=== PATIENT | female | born 1950 | race Caucasian/White ===

== ENCOUNTER → 2017-09-22 08:27 | Outpatient (CLI) | payer MEDICARE, SELFPAY ==
[2017-09-22 10:51] LABS: AST(SGOT) 17 U/L (15-37); Alanine Aminotransfer ALT/SGPT 16 U/L (13-56); Albumin, Serum 3.6 g/dL (3.2-5.0); Alkaline Phosphatase 77 U/L (45-117); Anion Gap 9 (5-15); BUN 11 mg/dL (7-18); BUN/Creat Ratio 17.7 RATIO (10-20); Bilirubin, Direct 0.07 mg/dL (0.00-0.30); Calcium,Total 8.8 mg/dL (8.5-10.1); Chloride 103 mmol/L (98-107); Cholesterol 150 mg/dL (200); Creatinine, Serum 0.62 mg/dL (0.55-1.02); EST Glomerular Filtration Rate 102 mL/min (>60); Est Glom Filt Rate - Afr Amer 123 mL/min (>60); Globulin 3.7 g/dL (2.2-4.2); Glucose 91 mg/dL (74-106); High Density Lipoprotein 53 mg/dL; Potassium 3.8 mmol/L (3.5-5.1); Protein, Total 7.3 g/dL (6.4-8.2); Sodium Level 141 mmol/L (136-145); Thyroid Stim Hormone (TSH) 7.82 uIU/mL (0.358-3.74); Triglycerides 97 mg/dL; Very Low Density Lipoprotein 19 mg/dL (5-40)
== END ==
PROVIDERS: Family Provider Family Medicine; PCP Family Medicine; Visit Provider Family Medicine
DX: E11.9 Type 2 diabetes mellitus without complications (principal); E03.9 Hypothyroidism, unspecified
CPT/HCPCS: 36415; 80048; 80061; 80076; 84443

== ENCOUNTER → 2018-01-13 09:28 | Outpatient (CLI) | payer MEDICARE, SELFPAY ==
[2018-01-13 12:32] LABS: Hemoglobin A1c 7.4 % (4.2-6.3)
[2018-01-13 12:37] LABS: Anion Gap 7 (5-15); BUN 15 mg/dL (7-18); BUN/Creat Ratio 20.2 RATIO (10-20); Calcium,Total 9.4 mg/dL (8.5-10.1); Chloride 103 mmol/L (98-107); Creatinine, Serum 0.74 mg/dL (0.55-1.02); EST Glomerular Filtration Rate 83 mL/min (>60); Est Glom Filt Rate - Afr Amer 100 mL/min (>60); Glucose 93 mg/dL (74-106); Potassium 4.3 mmol/L (3.5-5.1); Sodium Level 141 mmol/L (136-145); Thyroid Stim Hormone (TSH) 0.14 uIU/mL (0.358-3.74)
== END ==
PROVIDERS: Family Provider Family Medicine; PCP Family Medicine; Visit Provider Family Medicine
DX: E11.9 Type 2 diabetes mellitus without complications (principal); E03.9 Hypothyroidism, unspecified
CPT/HCPCS: 36415; 80048; 83036; 84443

== ENCOUNTER 2018-05-30 08:57 | Inpatient (IN) | payer MEDICARE, SELFPAY ==
[2018-05-30] VITALS (12 sets, daily range): BP systolic 104–129; BP diastolic 51–76; PULSE 78–112; RESP 16–20; TEMP 36.7–37.1; O2SAT 94–97; BMI 27.3; BMI 26.4
--- NOTE | 2018-05-30 09:08 | EKG12_ITS ---
Test Reason : Blood Pressure : / mmHG Vent. Rate : 104 BPM Atrial Rate : 104 BPM P-R Int : 120 ms QRS Dur : 076 ms QT Int : 498 ms P-R-T Axes : 050 069 079 degrees QTc Int : 654 ms Sinus tachycardia Nonspecific T wave abnormality Prolonged QT Abnormal ECG Confirmed by FILI EASLEY, BRAYAN ([id number]), features editor THOMAS MCFARLANE ([id number]) on 06/02/2018 2:41:01 PM Referred By: Sanya Justin Confirmed By:BRAYAN PENN MD
--- NOTE | 2018-05-30 09:08 | RAD_ITS ---
STUDY: X-RAY CHEST REASON FOR EXAM: Female, 67 years old. Shortness of breath. Left-sided chest pain. COPD. TECHNIQUE: Single AP portable view of the chest. COMPARISON: Comparison is made with prior study dated February 23, 2016. FINDINGS: Hyperinflation. Once again, there is evidence of increased interstitial markings in both lungs worse in the lower lobes with areas of confluence. This is suggestive of chronic interstitial scarring. Since prior study, there has been a progression of increased markings with areas of confluence in the left midlung. Superimposed infiltration cannot be ruled out. Follow-up is recommended. There is no demonstrated pleural abnormality. Normal size heart. Normal mediastinum and mathew. Normal visualized pulmonary arteries. There is atherosclerotic calcification of the aortic arch with tortuosity. Normal visualized thoracic spine. Normal visualized ribs, clavicles, and shoulders. There is no demonstrated abnormality of the visualized soft tissue structures of the upper abdomen. RAD/Chest 1 View (Portable) IMPRESSION: Hyperinflation. Findings suggestive of a chronic pulmonary scarring with increased markings in the left mid lung suggestive of possible superimposed infiltrate. Follow-up is recommended. Electronically Signed: Ashvin Rodriguez MD at 9:32 EST Tel [phone], Service support ,
[2018-05-30] MEDS: Albuterol 2.5 MG/3 ML VIAL.NEB. INHALATION ×3 (09:37)
[2018-05-30] MEDS: Ipratropium/Albuterol Sulfate 3 ML AMPUL.NEB INHALATION ×2 (09:37→15:01)
[2018-05-30 09:43] LABS: Basophil# 0.03 X10^3/uL; Eosinophil# 0.07 X10^3/uL; Hematocrit 36.5 % (37-47); Hemoglobin 11.9 g/dl (12.0-15.0); Lymphocyte # 0.66 X10^3/ul (4.0); Mean Corp Hgb Conc 32.6 g/gl (32-36); Mean Corpuscular Hgb 30.4 pg (27.0-32.0); Mean Corpuscular Volume 93.1 fL (81-99); Mean Platelet Vol. 9.3 fl (6.2-12.0); Monocyte# 0.82 X10^3/uL; Neutrophil # 12.58 X10^3/uL (2.7-7.7); Platelet Count 251 K/mm3 (150-450); RBC Distribution Width CV 12.8 % (11.6-14.6); RBC Distribution Width SD 42.7 fl (35.1-43.9); Red Blood Count 3.92 M/mm3 (4.2-5.4); White Blood Count 14.2 K/mm3 (4.4-11.0)
[2018-05-30] MEDS: MethylPREDNISolone 125 MG/2 ML Vial IV (09:45)
[2018-05-30] MEDS: 0.9% Normal Saline 1,000 ML 150 ML IV (09:45)
[2018-05-30 09:47] LABS: Differential Indicated SCAN CRITERIA MET; POSITIVE COUNT NO; POSITIVE DIFFERENTIAL NO; POSITIVE MORPHOLOGY YES
[2018-05-30 09:52] LABS: BUN 13 mg/dL (7-18); Creatinine, Serum 0.71 mg/dL (0.55-1.02); Glucose 150 mg/dL (74-106)
[2018-05-30 09:53] LABS: Anion Gap 10 (5-15); BUN/Creat Ratio 18.3 RATIO (10-20); Calcium,Total 8.9 mg/dL (8.5-10.1); Chloride 99 mmol/L (98-107); EST Glomerular Filtration Rate 87 mL/min (>60); Est Glom Filt Rate - Afr Amer 105 mL/min (>60); Estimated Creatinine Clearance 49.12 ml/min; Potassium 3.6 mmol/L (3.5-5.1); Sodium Level 137 mmol/L (136-145)
[2018-05-30 09:56] LABS: Lymphocyte 5 % (19-41); Monocyte 2 % (0-10); Neutrophil-Band 2 % (0-5); Neutrophil-Segmented 89 % (47-70); Plasma Cell 2 %; Platelet Estimate ADEQUATE (ADEQ); Red Cell Morphology NORM C+C NORMAL (NORM C&C); Total Cells Counted 100 (MANUAL DIFF)
[2018-05-30 09:58] LABS: Absolute Neutrophil Count 12.9 X10^3/uL (2.0-7.7); Scan Smear per Review Criteria MANUAL DIFF
[2018-05-30 09:59] LABS: Absolute Lymphocyte Count 0.71 X10^3/ul (0.83-4.51)
[2018-05-30 10:03] LABS: Lactic Acid 1.1 mmol/L (0.4-2.0)
[2018-05-30] MEDS: Ceftriaxone 1 GM/50 ML BAG IV (10:13)
[2018-05-30] MEDS: fentaNYL 100 MCG/2 ML Ampul 50 MCG IV (10:24)
[2018-05-30 10:34] LABS: D-Dimer Quantitative (DVT/PE) 1.35 FEU/ug/m (0.27-0.49)
--- NOTE | 2018-05-30 10:34 | CT_ITS ---
STUDY: CTA CHEST REASON FOR EXAM: Female, 67 years old. Chest pain. COPD. Elevated d-dimer. RADIATION DOSAGE (If Supplied By Facility): CTDIvol = ( 6.91 ) mGy, DLP = ( 273.38 ) mGycm TECHNIQUE: The examination was performed with the intravenous administration of 100ml ml of Isovue 370 contrast material. Post-processing of the angiographic images was performed, with multiplanar reformation and 3D reconstruction. Individualized dose optimization techniques were used for this CT. COMPARISON: Comparison is made with prior chest radiograph done earlier in the day. FINDINGS: Normal enhancement of the main pulmonary artery and right and left pulmonary arteries. Normal enhancement of the bilateral peripheral pulmonary arteries. There is no demonstrated pulmonary embolism. There is atherosclerotic calcification of the aortic arch with tortuosity. There is no demonstrated aortic dissection. Normal heart and pericardium. There are visualized mediastinal lymph nodes, which are within normal size limits, and with normal morphology. Small bilateral hilar lymph nodes. Normal visualized trachea and bronchi. Hyperinflation. Diffuse emphysematous changes with cystic formation worse in the upper lobes. Irregular infiltrate in the anterior aspect of the left upper lobe with areas of bronchiectasis suggestive of a chronic scarring. Mild increased markings along the posterior aspect of the left upper lobe abutting the left major fissure suggesting scarring. This also evidence of a bronchiectasis at that site. Increased interstitial markings in the lower lobes worse in the posterior medial segment of the left lower lobe with bronchiectasis. Normal pleura. Normal chest wall structures. There are degenerative changes of thoracic spine. Normal visualized upper abdomen. CT/CTA Chest W/WO Contrast IMPRESSION: Diffuse emphysematous changes with areas of focal scarring and bronchiectasis in the anterior left upper lobe and posterior segment of the left lower lobe. Electronically Signed: Ashvin Rodriguez MD at 11:38 EST Tel [phone], Service support ,
--- NOTE | 2018-05-30 10:37 | ED.RN ---
ddimer 1.[address] lab. dr butt aware
--- NOTE | 2018-05-30 12:13 | NURSING ---
DR MAT BOWER
--- NOTE | 2018-05-30 12:22 | ED.VISSUMM ---
- ER Visit Summary Date of Service: 05/30/18 Chief Complaint: ['s of breath] History of Present Illness: The patient is a 67 F [presents to the emergency department complaint of shortness of breath that started 2 weeks ago. Patient's had a productive cough that is green yellow and brown at times. Patient complained of exertional dyspnea. She has not had any fever. Patient complains of a lot of discomfort in her left chest with breathing and cough. Patient denies recent travel or surgery. Patient does have a history of COPD and normally wears 2 L nasal cannula O2. Patient denies any sick contacts.] Physical Examination: [HEENT-PERRLA, EOMI. Cranial nerves II through XII grossly intact. TMs clear. Mucous membranes moist. No adenopathy. Cardiovascular-regular rate and rhythm without murmur or ectopy Lungs-diminished breath sounds bilaterally with expiratory wheezes throughout. Mild tachypnea. No accessory muscle use or retractions. No significant conversational dyspnea. Abdomen-normoactive bowel sounds, soft, nontender, no rebound or rigidity, no peritoneal signs. Extremities-intact ?4, normal range of motion, normal pulses, atraumatic] Test Results: [EKG obtained arrival shows sinus tachycardia with a ventricular rate of 104 bpm with some nonspecific ST changes. CBC with differential showed a white count of 14.2, hemoglobin 11.9, hematocrit 36, platelets 251. Chemistries unremarkable. D-dimer was elevated at over 1.5 therefore a CTA of the chest was obtained which showed no evidence for PE or dissection. She had COPD-like changes and bronchiectasis.] Emergency Department Course and Treatment: [Patient was started on DuoNeb aerosol and Solu-Medrol. Patient was started on Rocephin and Zithromax. Blood cultures were ordered.] Treatment Plan: [Patient will be admitted] Disposition: [Admit] Impression: [Community acquired pneumonia COPD exacerbation] This note was generated with Chinese Online dictation software. It may contain incorrect words, spelling, and punctuation that were not noted in review of the chart prior to signing ED Disposition - Plan for ED Patient: Chief Complaint: Shortness of Breath Referrals: Parish Christianson MD [Primary Care Provider] -
[2018-05-30 13:50] LABS: Bedside Glucose 244 mg/dL (70-110)
[2018-05-30] MEDS: Insulin Lispro 100 UNIT/ML INSULN.PEN SQ ×2 (15:27→22:17)
[2018-05-30 15:36] LABS: Bedside Glucose 328 mg/dL (70-110)
--- NOTE | 2018-05-30 16:01 | PCM.HP.STD ---
Problem List (1) COPD with acute exacerbation Status: Chronic (2) SIRS (systemic inflammatory response syndrome) Status: Acute History of Present Illness Date of Admission: 05/30/18 Chief Complaint: shortness of breath. The patient is a 67 year old F resents with progressive increasing shortness of breath. Patient has short of breath and coughing. Patient has been coughing up some phlegm. Patient does have similar symptoms similar to prior episodes of exacerbation of her COPD. So patient decided come to the emergency room and had a CAT scan of her chest that showed some cortical bronchiectasis. In the emergency room, patient received aerosols, Solu-Medrol and antibiotics. No segment change in her status at this point in time. [] Past Medical History Past Medical History (Chronic Problems): Chronic Problems COPD with acute exacerbation (Chronic) Chronic obstructive lung disease (Chronic) DM type 2 (diabetes mellitus, type 2) (Chronic) Tobacco user (Chronic) Trigeminal nerve disorder (Chronic) Rheumatoid arthritis (Chronic) diagnosed by Dr. Jennings Chronic respiratory failure with hypoxia (Chronic) Allergies morphine Allergy (Verified 05/30/18 08:58) Anaphylaxis Penicillins Allergy (Verified 05/30/18 08:58) Rash codeine Adverse Reaction (Severe, Verified 05/30/18 08:58) Other TACHYCARDIA bupropion [From Wellbutrin] Adverse Reaction (Verified 05/30/18 08:58) Other TREMOR erythromycin base [Erythromycin Base] Adverse Reaction (Verified 05/30/18 08:58) Upset Stomach Home Medications: Ambulatory Orders Medication Instructions Recorded Cholecalciferol (Vitamin D3) 1,000 unit PO DAILY 01/15/14 [Vitamin D3] Fluticasone 0.05% [Flonase Nasal 2 spray NASAL DAILY 01/15/14 [place]] Levothyroxine [Synthroid] 125 mcg PO DAILY 01/15/14 Metformin HCl [Glucophage] 1,000 mg PO BIDCM 01/15/14 Montelukast [Singulair] 10 mg PO DAILY 01/15/14 Multivitamins,Therapeutic 1 tablet PO DAILY 01/15/14 [Multivitamin] Potassium Chloride [K-Tab ER] 10 meq PO DAILY 01/15/14 Albuterol Inhaler [Ventolin Hfa] 2 puff INHALATION Q4H PRN PRN #1 02/14/15 inhaler Fluticasone/Salmeterol [Advair Hfa 2 puff INHALATION BID #1 inhaler 02/14/15 230-21 Mcg Inhaler] Tiotropium [place] [Spiriva 18 MCG] 1 puff INHALATION DAILY #1 inhaler 02/14/15 Insulin Aspart [Novolog Flexpen] 0 units SC TIDCM 02/23/16 Clonazepam [Klonopin] 0.5 mg PO Q12H #60 tablet 02/26/16 Ipratropium/Albuterol Sulfate 3 ml INHALATION 4X/DAY #120 02/26/16 [Duoneb] ampul.neb Celecoxib [Celebrex] 200 mg PO DAILY 05/30/18 Insulin Glargine [Lantus (BKC)] 20 units SC DAILY 05/30/18 Surgical History: cholecystectomy, hysterectomy, - - biopsy of a mass between her lungs that was negative, Carpal tunnel release on the left, Leep procedure for an abnormal pap Psychiatric History: No pertinent psych hx DIETARY SERVICES DIRECTOR History: No pertinent DIETARY SERVICES DIRECTOR history Smoking Status: Current every day smoker Tobacco Use: Cigarettes - *Family History Sibling History Items: Heart Disease Maternal History Items: Cancer - mother had breast cancer, Diabetes - in [place] and aunts on the maternal side Paternal History Items: Heart Disease Review of Systems Constitutional: Reports: Chills. Denies: Anorexia, Fever Eyes: Denies: Blurred vision, Double vision HEENT: Denies: Head Aches, Sinus Congestion, Sinus Drainage Cardiovascular: Denies: Chest Pain, Palpitations Respiratory: Reports: Cough, Shortness of Breath, Wheezing Gastrointestinal: Denies: Abdominal Pain, Nausea, Vomiting Genitourinary: Denies: Dysuria Musculoskeletal: Denies: Joint Pain, Joint Tenderness Skin: Reports: Wounds - Does have a burn on her left lateral hand from making a pie, -. Denies: Rash Neurological: Denies: Numbness, Tingling, Focal weakness Psychiatric: Denies: Anxiety, Depression Endocrine: Reports: Change in Body Habitus - Has lost around 15 pounds recently, Heat/ Cold Intolerance Hematologic/ Lymphatic: Denies: Easy Bruising, Easy Bleeding, Hx of blood clot Comment: A 10 point review of systems were negative except as mentioned in the history of present illness and the other review of systems. VTE Information - Inpt Only VTE Present on Admission: No VTE Pharm Prophylaxis ordered?: Yes Patient Problems: Active and Suspected Problems SIRS (systemic inflammatory response syndrome) (Acute) - Physical Exam General: Alert, Cooperative, No apparent distress HEENT: Atraumatic, Normocephalic Oral: Moist Mucosa, - - Whitish exudates on the soft palate and tonsillar recesses. Neck: No Nodes, Thyroid Normal Size and Texture Lungs: Diminished, Wheezes Cardiovascular: Regular rate, Regular Rhythm, Normal S1, Normal S2, No murmurs Abdomen: Bowel Sounds Present, Soft, Non Tender, Non-Distended Extremities: No edema, No Calf Tenderness Skin: No rashes, - - Superficial burn over her dorsal left MTP no surrounding erythema nor discharge Musculoskeletal: No Tenderness to Palpation of Joints or Extremities, No Muscle Wasting Neurological: Muscle tone normal, Sensory exam intact to light touch and pain Psych/Mental Status: Normal Affect, Appropriate Vital Signs Temp Pulse Resp BP Pulse Ox 37.1 C 88 20 H 108/55 L 95 05/30/18 15:29 05/30/18 15:29 05/30/18 15:29 05/30/18 15:29 05/30/18 15:29 Oxygen Flow Rate (L/min) 3 Oxygen Delivery Method Nasal Cannula Weight: 72.12 kg Body Mass Index (BMI) 26.4 Laboratory Tests Past 24 Hrs 05/30/18 05/30/18 05/30/18 09:23 09:23 09:23 WBC 14.2 H RBC 3.92 L Hgb 11.9 L Hct 36.5 L MCV 93.1 MCH 30.4 MCHC 32.6 RDW 12.8 RDW Differential 42.7 Plt Count 251 MPV 9.3 Immature Gran % (Auto) SPECTROGRAPHER Neut % (Auto) SPECTROGRAPHER Lymph % (Auto) SPECTROGRAPHER [place] % (Auto) SPECTROGRAPHER Eos % (Auto) SPECTROGRAPHER Baso % (Auto) SPECTROGRAPHER Absolute Neuts (auto) 12.9 H Absolute Lymphs (auto) 0.71 L Total Counted 100 Neutrophils % (Manual) 89 H Band Neutrophils % 2 Lymphocytes % (Manual) 5 L Monocytes % (Manual) 2 Plasma Cell % (Manual) 2 Platelet Estimate ADEQUATE RBC Morphology NORM C+C D-Dimer Quant (PE/DVT) Sodium 137 Potassium 3.6 Chloride 99 Carbon Dioxide 28.0 Anion Gap 10 BUN 13 Creatinine 0.71 Estim Creat Clear Calc 49.12 Est GFR (MDRD) Af Amer 105 Est GFR (MDRD) Non-Af 87 BUN/Creatinine Ratio 18.3 Glucose 150 H Lactic Acid 1.1 Calcium 8.9 Troponin I < 0.015 05/30/18 09:23 WBC RBC Hgb Hct MCV MCH MCHC RDW RDW Differential Plt Count MPV Immature Gran % (Auto) Neut % (Auto) Lymph % (Auto) [place] % (Auto) Eos % (Auto) Baso % (Auto) Absolute Neuts (auto) Absolute Lymphs (auto) Total Counted Neutrophils % (Manual) Band Neutrophils % Lymphocytes % (Manual) Monocytes % (Manual) Plasma Cell % (Manual) Platelet Estimate RBC Morphology D-Dimer Quant (PE/DVT) 1.35 H* Sodium Potassium Chloride Carbon Dioxide Anion Gap BUN Creatinine Estim Creat Clear Calc Est GFR (MDRD) Af Amer Est GFR (MDRD) Non-Af BUN/Creatinine Ratio Glucose Lactic Acid Calcium Troponin I POC Glucose 05/30/18 05/30/18 15:25 13:40 POC Glucose 328 H 244 H Clinical Impression(s) from Imaging Studies Chest X-Ray 05/30/18 09:08 IMPRESSION: Hyperinflation. Findings suggestive of a chronic pulmonary scarring with increased markings in the left mid lung suggestive of possible superimposed infiltrate. Follow-up is recommended. Electronically Signed: Ashvin Rodriguez MD at 9:32 EST Tel [phone], Service support , Chest CTA 05/30/18 10:34 IMPRESSION: Diffuse emphysematous changes with areas of focal scarring and bronchiectasis in the anterior left upper lobe and posterior segment of the left lower lobe. Electronically Signed: Ashvin Rodriguez MD at 11:38 EST Tel [phone], Service support , Assessment/Plan All Active Problems SIRS (systemic inflammatory response syndrome) (Acute) Acute exacerbation of chronic obstructive pulmonary disease (Acute) 1. Acute exacerbation of COPD Steroids, bronchodilators If no improvement, consult pulmonology. Patient's home grounding engineer is Dr. Salcedo 2. Systemic inflammatory response syndrome No definitive infection at this time Follow-up cultures as well as antigens for Streptococcus and Legionella Continue with coverage for pneumococcal pneumonia with azithromycin and Rocephin at this time. Respiratory viral panel also ordered 3. DVT prophylaxis with Lovenox Tobacco cessation. Spent 50 minutes discussing tobacco cessation with the patient and her . This is outside of the physical. Discussed the risk of further worsening of her COPD but if she were to stop, that she would hopefully prevent progression of her COPD. Did advise for her to quit smoking that her should quit as well. She stated that he has no interest in quitting since he has been smoking since he was 12 years old. Code Visit Inpatient E&M: 73070 Init Hosp L3 Procedures: Other Procedure - See Report - 75529
--- NOTE | 2018-05-30 16:05 | HP.PCM_ITS ---
Problem List (1) COPD with acute exacerbation Status: Chronic (2) SIRS (systemic inflammatory response syndrome) Status: Acute History of Present Illness Date of Admission: 05/30/18 Chief Complaint: shortness of breath. The patient is a 67 year old F resents with progressive increasing shortness of breath. Patient has short of breath and coughing. Patient has been coughing up some phlegm. Patient does have similar symptoms similar to prior episodes of exacerbation of her COPD. So patient decided come to the emergency room and had a CAT scan of her chest that showed some cortical bronchiectasis. In the emergency room, patient received aerosols, Solu-Medrol and antibiotics. No segment change in her status at this point in time. [] Past Medical History Past Medical History (Chronic Problems): Chronic Problems COPD with acute exacerbation (Chronic) Chronic obstructive lung disease (Chronic) DM type 2 (diabetes mellitus, type 2) (Chronic) Tobacco user (Chronic) Trigeminal nerve disorder (Chronic) Rheumatoid arthritis (Chronic) diagnosed by Dr. Jennings Chronic respiratory failure with hypoxia (Chronic) Allergies morphine Allergy (Verified 05/30/18 08:58) Anaphylaxis Penicillins Allergy (Verified 05/30/18 08:58) Rash codeine Adverse Reaction (Severe, Verified 05/30/18 08:58) Other TACHYCARDIA bupropion [From Wellbutrin] Adverse Reaction (Verified 05/30/18 08:58) Other TREMOR erythromycin base [Erythromycin Base] Adverse Reaction (Verified 05/30/18 08:58) Upset Stomach Home Medications: Ambulatory Orders Medication Instructions Recorded Cholecalciferol (Vitamin D3) 1,000 unit PO DAILY 01/15/14 [Vitamin D3] Fluticasone 0.05% [Flonase Nasal 2 spray NASAL DAILY 01/15/14 [place]] Levothyroxine [Synthroid] 125 mcg PO DAILY 01/15/14 Metformin HCl [Glucophage] 1,000 mg PO BIDCM 01/15/14 Montelukast [Singulair] 10 mg PO DAILY 01/15/14 Multivitamins,Therapeutic 1 tablet PO DAILY 01/15/14 [Multivitamin] Potassium Chloride [K-Tab ER] 10 meq PO DAILY 01/15/14 Albuterol Inhaler [Ventolin Hfa] 2 puff INHALATION Q4H PRN PRN #1 02/14/15 inhaler Fluticasone/Salmeterol [Advair Hfa 2 puff INHALATION BID #1 inhaler 02/14/15 230-21 Mcg Inhaler] Tiotropium [place] [Spiriva 18 MCG] 1 puff INHALATION DAILY #1 inhaler 02/14/15 Insulin Aspart [Novolog Flexpen] 0 units SC TIDCM 02/23/16 Clonazepam [Klonopin] 0.5 mg PO Q12H #60 tablet 02/26/16 Ipratropium/Albuterol Sulfate 3 ml INHALATION 4X/DAY #120 02/26/16 [Duoneb] ampul.neb Celecoxib [Celebrex] 200 mg PO DAILY 05/30/18 Insulin Glargine [Lantus (BKC)] 20 units SC DAILY 05/30/18 Surgical History: cholecystectomy, hysterectomy, - - biopsy of a mass between her lungs that was negative, Carpal tunnel release on the left, Leep procedure for an abnormal pap Psychiatric History: No pertinent psych hx 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 Denies: Anorexia, Fever Eyes: Denies: Blurred vision, Double vision HEENT: Denies: Head Aches, Sinus Congestion, Sinus Drainage Cardiovascular: Denies: Chest Pain, Palpitations Respiratory: Reports: Cough, Shortness of Breath, Wheezing Gastrointestinal: Denies: Abdominal Pain, Nausea, Vomiting Genitourinary: Denies: Dysuria Musculoskeletal: Denies: Joint Pain, Joint Tenderness Skin: Reports: Wounds - Does have a burn on her left lateral hand from making a pie, -. Denies: Rash Neurological: Denies: Numbness, Tingling, Focal weakness Psychiatric: Denies: Anxiety, Depression Endocrine: Reports: Change in Body Habitus - Has lost around 15 pounds recently, Heat/ Cold Intolerance Hematologic/ Lymphatic: Denies: Easy Bruising, Easy Bleeding, Hx of blood clot Comment: A 10 point review of systems were negative except as mentioned in the history of present illness and the other review of systems. VTE Information - Inpt Only VTE Present on Admission: No VTE Pharm Prophylaxis ordered?: Yes Patient Problems: Active and Suspected Problems SIRS (systemic inflammatory response syndrome) (Acute) - Physical Exam General: Alert, Cooperative, No apparent distress HEENT: Atraumatic, Normocephalic Oral: Moist Mucosa, - - Whitish exudates on the soft palate and tonsillar recesses. Neck: No Nodes, Thyroid Normal Size and Texture Lungs: Diminished, Wheezes Cardiovascular: Regular rate, Regular Rhythm, Normal S1, Normal S2, No murmurs Abdomen: Bowel Sounds Present, Soft, Non Tender, Non-Distended Extremities: No edema, No Calf Tenderness Skin: No rashes, - - Superficial burn over her dorsal left MTP no surrounding erythema nor discharge Musculoskeletal: No Tenderness to Palpation of Joints or Extremities, No Muscle Wasting Neurological: Muscle tone normal, Sensory exam intact to light touch and pain Psych/Mental Status: Normal Affect, Appropriate Vital Signs Temp Pulse Resp BP Pulse Ox 37.1 C 88 20 H 108/55 L 95 05/30/18 15:29 05/30/18 15:29 05/30/18 15:29 05/30/18 15:29 05/30/18 15:29 Oxygen Flow Rate (L/min) 3 Oxygen Delivery Method Nasal Cannula Weight: 72.12 kg Body Mass Index (BMI) 26.4 Laboratory Tests Past 24 Hrs 05/30/18 05/30/18 05/30/18 09:23 09:23 09:23 WBC 14.2 H RBC 3.92 L Hgb 11.9 L Hct 36.5 L MCV 93.1 MCH 30.4 MCHC 32.6 RDW 12.8 RDW Differential 42.7 Plt Count 251 MPV 9.3 Immature Gran % (Auto) SURGICAL DRESSING MAKER Neut % (Auto) SURGICAL DRESSING MAKER Lymph % (Auto) SURGICAL DRESSING MAKER [place] % (Auto) SURGICAL DRESSING MAKER Eos % (Auto) SURGICAL DRESSING MAKER Baso % (Auto) SURGICAL DRESSING MAKER Absolute Neuts (auto) 12.9 H Absolute Lymphs (auto) 0.71 L Total Counted 100 Neutrophils % (Manual) 89 H Band Neutrophils % 2 Lymphocytes % (Manual) 5 L Monocytes % (Manual) 2 Plasma Cell % (Manual) 2 Platelet Estimate ADEQUATE RBC Morphology NORM C+C D-Dimer Quant (PE/DVT) Sodium 137 Potassium 3.6 Chloride 99 Carbon Dioxide 28.0 Anion Gap 10 BUN 13 Creatinine 0.71 Estim Creat Clear Calc 49.12 Est GFR (MDRD) Af Amer 105 Est GFR (MDRD) Non-Af 87 BUN/Creatinine Ratio 18.3 Glucose 150 H Lactic Acid 1.1 Calcium 8.9 Troponin I < 0.015 05/30/18 09:23 WBC RBC Hgb Hct MCV MCH MCHC RDW RDW Differential Plt Count MPV Immature Gran % (Auto) Neut % (Auto) Lymph % (Auto) [place] % (Auto) Eos % (Auto) Baso % (Auto) Absolute Neuts (auto) Absolute Lymphs (auto) Total Counted Neutrophils % (Manual) Band Neutrophils % Lymphocytes % (Manual) Monocytes % (Manual) Plasma Cell % (Manual) Platelet Estimate RBC Morphology D-Dimer Quant (PE/DVT) 1.35 H* Sodium Potassium Chloride Carbon Dioxide Anion Gap BUN Creatinine Estim Creat Clear Calc Est GFR (MDRD) Af Amer Est GFR (MDRD) Non-Af BUN/Creatinine Ratio Glucose Lactic Acid Calcium Troponin I POC Glucose 05/30/18 05/30/18 15:25 13:40 POC Glucose 328 H 244 H Clinical Impression(s) from Imaging Studies Chest X-Ray 05/30/18 09:08 IMPRESSION: Hyperinflation. Findings suggestive of a chronic pulmonary scarring with increased markings in the left mid lung suggestive of possible superimposed infiltrate. Follow-up is recommended. Electronically Signed: Ashvin Rodriguez MD at 9:32 EST Tel [phone], Service support , Chest CTA 05/30/18 10:34 IMPRESSION: Diffuse emphysematous changes with areas of focal scarring and bronchiectasis in the anterior left upper lobe and posterior segment of the left lower lobe. Electronically Signed: Ashvin Rodriguez MD at 11:38 EST Tel [phone], Service support , Assessment/Plan All Active Problems SIRS (systemic inflammatory response syndrome) (Acute) Acute exacerbation of chronic obstructive pulmonary disease (Acute) 1. Acute exacerbation of COPD * Steroids, bronchodilators * If no improvement, consult pulmonology. Patient's home airport shuttle driver is Dr. Salcedo 2. Systemic inflammatory response syndrome * No definitive infection at this time * Follow-up cultures as well as antigens for Streptococcus and Legionella * Continue with coverage for pneumococcal pneumonia with azithromycin and Rocephin at this time. * Respiratory viral panel also ordered 3. DVT prophylaxis with Lovenox Tobacco cessation. Spent 50 minutes discussing tobacco cessation with the patient and her . This is outside of the physical. Discussed the risk of further worsening of her COPD but if she were to stop, that she would hopefully prevent progression of her COPD. Did advise for her to quit smoking that her should quit as well. She stated that he has no interest in quitting since he has been smoking since he was 12 years old. Code Visit Inpatient E&M: 84851 Init Hosp L3 Procedures: Other Procedure - See Report - [id number]
[2018-05-30] MEDS: Glucerna Shake 120 ML LIQUID PO (17:06)
[2018-05-30] MEDS: Acetaminophen 325 MG Tablet 650 MG PO (18:22)
[2018-05-30] MEDS: Pantoprazole Sodium 40 MG Tablet PO (21:42)
[2018-05-30] MEDS: guaiFENesin 1,200 MG Tablet 1200 MG PO (21:42)
[2018-05-30 21:55] LABS: Bedside Glucose 393 mg/dL (70-110)
[2018-05-31] VITALS (11 sets, daily range): BP systolic 99–118; BP diastolic 53–58; PULSE 51–94; RESP 16–20; TEMP 36.4–36.7; O2SAT 94–98
[2018-05-31] MEDS: clonazePAM 0.5 MG Tablet PO ×2 (01:42→22:06)
[2018-05-31] MEDS: Acetaminophen 325 MG Tablet 650 MG PO ×3 (01:42→22:06)
[2018-05-31] MEDS: Ipratropium/Albuterol Sulfate 3 ML AMPUL.NEB INHALATION ×6 (02:00→22:38)
[2018-05-31 06:00] LABS: Absolute Lymphocyte Count 0.74 X10^3/ul (0.83-4.51); Absolute Neutrophil Count 8.7 X10^3/uL (2.0-7.7); Basophil# 0.01 X10^3/uL; Basophil% 0.1 % (0-1); Hematocrit 33.1 % (37-47); Hemoglobin 10.6 g/dl (12.0-15.0); Lymphocyte # 0.74 X10^3/ul (4.0); Lymphocyte % 7.6 % (19-41); Mean Corpuscular Hgb 29.7 pg (27.0-32.0); Mean Corpuscular Volume 92.7 fL (81-99); Mean Platelet Vol. 9.8 fl (6.2-12.0); Monocyte# 0.32 X10^3/uL; Monocyte% 3.3 % (0-10); Neutrophil # 8.67 X10^3/uL (2.7-7.7); Neutrophil % 88.5 % (47-70); Platelet Count 230 K/mm3 (150-450); RBC Distribution Width CV 12.9 % (11.6-14.6); Red Blood Count 3.57 M/mm3 (4.2-5.4); White Blood Count 9.8 K/mm3 (4.4-11.0)
[2018-05-31 06:07] LABS: POSITIVE COUNT NO; POSITIVE DIFFERENTIAL NO; POSITIVE MORPHOLOGY NO
[2018-05-31] MEDS: Levothyroxine 125 MCG Tablet PO (06:12)
[2018-05-31] MEDS: 0.9% NaCl Peripheral Flush Adult/Peds IV ×4 (06:13→22:14)
[2018-05-31 06:18] LABS: Anion Gap 9 (5-15); BUN 19 mg/dL (7-18); BUN/Creat Ratio 29.2 RATIO (10-20); Calcium,Total 8.4 mg/dL (8.5-10.1); Chloride 101 mmol/L (98-107); Creatinine, Serum 0.65 mg/dL (0.55-1.02); EST Glomerular Filtration Rate 97 mL/min (>60); Est Glom Filt Rate - Afr Amer 117 mL/min (>60); Estimated Creatinine Clearance 49.12 ml/min; Glucose 248 mg/dL (74-106); Potassium 4.2 mmol/L (3.5-5.1); Sodium Level 138 mmol/L (136-145)
[2018-05-31] MEDS: Pantoprazole Sodium 40 MG Tablet PO ×2 (07:46→22:06)
[2018-05-31] MEDS: Montelukast 10 MG Tablet PO (07:46)
[2018-05-31] MEDS: guaiFENesin 1,200 MG Tablet 1200 MG PO ×2 (07:47→22:06)
[2018-05-31] MEDS: Multivitamins,Therapeutic Tablet 1 TABLET PO (07:47)
[2018-05-31] MEDS: Fluticasone 0.05% 1 SPRAY NASAL.SRY 2 SPRAY NASAL (07:49)
[2018-05-31] MEDS: Glucerna Shake 120 ML LIQUID PO ×3 (07:52→16:20)
[2018-05-31] MEDS: Insulin Lispro 100 UNIT/ML INSULN.PEN SQ ×4 (07:53→22:08)
[2018-05-31 08:01] LABS: Bedside Glucose 289 mg/dL (70-110)
--- NOTE | 2018-05-31 09:14 | PCM.PN.HOSP ---
Patient Problems: Active and Suspected Problems COPD with acute exacerbation (Acute) SIRS (systemic inflammatory response syndrome) (Acute) Subjective: Feeling better. Still coughing coughing up yellow phlegm. Vitals/I&O's: Vital Signs Temp Pulse Resp BP Pulse Ox 36.4 C L 77 18 105/57 L 98 05/31/18 07:41 05/31/18 07:41 05/31/18 07:41 05/31/18 07:41 05/31/18 07:41 Oxygen Flow Rate (L/min) 3 Oxygen Delivery Method Nasal Cannula Weight: 72.12 kg Body Mass Index (BMI) 26.4 Intake and Output for Last 24 Hours 05/29/18 05/30/18 05/31/18 23:59 23:59 23:59 Intake Total 550 / 550 240 / 240 Output Total 400 / 400 Balance 150 / 150 240 / 240 General: Alert, No apparent distress HEENT: Atraumatic, Normocephalic Oral: Moist Mucosa, No Gingival or Mucosal Lesions/ Ulcerations Neck: No Nodes, Thyroid Normal Size and Texture Lungs: Diminished, Wheezes Cardiovascular: Regular rate, Regular Rhythm, Normal S1, Normal S2, No murmurs Abdomen: Bowel Sounds Present, Soft, Non Tender, Non-Distended, No Hepato-splenomegaly Extremities: No edema, No Calf Tenderness Skin: No rashes, No breakdown Psych/Mental Status: Normal Affect, Appropriate Microbiology Past 72 Hours 05/30/18 15:15 Sputum, Expectorated/Coughed Gram Stain - Final 05/30/18 15:00 Mucosa - Nose Respiratory Panel (PCR) - Final 05/30/18 17:45 Urine, Clean Catch Legionella Antigen - Final 05/30/18 17:45 Urine, Clean Catch Streptococcus pneumoniae Antigen (M - Final Laboratory Results 05/30/18 09:23: WBC 14.2 H, RBC 3.92 L, Hgb 11.9 L, Hct 36.5 L, MCV 93.1, MCH 30.4, MCHC 32.6, RDW 12.8, RDW Differential 42.7, Plt Count 251, MPV 9.3, Immature Gran % (Auto) PROMOTIONS MANAGER, Neut % (Auto) PROMOTIONS MANAGER, Lymph % (Auto) PROMOTIONS MANAGER, [place] % (Auto) PROMOTIONS MANAGER, Eos % (Auto) PROMOTIONS MANAGER, Baso % (Auto) PROMOTIONS MANAGER, Absolute Neuts (auto) 12.9 H, Absolute Lymphs (auto) 0.71 L, Total Counted 100, Neutrophils % (Manual) 89 H, Band Neutrophils % 2, Lymphocytes % (Manual) 5 L, Monocytes % (Manual) 2, Plasma Cell % (Manual) 2, Platelet Estimate ADEQUATE, RBC Morphology NORM C+C 05/30/18 09:23: Sodium 137, Potassium 3.6, Chloride 99, Carbon Dioxide 28.0, Anion Gap 10, BUN 13, Creatinine 0.71, Estim Creat Clear Calc 49.12, Est GFR (MDRD) Af Amer 105, Est GFR (MDRD) Non-Af 87, BUN/Creatinine Ratio 18.3, Glucose 150 H, Calcium 8.9, Troponin I < 0.015 05/30/18 09:23: Lactic Acid 1.1 05/30/18 09:23: D-Dimer Quant (PE/DVT) 1.35 H* 05/30/18 13:40: POC Glucose 244 H 05/30/18 15:25: POC Glucose 328 H 05/30/18 21:40: POC Glucose 393 H 05/31/18 05:16: WBC 9.8, RBC 3.57 L, Hgb 10.6 L, Hct 33.1 L, MCV 92.7, MCH 29.7, MCHC 32.0, RDW 12.9, RDW Differential 44.0 H, Plt Count 230, MPV 9.8, Immature Gran % (Auto) 0.500, Neut % (Auto) 88.5 H, Lymph % (Auto) 7.6 L, [place] % (Auto) 3.3, Eos % (Auto) 0.0, Baso % (Auto) 0.1, Absolute Neuts (auto) 8.7 H, Absolute Lymphs (auto) 0.74 L, Total Counted Not Reportable 05/31/18 05:16: Sodium 138, Potassium 4.2, Chloride 101, Carbon Dioxide 28.0, Anion Gap 9, BUN 19 H, Creatinine 0.65, Estim Creat Clear Calc 49.12, Est GFR (MDRD) Af Amer 117, Est GFR (MDRD) Non-Af 97, BUN/Creatinine Ratio 29.2 H, Glucose 248 H, Calcium 8.4 L 05/31/18 07:37: POC Glucose 289 H Current Medications Acetaminophen (Tylenol) 650 mg PO Q6H PRN PRN PRN Reason: Mild Pain (1-3)/Temp > 100.7 F Last Admin: 05/31/18 01:42 Dose: 650 mg Albuterol Sulfate (Ventolin Aerosols) 2.5 mg INHALATION Q2H PRN PRN PRN Reason: SHORTNESS OF BREATH Albuterol/Ipratropium (Duoneb) 3 ml INHALATION Q4H.RT [facility] Last Admin: 05/31/18 07:00 Dose: 3 ml Cholecalciferol (Vitamin D) 1,000 unit PO DAILYCM [facility] Last Admin: 05/31/18 07:46 Dose: 1,000 unit Clonazepam (Klonopin) 0.5 mg PO Q12H PRN PRN Reason: ANXIETY Last Admin: 05/31/18 01:42 Dose: 0.5 mg Dextrose (D50w Syringe) 0 gm IV X1 PRN; Protocol PRN Reason: Hypoglycemia Enoxaparin Sodium (Lovenox) 40 mg SC DAILY@1000 RAMÓN Fluticasone Propionate (Flonase Nasal [place]) 2 spray NASAL DAILY [facility] Last Admin: 05/31/18 07:49 Dose: 2 spray Glucagon () 1 mg IM .X1 PRN PRN Reason: Hypoglycemia Guaifenesin (Mucinex) 1,200 mg PO BID [facility] Last Admin: 05/31/18 07:47 Dose: 1,200 mg Azithromycin 500 mg/ Dextrose 255 mls @ 250 mls/hr IV Q24 [facility] Stop: 06/02/18 11:02 Ceftriaxone Sodium (Rocephin) 1 gm in 50 mls @ 100 mls/hr IV Q24 [facility] Insulin Glargine (Lantus (Bkc)) 20 units SC DAILY [facility] Last Admin: 05/31/18 07:54 Dose: 20 u Insulin Human Lispro (Humalog Kwikpen (Bkc)) 0 unit SQ ACHS [facility]; Protocol Last Admin: 05/31/18 07:53 Dose: 4 units Levothyroxine Sodium (Synthroid) 125 mcg PO DAILY@0600 [facility] Last Admin: 05/31/18 06:12 Dose: 125 mcg Magnesium Hydroxide (Milk Of Magnesia) 30 ml PO DAILY PRN PRN PRN Reason: Constipation Methylprednisolone (Solu-Medrol) 40 mg IV Q8 [facility] Last Admin: 11/14/18 06:12 Dose: 40 mg Montelukast Sodium (Singulair) 10 mg PO DAILY [facility] Last Admin: 05/31/18 07:46 Dose: 10 mg [facility]it[facility] ([facility]) [facility] Last Admin: 05/31/18 07:47 Dose: 1 tablet Nutritional Formula (Lactose Free) (Glucerna Shake) 120 ml PO TIDCM [facility] Last Admin: 05/31/18 07:52 Dose: 120 ml Ondansetron HCl (Zofran) 4 mg IV Q8H PRN PRN PRN Reason: NAUSEA Pantoprazole Sodium (Protonix) 40 mg PO BID [facility] Last Admin: 05/31/18 07:46 Dose: 40 mg Potassium Chloride (K-Dur) 10 meq PO DAILYCM [facility] Last Admin: 05/31/18 07:47 Dose: 10 meq Sodium Chloride () 5 - 30 ml IV UD PRN PRN Reason: SALINE FLUSH Last Admin: 05/31/18 06:13 Dose: 10 ml Medical Necessity - Tobacco Use Smoking Status: Current every day smoker Tobacco Use: Cigarettes Assessment/Plan All Active Problems COPD with acute exacerbation (Acute) SIRS (systemic inflammatory response syndrome) (Acute) Acute exacerbation of chronic obstructive pulmonary disease (Acute) 1. Acute exacerbation of COPD improving Steroids, bronchodilators 2. Systemic inflammatory response syndrome No definitive infection at this time Follow-up cultures as well as antigens for Streptococcus and Legionella Continue with coverage for pneumococcal pneumonia with azithromycin and Rocephin at this time. Respiratory viral panel, Strep and legionella antigens negative 3. DVT prophylaxis with Lovenox 4. Disposition: anticipate another 24-48 hours here in the hospital. Code Visit Inpatient E&M: 10444 Subs Hosp L2
--- NOTE | 2018-05-31 09:17 | PN_ITS ---
Patient Problems: Active and Suspected Problems COPD with acute exacerbation (Acute) SIRS (systemic inflammatory response syndrome) (Acute) Subjective: Feeling better. Still coughing coughing up yellow phlegm. Vitals/I&O's: Vital Signs Temp Pulse Resp BP Pulse Ox 36.4 C L 77 18 105/57 L 98 05/31/18 07:41 05/31/18 07:41 05/31/18 07:41 05/31/18 07:41 05/31/18 07:41 Oxygen Flow Rate (L/min) 3 Oxygen Delivery Method Nasal Cannula Weight: 72.12 kg Body Mass Index (BMI) 26.4 Intake and Output for Last 24 Hours 05/29/18 05/30/18 05/31/18 23:59 23:59 23:59 Intake Total 550 / 550 240 / 240 Output Total 400 / 400 Balance 150 / 150 240 / 240 General: Alert, No apparent distress HEENT: Atraumatic, Normocephalic Oral: Moist Mucosa, No Gingival or Mucosal Lesions/ Ulcerations Neck: No Nodes, Thyroid Normal Size and Texture Lungs: Diminished, Wheezes Cardiovascular: Regular rate, Regular Rhythm, Normal S1, Normal S2, No murmurs Abdomen: Bowel Sounds Present, Soft, Non Tender, Non-Distended, No Hepato- splenomegaly Extremities: No edema, No Calf Tenderness Skin: No rashes, No breakdown Psych/Mental Status: Normal Affect, Appropriate Microbiology Past 72 Hours 05/30/18 15:15 Sputum, Expectorated/Coughed Gram Stain - Final 05/30/18 15:00 Mucosa - Nose Respiratory Panel (PCR) - Final 05/30/18 17:45 Urine, Clean Catch Legionella Antigen - Final 05/30/18 17:45 Urine, Clean Catch Streptococcus pneumoniae Antigen (M - Final Laboratory Results 05/30/18 09:23: WBC 14.2 H, RBC 3.92 L, Hgb 11.9 L, Hct 36.5 L, MCV 93.1, MCH 30.4, MCHC 32.6, RDW 12.8, RDW Differential 42.7, Plt Count 251, MPV 9.3, Immature Gran % (Auto) TRAIN STATION SERVER, Neut % (Auto) TRAIN STATION SERVER, Lymph % (Auto) TRAIN STATION SERVER, [place] % (Auto) TRAIN STATION SERVER, Eos % (Auto) TRAIN STATION SERVER, Baso % (Auto) TRAIN STATION SERVER, Absolute Neuts (auto) 12.9 H, Absolute Lymphs (auto) 0.71 L, Total Counted 100, Neutrophils % (Manual) 89 H, Band Neutrophils % 2, Lymphocytes % (Manual) 5 L, Monocytes % (Manual) 2, Plasma Cell % (Manual) 2, Platelet Estimate ADEQUATE, RBC Morphology NORM C+C 05/30/18 09:23: Sodium 137, Potassium 3.6, Chloride 99, Carbon Dioxide 28.0, Anion Gap 10, BUN 13, Creatinine 0.71, Estim Creat Clear Calc 49.12, Est GFR (MDRD) Af Amer 105, Est GFR (MDRD) Non-Af 87, BUN/Creatinine Ratio 18.3, Glucose 150 H, Calcium 8.9, Troponin I < 0.015 05/30/18 09:23: Lactic Acid 1.1 05/30/18 09:23: D-Dimer Quant (PE/DVT) 1.35 H* 05/30/18 13:40: POC Glucose 244 H 05/30/18 15:25: POC Glucose 328 H 05/30/18 21:40: POC Glucose 393 H 05/31/18 05:16: WBC 9.8, RBC 3.57 L, Hgb 10.6 L, Hct 33.1 L, MCV 92.7, MCH 29.7, MCHC 32.0, RDW 12.9, RDW Differential 44.0 H, Plt Count 230, MPV 9.8, Immature Gran % (Auto) 0.500, Neut % (Auto) 88.5 H, Lymph % (Auto) 7.6 L, [place] % (Auto) 3.3, Eos % (Auto) 0.0, Baso % (Auto) 0.1, Absolute Neuts (auto) 8.7 H, Absolute Lymphs (auto) 0.74 L, Total Counted Not Reportable 05/31/18 05:16: Sodium 138, Potassium 4.2, Chloride 101, Carbon Dioxide 28.0, Anion Gap 9, BUN 19 H, Creatinine 0.65, Estim Creat Clear Calc 49.12, Est GFR (MDRD) Af Amer 117, Est GFR (MDRD) Non-Af 97, BUN/Creatinine Ratio 29.2 H, Glucose 248 H, Calcium 8.4 L 05/31/18 07:37: POC Glucose 289 H Current Medications Acetaminophen (Tylenol) 650 mg PO Q6H PRN PRN PRN Reason: Mild Pain (1-3)/Temp > 100.7 F Last Admin: 05/31/18 01:42 Dose: 650 mg Albuterol Sulfate (Ventolin Aerosols) 2.5 mg INHALATION Q2H PRN PRN PRN Reason: SHORTNESS OF BREATH Albuterol/Ipratropium (Duoneb) 3 ml INHALATION Q4H.RT [facility] Last Admin: 05/31/18 07:00 Dose: 3 ml Cholecalciferol (Vitamin D) 1,000 unit PO DAILYCM [facility] Last Admin: 05/31/18 07:46 Dose: 1,000 unit Clonazepam (Klonopin) 0.5 mg PO Q12H PRN PRN Reason: ANXIETY Last Admin: 05/31/18 01:42 Dose: 0.5 mg Dextrose (D50w Syringe) 0 gm IV X1 PRN; Protocol PRN Reason: Hypoglycemia Enoxaparin Sodium (Lovenox) 40 mg SC DAILY@1000 RAMÓN Fluticasone Propionate (Flonase Nasal [place]) 2 spray NASAL DAILY [facility] Last Admin: 05/31/18 07:49 Dose: 2 spray Glucagon () 1 mg IM .X1 PRN PRN Reason: Hypoglycemia Guaifenesin (Mucinex) 1,200 mg PO BID [facility] Last Admin: 05/31/18 07:47 Dose: 1,200 mg Azithromycin 500 mg/ Dextrose 255 mls @ 250 mls/hr IV Q24 [facility] Stop: 06/02/18 11:02 Ceftriaxone Sodium (Rocephin) 1 gm in 50 mls @ 100 mls/hr IV Q24 [facility] Insulin Glargine (Lantus (Bkc)) 20 units SC DAILY [facility] Last Admin: 05/31/18 07:54 Dose: 20 u Insulin Human Lispro (Humalog Kwikpen (Bkc)) 0 unit SQ ACHS [facility]; Protocol Last Admin: 05/31/18 07:53 Dose: 4 units Levothyroxine Sodium (Synthroid) 125 mcg PO DAILY@0600 [facility] Last Admin: 05/31/18 06:12 Dose: 125 mcg Magnesium Hydroxide (Milk Of Magnesia) 30 ml PO DAILY PRN PRN PRN Reason: Constipation Methylprednisolone (Solu-Medrol) 40 mg IV Q8 [facility] Last Admin: 11/14/18 06:12 Dose: 40 mg Montelukast Sodium (Singulair) 10 mg PO DAILY [facility] Last Admin: 05/31/18 07:46 Dose: 10 mg [facility]ivit[facility] ([facility]amin) [facility] Last Admin: 05/31/18 07:47 Dose: 1 tablet Nutritional Formula (Lactose Free) (Glucerna Shake) 120 ml PO TIDCM [facility] Last Admin: 05/31/18 07:52 Dose: 120 ml Ondansetron HCl (Zofran) 4 mg IV Q8H PRN PRN PRN Reason: NAUSEA Pantoprazole Sodium (Protonix) 40 mg PO BID [facility] Last Admin: 05/31/18 07:46 Dose: 40 mg Potassium Chloride (K-Dur) 10 meq PO DAILYCM [facility] Last Admin: 05/31/18 07:47 Dose: 10 meq Sodium Chloride () 5 - 30 ml IV UD PRN PRN Reason: SALINE FLUSH Last Admin: 05/31/18 06:13 Dose: 10 ml Medical Necessity - Tobacco Use Smoking Status: Current every day smoker Tobacco Use: Cigarettes Assessment/Plan All Active Problems COPD with acute exacerbation (Acute) SIRS (systemic inflammatory response syndrome) (Acute) Acute exacerbation of chronic obstructive pulmonary disease (Acute) 1. Acute exacerbation of COPD * improving * Steroids, bronchodilators 2. Systemic inflammatory response syndrome * No definitive infection at this time * Follow-up cultures as well as antigens for Streptococcus and Legionella * Continue with coverage for pneumococcal pneumonia with azithromycin and Rocephin at this time. * Respiratory viral panel, Strep and legionella antigens negative 3. DVT prophylaxis with Lovenox 4. Disposition: anticipate another 24-48 hours here in the hospital. Code Visit Inpatient E&M: 65469 Subs Hosp L2
[2018-05-31] MEDS: Enoxaparin 40 MG/0.4 ML Syringe SC (09:22)
[2018-05-31] MEDS: Ceftriaxone 1 GM/50 ML BAG IV (09:22)
--- NOTE | 2018-05-31 11:12 | CPS ---
Using PEP on own
[2018-05-31 12:10] LABS: Bedside Glucose 367 mg/dL (70-110)
--- NOTE | 2018-05-31 12:30 | CASEMGMT ---
Addendum entered by Angelic Alcala 05/31/18 14:16: Pt is independent @ home. Original Note: DINA FLORES INITIAL ASSESSMENT D/C PLAN: Home w/family support and discharge plans in place. Face to Face with patient for initial transition planning/care coordination assessment. DINA FLORES introduced self and role at [facility]. Pt sitting up in bed. Awake/alert/oriented. Willing to participate in assessment and all questions answered appropriately. Care providers, pharmacy, and demographics verified. PCP: Dr Christianson Preferred Pharmacy: [facility] Insurance: [employer] Prescription Benefit: Yes Living Will/HPOA: had HCPOA paperwork done in the past and had listed her youngest daughter at that time. [facility] she has done new HCPOA paperwork where she has her oldest daughter, Carly Bernstein, listed as her HCPOA now, but it is not notarized, and she would like to get it finalized. States she would like to talk to ARIE for assistance with this and for additional paperwork. Referral made to [facility]: Living Arrangements: Lives with her , Mitchell. They live in a one-story home w/8 steps to enter and 11 steps to the basement where she does her laundry. Pt states she is able to navigate the stairs and just takes her time d/t her breathing. Transportation: has her line driver's license but has not driven in a long time. States her usually does all the driving. DME: Has a shower chair, walker, and W/C which she does not use but has available if she would need them. Has grab bars, hand held shower, and nebulizer which she does use. Has oxygen @ 2 L/M N/C that she gets through [employer]. May need walking O2 test completed prior to discharge. HHC/SNF: States has never used HHC or been to a SNF. Denies needs on discharge. Pt wishes to return home. States she does not drink alcohol but that she does still smoke. States is not interested in smoking cessation information. States she does remove/turn off her oxygen when she smokes. Currently is established with [facility]. CM to follow for any further discharge planning needs that may arise. Jarvis OSBORNE RN, CM
--- NOTE | 2018-05-31 13:59 | CASEMGMT ---
SW assisted pt with completing Living Will and POA forms. Copies placed on chart and pt given originals and copies. ROGELIO Conway, ROTARY DRILLER
[2018-05-31 19:06] LABS: Bedside Glucose 361 mg/dL (70-110)
[2018-05-31 22:21] LABS: Bedside Glucose 420 mg/dL (70-110)
[2018-06-01 02:50] VITALS: BP 96/55; PULSE 81; RESP 18; TEMP 36.6; O2SAT 97
[2018-06-01] MEDS: Ipratropium/Albuterol Sulfate 3 ML AMPUL.NEB INHALATION ×3 (02:57→11:34)
[2018-06-01 02:58] VITALS: PULSE 79; RESP 18
[2018-06-01] MEDS: 0.9% NaCl Peripheral Flush Adult/Peds IV ×2 (05:59→09:10)
[2018-06-01] MEDS: Levothyroxine 125 MCG Tablet PO (05:59)
[2018-06-01 07:20] VITALS: PULSE 78; RESP 20; O2SAT 94
[2018-06-01 07:35] LABS: Bedside Glucose 332 mg/dL (70-110)
[2018-06-01] MEDS: Glucerna Shake 120 ML LIQUID PO (08:21)
[2018-06-01] MEDS: Insulin Lispro 100 UNIT/ML INSULN.PEN SQ ×2 (08:23→11:30)
[2018-06-01] MEDS: Enoxaparin 40 MG/0.4 ML Syringe SC (08:27)
[2018-06-01] MEDS: Montelukast 10 MG Tablet PO (08:28)
[2018-06-01] MEDS: guaiFENesin 1,200 MG Tablet 1200 MG PO (08:28)
[2018-06-01] MEDS: Multivitamins,Therapeutic Tablet 1 TABLET PO (08:28)
[2018-06-01] MEDS: Pantoprazole Sodium 40 MG Tablet PO (08:28)
[2018-06-01] MEDS: Fluticasone 0.05% 1 SPRAY NASAL.SRY 2 SPRAY NASAL (08:29)
[2018-06-01 08:40] VITALS: BP 110/51; PULSE 77; RESP 18; TEMP 36.7; O2SAT 93
--- NOTE | 2018-06-01 08:43 | PCM.DC ---
- Discharge Diagnoses Current Active Problems: Current Active and Chronic Problems COPD with acute exacerbation (Acute) SIRS (systemic inflammatory response syndrome) (Acute) You will use the following diet at home:: Calorie/Carbohydrate Controlled (specify 1200, 1400, etc) - 1800 calories/day Your food should be the consistency of: Regular Your liquids should be the consistency of: Regular/Thin Discharge Activity: Return to Normal Activity Call your doctor if you observe: Fever of 101 or Higher, Shortness of breath Instructions: What is COPD?, Discharge Instructions: COPD Additional Instructions: Oxygen at 2liters/minute Allergies/Adverse Reactions: Allergies morphine Allergy (Verified 05/30/18 08:58) Anaphylaxis Penicillins Allergy (Verified 05/30/18 08:58) Rash codeine Adverse Reaction (Severe, Verified 05/30/18 08:58) Other TACHYCARDIA bupropion [From Wellbutrin] Adverse Reaction (Verified 05/30/18 08:58) Other TREMOR erythromycin base [Erythromycin Base] Adverse Reaction (Verified 05/30/18 08:58) Upset Stomach Medications to take at Discharge Cholecalciferol (Vitamin D3) [Vitamin D3] 1,000 unit PO DAILY 01/15/14 Fluticasone 0.05% [Flonase Nasal [place]] 2 spray NASAL DAILY 01/15/14 Levothyroxine [Synthroid] 125 mcg PO DAILY 01/15/14 Montelukast [Singulair] 10 mg PO DAILY 01/15/14 Multivitamins,Therapeutic [Multivitamin] 1 tablet PO DAILY 01/15/14 Potassium Chloride [K-Tab ER] 10 meq PO DAILY 01/15/14 Albuterol Inhaler [Ventolin Hfa] 2 puff INHALATION Q4H PRN PRN #1 inhaler 02/14/15 Fluticasone/Salmeterol [Advair Hfa 230-21 Mcg Inhaler] 2 puff INHALATION BID #1 inhaler 02/14/15 Tiotropium [place] [Spiriva 18 MCG] 1 puff INHALATION DAILY #1 inhaler 02/14/15 Insulin Aspart [Novolog Flexpen] 0 units SC TIDCM 02/23/16 Clonazepam [Klonopin] 0.5 mg PO Q12H #60 tablet 02/26/16 Ipratropium/Albuterol Sulfate [Duoneb] 3 ml INHALATION 4X/DAY #120 ampul.neb 02/26/16 Celecoxib [Celebrex] 200 mg PO DAILY 05/30/18 Azithromycin 500 mg PO DAILY #4 tablet 06/01/18 Guaifenesin [Mucinex] 1,200 mg PO BID #20 tablet 06/01/18 Insulin Aspart [Novolog Flexpen (BKC)] 4 units SC TIDCM #1 flexpen 06/01/18 Insulin Glargine [Lantus SoloStar Pen] 24 units SC DAILY #0 06/01/18 Metformin HCl [Glucophage] 1,000 mg PO BIDCM #0 06/01/18 Prednisone 4 tab PO DAILY #20 tablet 06/01/18 The following prescriptions were given: Azithromycin 500 mg PO DAILY #4 tablet Prednisone 4 tab PO DAILY #20 tablet Guaifenesin [Mucinex] 1,200 mg PO BID #20 tablet Insulin Aspart [Novolog Flexpen (BKC)] 4 units SC TIDCM #1 flexpen Primary Care Physician: Parish Christianson MD [Primary Care Provider] - Within 2 Weeks Test Results: Test results from this visit will be discussed in further detail at your follow-up appointment, if applicable. Proposed Discharge Date: 06/01/18
--- NOTE | 2018-06-01 08:46 | PCM.DC.SUM ---
Discharge Date and Diagnosis - Problem List Patient Problems: Active and Suspected Problems COPD with acute exacerbation (Acute) SIRS (systemic inflammatory response syndrome) (Acute) Date of Admission: 05/30/18 Date of Discharge: 06/01/18 - Primary Discharge Diagnosis Active and Suspected Problems COPD with acute exacerbation (Acute) SIRS (systemic inflammatory response syndrome) (Acute) - Secondary Discharge Diagnosis Chronic Problems Chronic obstructive lung disease (Chronic) DM type 2 (diabetes mellitus, type 2) (Chronic) Tobacco user (Chronic) Trigeminal nerve disorder (Chronic) Rheumatoid arthritis (Chronic) diagnosed by Dr. Jennings Chronic respiratory failure with hypoxia (Chronic) Hospital Course and Treatment Imaging Results: Clinical Impression(s) from Imaging Studies Chest X-Ray 05/30/18 09:08 IMPRESSION: Hyperinflation. Findings suggestive of a chronic pulmonary scarring with increased markings in the left mid lung suggestive of possible superimposed infiltrate. Follow-up is recommended. Electronically Signed: Ashvin Rodriguez MD at 9:32 EST Tel [phone], Service support , Chest CTA 05/30/18 10:34 IMPRESSION: Diffuse emphysematous changes with areas of focal scarring and bronchiectasis in the anterior left upper lobe and posterior segment of the left lower lobe. Electronically Signed: Ashvin Rodriguez MD at 11:38 EST Tel [phone], Service support , Operations: None Procedures: None Summary of Care Provided: The patient is a 67 year old F presents with shortness of breath. Patient diagnosed with acute exacerbation of COPD. Patient also had systemic inflammatory response syndrome and was started on empiric antibiotics with azithromycin and Rocephin. Legionella and streptococcal antigens were negative and respiratory viral workup was negative as well. Given patient's shortness of breath. Patient did have a d-dimer that was elevated. CT angiogram of the chest showed no pulmonary embolism. This patient today is been doing better and so the plan is for the patient to be discharged with 40 mg of prednisone for 5 days, continue with her bronchodilators and patient will receive 4 more doses of azithromycin 500 mg. Patient is type II diabetic and at home her blood sugars range from 170s-250. Here, her blood sugar has been in the 3 and 400s. Spoke with the patient and advised increasing her basal insulin from 20-24 units daily and also to add scheduled NovoLog, 4units plus her sliding scale with meals. I told her this likely will not be sufficient for optimal blood sugar control but least to start to help optimize her blood sugar control. She is advised to follow-up with her primary care doctor in regards to further changes, if necessary to her insulin regimen. It should be noted, patient's metformin was held because she did receive IV contrast of the CT angiogram. The metformin will be able to be resumed on the . [] Patient Problems: Active and Suspected Problems COPD with acute exacerbation (Acute) SIRS (systemic inflammatory response syndrome) (Acute) - Physical Exam General: Alert, Cooperative, No apparent distress HEENT: Atraumatic, Normocephalic Oral: Moist Mucosa, No Gingival or Mucosal Lesions/ Ulcerations Neck: No Nodes, Thyroid Normal Size and Texture Lungs: Clear to auscultation, Diminished, Wheezes - upper respiratory wheezes Cardiovascular: Regular rate, Regular Rhythm, Normal S1, Normal S2, No murmurs Abdomen: Bowel Sounds Present, Soft, Non Tender, Non-Distended, No Hepato-splenomegaly Extremities: No edema, No Calf Tenderness Skin: No rashes, No breakdown Psych/Mental Status: Normal Affect, Appropriate Vital Signs Temp Pulse Resp BP Pulse Ox 36.7 C 77 18 110/51 L 93 06/01/18 08:40 06/01/18 08:40 06/01/18 08:40 06/01/18 08:40 06/01/18 08:40 Oxygen Flow Rate (L/min) 2 Oxygen Delivery Method Nasal Cannula Weight: 72.12 kg Body Mass Index (BMI) 26.4 Intake and Output for Last 24 Hours 05/30/18 05/31/18 06/01/18 23:59 23:59 23:59 Intake Total 550 / 550 1540 / 1540 500 / 500 Output Total 400 / 400 1850 / 1850 600 / 600 Balance 150 / 150 -310 / -310 -100 / -100 Microbiology Past 72 Hours 05/30/18 15:15 Gram Stain - Final Sputum, Expectorated/Coughed Respiratory Culture - Preliminary Appears to be normal respiratory vivian. Further studies to follow. 05/30/18 15:00 Respiratory Panel (PCR) - Final Mucosa - Nose 05/30/18 17:45 Legionella Antigen - Final Urine, Clean Catch 05/30/18 17:45 Streptococcus pneumoniae Antigen (M - Final Urine, Clean Catch POC Glucose 06/01/18 05/31/18 05/31/18 07:30 22:03 16:15 POC Glucose 332 H 420 H 361 H 05/31/18 12:05 POC Glucose 367 H Discharge Diet: 1800 Calorie Control Diet Discharge Activity: Return to Normal Activity Call your doctor if you observe: Fever of 101 or Higher, Shortness of breath Home Medications: Medications to take at Discharge Cholecalciferol (Vitamin D3) [Vitamin D3] 1,000 unit PO DAILY 01/15/14 Fluticasone 0.05% [Flonase Nasal [place]] 2 spray NASAL DAILY 01/15/14 Levothyroxine [Synthroid] 125 mcg PO DAILY 01/15/14 Montelukast [Singulair] 10 mg PO DAILY 01/15/14 Multivitamins,Therapeutic [Multivitamin] 1 tablet PO DAILY 01/15/14 Potassium Chloride [K-Tab ER] 10 meq PO DAILY 01/15/14 Albuterol Inhaler [Ventolin Hfa] 2 puff INHALATION Q4H PRN PRN #1 inhaler 02/14/15 Fluticasone/Salmeterol [Advair Hfa 230-21 Mcg Inhaler] 2 puff INHALATION BID #1 inhaler 02/14/15 Tiotropium [place] [Spiriva 18 MCG] 1 puff INHALATION DAILY #1 inhaler 02/14/15 Insulin Aspart [Novolog Flexpen] 0 units SC TIDCM 02/23/16 Clonazepam [Klonopin] 0.5 mg PO Q12H #60 tablet 02/26/16 Ipratropium/Albuterol Sulfate [Duoneb] 3 ml INHALATION 4X/DAY #120 ampul.neb 02/26/16 Celecoxib [Celebrex] 200 mg PO DAILY 05/30/18 Azithromycin 500 mg PO DAILY #4 tablet 06/01/18 Guaifenesin [Mucinex] 1,200 mg PO BID #20 tablet 06/01/18 Insulin Aspart [Novolog Flexpen (BKC)] 4 units SC TIDCM #1 flexpen 06/01/18 Insulin Glargine [Lantus SoloStar Pen] 24 units SC DAILY #0 06/01/18 Metformin HCl [Glucophage] 1,000 mg PO BIDCM #0 06/01/18 Prednisone 4 tab PO DAILY #20 tablet 06/01/18 Following Prescrptions Were Given to Patient: Azithromycin 500 mg PO DAILY #4 tablet Prednisone 4 tab PO DAILY #20 tablet Guaifenesin [Mucinex] 1,200 mg PO BID #20 tablet Insulin Aspart [Novolog Flexpen (BKC)] 4 units SC TIDCM #1 flexpen Primary Care Physician: Parish Christianson MD [Primary Care Provider] - Within 2 Weeks Patient Instructions: What is COPD?, Discharge Instructions: COPD Disposition: Home Minutes spent on discharge:: 32 Patient Condition:: Good Medical Necessity - Tobacco Use Smoking Status: Current every day smoker Tobacco Use: Cigarettes Meaningful Use Info Meaningful Use Diagnoses (Choose all that apply): None applicable Code Visit Inpatient E&M: 82881 Disch Hosp
--- NOTE | 2018-06-01 08:49 | DS.PCM_ITS ---
Discharge Date and Diagnosis - Problem List Patient Problems: Active and Suspected Problems COPD with acute exacerbation (Acute) SIRS (systemic inflammatory response syndrome) (Acute) Date of Admission: 05/30/18 Date of Discharge: 06/01/18 - Primary Discharge Diagnosis Active and Suspected Problems COPD with acute exacerbation (Acute) SIRS (systemic inflammatory response syndrome) (Acute) - Secondary Discharge Diagnosis Chronic Problems Chronic obstructive lung disease (Chronic) DM type 2 (diabetes mellitus, type 2) (Chronic) Tobacco user (Chronic) Trigeminal nerve disorder (Chronic) Rheumatoid arthritis (Chronic) diagnosed by Dr. Jennings Chronic respiratory failure with hypoxia (Chronic) Hospital Course and Treatment Imaging Results: Clinical Impression(s) from Imaging Studies Chest X-Ray 05/30/18 09:08 IMPRESSION: Hyperinflation. Findings suggestive of a chronic pulmonary scarring with increased markings in the left mid lung suggestive of possible superimposed infiltrate. Follow-up is recommended. Electronically Signed: Ashvin Rodriguez MD at 9:32 EST Tel [phone], Service support , Chest CTA 05/30/18 10:34 IMPRESSION: Diffuse emphysematous changes with areas of focal scarring and bronchiectasis in the anterior left upper lobe and posterior segment of the left lower lobe. Electronically Signed: Ashvin Rodriguez MD at 11:38 EST Tel [phone], Service support , Operations: None Procedures: None Summary of Care Provided: The patient is a 67 year old F presents with shortness of breath. Patient diagnosed with acute exacerbation of COPD. Patient also had systemic inflammatory response syndrome and was started on empiric antibiotics with azithromycin and Rocephin. Legionella and streptococcal antigens were negative and respiratory viral workup was negative as well. Given patient's shortness of breath. Patient did have a d-dimer that was elevated. CT angiogram of the [address] showed no pulmonary embolism. This patient today is been doing better and so the plan is for the patient to be discharged with 40 mg of prednisone for 5 days, continue with her bronchodilators and patient will receive 4 more doses of azithromycin 500 mg. Patient is type II diabetic and at home her blood sugars range from 170s-250. Here, her blood sugar has been in the 3 and 400s. Spoke with the patient and advised increasing her basal insulin from 20-24 units daily and also to add scheduled NovoLog, 4units plus her sliding scale with meals. I told her this likely will not be sufficient for optimal blood sugar control but least to start to help optimize her blood sugar control. She is advised to follow-up with her primary care doctor in regards to further changes, if necessary to her insulin regimen. It should be noted, patient's metformin was held because she did receive IV contrast of the CT angiogram. The metformin will be able to be resumed on the . [] Patient Problems: Active and Suspected Problems COPD with acute exacerbation (Acute) SIRS (systemic inflammatory response syndrome) (Acute) - Physical Exam General: Alert, Cooperative, No apparent distress HEENT: Atraumatic, Normocephalic Oral: Moist Mucosa, No Gingival or Mucosal Lesions/ Ulcerations Neck: No Nodes, Thyroid Normal Size and Texture Lungs: Clear to auscultation, Diminished, Wheezes - upper respiratory wheezes Cardiovascular: Regular rate, Regular Rhythm, Normal S1, Normal S2, No murmurs Abdomen: Bowel Sounds Present, Soft, Non Tender, Non-Distended, No Hepato- splenomegaly Extremities: No edema, No Calf Tenderness Skin: No rashes, No breakdown Psych/Mental Status: Normal Affect, Appropriate Vital Signs Temp Pulse Resp BP Pulse Ox 36.7 C 77 18 110/51 L 93 06/01/18 08:40 06/01/18 08:40 06/01/18 08:40 06/01/18 08:40 06/01/18 08:40 Oxygen Flow Rate (L/min) 2 Oxygen Delivery Method Nasal Cannula Weight: 72.12 kg Body Mass Index (BMI) 26.4 Intake and Output for Last 24 Hours 05/30/18 05/31/18 06/01/18 23:59 23:59 23:59 Intake Total 550 / 550 1540 / 1540 500 / 500 Output Total 400 / 400 1850 / 1850 600 / 600 Balance 150 / 150 -310 / -310 -100 / -100 Microbiology Past 72 Hours 05/30/18 15:15 Gram Stain - Final Sputum, Expectorated/Coughed Respiratory Culture - Preliminary Appears to be normal respiratory vivian. Further studies to follow. 05/30/18 15:00 Respiratory Panel (PCR) - Final Mucosa - Nose 05/30/18 17:45 Legionella Antigen - Final Urine, Clean Catch 05/30/18 17:45 Streptococcus pneumoniae Antigen (M - Final Urine, Clean Catch POC Glucose 06/01/18 05/31/18 05/31/18 07:30 22:03 16:15 POC Glucose 332 H 420 H 361 H 05/31/18 12:05 POC Glucose 367 H Discharge Diet: 1800 Calorie Control Diet Discharge Activity: Return to Normal Activity Call your doctor if you observe: Fever of 101 or Higher, Shortness of breath Home Medications: Medications to take at Discharge Cholecalciferol (Vitamin D3) [Vitamin D3] 1,000 unit PO DAILY 01/15/14 Fluticasone 0.05% [Flonase Nasal [place]] 2 spray NASAL DAILY 01/15/14 Levothyroxine [Synthroid] 125 mcg PO DAILY 01/15/14 Montelukast [Singulair] 10 mg PO DAILY 01/15/14 Multivitamins,Therapeutic [Multivitamin] 1 tablet PO DAILY 01/15/14 Potassium Chloride [K-Tab ER] 10 meq PO DAILY 01/15/14 Albuterol Inhaler [Ventolin Hfa] 2 puff INHALATION Q4H PRN PRN #1 inhaler 02/14/15 Fluticasone/Salmeterol [Advair Hfa 230-21 Mcg Inhaler] 2 puff INHALATION BID #1 inhaler 02/14/15 Tiotropium [place] [Spiriva 18 MCG] 1 puff INHALATION DAILY #1 inhaler 02/14/15 Insulin Aspart [Novolog Flexpen] 0 units SC TIDCM 02/23/16 Clonazepam [Klonopin] 0.5 mg PO Q12H #60 tablet 02/26/16 Ipratropium/Albuterol Sulfate [Duoneb] 3 ml INHALATION 4X/DAY #120 ampul.neb 02/26/16 Celecoxib [Celebrex] 200 mg PO DAILY 05/30/18 Azithromycin 500 mg PO DAILY #4 tablet 06/01/18 Guaifenesin [Mucinex] 1,200 mg PO BID #20 tablet 06/01/18 Insulin Aspart [Novolog Flexpen (BKC)] 4 units SC TIDCM #1 flexpen 06/01/18 Insulin Glargine [Lantus SoloStar Pen] 24 units SC DAILY #0 06/01/18 Metformin HCl [Glucophage] 1,000 mg PO BIDCM #0 06/01/18 Prednisone 4 tab PO DAILY #20 tablet 06/01/18 Following Prescrptions Were Given to Patient: Azithromycin 500 mg PO DAILY #4 tablet Prednisone 4 tab PO DAILY #20 tablet Guaifenesin [Mucinex] 1,200 mg PO BID #20 tablet Insulin Aspart [Novolog Flexpen (BKC)] 4 units SC TIDCM #1 flexpen Primary Care Physician: Parish Christianson MD [Primary Care Provider] - Within 2 Weeks Patient Instructions: What is COPD?, Discharge Instructions: COPD Disposition: Home Minutes spent on discharge:: 32 Patient Condition:: Good Medical Necessity - Tobacco Use Smoking Status: Current every day smoker Tobacco Use: Cigarettes Meaningful Use Info Meaningful Use Diagnoses (Choose all that apply): None applicable Code Visit Inpatient E&M: 11714 Disch Hosp
[2018-06-01] MEDS: Ceftriaxone 1 GM/50 ML BAG IV (10:34)
[2018-06-01 10:40] VITALS: BP 106/55; PULSE 76; RESP 18; TEMP 36.7; O2SAT 96
[2018-06-01 11:34] VITALS: PULSE 76; RESP 20
[2018-06-01 11:35] LABS: Bedside Glucose 356 mg/dL (70-110)
--- NOTE | 2018-06-02 17:11 | CASEMGMT ---
DINA FLORES Discharge Follow-up Phone Call: ENDEREarnest: [place] [employer]: 3 Call Date: 06/02/18 Discharge Date: 06/01/18 Time of Call: 0950 Duration: 3 minutes ? Admitting Diagnosis: COPD exac This DINA FLORES contacted pt via telephone in follow-up post discharge. Pt states she is feeling much better than she was on Tuesday. Denies any difficulty breathing. Pt states she is familiar with zone management and states she attempted to contact her DR instead of coming to the ED that day but he was out of the office and she was having additional symptoms including pain. Pt states she was able to fill her prescriptions and denied any questions regarding her discharge instructions.
== END 2018-06-01 13:30 | disposition home or self-care (01) | DRG 191 ==
LOC: ED 10:20 → MS2 12:40
PROVIDERS: Emergency Provider Emergency Medicine; Family Provider Family Medicine; PCP Family Medicine
DX: J44.1 Chronic obstructive pulmonary disease with (acute) exacerbation (principal); R65.10 Systemic inflammatory response syndrome (SIRS) of non-infectious origin without acute organ dysfunction; J96.11 Chronic respiratory failure with hypoxia; F17.210 Nicotine dependence, cigarettes, uncomplicated; E11.9 Type 2 diabetes mellitus without complications; M06.9 Rheumatoid arthritis, unspecified; G50.9 Disorder of trigeminal nerve, unspecified; Z79.4 Long term (current) use of insulin; Z99.81 Dependence on supplemental oxygen
CPT/HCPCS: 36415; 71045; 71275; 80048; 82962; 83605; 84484; 85025; 85379; 87040; 87070; 87077; 87186; 87205; 87449; 87633; 93005; 94640; 94667; 94668; 97802; 99285; 99406; J7030; Q9967; A4216

== ENCOUNTER → 2018-06-30 09:10 | Outpatient (CLI) | payer MEDICARE, SELFPAY ==
[2018-05-30 13:04] VITALS: BMI 26.4
[2018-06-30 10:38] LABS: Hemoglobin A1c 8.4 % (4.2-6.3)
[2018-06-30 10:40] LABS: AST(SGOT) 9 U/L (15-37); Alanine Aminotransfer ALT/SGPT 9 U/L (13-56); Albumin, Serum 3.5 g/dL (3.2-5.0); Alkaline Phosphatase 83 U/L (45-117); Anion Gap 6 (5-15); BUN 19 mg/dL (7-18); BUN/Creat Ratio 27.4 RATIO (10-20); Bilirubin, Direct 0.12 mg/dL (0.00-0.30); Calcium,Total 8.5 mg/dL (8.5-10.1); Chloride 105 mmol/L (98-107); Cholesterol 181 mg/dL (200); Creatinine, Serum 0.69 mg/dL (0.55-1.02); EST Glomerular Filtration Rate 89 mL/min (>60); Est Glom Filt Rate - Afr Amer 108 mL/min (>60); Free T3 1.4 pg/mL (2.18-3.98); Glucose 84 mg/dL (74-106); High Density Lipoprotein 67 mg/dL; Potassium 4.2 mmol/L (3.5-5.1); Protein, Total 6.5 g/dL (6.4-8.2); Sodium Level 142 mmol/L (136-145); T4 Total, Thyroxin 9.9 ug/dL (4.8-13.9); Triglycerides 47 mg/dL; Very Low Density Lipoprotein 9 mg/dL (5-40)
[2018-06-30 10:45] LABS: Microalbumin,Random Urine 12.6 mg/L (NO RANGE EST.); Microalbumin:Creatinine Ratio 11.9 mg/g CRE (<30 mg/g CRE)
--- OUTSIDE RECORDS SUMMARY | 2018-08-15 22:26 | XMS RPT_ITS ---
:1950 Author Organization OHIP Care Team Providers Name Role Phone Parish Christianson Attending Unavailable Parish Christianson Primary Care Unavailable Parish Christianson Attending Unavailable Parish Christianson Primary Care Unavailable Parish Christianson Attending Unavailable Parish Christianson Primary Care Unavailable Parish Christianson Attending Unavailable Parish Christianson Primary Care Unavailable Parish Christianson Primary Care Unavailable Margoth, Sanya Admitting Unavailable Sanya Justin Attending Unavailable Jopperi, Sanya Referring Unavailable Jopperi, Sanya Admitting Unavailable Margoth, Sanya Attending Unavailable Margoth, Sanya Referring Unavailable Parish Christianson Primary Care Unavailable Jopperi, Sanya Consulting Unavailable Jopperi, Sanya Admitting Unavailable Jopperi, Sanya Attending Unavailable Jopperi, Sanya Referring Unavailable ChristiansonParish hickey Primary Care Unavailable Jopperi, Sanya Consulting Unavailable Jopperi, Sanya Admitting Unavailable Jopperi, Sanya Attending Unavailable Jopperi, Sanya Referring Unavailable Parish Christianson Primary Care Unavailable Jopperi, Sanya Consulting Unavailable PROBLEMS PROBLEMS DATE TYPE CONDITION / CODE ATTENDING STATUS SOURCE 06/28/2018 Unknown J44.1 - Chronic Sanya Justin Active [place] obstructive Community pulmonary disease Hospital with (acute) Repository exacerbation / J44.1(ICD-10) 01/13/2018 Unknown E11.9 - Type 2 Parish Christianson [place] diabetes mellitus Community without Hospital complications / Repository E11.9(ICD-10) 01/13/2018 Unknown E03.9 - ChristiansonParish hickey [facility] [place] Hypothyroidism, Community unspecified / Hospital E03.9(ICD-10) Repository PROCEDURES PROCEDURES No Procedure Records FoundRESULTS RESULTS HEMOGLOBIN A1C Collected: 06/30/2018 Status: F Source: [place] 9:11 AM [facility] REPOSITORY TYPE CODE TESTS RESULT OUT OF RANGE REFERENCE UNITS LAB L501.9985 4.2-6.3 % High HGB A1C 8.4 Performed By: #### L501.9985 #### [facility] [place], [address] BASIC METABOLIC Collected: 06/30/2018 Status: F Source: [place] PROFILE (BMP) 9:11 AM [facility] REPOSITORY TYPE CODE TESTS RESULT OUT OF RANGE REFERENCE UNITS LAB L501.0100 74-106 mg/dL Normal GLU 84 Result Comment: Please note revised GLUCOSE reference range effective 2017. LAB L501.1000 7-18 mg/dL High BUN 19 LAB L501.1100 0.55-1.02 mg/dL Normal CREAT,SERUM 0.69 Result Comment: The validity of the calculated GFR AND GFRAA in patients over 70 years has not been determined. Clinical correlation is essential. LAB L501.1110 >60 mL/min Normal EST GFR 89 Result Comment: Non- GFR Calc LAB L501.1115 >60 mL/min Normal EST GFR - AA 108 Result Comment: GFR Calc LAB L501.1300 10-20 RATIO High BUN/CRE 27.4 LAB L501.2200 8.5-10.1 mg/dL CA Normal 8.5 LAB L501.5300 136-145 mmol/L NA Normal 142 LAB L501.5600 3.5-5.1 mmol/L K Normal 4.2 LAB L501.5900 98-107 mmol/L CL Normal 105 LAB L501.6100 21.0-32.0 mmol/L Normal CO2 31.0 LAB L501.6200 5-15 Normal GAP 6 Performed By: #### L500.2500, L500.3400, L500.4100, L501.94955, L501.9310, L501.9520 #### [facility] [address] [place], [place], [id number] LIVER PROFILE Collected: 06/30/2018 Status: F Source: [place] 9:11 AM [facility] REPOSITORY TYPE CODE TESTS RESULT OUT OF RANGE REFERENCE UNITS LAB L501.1500 6.4-8.2 g/dL Normal T PROT 6.5 LAB L501.1800 3.2-5.0 g/dL Normal ALB 3.5 LAB L501.1950 2.2-4.2 g/dL Normal GLOB 3.0 LAB L501.4100 15-37 U/L Low AST 9 LAB L501.4305 45-117 U/L Normal ALK P 83 LAB L501.4405 13-56 U/L Low ALT 9 LAB L501.4600 0.20-1.00 mg/dL Normal T BILI 0.30 LAB L501.4700 0.00-0.30 mg/dL Normal D BILI 0.12 Performed By: #### L500.2500, L500.3400, L500.4100, L501.48889, L501.9310, L501.9520 #### [facility] [address] [place], [place], [id number] LIPID PROFILE Collected: 06/30/2018 Status: F Source: [place] 9:11 AM [facility] REPOSITORY TYPE CODE TESTS RESULT OUT OF RANGE REFERENCE UNITS LAB L501.4900 200 mg/dL Normal CHOL 181 Result Comment: <200 mg/dL Desirable 200-240 mg/dL Borderline >240 mg/dL High Risk LAB L501.5000 mg/dL Normal TRIG 47 Result Comment: The drugs N-Acetylcysteine and Metamizole may falsely depress this assay. Serum Triglycerides Reference Interval Normal <150 mg/dL Borderline high 150 - 199 mg/dL High 200 - 499 mg/dL Very High > or = 500 mg/dL LAB L501.6400 mg/dL Normal HDL 67 Result Comment: The drugs N-Acetylcysteine and Metamizole may falsely depress this assay. Reference Range HDL <40 mg/dL Low HDL Cholesterol HDL >or= 60 mg/dL High HDL Cholesterol LAB L501.6500 0-130 mg/dL Normal LDL 105 LAB L501.6600 5-40 mg/dL Normal VLDL 9 Performed By: #### L500.2500, L500.3400, L500.4100, L501.24342, L501.9310, L501.9520 #### [facility] [address] [place], [place], [address] FREE T3 Collected: 06/30/2018 Status: F Source: [place] 9:11 AM [facility] REPOSITORY TYPE CODE TESTS RESULT OUT OF RANGE REFERENCE UNITS LAB L501.94093 2.18-3.98 pg/mL Low FREE T3 1.4 Performed By: #### L500.2500, L500.3400, L500.4100, L501.90826, L501.9310, L501.9520 #### [facility] [address] [facility] [facility] [place], [place], [address] T4 TOTAL, THYROXIN Collected: 06/30/2018 Status: F Source: [place] 9:11 AM [facility] REPOSITORY TYPE CODE TESTS RESULT OUT OF RANGE REFERENCE UNITS LAB L501.9310 4.8-13.9 ug/dL T4 Normal THYROXIN 9.9 Performed By: #### L500.2500, L500.3400, L500.4100, L501.49818, L501.9310, L501.9520 #### [facility] [address] [place], [address] THYROID STIM HORMONE Collected: 06/30/2018 Status: F Source: [place] (TSH) 9:11 AM [facility] REPOSITORY TYPE CODE TESTS RESULT OUT OF RANGE REFERENCE UNITS LAB L501.9520 0.358-3.74 uIU/mL High TSH 11.60 Performed By: #### L500.2500, L500.3400, L500.4100, L501.70412, L501.9310, L501.9520 #### [facility] [address] [place], [address] MICROALB:CREAT Collected: 06/30/2018 Status: F Source: [place] RATIO,RANDOM UR 9:11 AM [facility] REPOSITORY TYPE CODE TESTS RESULT OUT OF RANGE REFERENCE UNITS LAB L501.1200 NO RANGE EST. mg/dL Normal UR CREAT 106.00 LAB L502.0500 NO RANGE EST. mg/L Normal 12.6 MICROALBUMIN ,UR LAB L502.0600 <30 mg/g CRE mg/g CRE Normal 11.9 MALB:CREAT Performed By: #### L502.0250 #### [facility] [address] [place], [address] 12 LEAD ELECTROCARDIOGRAM Observed: 06/02/2018 Status: F Source: [place] 2:41 PM [facility] REPOSITORY [facility] [address] [place] [id number] 12 Lead EKG 05/30/18 0912 MR#: [id number] Acct: [id number] Name: TRISTAN STEPHENSON Rep #: [id number] : 1950 67 From: David Nunez MD Attending Dr: Sanya Justin DO Status: DIS IN Ordering Dr: Tania Lee DO Date: 05/30/18 [place] [facility] [place] Sex: F C Admitted: 05/30/18 Test Reason : Blood Pressure : / mmHG Vent. Rate : 104 BPM Atrial Rate : 104 BPM P-R Int : 120 ms QRS Dur : 076 ms QT Int : 498 ms P-R-T Axes : 050 069 079 degrees QTc Int : 654 ms Sinus tachycardia Nonspecific T wave abnormality Prolonged QT Abnormal ECG Confirmed by DAVID NUNEZ MD ([id number]), publishing editor THOMAS MCFARLANE ([id number]) on 06/02/2018 2:41:01 PM Referred By: Sanya Justin Confirmed By:DAVID NUNEZ MD 06/02/18 1441 Date David Nunez MD CC: Sanya Justin DO; Parish Christianson MD; Tania Lee DO Signed BEDSIDE GLUCOSE Collected: 06/01/2018 Status: F Source: [place] 11:27 AM [facility] REPOSITORY TYPE CODE TESTS RESULT OUT OF REFERENCE UNITS RANGE LAB L501.080 70-110 mg/dL High BEDSIDE GLU 356 Result Comment: MANAGEMENT OF PATIENT CARE PER NURSING PROTOCOL Performed By: #### L501.080 #### [facility] Point of Care [address] [place] [address] DISCHARGE SUMMARY Observed: 06/01/2018 Status: F Source: [place] 8:49 AM [facility] REPOSITORY [facility] Medical Records Department [address] [place] [address] Discharge Summary 06/01/18 0846 MR#: [id number] Acct: [id number] Name: TRISTAN STEPHENSON Rep #: [id number] : 1950 67 From: Sanya Justin DO PCP: Parish Christianson MD Status: ADM IN Location: [place] [address] Discharge Date and Diagnosis - Problem List Patient Problems: Active and Suspected Problems COPD with acute exacerbation (Acute) SIRS (systemic inflammatory response syndrome) (Acute) Date of Admission: 05/30/18 Date of Discharge: 06/01/18 - Primary Discharge Diagnosis Active and Suspected Problems COPD with acute exacerbation (Acute) SIRS (systemic inflammatory response syndrome) (Acute) - Secondary Discharge Diagnosis Chronic Problems Chronic obstructive lung disease (Chronic) DM type 2 (diabetes mellitus, type 2) (Chronic) Tobacco user (Chronic) Trigeminal nerve disorder (Chronic) Rheumatoid arthritis (Chronic) diagnosed by Dr. Jennings Chronic respiratory failure with hypoxia (Chronic) Hospital Course and Treatment Imaging Results: Clinical Impression(s) from Imaging Studies Chest X-Ray 05/30/18 09:08 IMPRESSION: Hyperinflation. Findings suggestive of a chronic pulmonary scarring with increased markings in the left mid lung suggestive of possible superimposed infiltrate. Follow-up is recommended. Electronically Signed: Ashvin Rodriguez MD at 9:32 EST Tel [phone], Service support , Chest CTA 05/30/18 10:34 IMPRESSION: Diffuse emphysematous changes with areas of focal scarring and bronchiectasis in the anterior left upper lobe and posterior segment of the left lower lobe. Electronically Signed: Ashvin Rodriguez MD at 11:38 EST Tel [phone], Service support , Operations: None Procedures: None Summary of Care Provided: The patient is a 67 year old F presents with shortness of breath. Patient diagnosed with acute exacerbation of COPD. Patient also had systemic inflammatory response syndrome and was started on empiric antibiotics with azithromycin and Rocephin. Legionella and streptococcal antigens were negative and respiratory viral workup was negative as well. Given patient's shortness of breath. Patient did have a d-dimer that was elevated. CT angiogram of the chest showed no pulmonary embolism. This patient today is been doing better and so the plan is for the patient to be discharged with 40 mg of prednisone for 5 days, continue with her bronchodilators and patient will receive 4 more doses of azithromycin 500 mg. Patient is type II diabetic and at home her blood sugars range from 170s-250. Here, her blood sugar has been in the 3 and 400s. Spoke with the patient and advised increasing her basal insulin from 20-24 units daily and also to add scheduled NovoLog, 4units plus her sliding scale with meals. I told her this likely will not be sufficient for optimal blood sugar control but least to start to help optimize her blood sugar control. She is advised to follow-up with her primary care doctor in regards to further changes, if necessary to her insulin regimen. It should be noted, patient's metformin was held because she did receive IV contrast of the CT angiogram. The metformin will be able to be resumed on the . [] Patient Problems: Active and Suspected Problems COPD with acute exacerbation (Acute) SIRS (systemic inflammatory response syndrome) (Acute) - Physical Exam General: Alert, Cooperative, No apparent distress HEENT: Atraumatic, Normocephalic Oral: Moist Mucosa, No Gingival or Mucosal Lesions/ Ulcerations Neck: No Nodes, Thyroid Normal Size and Texture Lungs: Clear to auscultation, Diminished, Wheezes - upper respiratory wheezes Cardiovascular: Regular rate, Regular Rhythm, Normal S1, Normal S2, No murmurs Abdomen: Bowel Sounds Present, Soft, Non Tender, Non-Distended, No Hepato-splenomegaly Extremities: No edema, No Calf Tenderness Skin: No rashes, No breakdown Psych/Mental Status: Normal Affect, Appropriate Vital Signs Temp Pulse Resp BP Pulse Ox 36.7 C 77 18 110/51 L 93 06/01/18 08:40 06/01/18 08:40 06/01/18 08:40 06/01/18 08:40 06/01/18 08:40 Oxygen Flow Rate (L/min) 2 Oxygen Delivery Method Nasal Cannula Weight: 72.12 kg Body Mass Index (BMI) 26.4 Intake and Output for Last 24 Hours Intake Total 550 / 550 1540 / 1540 500 / 500 Output Total 400 / 400 1850 / 1850 600 / 600 Balance 150 / 150 -310 / -310 -100 / -100 Microbiology Past 72 Hours 05/30/18 15:15 Gram Stain - Final Sputum, Expectorated/Coughed Respiratory Culture - Preliminary 05/30/18 15:00 Respiratory Panel (PCR) - Final POC Glucose POC Glucose 332 H 420 H 361 H POC Glucose 367 H Discharge Diet: 1800 Calorie Control Diet Discharge Activity: Return to Normal Activity Call your doctor if you observe: Fever of 101 or Higher, Shortness of breath Home Medications: Medications to take at Discharge Cholecalciferol (Vitamin D3) [Vitamin D3] 1,000 unit PO DAILY 01/15/14 Fluticasone 0.05% [Flonase Nasal [place]] 2 spray NASAL DAILY 01/15/14 Levothyroxine [Synthroid] 125 mcg PO DAILY 01/15/14 Montelukast [Singulair] 10 mg PO DAILY 01/15/14 Multivitamins,Therapeutic [Multivitamin] 1 tablet PO DAILY 01/15/14 Potassium Chloride [K-Tab ER] 10 meq PO DAILY 01/15/14 Albuterol Inhaler [Ventolin Hfa] 2 puff INHALATION Q4H PRN PRN #1 inhaler 02/14/15 Fluticasone/Salmeterol [Advair Hfa 230-21 Mcg Inhaler] 2 puff INHALATION BID #1 inhaler 02/14/15 Tiotropium [place] [Spiriva 18 MCG] 1 puff INHALATION DAILY #1 inhaler 02/14/15 Insulin Aspart [Novolog Flexpen] 0 units SC TIDCM 02/23/16 Clonazepam [Klonopin] 0.5 mg PO Q12H #60 tablet 02/26/16 Ipratropium/Albuterol Sulfate [Duoneb] 3 ml INHALATION 4X/DAY #120 ampul.neb 02/26/16 Celecoxib [Celebrex] 200 mg PO DAILY 05/30/18 Azithromycin 500 mg PO DAILY #4 tablet 06/01/18 Guaifenesin [Mucinex] 1,200 mg PO BID #20 tablet 06/01/18 Insulin Aspart [Novolog Flexpen (BKC)] 4 units SC TIDCM #1 flexpen 06/01/18 Insulin Glargine [Lantus SoloStar Pen] 24 units SC DAILY #0 06/01/18 Metformin HCl [Glucophage] 1,000 mg PO BIDCM #0 06/01/18 Prednisone 4 tab PO DAILY #20 tablet 06/01/18 Following Prescrptions Were Given to Patient: Azithromycin 500 mg PO DAILY #4 tablet Prednisone 4 tab PO DAILY #20 tablet Guaifenesin [Mucinex] 1,200 mg PO BID #20 tablet Insulin Aspart [Novolog Flexpen (BKC)] 4 units SC TIDCM #1 flexpen Primary Care Physician: Parish Christianson MD [Primary Care Provider] - Within 2 Weeks Patient Instructions: What is COPD?, Discharge Instructions: COPD Disposition: Home Minutes spent on discharge:: 32 Patient Condition:: Good Medical Necessity - Tobacco Use Smoking Status: Current every day smoker Tobacco Use: Cigarettes Meaningful Use Info Meaningful Use Diagnoses (Choose all that apply): None applicable Code Visit Inpatient E AND M: 16463 Disch Hosp 06/01/18 0849 <Electronically signed by Sanya Justin DO> Date [facility]if applicable): Date CC: Sanya Justin DO; Parish Christianson MD Signed DISCHARGE INSTRUCTION Observed: 06/01/2018 Status: F Source: [place] 8:45 AM [facility] REPOSITORY [facility] Medical Records Department [address] [place] [address] Instructions for Home/Discharge Instructions 06/01/18 0843 MR#: [id number] Acct: [id number] Name: TRISTAN STEPHENSON Rep #: [id number] : 1950 67 From: Sanya Justin DO PCP: Parish Christianson MD Status: ADM IN - Discharge Diagnoses Current Active Problems: Current Active and Chronic Problems COPD with acute exacerbation (Acute) SIRS (systemic inflammatory response syndrome) (Acute) You will use the following diet at home:: Calorie/Carbohydrate Controlled (specify 1200, 1400, etc) - 1800 calories/day Your food should be the consistency of: Regular Your liquids should be the consistency of: Regular/Thin Discharge Activity: Return to Normal Activity Call your doctor if you observe: Fever of 101 or Higher, Shortness of breath Instructions: What is COPD?, Discharge Instructions: COPD Additional Instructions: Oxygen at 2liters/minute Allergies/Adverse Reactions: Allergies morphine Allergy (Verified 05/30/18 08:58) Anaphylaxis Penicillins Allergy (Verified 05/30/18 08:58) Rash codeine Adverse Reaction (Severe, Verified 05/30/18 08:58) Other TACHYCARDIA bupropion [From Wellbutrin] Adverse Reaction (Verified 05/30/18 08:58) Other TREMOR erythromycin base [Erythromycin Base] Adverse Reaction (Verified 05/30/18 08:58) Upset Stomach Medications to take at Discharge Cholecalciferol (Vitamin D3) [Vitamin D3] 1,000 unit PO DAILY 01/15/14 Fluticasone 0.05% [Flonase Nasal [place]] 2 spray NASAL DAILY 01/15/14 Levothyroxine [Synthroid] 125 mcg PO DAILY 01/15/14 Montelukast [Singulair] 10 mg PO DAILY 01/15/14 Multivitamins,Therapeutic [Multivitamin] 1 tablet PO DAILY 01/15/14 Potassium Chloride [K-Tab ER] 10 meq PO DAILY 01/15/14 Albuterol Inhaler [Ventolin Hfa] 2 puff INHALATION Q4H PRN PRN #1 inhaler 02/14/15 Fluticasone/Salmeterol [Advair Hfa 230-21 Mcg Inhaler] 2 puff INHALATION BID #1 inhaler 02/14/15 Tiotropium [place] [Spiriva 18 MCG] 1 puff INHALATION DAILY #1 inhaler 02/14/15 Insulin Aspart [Novolog Flexpen] 0 units SC TIDCM 02/23/16 Clonazepam [Klonopin] 0.5 mg PO Q12H #60 tablet 02/26/16 Ipratropium/Albuterol Sulfate [Duoneb] 3 ml INHALATION 4X/DAY #120 ampul.neb 02/26/16 Celecoxib [Celebrex] 200 mg PO DAILY 05/30/18 Azithromycin 500 mg PO DAILY #4 tablet 06/01/18 Guaifenesin [Mucinex] 1,200 mg PO BID #20 tablet 06/01/18 Insulin Aspart [Novolog Flexpen (BKC)] 4 units SC TIDCM #1 flexpen 06/01/18 Insulin Glargine [Lantus SoloStar Pen] 24 units SC DAILY #0 06/01/18 Metformin HCl [Glucophage] 1,000 mg PO BIDCM #0 06/01/18 Prednisone 4 tab PO DAILY #20 tablet 06/01/18 The following prescriptions were given: Azithromycin 500 mg PO DAILY #4 tablet Prednisone 4 tab PO DAILY #20 tablet Guaifenesin [Mucinex] 1,200 mg PO BID #20 tablet Insulin Aspart [Novolog Flexpen (BKC)] 4 units SC TIDCM #1 flexpen Primary Care Physician: Parish Christianson MD [Primary Care Provider] - Within 2 Weeks Test Results: Test results from this visit will be discussed in further detail at your follow-up appointment, if applicable. Proposed Discharge Date: 06/01/18 06/01/18 0845 <Electronically signed by Sanya Justin DO> Date Sanya Justin DO CC: Parish Christianson MD BEDSIDE GLUCOSE Collected: 06/01/2018 Status: F Source: [place] 7:30 AM [facility] REPOSITORY TYPE CODE TESTS RESULT OUT OF REFERENCE UNITS RANGE LAB L501.080 70-110 mg/dL High BEDSIDE GLU 332 Result Comment: MANAGEMENT OF PATIENT CARE PER NURSING PROTOCOL Performed By: #### L501.080 #### [facility] Point of Care [address] [place] [address] BEDSIDE GLUCOSE Collected: 05/31/2018 Status: F Source: [place] 10:03 PM [facility] REPOSITORY TYPE CODE TESTS RESULT OUT OF REFERENCE UNITS RANGE LAB L501.080 70-110 mg/dL High BEDSIDE GLU 420 Result Comment: MANAGEMENT OF PATIENT CARE PER NURSING PROTOCOL Performed By: #### L501.080 #### [facility] Point of Care [address] [place] [address] BEDSIDE GLUCOSE Collected: 05/31/2018 Status: F Source: [place] 4:15 PM [facility] REPOSITORY TYPE CODE TESTS RESULT OUT OF REFERENCE UNITS RANGE LAB L501.080 70-110 mg/dL High BEDSIDE GLU 361 Result Comment: MANAGEMENT OF PATIENT CARE PER NURSING PROTOCOL Performed By: #### L501.080 #### [facility] Point of Care [address] [place] [address] BEDSIDE GLUCOSE Collected: 05/31/2018 Status: F Source: [place] 12:05 PM [facility] REPOSITORY TYPE CODE TESTS RESULT OUT OF REFERENCE UNITS RANGE LAB L501.080 70-110 mg/dL High BEDSIDE GLU 367 Result Comment: MANAGEMENT OF PATIENT CARE PER NURSING PROTOCOL Performed By: #### L501.080 #### [facility] Point of Care [address] [place] [address] BEDSIDE GLUCOSE Collected: 05/31/2018 Status: F Source: [place] 7:37 AM [facility] REPOSITORY TYPE CODE TESTS RESULT OUT OF REFERENCE UNITS RANGE LAB L501.080 70-110 mg/dL High BEDSIDE GLU 289 Result Comment: MANAGEMENT OF PATIENT CARE PER NURSING PROTOCOL Performed By: #### L501.080 #### [facility] Point of Care [address] [place] [address] CBC W/DIFF, AUTOMATED Collected: 05/31/2018 Status: F Source: [place] 5:16 AM [facility] REPOSITORY TYPE CODE TESTS RESULT OUT OF RANGE REFERENCE UNITS LAB L100.1000 4.4-11.0 K/mm3 Normal WBC 9.8 LAB L100.1200 4.2-5.4 M/mm3 Low RBC 3.57 LAB L100.1300 12.0-15.0 g/dl Low HGB 10.6 LAB L100.1400 37-47 % Low HCT 33.1 LAB L100.1500 81-99 fL Normal MCV 92.7 LAB L100.1600 27.0-32.0 pg Normal MCH 29.7 LAB L100.1700 32-36 g/gl Normal MCHC 32.0 LAB L100.1810 11.6-14.6 % Normal RDW CV 12.9 LAB L100.1820 35.1-43.9 fl High RDW SD 44.0 LAB L100.1900 150-450 K/mm3 Normal PLT 230 LAB L100.2000 6.2-12.0 fl Normal MPV 9.8 LAB L100.2100 47-70 % High NEUT% 88.5 LAB L100.2200 19-41 % Low LY% 7.6 LAB L100.2300 0-10 % Normal MONO% 3.3 LAB L100.2400 0-5 % Normal EO% 0.0 LAB L100.2500 0-1 % Normal BASO% 0.1 LAB L100.2550 0.0-0.9 % Normal IM GRAN % 0.500 Result Comment: IG% - Immature Granulocytes (promyelocytes, myelocytes and metamyelocytes) > 1% indicates that a LEFT SHIFT is Present. LAB L100.2620 2.0-7.7 X10 3/uL High Absolute Neut 8.7 LAB L100.2720 0.83-4.51 X10 3/ul Low Absolute Lymph 0.74 Performed By: #### L100.0100 #### [facility] [address] [place], [address] BASIC METABOLIC Collected: 05/31/2018 Status: F Source: [place] PROFILE (BMP) 5:16 AM [facility] REPOSITORY TYPE CODE TESTS RESULT OUT OF RANGE REFERENCE UNITS LAB L501.0100 74-106 mg/dL High GLU 248 Result Comment: Glucose result greater than or equal to 200 mg/dL suggests DIABETES MELLITUS per A.D.A. criteria. Please note revised GLUCOSE reference range effective 2017. LAB L501.1000 7-18 mg/dL High BUN 19 LAB L501.1100 0.55-1.02 mg/dL Normal CREAT,SERUM 0.65 Result Comment: The validity of the calculated GFR AND GFRAA in patients over 70 years has not been determined. Clinical correlation is essential. LAB L501.1110 >60 mL/min Normal EST GFR 97 Result Comment: Non- GFR Calc LAB L501.1115 >60 mL/min Normal EST GFR - AA 117 Result Comment: GFR Calc LAB L501.1255 ml/min Normal Estimated CRCL 49.12 LAB L501.1300 10-20 RATIO High BUN/CRE 29.2 LAB L501.2200 8.5-10 mg/dL Low .1 CA 8.4 LAB L501.5300 136-14 mmol/L Normal 5 NA 138 LAB L501.5600 3.5-5. mmol/L Normal 1 K 4.2 LAB L501.5900 98-107 mmol/L Normal CL 101 LAB L501.6100 21.0-3 mmol/L Normal 2.0 CO2 28.0 LAB L501.6200 5-15 Normal GAP 9 Performed By: #### L500.2500 #### [facility] [address] [place], [address] BEDSIDE GLUCOSE Collected: 05/30/2018 Status: F Source: [place] 9:40 PM [facility] REPOSITORY TYPE CODE TESTS RESULT OUT OF REFERENCE UNITS RANGE LAB L501.080 70-110 mg/dL High BEDSIDE GLU 393 Result Comment: MANAGEMENT OF PATIENT CARE PER NURSING PROTOCOL Performed By: #### L501.080 #### [facility] Point of Care [address] [place] [address] Observed: 05/30/2018 Status: F Source: [place] LEGIONELLA ANTIGEN 5:45 PM [facility] URINE REPOSITORY Legionella, UR Legionella Antigen result interpretation: Negative Presumptive negative for Legionella pneumophila serogroup 1 antigen in urine, suggesting no recent or current infection. Legionella Ag, Urine Negative (See interpretation below) Performed By: #### M300.4500 #### [facility] [address] [place], [address] STREP Observed: 05/30/2018 Status: F Source: [place] PNEUMONIAE ANTIG(UR,CSF) 5:45 PM [facility] REPOSITORY S pneumo Ag URINE INTERPRETATION Negative Urine Presumptive negative for pneumococcal pneumonia, suggesting no current or recent pneumococcal infection. Infection due to S pneumoniae cannot be ruled out since the antigen present in the sample may be below the detection limit of the test. Strep pneumo Test Negative URINE (See interpretation below) Performed By: #### M300.4600 #### [facility] [address] [place], [address] HISTORY AND PHYSICAL Observed: 05/30/2018 Status: F Source: [place] EXAM 4:09 PM [facility] REPOSITORY [facility] Medical Records Department [address] [place] [id number] History and Physical 05/30/18 1601 MR#: [id number] Acct: [id number] Name: TRISTAN STEPHENSON Rep #: [id number] : 1950 67 From: Sanya Justin DO PCP: Parish Christianson MD Status: ADM IN Location: [place] [id number] Problem List (1) COPD with acute exacerbation Status: Chronic (2) SIRS (systemic inflammatory response syndrome) Status: Acute History of Present Illness Date of Admission: 05/30/18 Chief Complaint: shortness of breath. The patient is a 67 year old F resents with progressive increasing shortness of breath. Patient has short of breath and coughing. Patient has been coughing up some phlegm. Patient does have similar symptoms similar to prior episodes of exacerbation of her COPD. So patient decided come to the emergency room and had a CAT scan of her chest that showed some cortical bronchiectasis. In the emergency room, patient received aerosols, Solu-Medrol and antibiotics. No segment change in her status at this point in time. [] Past Medical History Past Medical History (Chronic Problems): Chronic Problems COPD with acute exacerbation (Chronic) Chronic obstructive lung disease (Chronic) DM type 2 (diabetes mellitus, type 2) (Chronic) Tobacco user (Chronic) Trigeminal nerve disorder (Chronic) Rheumatoid arthritis (Chronic) diagnosed by Dr. Jennings Chronic respiratory failure with hypoxia (Chronic) Allergies morphine Allergy (Verified 05/30/18 08:58) Anaphylaxis Penicillins Allergy (Verified 05/30/18 08:58) Rash codeine Adverse Reaction (Severe, Verified 05/30/18 08:58) Other TACHYCARDIA bupropion [From Wellbutrin] Adverse Reaction (Verified 05/30/18 08:58) Other TREMOR erythromycin base [Erythromycin Base] Adverse Reaction (Verified 05/30/18 08:58) Upset Stomach Home Medications: Ambulatory Orders Medication Instructions Recorded Cholecalciferol (Vitamin D3) 1,000 unit PO DAILY 01/15/14 Surgical History: cholecystectomy, hysterectomy, - - biopsy of a mass between her lungs that was negative, Carpal tunnel release on the left, Leep procedure for an abnormal pap Psychiatric History: No pertinent psych hx TAKE AWAY ATTENDANT History: No pertinent TAKE AWAY ATTENDANT history Smoking Status: Current every day smoker Tobacco Use: Cigarettes - *Family History Sibling History Items: Heart Disease Maternal History Items: Cancer - mother had breast cancer, Diabetes - in [place] and aunts on the maternal side Paternal History Items: Heart Disease Review of Systems Constitutional: Reports: Chills. Denies: Anorexia, Fever Eyes: Denies: Blurred vision, Double vision HEENT: Denies: Head Aches, Sinus Congestion, Sinus Drainage Cardiovascular: Denies: Chest Pain, Palpitations Respiratory: Reports: Cough, Shortness of Breath, Wheezing Gastrointestinal: Denies: Abdominal Pain, Nausea, Vomiting Genitourinary: Denies: Dysuria Musculoskeletal: Denies: Joint Pain, Joint Tenderness Skin: Reports: Wounds - Does have a burn on her left lateral hand from making a pie, -. Denies: Rash Neurological: Denies: Numbness, Tingling, Focal weakness Psychiatric: Denies: Anxiety, Depression Endocrine: Reports: Change in Body Habitus - Has lost around 15 pounds recently, Heat/ Cold Intolerance Hematologic/ Lymphatic: Denies: Easy Bruising, Easy Bleeding, Hx of blood clot Comment: A 10 point review of systems were negative except as mentioned in the history of present illness and the other review of systems. VTE Information - Inpt Only VTE Present on Admission: No VTE Pharm Prophylaxis ordered?: Yes Patient Problems: Active and Suspected Problems SIRS (systemic inflammatory response syndrome) (Acute) - Physical Exam General: Alert, Cooperative, No apparent distress HEENT: Atraumatic, Normocephalic Oral: Moist Mucosa, - - Whitish exudates on the soft palate and tonsillar recesses. Neck: No Nodes, Thyroid Normal Size and Texture Lungs: Diminished, Wheezes Cardiovascular: Regular rate, Regular Rhythm, Normal S1, Normal S2, No murmurs Abdomen: Bowel Sounds Present, Soft, Non Tender, Non-Distended Extremities: No edema, No Calf Tenderness Skin: No rashes, - - Superficial burn over her dorsal left MTP no surrounding erythema nor discharge Musculoskeletal: No Tenderness to Palpation of Joints or Extremities, No Muscle Wasting Neurological: Muscle tone normal, Sensory exam intact to light touch and pain Psych/Mental Status: Normal Affect, Appropriate Vital Signs Temp Pulse Resp BP Pulse Ox 37.1 C 88 20 H 108/55 L 95 05/30/18 15:29 05/30/18 15:29 05/30/18 15:29 05/30/18 15:29 05/30/18 15:29 Oxygen Flow Rate (L/min) 3 Oxygen Delivery Method Nasal Cannula Weight: 72.12 kg Body Mass Index (BMI) 26.4 Laboratory Tests Past 24 Hrs WBC RBC Hgb Hct MCV MCH MCHC RDW RDW Differential Plt Count MPV Immature Gran % (Auto) POC Glucose POC Glucose 328 H 244 H Clinical Impression(s) from Imaging Studies Chest X-Ray 05/30/18 09:08 IMPRESSION: Hyperinflation. Findings suggestive of a chronic pulmonary scarring with increased markings in the left mid lung suggestive of possible superimposed infiltrate. Follow-up is recommended. Electronically Signed: Ashvin Rodriguez MD at 9:32 EST Tel [phone], Service support , Chest CTA 05/30/18 10:34 IMPRESSION: Diffuse emphysematous changes with areas of focal scarring and bronchiectasis in the anterior left upper lobe and posterior segment of the left lower lobe. Electronically Signed: Ashvin Rodriguez MD at 11:38 EST Tel [phone], Service support , Assessment/Plan All Active Problems SIRS (systemic inflammatory response syndrome) (Acute) Acute exacerbation of chronic obstructive pulmonary disease (Acute) 1. Acute exacerbation of COPD * Steroids, bronchodilators * If no improvement, consult pulmonology. 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 Salcedo 2. Systemic inflammatory response syndrome * No definitive infection at this time * Follow-up cultures as well as antigens for Streptococcus and Legionella * Continue with coverage for pneumococcal pneumonia with azithromycin and Rocephin at this time. * Respiratory viral panel also ordered 3. DVT prophylaxis with Lovenox Tobacco cessation. Spent 50 minutes discussing tobacco cessation with the patient and her . This is outside of the physical. Discussed the risk of further worsening of her COPD but if she were to stop, that she would hopefully prevent progression of her COPD. Did advise for her to quit smoking that her should quit as well. She stated that he has no interest in quitting since he has been smoking since he was 12 years old. Code Visit Inpatient E AND M: 73169 Init Hosp L3 Procedures: Other Procedure - See Report - [id number] 05/30/18 1607 <Electronically signed by Sanya Justin DO> Date Sanya Justin DO Cosigner Signature: Date (if applicable) CC: Sanya Justin DO; Parish Christianson MD Signed BEDSIDE GLUCOSE Collected: 05/30/2018 Status: F Source: [place] 3:25 PM [facility] REPOSITORY TYPE CODE TESTS RESULT OUT OF REFERENCE UNITS RANGE LAB L501.080 70-110 mg/dL High BEDSIDE GLU 328 Result Comment: MANAGEMENT OF PATIENT CARE PER NURSING PROTOCOL Performed By: #### L501.080 #### [facility] Point of Care [address] [place], [place] [address] Observed: 05/30/2018 Status: F Source: [place] CULTURE, SPUTUM 3:15 PM [facility] REPOSITORY Gram Stain Acceptable Specimen? Yes (<25 Epithelial cells per/lpf) Gram Stain 1+ White Blood Cells 1+ Epithelial cells 4+ Gram positive diplococci 1+ Gram negative diplococci Resp. Culture #2 Amoxicillin/Clavulanic Acid and Oral Cephlosporins are the drugs of choice, as most isolates are penicillin resistant. Trimeth/Sulfa (Otitis), Ciprofloxacin, Ofloxacin and Erythromycin are alternate choices. ORGANISM 1: Streptococcus pneumoniae Amount Growth 2+ ORGANISM 2: Moraxella(Terence.)Catarrhalis Amount Growth 2+ Beta Lactamase Negative Streptococcus pneumoniae: REACTION Cefotaxime (meningitis) $ <=0.12 S Cefotaxime (Other dx) $ <=0.12 S (meningitis)Ceftriaxone $ <=0.12 S Ceftriaxone (other dx) $ <=0.12 S Clindamycin $$ <=0.25 S Erythromycin $ <=0.12 S Levofloxacin $ 0.5 S Moxifloxicin *NF 0.12 S Tetracycline NF <=0.25 S Trimethoprim/Sulfametho $ <=10 S Vancomycin $ 0.5 S (NF) indicates non-formulary drug at [facility]. Approval by Infectious Disease Specialist required before non-formulary drugs may be ordered and/or dispensed. * CLSI guidelines does not recommend testing of cephalosporins. This interpretation is deduced from Beta-lactam/penicillin results. Performed By: #### M100.0800 #### [facility] [address] [place], [place], [address] Observed: 05/30/2018 Status: F Source: [place] RESPIRATORY PANEL 3:00 PM [facility]LECULAR REPOSITORY RP PANEL ADENOVIRUS Not Detected HUMAN METAPHNEUMO Not Detected INFLUENZA A Not Detected INFLUENZA A (SUBTYPE H1) Not Detected INFLUENZA A (SUBTYPE H3) Not Detected INFLUENZA B Not Detected PARAINFLUENZA 1 Not Detected PARAINFLUENZA 2 Not Detected PARAINFLUENZA 3 Not Detected PARAINFLUENZA 4 Not Detected RHINOVIRUS Not Detected RSV A Not Detected RSV B Not Detected NAAT METHOD Testing was performed using nucleic acid amplification Performed By: #### M100.638 #### [facility] [address] [place], [address] BEDSIDE GLUCOSE Collected: 05/30/2018 Status: F Source: [place] 1:40 PM [facility] REPOSITORY TYPE CODE TESTS RESULT OUT OF REFERENCE UNITS RANGE LAB L501.080 70-110 mg/dL High BEDSIDE GLU 244 Result Comment: MANAGEMENT OF PATIENT CARE PER NURSING PROTOCOL Performed By: #### L501.080 #### [facility] Point of Care [address] [place] [address] EMERGENCY DEPARTMENT Observed: 05/30/2018 Status: F Source: [place] SUMMARY 12:25 PM [facility] REPOSITORY [facility] Medical Records Department [address] [place] [address] Emergency Department Summary 05/30/18 1222 MR#: [id number] Acct: [id number] Name: TRISTAN STEPHENSON Rep #: [id number] : 1950 67 From: Tania Lee DO PCP: Parish Christianson MD Status: REG ER - ER Visit Summary Date of Service: 05/30/18 Chief Complaint: ['s of breath] History of Present Illness: The patient is a 67 F [presents to the emergency department complaint of shortness of breath that started 2 weeks ago. Patient's had a productive cough that is green yellow and brown at times. Patient complained of exertional dyspnea. She has not had any fever. Patient complains of a lot of discomfort in her left chest with breathing and cough. Patient denies recent travel or surgery. Patient does have a history of COPD and normally wears 2 L nasal cannula O2. Patient denies any sick contacts.] Physical Examination: [HEENT-PERRLA, EOMI. Cranial nerves II through XII grossly intact. TMs clear. Mucous membranes moist. No adenopathy. Cardiovascular-regular rate and rhythm without murmur or ectopy Lungs-diminished breath sounds bilaterally with expiratory wheezes throughout. Mild tachypnea. No accessory muscle use or retractions. No significant conversational dyspnea. Abdomen-normoactive bowel sounds, soft, nontender, no rebound or rigidity, no peritoneal signs. Extremities-intact 4, normal range of motion, normal pulses, atraumatic] Test Results: [EKG obtained arrival shows sinus tachycardia with a ventricular rate of 104 bpm with some nonspecific ST changes. CBC with differential showed a white count of 14.2, hemoglobin 11.9, hematocrit 36, platelets 251. Chemistries unremarkable. D-dimer was elevated at over 1.5 therefore a CTA of the chest was obtained which showed no evidence for PE or dissection. She had COPD-like changes and bronchiectasis.] Emergency Department Course and Treatment: [Patient was started on DuoNeb aerosol and Solu-Medrol. Patient was started on Rocephin and Zithromax. Blood cultures were ordered.] Treatment Plan: [Patient will be admitted] Disposition: [Admit] Impression: [Community acquired pneumonia COPD exacerbation] This note was generated with [employer] software. It may contain incorrect words, spelling, and punctuation that were not noted in review of the chart prior to signing ED Disposition - Plan for ED Patient: Chief Complaint: Shortness of Breath Referrals: Parish Christianson MD [Primary Care Provider] - What to do if you have Problems For any increased pain, shortness of breath, bleeding, nausea or vomiting, chest pain, or any unexpected problems, contact your Primary Care Provider. Call [facility] ([phone]) or report to the closest Emergency Room. Call 911 if necessary. 05/30/18 1225 <Electronically signed by Tania Lee DO> Date Tania Lee DO Cosigner Signature (If Indicated): Date CC: Parish Christianson MD CTA CHEST W/WO Observed: 05/30/2018 Status: F Source: [place] CONTRAST 10:35 AM [facility] REPOSITORY [facility] Imaging Services [address] [place] [address] CTA Chest W/WO Contrast MR#: [id number] Acct: [id number] Name: ZOYALAURYNTRISTAN L Rep #: [id number] : 1950 F 67 From: Ashvin Rodriguez MD PCP: Parish Christianson MD Status: REG ER Study: CTA Chest W/WO Contrast Date of Exam: 05/30/18 Exam# [id number] Ordering Dr: Tania Lee DO STUDY: CTA CHEST REASON FOR EXAM: Female, 67 years old. Chest pain. COPD. Elevated d-dimer. RADIATION DOSAGE (If Supplied By Facility): CTDIvol = ( 6.91 ) mGy, DLP = ( 273.38 ) mGycm TECHNIQUE: The examination was performed with the intravenous administration of 100ml ml of Isovue 370 contrast material. Post-processing of the angiographic images was performed, with multiplanar reformation and 3D reconstruction. Individualized dose optimization techniques were used for this CT. COMPARISON: Comparison is made with prior chest radiograph done earlier in the day. FINDINGS: Normal enhancement of the main pulmonary artery and right and left pulmonary arteries. Normal enhancement of the bilateral peripheral pulmonary arteries. There is no demonstrated pulmonary embolism. There is atherosclerotic calcification of the aortic arch with tortuosity. There is no demonstrated aortic dissection. Normal heart and pericardium. There are visualized mediastinal lymph nodes, which are within normal size limits, and with normal morphology. Small bilateral hilar lymph nodes. Normal visualized trachea and bronchi. Hyperinflation. Diffuse emphysematous changes with cystic formation worse in the upper lobes. Irregular infiltrate in the anterior aspect of the left upper lobe with areas of bronchiectasis suggestive of a chronic scarring. Mild increased markings along the posterior aspect of the left upper lobe abutting the left major fissure suggesting scarring. This also evidence of a bronchiectasis at that site. Increased interstitial markings in the lower lobes worse in the posterior medial segment of the left lower lobe with bronchiectasis. Normal pleura. Normal chest wall structures. There are degenerative changes of thoracic spine. Normal visualized upper abdomen. CT/CTA Chest W/WO Contrast IMPRESSION: Diffuse emphysematous changes with areas of focal scarring and bronchiectasis in the anterior left upper lobe and posterior segment of the left lower lobe. Electronically Signed: Ashvin Rodriguez MD at 11:38 EST Tel [phone], Service support , CC: Parish Christianson MD; Tania Lee DO Agriculture Consultant: Signed Observed: 05/30/2018 Status: F Source: [place] CULTURE, BLOOD (WB) 9:40 AM [facility] REPOSITORY BC No growth in 5 days. Performed By: #### M200.1000 #### [facility] [address] [place], [address] CBC W/DIFF, AUTOMATED Collected: 05/30/2018 Status: C Source: [place] 9:23 AM [facility] REPOSITORY TYPE CODE TESTS RESULT OUT OF RANGE REFERENCE UNITS LAB L100.1000 4.4-11.0 K/mm3 High WBC 14.2 LAB L100.1200 4.2-5.4 M/mm3 Low RBC 3.92 LAB L100.1300 12.0-15.0 g/dl Low HGB 11.9 LAB L100.1400 37-47 % Low HCT 36.5 LAB L100.1500 81-99 fL Normal MCV 93.1 LAB L100.1600 27.0-32.0 pg Normal MCH 30.4 LAB L100.1700 32-36 g/gl Normal MCHC 32.6 LAB L100.1810 11.6-14.6 % Normal RDW CV 12.8 LAB L100.1820 35.1-43.9 fl Normal RDW SD 42.7 LAB L100.1900 150-450 K/mm3 Normal PLT 251 LAB L100.2000 6.2-12.0 fl Normal MPV 9.3 LAB L100.2620 2.0-7.7 X10 3/uL High Absolute Neut 12.9 Result Comment: AMENDED REPORT 05/30/18957 Absolute Neut previously reported as: 12.6 H X10^3/uL LAB L100.2720 0.83-4.51 X10 3/ul Low Absolute Lymph 0.71 Result Comment: AMENDED REPORT 05/30/18957 Absolute Lymph previously reported as: 0.66 L X10^3/ul LAB L100.3100 MANUAL DIFF Normal CELLS COUNTED 100 LAB L100.3200 47-70 % 89 High SEGS LAB L100.3300 0-5 % 2 Normal BAND LAB L100.3800 19-41 % Low 5 LYMPH LAB L100.3900 0-10 % 2 Normal MONOCYTE LAB L100.4200 % 2 Normal PLASMA CELL LAB L100.5500 ADEQ Normal PLT EST ADEQUATE LAB L100.7000 NORM C AND NORMAL C Normal RED CELL MORPH NORM C+C Performed By: #### L100.0100 #### [facility] [address] [place], [address] BASIC METABOLIC Collected: 05/30/2018 Status: F Source: [place] PROFILE (BMP) 9:23 AM [facility] REPOSITORY TYPE CODE TESTS RESULT OUT OF RANGE REFERENCE UNITS LAB L501.0100 74-106 mg/dL High GLU 150 Result Comment: Fasting Glucose result greater than or equal to 126 mg/dL suggests DIABETES MELLITUS per A.D.A. criteria. Please note revised GLUCOSE reference range effective 2017. LAB L501.1000 7-18 mg/dL Normal BUN 13 LAB L501.1100 0.55-1.02 mg/dL Normal CREAT,SERUM 0.71 Result Comment: The validity of the calculated GFR AND GFRAA in patients over 70 years has not been determined. Clinical correlation is essential. LAB L501.1110 >60 mL/min Normal EST GFR 87 Result Comment: Non- GFR Calc LAB L501.1115 >60 mL/min Normal EST GFR - AA 105 Result Comment: GFR Calc LAB L501.1255 ml/min Normal Estimated CRCL 49.12 LAB L501.1300 10-20 RATIO Normal BUN/CRE 18.3 LAB L501.2200 8.5-10 mg/dL Normal .1 CA 8.9 LAB L501.5300 136-14 mmol/L Normal 5 NA 137 LAB L501.5600 3.5-5. mmol/L Normal 1 K 3.6 LAB L501.5900 98-107 mmol/L Normal CL 99 LAB L501.6100 21.0-3 mmol/L Normal 2.0 CO2 28.0 LAB L501.6200 5-15 Normal GAP 10 Performed By: #### L500.2500, L501.4010 #### [facility] [address] [place], [address] TROPONIN-I Collected: 05/30/2018 Status: F Source: [place] 9:23 AM [facility] REPOSITORY TYPE CODE TESTS RESULT OUT OF RANGE REFERENCE UNITS LAB L501.4010 <0.045 ng/mL Normal < 0.015 TROPONIN-I Result Comment: TROPONIN-I EXPECTED VALUES <0.045 Negative 0.045 - 0.590 Consistent with Cardiac Damage > OR = 0.600 Critical Value Not every elevated troponin is indicative of CA. These values should be used with clinical judgement in examining the patient's clinical picture for diagnosis. To establish a diagnosis of CA versus myocardial injury, there must be a demonstrated rise and/or fall in the troponin values, in addition to ischemic symptoms, EKG changes, new regional wall motion abnormality, and/or angiographical evidence. PLEASE NOTE: REFERENCE RANGES EDITED 17 Performed By: #### L500.2500, L501.4010 #### [facility] [address] [place], [address] LACTIC ACID Collected: 05/30/2018 Status: F Source: [place] 9:23 AM [facility] REPOSITORY Order Comment: Yes/No query for Sepsis Lactate Rule Y TYPE CODE TESTS RESULT OUT OF RANGE REFERENCE UNITS LAB L503.6005 0.4-2.0 mmol/L Normal LACTIC ACID 1.1 Performed By: #### L503.6005 #### [facility] [address] [place], [address] D-DIMER QUANTITATIVE Collected: 05/30/2018 Status: F Source: [place] (DVT/PE) 9:23 AM [facility] REPOSIT[facility] TYPE CODE TESTS RESULT OUT OF RANGE REFERENCE UNITS LAB L300.8000 0.27-0.49 FEU/ug/m High alert D-DIMER 1.35 QUANT Result Comment: D-Dimer ELEVATED (>0.49): Additional studies and clinical assessments are indicated to conclude diagnosis of: Deep Vein Thrombosis (DVT) or Pulmonary Embolism (PE) RESULTS CALLED TO DAMASO NG 05/30/18 1034 Sheri Naik. REPORT READ BACK BY SAME. Performed By: #### L300.8000 #### [facility] [address] [place], [address] Observed: 05/30/2018 Status: F Source: [place] CULTURE, BLOOD (WB) 9:23 AM [facility] RE[facility] BC No growth in 5 days. Performed By: #### M200.1000 #### [facility] [address] [place], [address] CHEST 1 VIEW Observed: 05/30/2018 Status: F Source: [place] (PORTABLE) 9:11 AM [facility] REPOSITORY [facility] Imaging Services [address] [place] [address] Chest 1 View (Portable) MR#: [id number] Acct: [id number] Name: TRISTAN STEPHENSON Rep #: [id number] : 1950 F 67 From: Ashvin Rodriguez MD PCP: Parish Christianson MD Status: PRE ER Study: Chest 1 View (Portable) Date of Exam: 05/30/18 Exam# [id number] Ordering Dr: Tania Lee DO STUDY: X-RAY CHEST REASON FOR EXAM: Female, 67 years old. Shortness of breath. Left-sided chest pain. COPD. TECHNIQUE: Single AP portable view of the chest. COMPARISON: Comparison is made with prior study dated February 23, 2016. FINDINGS: Hyperinflation. Once again, there is evidence of increased interstitial markings in both lungs worse in the lower lobes with areas of confluence. This is suggestive of chronic interstitial scarring. Since prior study, there has been a progression of increased markings with areas of confluence in the left midlung. Superimposed infiltration cannot be ruled out. Follow-up is recommended. There is no demonstrated pleural abnormality. Normal size heart. Normal mediastinum and mathew. Normal visualized pulmonary arteries. There is atherosclerotic calcification of the aortic arch with tortuosity. Normal visualized thoracic spine. Normal visualized ribs, clavicles, and shoulders. There is no demonstrated abnormality of the visualized soft tissue structures of the upper abdomen. RAD/Chest 1 View (Portable) IMPRESSION: Hyperinflation. Findings suggestive of a chronic pulmonary scarring with increased markings in the left mid lung suggestive of possible superimposed infiltrate. Follow-up is recommended. Electronically Signed: Ashvin Rodriguez MD at 9:32 EST Tel [phone], Service support , CC: Parish Christianson MD; Tania Lee DO Agriculture Consultant: Signed HEMOGLOBIN A1C Collected: 01/13/2018 Status: F Source: [place] 9:29 AM [facility] REPOS[facility] TYPE CODE TESTS RESULT OUT OF RANGE REFERENCE UNITS LAB L501.9985 4.2-6.3 % High HGB A1C 7.4 Performed By: #### L501.9985 #### [facility] [address] [place], [address] BASIC METABOLIC Collected: 01/13/2018 Status: F Source: [place] PROFILE (BMP) 9:29 AM [facility] REPOSITORY TYPE CODE TESTS RESULT OUT OF RANGE REFERENCE UNITS LAB L501.0100 74-106 mg/dL Normal GLU 93 Result Comment: Please note revised GLUCOSE reference range effective 2017. LAB L501.1000 7-18 mg/dL Normal BUN 15 LAB L501.1100 0.55-1.02 mg/dL Normal CREAT,SERUM 0.74 Result Comment: The validity of the calculated GFR AND GFRAA in patients over 70 years has not been determined. Clinical correlation is essential. LAB L501.1110 >60 mL/min Normal EST GFR 83 Result Comment: Non- GFR Calc LAB L501.1115 >60 mL/min Normal EST GFR - AA 100 Result Comment: GFR Calc LAB L501.1300 10-20 RATIO High BUN/CRE 20.2 LAB L501.2200 8.5-10.1 mg/dL CA Normal 9.4 LAB L501.5300 136-145 mmol/L NA Normal 141 LAB L501.5600 3.5-5.1 mmol/L K Normal 4.3 LAB L501.5900 98-107 mmol/L CL Normal 103 LAB L501.6100 21.0-32.0 mmol/L Normal CO2 31.0 LAB L501.6200 5-15 Normal GAP 7 Performed By: #### L500.2500, L501.9520 #### [facility] [address] [place], [place], [address] THYROID STIM HORMONE Collected: 01/13/2018 Status: F Source: [place] (TSH) 9:29 AM [facility] REPOSITORY TYPE CODE TESTS RESULT OUT OF RANGE REFERENCE UNITS LAB L501.9520 0.358-3.74 uIU/mL Low TSH 0.14 Performed By: #### L500.2500, L501.9520 #### [facility] [address] [place], [address] BASIC METABOLIC Collected: 09/22/2017 Status: F Source: [place] PROFILE (BMP) 8:30 AM [facility] REPOSITORY TYPE CODE TESTS RESULT OUT OF RANGE REFERENCE UNITS LAB L501.0100 74-106 mg/dL Normal GLU 91 Result Comment: Please note revised GLUCOSE reference range effective 2017. LAB L501.1000 7-18 mg/dL Normal BUN 11 LAB L501.1100 0.55-1.02 mg/dL Normal CREAT,SERUM 0.62 Result Comment: The validity of the calculated GFR AND GFRAA in patients over 70 years has not been determined. Clinical correlation is essential. LAB L501.1110 >60 mL/min Normal EST GFR 102 Result Comment: Non- GFR Calc LAB L501.1115 >60 mL/min Normal EST GFR - AA 123 Result Comment: GFR Calc LAB L501.1300 10-20 RATIO Normal BUN/CRE 17.7 LAB L501.2200 8.5-10.1 mg/dL CA Normal 8.8 LAB L501.5300 136-145 mmol/L NA Normal 141 LAB L501.5600 3.5-5.1 mmol/L K Normal 3.8 LAB L501.5900 98-107 mmol/L CL Normal 103 LAB L501.6100 21.0-32.0 mmol/L Normal CO2 29.0 LAB L501.6200 5-15 Normal GAP 9 Performed By: #### L500.2500, L500.3400, L500.4100, L501.9520 #### [facility] [address] [place], [place], [id number] LIVER PROFILE Collected: 09/22/2017 Status: F Source: [place] 8:30 AM [facility] REPOSITORY TYPE CODE TESTS RESULT OUT OF RANGE REFERENCE UNITS LAB L501.1500 6.4-8.2 g/dL Normal T PROT 7.3 LAB L501.1800 3.2-5.0 g/dL Normal ALB 3.6 LAB L501.1950 2.2-4.2 g/dL Normal GLOB 3.7 LAB L501.4100 15-37 U/L Normal AST 17 LAB L501.4305 45-117 U/L Normal ALK P 77 LAB L501.4405 13-56 U/L Normal ALT 16 Result Comment: Please note revised ALT reference range effective 2017. LAB L501.4600 0.20-1.00 mg/dL Normal T BILI 0.40 LAB L501.4700 0.00-0.30 mg/dL Normal D BILI 0.07 Performed By: #### L500.2500, L500.3400, L500.4100, L501.9520 #### [facility] [address] [place], [place], [id number] LIPID PROFILE Collected: 09/22/2017 Status: F Source: [place] 8:30 AM [facility] REPOSITORY TYPE CODE TESTS RESULT OUT OF RANGE REFERENCE UNITS LAB L501.4900 200 mg/dL Normal CHOL 150 Result Comment: <200 mg/dL Desirable 200-240 mg/dL Borderline >240 mg/dL High Risk LAB L501.5000 mg/dL Normal TRIG 97 Result Comment: The drugs N-Acetylcysteine and Metamizole may falsely depress this assay. Serum Triglycerides Reference Interval Normal <150 mg/dL Borderline high 150 - 199 mg/dL High 200 - 499 mg/dL Very High > or = 500 mg/dL LAB L501.6400 mg/dL Normal HDL 53 Result Comment: The drugs N-Acetylcysteine and Metamizole may falsely depress this assay. Reference Range HDL <40 mg/dL Low HDL Cholesterol HDL >or= 60 mg/dL High HDL Cholesterol LAB L501.6500 0-130 mg/dL Normal LDL 78 LAB L501.6600 5-40 mg/dL Normal VLDL 19 Performed By: #### L500.2500, L500.3400, L500.4100, L501.9520 #### [facility] [address] [place], [address] THYROID STIM HORMONE Collected: 09/22/2017 Status: F Source: [place] (TSH) 8:30 AM [facility] REPOSITORY TYPE CODE TESTS RESULT OUT OF RANGE REFERENCE UNITS LAB L501.9520 0.358-3.74 uIU/mL High TSH 7.82 Performed By: #### L500.2500, L500.3400, L500.4100, L501.9520 #### [facility] [address] [place], [address] ALLERGIES ALLERGIES DATE TYPE / NAME / CODE REACTION SEVERITY SOURCE CODE 05/30/2018 Drug Penicillins/[id number] Rash Unknown [place] Allergy/41 0476(RXNORM) [facility]ly [facility] [id number]([facility]) Repository 05/30/2018 Drug morphine/[id number] Anaphylaxis Unknown [place] Allergy/41 5(RXNORM) Formerly [facility] [id number]([facility]) Repository 05/30/2018 Drug codeine/[id number] Other [place] Allergy/41 (RXNORM) Formerly [facility] [id number]([facility]) Repository 05/30/2018 Drug erythromycin Upset Stomach Unknown [place] Allergy/41 base/[id number](RX Community [id number]) Repository 05/30/2018 Drug bupropion/[id number] Other Unknown [place] Allergy/41 11(RXNORM) Formerly [facility] [id number]([facility]) Repository ENCOUNTERS ENCOUNTERS ADMIT/DISCHARGE ACCOUNT ADMITTING ENCOUNTER LOCATION SOURCE NUMBER CLASS 06/30/2018 [id number] [place] [address] [facility] ing:MFPLAB Repository 05/30/2018/ [id number] Jopperi, Sanya Inpatient [place] [address] [facility] ing:YV6Dkga: Repository UM398Aak: 1 05/30/2018 [id number] Sanya Justin Ambulatory BMSBuilding:B [place] 4 [facility] Repository 05/30/2018 [id number] Margoth Sanya Ambulatory BMSBuilding:B [place] 1 [facility] Repository 05/30/2018 [id number] Sanya Justin Ambulatory BMSBuilding:B [place] 0 [facility] Repository 01/16/2018 [id number] Ambulatory [place] [address] [facility] ing:CCN Repository 01/13/2018 [id number] Ambulatory [place] [address] [facility] ing:MFPLAB Repository 09/22/2017 [id number] Ambulatory [place] [facility] ing:MFPLAB Repository PAYERS PAYERS ENCOUNTER GUARANTOR PAYER SUBSCRIBER SOURCE 06/30/2018 TRISTAN L Primary TRISTAN L [place] [id number] Insurance:HUMANA MOLLARDDOB: Community [employer]REVE MEDICARE PPOPolicy [id number] Number: Repository [address]Xrx: 330 [id number] [phone] () Date:2513-87-47DK [place] [id number]: 06/30/2018 Secondary NOT GIVENUNK [place] Insurance:SELF PAY [facility] Number: Effective Repository Date:2018-06-30 05/30/2018 TRISTAN L Primary TRISTAN L [place] [id number] Insurance:HUMANA MOLLARDDOB: Community [employer]RE[place] MEDICARE PPOPolicy [id number] [place] [address] Number: Repository [phone]: 330 [id number] [phone] () Date:5575-48-05UA [address] [id number]: 05/30/2018 Secondary NOT GIVENUNK [place] Insurance:SELF PAY [facility] Number: Effective Repository Date:2018-05-30 05/30/2018 TRISTAN L Primary TRISTAN L [place] [id number] Insurance:HUMANA MOLLARDDOB[facility] PP[facility] [id number] [place] Number: Repository [address]Tmd: (330 [id number] [phone] (HP) Date:0511-03-97JU [address] [id number]: 05/30/2018 Secondary NOT GIVENUNK [place] Insurance:SELF PAY [facility] Number: Effective Repository Date:2018-05-30 05/30/2018 TRISTAN L Primary TRISTAN L [place] [id number] Insurance:HUMANA MOLLARDDOB: Community [employer]RE[place] MEDICARE PPOPolicy [id number] [place] Number: Repository [phone]: 330 [id number] [phone] (HP) Date:7325-43-30CQ [place] [address]WP: 05/30/2018 Secondary NOT GIVENUNK [place] Insurance:SELF PAY [facility] Number: Effective Repository Date:2018-05-30 05/30/2018 TRISTAN L Primary TRISTAN L [place] [id number] Insurance:HUMANA MOLLARDDOB: Community [employer]RE[place] MEDICARE PPOPolicy [id number] [place] Number: Repository [address]Zty: 330 [id number] [phone] (HP) Date:5468-74-73BN [place] [address]WP: 05/30/2018 Secondary NOT GIVENUNK [place] Insurance:SELF PAY [facility] Number: Effective Repository Date:2018-05-30 01/16/2018 Tristan L Primary Tristan L [place] [id number] Insurance:HUMANA MollardDOB: Community [place] MED[place]ARE PPOPolicy [id number] [place] Number: Repository [address]Hnj: 330 [id number] [phone] (HP) Date:0513-36-71DZ [place] [id number]: 01/16/2018 Secondary NOT GIVENUNK [place] Insurance:SELF PAY [facility] Number: Effective Repository Date:2018-01-16 01/13/2018 Tristan L Primary Tristan L [place] [id number] Insurance:HUMANA MollardDOB: Community [place] MED[place]ARE PPOPolicy [id number] Number: Repository [phone]: 330 [id number] [phone] () Date:8623-85-09ZU [address] [id number]: 01/13/2018 Secondary NOT GIVENUNK [place] Insurance:SELF PAY [facility] Number: Effective Repository Date:2018-01-13 09/22/2017 Tristan L Primary Tristan L [place] [id number] Insurance:HUMANA MollardDOB: Community [place] MED[place]ARE PPOPolicy [id number] Number: Repository [address]Tet: 330 [id number] [phone] () Date:3706-68-62LX [address] [phone]: 09/22/2017 Secondary NOT GIVENUNK [place] Insurance:SELF PAY [facility] Number: Effective Repository Date:2017-09-22
== END ==
LOC: MFPLAB 09:10
PROVIDERS: Family Provider Family Medicine; PCP Family Medicine; Visit Provider Family Medicine
DX: E11.9 Type 2 diabetes mellitus without complications (principal); E03.9 Hypothyroidism, unspecified
CPT/HCPCS: 36415; 80048; 80061; 80076; 82043; 82570; 83036; 84436; 84443; 84481

== ENCOUNTER → 2018-10-04 09:17 | Outpatient (CLI) | payer MEDICARE, SELFPAY ==
[2018-05-30 13:04] VITALS: BMI 26.4
--- NOTE | 2018-10-04 09:22 | RAD_ITS ---
STUDY: X-RAY CHEST REASON FOR EXAM: Female, 67 years old. COPD TECHNIQUE: Frontal and lateral views of the chest. COMPARISON: Chest x-ray 05/30/2018, CT scan 05/30/2018. FINDINGS: The lungs are hyperexpanded. There are coarsened interstitial markings suggestive of moderate chronic fibrosis. Scattered focal areas of scarring such as the left upper lobe are stable. No gross focal infiltrates. No gross effusions. Normal size heart. Normal mediastinum and mathew. Normal visualized pulmonary arteries. Normal visualized aortic arch and descending thoracic aorta. Normal visualized thoracic spine. Normal visualized ribs, clavicles, and shoulders. There is no demonstrated abnormality of the visualized soft tissue structures of the upper abdomen. 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 There is no evidence of acute chest disease. Electronically Signed: Perez Corado MD at 13:41 EDT , Service support ,
== END ==
LOC: MTRAD 09:21
PROVIDERS: Family Provider Family Medicine; PCP Family Medicine; Referring Provider Family Medicine; Visit Provider Family Medicine
DX: J44.9 Chronic obstructive pulmonary disease, unspecified (principal)
CPT/HCPCS: 71046

== ENCOUNTER → 2018-11-24 09:28 | Outpatient (CLI) | payer MEDICARE, SELFPAY ==
[2018-05-30 13:04] VITALS: BMI 26.4
[2018-11-24 11:05] LABS: AST(SGOT) 6 U/L (15-37); Alanine Aminotransfer ALT/SGPT 10 U/L (13-56); Albumin, Serum 3.4 g/dL (3.2-5.0); Alkaline Phosphatase 92 U/L (45-117); Anion Gap 5 (5-15); BUN 12 mg/dL (7-18); BUN/Creat Ratio 17.6 RATIO (10-20); Bilirubin, Direct 0.15 mg/dL (0.00-0.30); Calcium,Total 8.9 mg/dL (8.5-10.1); Chloride 103 mmol/L (98-107); Cholesterol 138 mg/dL (200); Creatinine, Serum 0.68 mg/dL (0.55-1.02); EST Glomerular Filtration Rate 91 mL/min (>60); Est Glom Filt Rate - Afr Amer 111 mL/min (>60); Globulin 3.5 g/dL (2.2-4.2); Glucose 169 mg/dL (74-106); High Density Lipoprotein 54 mg/dL; Potassium 4.4 mmol/L (3.5-5.1); Protein, Total 6.9 g/dL (6.4-8.2); Sodium Level 140 mmol/L (136-145); T4 Total, Thyroxin 12.1 ug/dL (4.8-13.9); Triglycerides 80 mg/dL; Very Low Density Lipoprotein 16 mg/dL (5-40)
[2018-11-24 11:14] LABS: Microalbumin,Random Urine 19.5 mg/L (NO RANGE EST.)
[2018-11-24 12:24] LABS: Hemoglobin A1c 7.7 % (4.2-6.3)
== END ==
LOC: MFPLAB 09:28
PROVIDERS: Family Provider Family Medicine; PCP Family Medicine; Referring Provider Family Medicine; Visit Provider Family Medicine
DX: E03.9 Hypothyroidism, unspecified (principal); E11.9 Type 2 diabetes mellitus without complications
CPT/HCPCS: 36415; 80048; 80061; 80076; 82043; 82570; 83036; 84436; 84443; 84481

== ENCOUNTER → 2019-12-03 08:31 | Outpatient (CLI) | payer MEDICARE, SELFPAY ==
[2019-12-03 10:22] LABS: Anion Gap 6 (5-15); BUN 18 mg/dL (7-18); BUN/Creat Ratio 19.9 RATIO (10-20); Calcium,Total 9.4 mg/dL (8.5-10.1); Chloride 101 mmol/L (98-107); Cholesterol 199 mg/dL (200); Creatinine, Serum 0.91 mg/dL (0.55-1.02); EST Glomerular Filtration Rate 66 mL/min (>60); Est Glom Filt Rate - Afr Amer 79 mL/min (>60); Glucose 126 mg/dL (74-106); High Density Lipoprotein 67 mg/dL; Potassium 4.1 mmol/L (3.5-5.1); Sodium Level 140 mmol/L (136-145); Triglycerides 100 mg/dL; Very Low Density Lipoprotein 20 mg/dL (5-40)
== END ==
LOC: MFPLAB 08:33
PROVIDERS: PCP Family Medicine; Visit Provider Family Medicine
DX: E03.9 Hypothyroidism, unspecified (principal); E11.9 Type 2 diabetes mellitus without complications
CPT/HCPCS: 36415; 80048; 80061; 84443

== ENCOUNTER → 2020-02-27 08:57 | Outpatient (CLI) | payer MEDICARE, SELFPAY ==
[2018-05-30 13:04] VITALS: BMI 26.4
[2020-02-27 11:02] LABS: Free T3 2.3 pg/mL (2.18-3.98); T4 Total, Thyroxin 13.1 ug/dL (4.8-13.9); Thyroid Stim Hormone (TSH) 0.17 uIU/mL (0.358-3.74)
== END ==
LOC: MFPLAB 09:02
PROVIDERS: PCP Family Medicine; Referring Provider Family Medicine; Visit Provider Family Medicine
DX: E03.9 Hypothyroidism, unspecified (principal)
CPT/HCPCS: 36415; 84436; 84443; 84481

== ENCOUNTER → 2020-05-27 08:45 | Outpatient (CLI) | payer MEDICARE, SELFPAY ==
[2018-05-30 13:04] VITALS: BMI 26.4
[2020-05-27 10:21] LABS: Free T3 1.6 pg/mL (2.18-3.98); Thyroid Stim Hormone (TSH) 4.36 uIU/mL (0.358-3.74)
== END ==
LOC: MFPLAB 08:46
PROVIDERS: PCP Family Medicine; Referring Provider Family Medicine; Visit Provider Family Medicine
DX: E03.9 Hypothyroidism, unspecified (principal)
CPT/HCPCS: 36415; 84436; 84443; 84481

== ENCOUNTER → 2020-08-29 | Outpatient (CLI) | payer MEDICARE, SELFPAY ==
[2018-05-30 13:04] VITALS: BMI 26.4
[2020-08-29 10:42] LABS: Anion Gap -1 (5-15); BUN 14 mg/dL (7-18); BUN/Creat Ratio 17.4 RATIO (10-20); Calcium,Total 9.1 mg/dL (8.5-10.1); Chloride 103 mmol/L (98-107); Cholesterol 171 mg/dL (200); EST Glomerular Filtration Rate 75 mL/min (>60); Est Glom Filt Rate - Afr Amer 91 mL/min (>60); Free T3 1.6 pg/mL (2.18-3.98); Glucose 110 mg/dL (74-106); High Density Lipoprotein 61 mg/dL; Potassium 4.8 mmol/L (3.5-5.1); Sodium Level 137 mmol/L (136-145); T4 Total, Thyroxin 10.3 ug/dL (4.8-13.9); Thyroid Stim Hormone (TSH) 4.07 uIU/mL (0.358-3.74); Triglycerides 74 mg/dL; Very Low Density Lipoprotein 15 mg/dL (5-40)
== END | disposition home or self-care (01) ==
LOC: MFPLAB 09:13
PROVIDERS: PCP Family Medicine; Referring Provider Family Medicine; Visit Provider Family Medicine
DX: E11.9 Type 2 diabetes mellitus without complications (principal); E03.9 Hypothyroidism, unspecified
CPT/HCPCS: 36415; 80048; 80061; 84436; 84443; 84481

== ENCOUNTER → 2020-09-11 10:15 | Outpatient (CLI) | payer MEDICARE, SELFPAY ==
--- NOTE | 2020-09-11 10:19 | RAD_ITS ---
STUDY: X-RAY - LEFT SHOULDER REASON FOR EXAM: Left shoulder pain for about 3 months, no specific injury. TECHNIQUE: 4 view(s) of the shoulder. COMPARISON: None. FINDINGS: Normal glenohumeral articulation. There is mild acromioclavicular arthrosis. Normal acromion. Normal humeral head and visualized proximal humerus. The soft tissue structures are unremarkable. Normal visualized pulmonary apex. RAD/Shoulder min 2 Views IMPRESSION: Mild acromioclavicular arthrosis. Electronically Signed: Jeffrey Escalante MD at 8:15 EST Tel , Service support ,
== END ==
LOC: MTRAD 10:18
PROVIDERS: PCP Family Medicine; Referring Provider Family Medicine; Visit Provider Family Medicine
DX: M19.012 Primary osteoarthritis, left shoulder (principal)
CPT/HCPCS: 73030

== ENCOUNTER → 2020-10-16 10:29 | Outpatient (CLI) | payer MEDICARE, SELFPAY ==
--- NOTE | 2020-10-16 10:31 | MRI_ITS ---
STUDY: MRI LEFT SHOULDER REASON FOR EXAM: Left shoulder pain and limited range of motion for 3-4 months. TECHNIQUE: Standardized fat and water weighted pulse sequences were obtained in all 3 orthogonal planes. COMPARISON: Radiographs 09/11/2020. FINDINGS: There is mild supraspinatus and infraspinatus tendinosis and a small linear low-grade partial-thickness tear of the articular surface of the distal supraspinatus/infraspinatus tendon junction at the greater tuberosity insertion (T2 coronal image 7). There is mild subscapularis tendinosis (T2 axial images 13, 14) without discrete tendon tear. Normal teres minor tendon. Normal supraspinatus muscle. Normal infraspinatus muscle. Normal subscapularis muscle. Normal teres minor muscle. Normal glenohumeral articulation. There is a very small cyst of the posterior aspect of the greater tuberosity. Normal biceps labral complex. Normal intracapsular long biceps tendon. Normal labrum. Normal capsulo- ligamentous complex. There is mild acromioclavicular arthrosis (proton-density coronal image 12) without undersurface osteophytes. There is a Type II morphology (curved), with a neutral orientation. There is a trace of subacromial-subdeltoid bursal fluid. Normal visualized coracohumeral and coracoacromial ligaments. Normal deltoid muscle. Normal trapezius muscle. MRI/Upper Ext Joint Only(Routine) IMPRESSION: Small low-grade partial-thickness tear of the supraspinatus/infraspinatus tendon junction and mild tendinosis of the supraspinatus and infraspinatus tendons. Mild subscapularis tendinosis. Mild acromioclavicular arthrosis. Electronically Signed: Jeffrey Escalante MD at 12:55 EDT Tel , Service support ,
== END ==
LOC: MRI 10:31
PROVIDERS: PCP Family Medicine; Referring Provider Family Medicine; Visit Provider Family Medicine
DX: S46.812A Strain of other muscles, fascia and tendons at shoulder and upper arm level, left arm, initial encounter (principal); X58.XXXA Exposure to other specified factors, initial encounter; M19.012 Primary osteoarthritis, left shoulder
CPT/HCPCS: 73221

== ENCOUNTER → 2020-10-28 09:07 | Outpatient (CLI) | payer MEDICARE, SELFPAY ==
[2018-05-30 13:04] VITALS: BMI 26.4
[2020-10-28 10:08] LABS: Absolute Lymphocyte Count 1.48 X10^3/uL (0.83-4.51); Basophil# 0.03 X10^3/uL; Basophil% 0.5 % (0-1); Eosinophil# 0.18 X10^3/uL; Eosinophils% 2.9 % (0-5); Hematocrit 39.9 % (37-47); Hemoglobin 12.5 g/dL (12.0-15.0); Lymphocyte # 1.48 X10^3/ul (4.0); Lymphocyte % 23.9 % (19-41); Mean Corp Hgb Conc 31.3 g/dL (32-36); Mean Corpuscular Volume 95.7 fL (81-99); Monocyte# 0.47 X10^3/uL; Monocyte% 7.6 % (0-10); NRBC Flagged by Analyzer 0 % (0-5); Neutrophil # 4.01 X10^3/uL (2.7-7.7); Neutrophil % 64.8 % (47-70); Platelet Count 254 K/mm3 (150-450); RBC Distribution Width CV 12.7 % (11.6-14.6); RBC Distribution Width SD 44.6 fl (35.1-43.9); Red Blood Count 4.17 M/mm3 (4.2-5.4); White Blood Count 6.2 K/mm3 (4.4-11.0)
[2020-10-28 10:35] LABS: Anion Gap 4 (5-15); BUN 14 mg/dL (7-18); BUN/Creat Ratio 20.8 RATIO (10-20); Calcium,Total 9.4 mg/dL (8.5-10.1); Chloride 102 mmol/L (98-107); Cholesterol 147 mg/dL (200); Creatinine, Serum 0.67 mg/dL (0.55-1.02); EST Glomerular Filtration Rate 92 mL/min (>60); Est Glom Filt Rate - Afr Amer 111 mL/min (>60); Glucose 101 mg/dL (74-106); High Density Lipoprotein 70 mg/dL; Potassium 3.9 mmol/L (3.5-5.1); Sodium Level 138 mmol/L (136-145); Triglycerides 65 mg/dL; Very Low Density Lipoprotein 13 mg/dL (5-40)
== END ==
LOC: MFPLAB 09:10
PROVIDERS: PCP Family Medicine; Referring Provider Family Medicine; Visit Provider Family Medicine
DX: Z01.818 Encounter for other preprocedural examination (principal); E11.9 Type 2 diabetes mellitus without complications
CPT/HCPCS: 36415; 80048; 80061; 83036; 85025

== ENCOUNTER → 2020-11-07 15:35 | Outpatient (CLI) | payer MEDICARE, SELFPAY | PROVIDERS: PCP Family Medicine; Referring Provider Physician Assistant; Visit Provider Physician Assistant | DX: Z20.822 Contact with and (suspected) exposure to COVID-19 (principal) | CPT/HCPCS: 87635; C9803; U0002 ==

== ENCOUNTER 2020-11-14 13:49 | Inpatient (IN) | payer MEDICARE, SELFPAY ==
[2020-11-14] VITALS (18 sets, daily range): BP systolic 106–134; BP diastolic 49–61; PULSE 93–130; RESP 18–28; TEMP 36.1–37.6; O2SAT 86–98; BMI 25.0; BMI 25.4
--- NOTE | 2020-11-14 14:50 | ED.VIS.DYS ---
HPI History of Present Illness Chief Complaint: Shortness of Breath Informant: patient Onset/Context/Timing Onset: Yesterday Context: gradual Timing: Intermittent Quality: Positive for Dyspnea on exertion and Wheezing Current Severity: Mild Maximum Severity: Mild Worsened by: Exertion and Coughing Associated Symptoms cough; Negative for fever or sore throat Chest Pain: Positive for None Narrative Narrative: 69-year-old female history of COPD on home O2. She had laparoscopic left shoulder surgery done as an outpatient 2 days ago. Said last night she had gradual onset of shortness of breath. She denies any chest pain. No hemoptysis. No history of DVT or PE. No calf pain. States that she has had a cough. And short of breath. She denies any fever or chills. PE Risk Factors: Positive for Recent surgery; Negative for Cancer, OCP + Smoking + > 35, Prior DVT or PE, Recent immobilization and Recent travel Prior similar symptoms: Yes Recent Illness/Hospitalization: No PFSH PFSH Medical History Anxiety COPD (chronic obstructive pulmonary disease) Diabetes Hypothyroidism On home oxygen therapy Smoker Home Medications cholecalciferol (vitamin D3) [Vitamin D3] 1,000 unit PO DAILY 01/15/14 [History Last Taken 02/22/16 10:00] fluticasone propionate 2 spray NASAL DAILY 01/15/14 [History Last Taken 05/29/18] montelukast 10 mg PO DAILY 01/15/14 [History Last Taken 05/29/18 10 MG] multivitamin with folic acid [Thera] 1 tab PO DAILY 01/15/14 [History Last Taken 05/28/18] potassium chloride [K-Tab] 10 meq PO DAILY 01/15/14 [History Last Taken 05/29/18] Advair HFA 2 puff INHALATION BID #1 inhaler 02/14/15 [Rx Last Taken 05/29/18] albuterol sulfate [Ventolin HFA] 2 puff INHALATION Q4H PRN PRN #1 inhaler 02/14/15 [Rx Last Taken 05/30/18] insulin aspart U-100 [Novolog Flexpen U-100 Insulin] 0 units SUBCUT TIDCM 02/23/16 [History Last Taken Unknown] ipratropium-albuterol 3 ml INHALATION 4X/DAY #120 ampul.neb 02/26/16 [Rx Last Taken 11/13/18] celecoxib [Celebrex] 100 mg PO DAILY 05/30/18 [History Last Taken 05/29/18] metformin 1,000 mg PO BIDCM #0 06/01/18 [Rx Last Taken 05/29/18 1000 MG] Advair Hfa 230-21 Mcg Inhaler 2 puff INHALATION BID 09/18/20 [History Last Taken Unknown] Fluoxetine 10 mg PO DAILY 09/18/20 [History Last Taken Unknown] Glimepiride 4 mg PO DAILY 09/18/20 [History Last Taken Unknown] Spiriva 18 mcg INHALATION DAILY 09/18/20 [History Last Taken Unknown] Synthroid 200 mcg PO DAILY 09/18/20 [History Last Taken Unknown] insulin glargine 30 units SC DAILY 09/18/20 [History Last Taken Unknown] clonazepam 0.5 mg PO DAILY 11/14/20 [History Last Taken Unknown] Allergy/AdvReac Type Severity Reaction Status Date / Time morphine Allergy Anaphylaxis Verified 11/14/20 13:49 Penicillins Allergy Rash Verified 11/14/20 13:49 codeine AdvReac Severe Other Verified 11/14/20 13:49 bupropion [From Wellbutrin] AdvReac Other Verified 11/14/20 13:49 erythromycin base AdvReac Upset Verified 11/14/20 13:49 [Erythromycin Base] Stomach no significant family history Surgical History History of appendectomy Social History Smoking Status: Current every day smoker ROS ROS ED Review of Systems ROS Unobtainable: Denies due to encephalopathy Constitutional Constitutional ED: Denies chills, fever(s) or sweats Eyes Eyes: Denies change in vision ENT ENT ED: Denies ear pain or sore throat Cardiovascular Cardiovascular: Denies chest pain or palpitations Respiratory/Chest Respiratory/Chest: Reports cough and dyspnea Gastrointestinal Gastrointestinal: Denies abdominal pain, diarrhea, nausea or vomiting Genitourinary Genitourinary ED: Denies dysuria Musculoskeletal Musculoskeletal: Denies myalgias Integumentary Denies rash Neurologic Neurologic: Denies headache(s) Psychiatric Psychiatric: Denies depression Endocrine Endocrinology: Denies polyuria Hematologic/Lymphatic Hematologic/Lymphatic: Denies easy bruising Allergic/Immunologic Allergic/Immunologic ED: Denies urticaria EXAM Physical Exam Const Vital Signs: 11/14/20 13:50 11/14/20 13:55 11/14/20 14:07 Temperature 98 F 98 F Temperature Source Temporal Temporal Pulse Rate 130 H 116 H Respiratory Rate 28 H 19 H Respiratory Effort Short of Breath Respiratory Depth Deep Respiratory Pattern Tachypnea Blood Pressure 110/61 110/61 Blood Pressure Mean 77 77 Pulse Ox 86 98 Oxygen Delivery Method Nasal Cannula Nasal Cannula Room Air Oxygen Flow Rate (L/min) 2 2 2 11/14/20 14:49 11/14/20 14:55 11/14/20 15:00 Temperature 97 F L 97 F L Temperature Source Temporal Temporal Pulse Rate 111 H 111 H 116 H Respiratory Rate 21 H 21 H 18 Respiratory Effort Respiratory Depth Respiratory Pattern Blood Pressure 123/49 H 123/49 H 119/52 L Blood Pressure Mean 73 73 74 Pulse Ox 95 95 98 Oxygen Delivery Method Nasal Cannula Nasal Cannula Nasal Cannula Oxygen Flow Rate (L/min) 4 4 4 11/14/20 15:23 11/14/20 16:00 Temperature 97 F L Temperature Source Temporal Pulse Rate 117 H 115 H Respiratory Rate 24 H 19 H Respiratory Effort Short of Breath Respiratory Depth Respiratory Pattern Blood Pressure 119/52 L Blood Pressure Mean 74 Pulse Ox 95 95 Oxygen Delivery Method Nasal Cannula Nasal Cannula Oxygen Flow Rate (L/min) 2 4 Positive well nourished and well developed Constitutional Narrative: Older female presents with shortness of breath. She is in no acute distress. Vital signs are stable afebrile. On oxygen her pulse ox is 98%. She does not look septic or toxic. General Appearance ED: well developed HEENT Reports moist mucous membranes Negative for atraumatic Eyes PERRL and EOMs intact bilaterally Neck no lymphadenopathy, supple, no meningeal signs and no JVD Resp normal respiratory effort Auscultation: rhonchi and wheezes Cardio regular rhythm and no murmurs Rate: tachycardic GI non-tender, non-distended and no masses Auscultation: normoactive bowel sounds Palpation: soft Back/Spine no CVA tenderness and normal to inspection Extremity normal to inspection Extremity Narrative: No calf tenderness. Trace edema bilaterally. Neuro oriented x3 Sensorium / Orientation: alert, oriented to person and oriented to place Psych mental status grossly normal Skin no wounds Rashes: no rashes MDM MDM MDM Narrative Medical decision making narrative: 69-year-old female with COPD on home O2 presents with shortness of breath that began last night. Differential diagnosis is a COPD flare, respiratory infection, CHF. Clinically this does not appear to be a PE. She has had recent outpatient surgery. She denies any calf pain. She is never had a DVT or PE. No hemoptysis. Patient will be treated with DuoNeb and Atrovent aerosols. IV Solu-Medrol. Repeat exam patient is doing well at 4:45 PM. She does not feel well enough to be discharged home. I spoke to the hospitalist Dr. Jung patient will be admitted to [facility] For exacerbation of COPD Lab Data Attestation: I reviewed the patient's lab results. Labs: Laboratory Results - last 24 hr 11/14/20 11/14/20 14:50 14:50 WBC 14.3 H RBC 4.42 Hgb 12.9 Hct 42.2 MCV 95.5 MCH 29.2 MCHC 30.6 L RDW Std Deviation 44.7 H RDW Coeff of Hudson 12.7 Plt Count 287 MPV 9.5 Immature Gran % (Auto) 0.300 Neut % (Auto) 85.8 H Lymph % (Auto) 9.1 L Meigs % (Auto) 3.6 Eos % (Auto) 1.0 Baso % (Auto) 0.2 Absolute Neuts (auto) 12.3 H Absolute Lymphs (auto) 1.31 Nucleated RBC % 0 Sodium 140 Potassium 3.8 Chloride 103 Carbon Dioxide 34.0 H Anion Gap 3 L BUN 16 Creatinine 0.83 Estim Creat Clear Calc 59.89 Est GFR (MDRD) Af Amer 88 Est GFR (MDRD) Non-Af 72 BUN/Creatinine Ratio 19.3 Glucose 154 H Calcium 9.2 Troponin I < 0.015 Radiography Chest X-Ray - ED: 1 View, Read by ED Physician, Read by Radiologist, Heart, Mediastinum, Bony Structures and No Acute Disease Diagnostic Testing: Radiology Impression Chest X-Ray 11/14/20 15:35 IMPRESSION: Emphysema without pneumonia or atelectasis. Electronically Signed: Adilson Braun MD at 15:47 EDT Tel , Service support , Portable chest x-ray 1 view shows chronic changes of COPD but no acute process. This is interpreted by myself and radiologist. EKG 1st: Attestation: I personally reviewed and interpreted this EKG as follows: Interpretation: Sinus Rhythm, No Acute Injury Pattern and Sinus Tachycardia Comments: Sinus tachycardia rate of 112 with no acute signs of NE or change from prior EKG from 2018. Prior EKG tracings: available for review Prior: Unchanged Discharge Plan Triage Chief Complaint: Shortness of Breath ED Provider: Ortiz Martinez Dx/Rx/DC Orders Clinical Impression: Chronic obstructive lung disease, DM type 2 (diabetes mellitus, type 2), Tobacco user Prescriptions: No Action potassium chloride [K-Tab] 10 MEQ tablet extended release 10 meq PO DAILY RF: 0 montelukast 10 MG tablet 10 mg PO DAILY RF: 0 fluticasone propionate 1 SPRAY spray,suspension 2 spray NASAL DAILY RF: 0 cholecalciferol (vitamin D3) [Vitamin D3] 1,000 UNIT capsule 1,000 unit PO DAILY RF: 0 multivitamin with folic acid [Thera] 1 TABLET tablet 1 tab PO DAILY RF: 0 albuterol sulfate [Ventolin HFA] 1 INHALER inhaler 2 puff inhalation Q4H PRN PRN (Reason: Asthma) Qty: 1 RF: 0 Advair HFA 1 PUFF inhaler 2 puff inhalation BID Qty: 1 RF: 0 insulin aspart U-100 [Novolog Flexpen U-100 Insulin] 100 UNITS/ML insulin pen 0 units subcut TIDCM RF: 0 ipratropium-albuterol 3 ML Ampul.Neb 3 ml inhalation 4X/DAY Qty: 120 RF: 0 Synthroid 200 mcg PO DAILY RF: 0 insulin glargine 100 UNITS/ML insulin pen 30 units SC DAILY RF: 0 Fluoxetine 10 mg PO DAILY RF: 0 Glimepiride 4 mg PO DAILY RF: 0 Advair Hfa 230-21 Mcg Inhaler 2 puff INHALATION BID RF: 0 Spiriva 18 mcg inhalation DAILY RF: 0 celecoxib [Celebrex] 200 MG capsule 100 mg PO DAILY RF: 0 metformin 500 MG tablet 1,000 mg PO BIDCM Qty: 0 RF: 0 clonazepam 0.5 MG tablet 0.5 mg PO DAILY RF: 0 Primary Care Provider: Parish Christianson Referrals: Parish Christianson MD [Primary Care Provider] - Disposition Disposition: Acute Care Hospital [facility]
--- NOTE | 2020-11-14 15:03 | EKG12_ITS ---
Test Reason : SOB Blood Pressure : / mmHG Vent. Rate : 112 BPM Atrial Rate : 112 BPM P-R Int : 126 ms QRS Dur : 070 ms QT Int : 320 ms P-R-T Axes : 078 077 070 degrees QTc Int : 436 ms Sinus tachycardia Abnormal ECG Confirmed by CHARANJIT EASLEY, SANTI ([id number]), editor trade journal RILEY RODAS ([id number]) on 11/18/2020 10:57:50 AM Referred By: JESSE/IDA Confirmed By:SANTI DONOHUE MD
[2020-11-14 15:16] LABS: Absolute Lymphocyte Count 1.31 X10^3/uL (0.83-4.51); Absolute Neutrophil Count 12.3 X10^3/uL (2.0-7.7); Basophil# 0.03 X10^3/uL; Basophil% 0.2 % (0-1); Eosinophil# 0.14 X10^3/uL; Hematocrit 42.2 % (37-47); Hemoglobin 12.9 g/dL (12.0-15.0); Lymphocyte # 1.31 X10^3/ul (0.83-4.51); Lymphocyte % 9.1 % (19-41); Mean Corp Hgb Conc 30.6 g/dL (32-36); Mean Corpuscular Hgb 29.2 pg (27.0-32.0); Mean Corpuscular Volume 95.5 fL (81-99); Mean Platelet Vol. 9.5 fl (6.2-12.0); Monocyte# 0.51 X10^3/uL; Monocyte% 3.6 % (0-10); NRBC Flagged by Analyzer 0 % (0-5); Neutrophil # 12.29 X10^3/uL (2.7-7.7); Neutrophil % 85.8 % (47-70); Platelet Count 287 K/mm3 (150-450); RBC Distribution Width CV 12.7 % (11.6-14.6); RBC Distribution Width SD 44.7 fl (35.1-43.9); Red Blood Count 4.42 M/mm3 (4.2-5.4); White Blood Count 14.3 K/mm3 (4.4-11.0)
[2020-11-14] MEDS: Ipratropium/Albuterol Sulfate 3 ML AMPUL.NEB INHALATION ×3 (15:23→22:22)
[2020-11-14] MEDS: Albuterol 2.5 MG/3 ML VIAL.NEB. INHALATION ×3 (15:30)
[2020-11-14 15:33] LABS: Anion Gap 3 (5-15); BUN 16 mg/dL (7-18); BUN/Creat Ratio 19.3 RATIO (10-20); Calcium,Total 9.2 mg/dL (8.5-10.1); Chloride 103 mmol/L (98-107); Creatinine, Serum 0.83 mg/dL (0.55-1.02); EST Glomerular Filtration Rate 72 mL/min (>60); Est Glom Filt Rate - Afr Amer 88 mL/min (>60); Estimated Creatinine Clearance 59.89 ml/min; Glucose 154 mg/dL (74-106); Potassium 3.8 mmol/L (3.5-5.1); Sodium Level 140 mmol/L (136-145)
[2020-11-14] MEDS: MethylPREDNISolone 125 MG/2 ML Vial IV (15:35)
--- NOTE | 2020-11-14 15:35 | RAD_ITS ---
STUDY: X-RAY CHEST REASON FOR EXAM: Female, 69 years old. dyspnea TECHNIQUE: Single AP portable view of the chest. COMPARISON: 10/04/2018 FINDINGS: There is hyperinflation of the lungs consistent with chronic obstructive lung disease (COPD). There is no demonstrated pleural abnormality. Normal size heart. Normal mediastinum and mathew. Normal visualized pulmonary arteries. Normal visualized aortic arch and descending thoracic aorta. Normal visualized thoracic spine. Normal visualized ribs, clavicles, and shoulders. There is no demonstrated abnormality of the visualized soft tissue structures of the upper abdomen. RAD/Chest 1 View (Portable) IMPRESSION: Emphysema without pneumonia or atelectasis. Electronically Signed: Adilson Braun MD at 15:47 EDT Tel , Service support ,
--- NOTE | 2020-11-14 16:57 | PCM.HP.STD ---
HPI - General General Chief Complaint: Worsening shortness of breath. HPI Narrative TRISTAN STEPHENSON, is a 69 F with past medical history as mentioned above presented to the emergency room because of shortness of breath. Her symptoms started last night with sudden increasing shortness of breath, it is at rest, aggravated by activity, not relieved with rest, associated with dry cough and wheezing. She denies fever or chills. She denied chest pain, palpitation, dizziness or lightheadedness. She does have a history of COPD and she is on home oxygen at 2 L. 2 days ago, she had an outpatient laparoscopic left shoulder surgery and she denied significant left shoulder pain. In the emergency department, patient was dyspneic and tachypneic, she was tachycardic, afebrile and she required up to 4 L of oxygen. Chest x-ray showed no acute infiltrate or consolidation. Routine blood work was remarkable for leukocytosis, otherwise normal. EKG revealed sinus tachycardia, prominent T waves in leads V5 and V6, no acute ischemic changes. Troponin was negative. Patient received IV Solu-Medrol, DuoNeb nebulizer as well as albuterol and she remained short of breath, dyspneic, tachycardic although her oxygen requirement is down to 2 L. She is being admitted for acute COPD exacerbation. [facility] Medical History Anxiety COPD (chronic obstructive pulmonary disease) Diabetes Hypothyroidism On home oxygen therapy Smoker Home Medications cholecalciferol (vitamin D3) [Vitamin D3] 1,000 unit PO DAILY 01/15/14 [History Last Taken 02/22/16 10:00] fluticasone propionate 2 spray NASAL DAILY 01/15/14 [History Last Taken 05/29/18] montelukast 10 mg PO DAILY 01/15/14 [History Last Taken 05/29/18 10 MG] multivitamin with folic acid [Thera] 1 tab PO DAILY 01/15/14 [History Last Taken 05/28/18] potassium chloride [K-Tab] 10 meq PO DAILY 01/15/14 [History Last Taken 05/29/18] Advair HFA 2 puff INHALATION BID #1 inhaler 02/14/15 [Rx Last Taken 05/29/18] albuterol sulfate [Ventolin HFA] 2 puff INHALATION Q4H PRN PRN #1 inhaler 02/14/15 [Rx Last Taken 05/30/18] insulin aspart U-100 [Novolog Flexpen U-100 Insulin] 0 units SUBCUT TIDCM 02/23/16 [History Last Taken Unknown] ipratropium-albuterol 3 ml INHALATION 4X/DAY #120 ampul.neb 02/26/16 [Rx Last Taken 05/30/18] celecoxib [Celebrex] 100 mg PO DAILY 05/30/18 [History Last Taken 05/29/18] metformin 1,000 mg PO BIDCM #0 06/01/18 [Rx Last Taken 05/29/18 1000 MG] Advair Hfa 230-21 Mcg Inhaler 2 puff INHALATION BID 09/18/20 [History Last Taken Unknown] Fluoxetine 10 mg PO DAILY 09/18/20 [History Last Taken Unknown] Glimepiride 4 mg PO DAILY 09/18/20 [History Last Taken Unknown] Spiriva 18 mcg INHALATION DAILY 09/18/20 [History Last Taken Unknown] Synthroid 200 mcg PO DAILY 09/18/20 [History Last Taken Unknown] insulin glargine 30 units SC DAILY 09/18/20 [History Last Taken Unknown] clonazepam 0.5 mg PO DAILY 11/14/20 [History Last Taken Unknown] Allergy/AdvReac Type Severity Reaction Status Date / Time morphine Allergy Anaphylaxis Verified 11/14/20 13:49 Penicillins Allergy Rash Verified 11/14/20 13:49 codeine AdvReac Severe Other Verified 11/14/20 13:49 bupropion [From Wellbutrin] AdvReac Other Verified 11/14/20 13:49 erythromycin base AdvReac Upset Verified 11/14/20 13:49 [Erythromycin Base] Stomach no significant family history Surgical History History of appendectomy Social History Smoking Status: Current every day smoker ROS Constitutional Constitutional: Denies anorexia, chills, fatigue, fever(s) or malaise Eyes Eyes: Denies blurry vision, change in eye color, change in vision, double vision or eye pain ENT HEENT: Denies ear pain, epistaxis, headache(s), nasal congestion, post nasal drip or sore throat Cardiovascular Cardiovascular: Denies chest pain, dyspnea on exertion, edema, lightheadedness, orthopnea, palpitations, paroxysmal nocturnal dyspnea or syncope Respiratory/Chest Respiratory/Chest: Reports cough, dyspnea, shortness of breath at rest, shortness of breath with exertion and wheezing; Denies hemoptysis or productive cough Gastrointestinal Gastrointestinal: Denies abdominal pain, constipation, diarrhea, hematemesis, hematochezia, melena, nausea or vomiting Genitourinary Genitourinary: Denies burning urination, dysuria, hematuria, urinary hesitancy or urinary urgency Musculoskeletal Musculoskeletal: Denies arthralgias, back pain, joint pain, joint swelling, myalgias or neck pain Neurologic Neurologic: Denies confusion, dizziness, focal weakness, headache(s), numbness, paresthesias, seizures, tingling or tremor(s) Psychiatric Psychiatric: Denies anxiety, depression, homicidal ideation or suicidal ideation Endocrine Endocrinology: Denies change in body appearance, cold intolerance, heat intolerance, polydipsia or polyuria Hematologic/Lymphatic Hematologic/Lymphatic: Reports other; Denies easy bleeding, easy bruising or lymphadenopathy Allergic/Immunologic Allergic/Immunologic: Denies itchy eyes, rhinitis, throat swelling, tongue swelling, hives, urticaria or wheezing Vital Signs Vital Signs Vital Signs: 11/14/20 13:50 11/14/20 13:55 11/14/20 14:07 Temperature 98 F 98 F Temperature Source Temporal Temporal Pulse Rate 130 H 116 H Respiratory Rate 28 H 19 H Respiratory Effort Short of Breath Respiratory Depth Deep Respiratory Pattern Tachypnea Blood Pressure 110/61 110/61 Blood Pressure Mean 77 77 Pulse Ox 86 98 Oxygen Delivery Method Nasal Cannula Nasal Cannula Room Air Oxygen Flow Rate (L/min) 2 2 2 11/14/20 14:49 11/14/20 14:55 11/14/20 15:00 Temperature 97 F L 97 F L Temperature Source Temporal Temporal Pulse Rate 111 H 111 H 116 H Respiratory Rate 21 H 21 H 18 Respiratory Effort Respiratory Depth Respiratory Pattern Blood Pressure 123/49 H 123/49 H 119/52 L Blood Pressure Mean 73 73 74 Pulse Ox 95 95 98 Oxygen Delivery Method Nasal Cannula Nasal Cannula Nasal Cannula Oxygen Flow Rate (L/min) 4 4 4 11/14/20 15:23 11/14/20 16:00 11/14/20 16:46 Temperature 97 F L Temperature Source Temporal Pulse Rate 117 H 115 H Respiratory Rate 24 H 19 H Respiratory Effort Short of Breath Respiratory Depth Respiratory Pattern Blood Pressure 119/52 L Blood Pressure Mean 74 Pulse Ox 95 95 95 Oxygen Delivery Method Nasal Cannula Nasal Cannula Nasal Cannula Oxygen Flow Rate (L/min) 2 4 4 11/14/20 16:56 Temperature 97.3 F L Temperature Source Temporal Pulse Rate 120 H Respiratory Rate 18 Respiratory Effort Respiratory Depth Respiratory Pattern Blood Pressure 128/53 H Blood Pressure Mean 78 Pulse Ox 95 Oxygen Delivery Method Nasal Cannula Oxygen Flow Rate (L/min) 4 Physical Exam Const alert and oriented x3 Constitutional Narrative: She is in moderate respiratory distress. General Appearance: cooperative HEENT normocephalic, head/scalp atraumatic and moist oral mucous membranes Eyes PERRL, EOMs intact bilaterally and conjunctivae normal Neck no lymphadenopathy, supple, no JVD and no carotid bruits Resp normal respiratory effort Resp Narrative: Decreased breath sounds bilateral, bilateral rhonchi, occasional wheezes. Dyspneic and tachypneic. Auscultation: crackles and wheezes; Negative for rales or rhonchi Cardio regular rate, regular rhythm, S1 normal heart sound, S2 normal heart sound, no murmurs and no JVD Cardio Narrative: Tachycardia. Peripheral Pulses: pulses 2+ throughout GI normal to inspection, nondistended, normoactive bowel sounds, soft to palpation, non-tender and non-distended; Negative for hepatosplenomegaly Extremity normal to inspection, full ROM and no clubbing, cyanosis or edema Skin no rashes or lesions noted, no wounds and no petechiae Neuro oriented x3 and CN's II-XII intact bilaterally Sensorium / Orientation: alert Speech: speech normal Motor Exam: strength 5/5 throughout Psych mental status grossly normal and affect normal Lab / Micro Data Result Diagrams: 11/14/20 14:50 11/14/20 14:50 Labs: Laboratory Results - last 24 hr 11/14/20 11/14/20 14:50 14:50 WBC 14.3 H RBC 4.42 Hgb 12.9 Hct 42.2 MCV 95.5 MCH 29.2 MCHC 30.6 L RDW Std Deviation 44.7 H RDW Coeff of [place] 12.7 Plt Count 287 MPV 9.5 Immature Gran % (Auto) 0.300 Neut % (Auto) 85.8 H Lymph % (Auto) 9.1 L Mccormick % (Auto) 3.6 Eos % (Auto) 1.0 Baso % (Auto) 0.2 Absolute Neuts (auto) 12.3 H Absolute Lymphs (auto) 1.31 Nucleated RBC % 0 Sodium 140 Potassium 3.8 Chloride 103 Carbon Dioxide 34.0 H Anion Gap 3 L BUN 16 Creatinine 0.83 Estim Creat Clear Calc 59.89 Est GFR (MDRD) Af Amer 88 Est GFR (MDRD) Non-Af 72 BUN/Creatinine Ratio 19.3 Glucose 154 H Calcium 9.2 Troponin I < 0.015 Micro: Microbiology 11/14/20 15:08 SARS-CoV-2 Antigen (Rapid) - Final Interface Orders Radiology Impression Chest X-Ray 11/14/20 15:35 IMPRESSION: Emphysema without pneumonia or atelectasis. Electronically Signed: Adilson Braun MD at 15:47 EDT Tel , Service support , Assessment & Plan Assessment/Plan (1) COPD with acute exacerbation: Status: Chronic Code(s): J44.1 - Chronic obstructive pulmonary disease with (acute) exacerbation (2) Hypothyroidism: Status: Acute Code(s): E03.9 - Hypothyroidism, unspecified (3) Chronic obstructive lung disease: Status: Chronic Code(s): J44.9 - Chronic obstructive pulmonary disease, unspecified (4) DM type 2 (diabetes mellitus, type 2): Status: Chronic Code(s): E11.9 - Type 2 diabetes mellitus without complications (5) Chronic respiratory failure with hypoxia: Status: Chronic Code(s): J96.11 - Chronic respiratory failure with hypoxia Plan: This is a 69 years old female patient presented to the emergency room because of worsening shortness of breath, wheezing and cough, found to have acute COPD exacerbation she is being admitted for treatment. #1 acute COPD exacerbation: Chest x-ray reviewed, unremarkable. Patient received DuoNeb, albuterol and Solu-Medrol and she remains dyspneic and tachypneic, tachycardic. Her oxygen, and is down to 2 L which is her baseline at home, she was on 4 L initially in the ED. COVID-19 was negative. Plan: Admit to [facility] floor, telemetry, DuoNeb every 6 hours, albuterol as needed, start IV Solu-Medrol, p.o. Levaquin, incentive spirometer, chest physiotherapy, Tylenol as needed, Zofran as needed, will check D-dimer, repeat CBC and BMP tomorrow morning, PT OT evaluation and treatment. #2 chronic respiratory failure: She is on 2 L at home, required up to 4 L in the ED and now she is down to 2 L again. Plan as above, bronchodilators, IV steroids, antibiotics, incentive spirometer. #3 type 2 diabetes mellitus: ADA diet, Accu-Cheks, sliding scale, continue glargine and NovoLog insulin, continue glimepiride. #4 hypothyroidism: Stable, continue levothyroxine. #5 DVT prophylaxis: Subcu Lovenox. This note was generated with [employer] dictation software. It may contain incorrect words, spelling, and punctuation that were not noted in checking the note before signing. Visit Charges Inpatient E&M: 63626 Init Hosp L2
[2020-11-14 18:27] LABS: D-Dimer Quantitative (DVT/PE) 0.68 FEU/ug/m (0.27-0.49)
[2020-11-14] MEDS: levoFLOXacin 500 MG Tablet PO (18:41)
[2020-11-14] MEDS: Acetaminophen 325 MG Tablet 650 MG PO (19:42)
[2020-11-14 22:11] LABS: Bedside Glucose 249 mg/dL (70-110)
[2020-11-14] MEDS: Insulin Lispro 100 UNIT/ML INSULN.PEN SC (22:11)
[2020-11-15] VITALS (10 sets, daily range): BP systolic 92–123; BP diastolic 39–51; PULSE 72–99; RESP 16–20; TEMP 36.1–36.9; O2SAT 95–99
[2020-11-15] MEDS: Ipratropium/Albuterol Sulfate 3 ML AMPUL.NEB INHALATION ×3 (02:22→11:24)
[2020-11-15] MEDS: Acetaminophen 325 MG Tablet 650 MG PO (05:36)
[2020-11-15] MEDS: Levothyroxine 125 MCG Tablet 250 MCG PO (05:36)
[2020-11-15] MEDS: levoFLOXacin 500 MG Tablet PO (05:38)
[2020-11-15] MEDS: 0.9% Saline Lock 10 ML Syringe IV (05:40)
[2020-11-15] MEDS: Albuterol 2.5 MG/3 ML VIAL.NEB. INHALATION (05:43)
[2020-11-15] MEDS: Insulin Lispro 100 UNIT/ML INSULN.PEN SC (06:32)
[2020-11-15 06:40] LABS: Bedside Glucose 262 mg/dL (70-110)
[2020-11-15 07:03] LABS: Absolute Lymphocyte Count 0.63 X10^3/uL (0.83-4.51); Absolute Neutrophil Count 14.5 X10^3/uL (2.0-7.7); Basophil# 0.02 X10^3/uL; Basophil% 0.1 % (0-1); Hematocrit 39.5 % (37-47); Lymphocyte # 0.63 X10^3/ul (0.83-4.51); Mean Corp Hgb Conc 30.4 g/dL (32-36); Mean Corpuscular Volume 98.8 fL (81-99); Mean Platelet Vol. 9.8 fl (6.2-12.0); Monocyte# 0.46 X10^3/uL; Monocyte% 2.9 % (0-10); NRBC Flagged by Analyzer 0 % (0-5); Neutrophil # 14.45 X10^3/uL (2.7-7.7); Neutrophil % 92.2 % (47-70); Platelet Count 233 K/mm3 (150-450); RBC Distribution Width CV 12.4 % (11.6-14.6); White Blood Count 15.7 K/mm3 (4.4-11.0)
[2020-11-15 07:28] LABS: Anion Gap 7 (5-15); BUN 17 mg/dL (7-18); BUN/Creat Ratio 20.8 RATIO (10-20); Calcium,Total 9.1 mg/dL (8.5-10.1); Chloride 102 mmol/L (98-107); Creatinine, Serum 0.82 mg/dL (0.55-1.02); EST Glomerular Filtration Rate 74 mL/min (>60); Est Glom Filt Rate - Afr Amer 89 mL/min (>60); Estimated Creatinine Clearance 60.62 ml/min; Glucose 264 mg/dL (74-106); Sodium Level 135 mmol/L (136-145)
[2020-11-15] MEDS: metFORMIN HCl 1,000 MG Tablet 1000 MG PO (07:42)
[2020-11-15] MEDS: Potassium Chloride Oral Tablet 10 MEQ PO (07:42)
[2020-11-15] MEDS: Glimepiride 4 MG Tablet PO (07:42)
[2020-11-15] MEDS: clonazePAM 0.5 MG Tablet PO (09:39)
[2020-11-15] MEDS: Enoxaparin 40 MG/0.4 ML Syringe SC (09:39)
--- NOTE | 2020-11-15 10:27 | PCM.DC ---
Discharge Instructions Outpatient Procedure Reason For Visit: ACUTE COPD EXACERBATION Diet Discharge Diet: No restrictions Activity Discharge Activity: Return to Normal Activity Follow Up Care Please Follow Up With: Primary care provider When: Within the next two weeks. Test Results: Test results from this visit will be discussed in further detail at your follow-up appointment, if applicable. Discharge Plan Admission Admit Date/Time: 11/14/20 16:55 Primary Reason for Your Visit: Shortness of breath secondary to COPD exacerbation. Attending Provider: Sanya Justin Primary Care Provider: Parish Christianson Discharge Orders/Prescriptions Prescriptions: New prednisone 20 mg tablet 40 mg PO DAILY Qty: 10 RF: 0 Continued potassium chloride [K-Tab] 10 MEQ tablet extended release 10 meq PO DAILY RF: 0 montelukast 10 MG tablet 10 mg PO DINNER RF: 0 fluticasone propionate 1 SPRAY spray,suspension 2 spray NASAL DAILY RF: 0 cholecalciferol (vitamin D3) [Vitamin D3] 1,000 UNIT capsule 1,000 unit PO DAILY RF: 0 multivitamin with folic acid [Thera] 1 TABLET tablet 1 tab PO DAILY RF: 0 albuterol sulfate [Ventolin HFA] 1 INHALER inhaler 2 puff inhalation Q4H PRN PRN (Reason: Asthma) Qty: 1 RF: 0 insulin aspart U-100 [Novolog Flexpen U-100 Insulin] 100 UNITS/ML insulin pen 0 units subcut TIDCM RF: 0 insulin glargine 100 UNITS/ML insulin pen 30 units SC DAILY RF: 0 clonazepam 0.5 MG tablet 0.5 mg PO DAILY RF: 0 levothyroxine 50 mcg tablet 50 mcg PO DAILY RF: 0 metformin 1,000 mg tablet 1,000 mg PO BID RF: 0 glimepiride 4 mg tablet 4 mg PO DAILY RF: 0 fluoxetine 10 mg capsule 10 mg PO DAILY RF: 0 levothyroxine 200 mcg tablet 200 mcg PO DAILY RF: 0 celecoxib [Celebrex] 100 mg capsule 100 mg PO DAILY RF: 0 acetaminophen 500 mg Capsule 500 mg PO Q8H RF: 0 Spiriva with HandiHaler 18 mcg capsule, w/inhalation device 1 cap INHALATION DAILY RF: 0 Advair HFA 230-21 mcg/actuation HFA aerosol inhaler 1 puff INHALATION BID RF: 0 ipratropium-albuterol 3 ML solution for nebulization 3 ml inhalation 4X/DAY RF: 0 Referrals: Christianson,Parish, MD [Primary Care Provider] - Disposition Patient Disposition: Home, self care
--- NOTE | 2020-11-15 12:38 | DS.PCM_ITS ---
Documented by User: Ernesto KEARNS 11/15/20 12:55 Providers Date of Admission: 11/14/20 Primary Care Physician: Dr. Parish Christianson MD Reason For Visit: ACUTE COPD EXACERBATION Diagnosis Discharge Diagnosis (1) COPD with acute exacerbation: Status: Chronic Code(s): J44.1 - Chronic obstructive pulmonary disease with (acute) exacerbation (2) Hypothyroidism: Status: Acute Code(s): E03.9 - Hypothyroidism, unspecified (3) Chronic obstructive lung disease: Status: Chronic Code(s): J44.9 - Chronic obstructive pulmonary disease, unspecified (4) DM type 2 (diabetes mellitus, type 2): Status: Chronic Code(s): E11.9 - Type 2 diabetes mellitus without complications (5) Chronic respiratory failure with hypoxia: Status: Chronic Code(s): J96.11 - Chronic respiratory failure with hypoxia Medications at Discharge Home Medications cholecalciferol (vitamin D3) [Vitamin D3] 1,000 unit PO DAILY 01/15/14 fluticasone propionate 2 spray NASAL DAILY 01/15/14 montelukast 10 mg PO DINNER 01/15/14 multivitamin with folic acid [Thera] 1 tab PO DAILY 01/15/14 potassium chloride [K-Tab] 10 meq PO DAILY 01/15/14 albuterol sulfate [Ventolin HFA] 2 puff INHALATION Q4H PRN PRN #1 inhaler 02/14/15 insulin aspart U-100 [Novolog Flexpen U-100 Insulin] 0 units SUBCUT TIDCM 02/23/16 insulin glargine 30 units SC DAILY 09/18/20 Advair HFA 1 puff INHALATION BID 11/14/20 Spiriva with HandiHaler 1 cap INHALATION DAILY 11/14/20 acetaminophen 500 mg PO Q8H 11/14/20 celecoxib [Celebrex] 100 mg PO DAILY 11/14/20 clonazepam 0.5 mg PO DAILY 11/14/20 fluoxetine 10 mg PO DAILY 11/14/20 glimepiride 4 mg PO DAILY 11/14/20 ipratropium-albuterol 3 ml INHALATION 4X/DAY 11/14/20 levothyroxine 50 mcg PO DAILY 11/14/20 levothyroxine 200 mcg PO DAILY 11/14/20 metformin 1,000 mg PO BID 04/30/21 prednisone 40 mg PO DAILY #10 tab 05/01/21 Hospital Course Summary of Care Provided Minutes Spent on Discharge: 35 Hospital Course: Patient is a 69 years old female who presented to the ED on 11/14/2020 because of worsening shortness of breath, wheezing and cough. Patient was admitted for acute COPD exacerbation. On my exam today patient was still short of breath, however she reports that this is her baseline. Patient reports feeling strong enough to return home and believe she will recover better there. Patient discharged today. 1) acute COPD exacerbation: CXR unremarkable. COVID-19 was negative. Patient satting 99% on 2 liters of oxyg en, which is her baseline. D-dimer elevated, but within acceptable range given patient's age and presentation. Patient has received her flu vaccine this year, however has not received her Covid vaccine. Discussed risk and benefits of Covid vaccine with patient, patient understands all. Plan; discharge today, initiate prednisone burst on discharge, continue home aerosols, continue with current home oxygen prescription. 2) Chronic respiratory failure: Plan; as above 3) DM 2 Continue home insulin, metformin and glimepiride regimen 4) Hypothyroidism: Stable, continue levothyroxine. Patient seen by Ernesto Levy PA-C, under the supervision of Dr. Justin. Physical Exam Narrative Patient is a 69-year-old female comfortably resting in bed on 2 L of oxygen, alert and oriented x3. Patient is still short of breath, however she reports that her shortness of breath has returned to her baseline. Patient feels that she can recover successfully at home and would like to be discharged. Const alert, oriented x3 and no apparent distress HEENT normocephalic, head/scalp atraumatic and hearing grossly normal bilaterally Eyes EOMs intact bilaterally Neck no lymphadenopathy, supple and no JVD Resp Resp Narrative: Patient is short of breath however reports that her shortness of breath has returned to baseline from admission. Breaths per minute or 20 during my exam. Auscultation: diminished lung sounds Cardio regular rate, regular rhythm, no murmurs, no rub and no JVD GI normal to inspection, nondistended, normoactive bowel sounds, soft to palpation and non-tender Extremity normal to inspection Skin no rashes or lesions noted and no wounds Neuro CN's II-XII intact bilaterally Psych affect normal ABG / Lab / Microbiology Data Result Diagrams: 11/15/20 06:35 11/15/20 06:35 Laboratory: Laboratory Results - last 24 hr 11/14/20 11/14/20 11/14/20 14:50 14:50 14:50 WBC 14.3 H RBC 4.42 Hgb 12.9 Hct 42.2 MCV 95.5 MCH 29.2 MCHC 30.6 L RDW Std Deviation 44.7 H RDW Coeff of [place] 12.7 Plt Count 287 MPV 9.5 Immature Gran % (Auto) 0.300 Neut % (Auto) 85.8 H Lymph % (Auto) 9.1 L [place] % (Auto) 3.6 Eos % (Auto) 1.0 Baso % (Auto) 0.2 Absolute Neuts (auto) 12.3 H Absolute Lymphs (auto) 1.31 Nucleated RBC % 0 D-Dimer Quant (PE/DVT) 0.68 H* Sodium 140 Potassium 3.8 Chloride 103 Carbon Dioxide 34.0 H Anion Gap 3 L BUN 16 Creatinine 0.83 Estim Creat Clear Calc 59.89 Est GFR (MDRD) Af Amer 88 Est GFR (MDRD) Non-Af 72 BUN/Creatinine Ratio 19.3 Glucose 154 H Calcium 9.2 Troponin I < 0.015 POC Glucose 11/14/20 11/15/20 11/15/20 22:05 06:30 06:35 WBC 15.7 H RBC 4.00 L Hgb 12.0 Hct 39.5 MCV 98.8 MCH 30.0 MCHC 30.4 L RDW Std Deviation 45.0 H RDW Coeff of [place] 12.4 Plt Count 233 MPV 9.8 Immature Gran % (Auto) 0.800 Neut % (Auto) 92.2 H Lymph % (Auto) 4.0 L [place] % (Auto) 2.9 Eos % (Auto) 0.0 Baso % (Auto) 0.1 Absolute Neuts (auto) 14.5 H Absolute Lymphs (auto) 0.63 L Nucleated RBC % 0 D-Dimer Quant (PE/DVT) Sodium Potassium Chloride Carbon Dioxide Anion Gap BUN Creatinine Estim Creat Clear Calc Est GFR (MDRD) Af Amer Est GFR (MDRD) Non-Af BUN/Creatinine Ratio Glucose Calcium Troponin I POC Glucose 249 H 262 H 11/15/20 06:35 WBC RBC Hgb Hct MCV MCH MCHC RDW Std Deviation RDW Coeff of [place] Plt Count MPV Immature Gran % (Auto) Neut % (Auto) Lymph % (Auto) [place] % (Auto) Eos % (Auto) Baso % (Auto) Absolute Neuts (auto) Absolute Lymphs (auto) Nucleated RBC % D-Dimer Quant (PE/DVT) Sodium 135 L Potassium 4.0 Chloride 102 Carbon Dioxide 26.0 Anion Gap 7 BUN 17 Creatinine 0.82 Estim Creat Clear Calc 60.62 Est GFR (MDRD) Af Amer 89 Est GFR (MDRD) Non-Af 74 BUN/Creatinine Ratio 20.8 H Glucose 264 H Calcium 9.1 Troponin I POC Glucose Microbiology: Microbiology 11/14/20 15:08 SARS-CoV-2 Antigen (Rapid) - Final Interface Orders Microbiology 11/14/20 15:08 Interface Orders SARS-CoV-2 Antigen (Rapid) - Final Radiography Diagnostic Testing: Radiology Impression Chest X-Ray 11/14/20 15:35 IMPRESSION: Emphysema without pneumonia or atelectasis. Electronically Signed: Adilson Braun MD at 15:47 EDT Tel , Service support , D/C Instructions Discharge Diet: No restrictions Discharge Activity: Return to Normal Activity Please Follow Up With: Primary care provider When: Within the next two weeks. Meaningful Use Info Meaningful Use Diagnoses (Choose all that apply): None applicable Discharge Plan Admission Admit Date/Time: 11/14/20 16:55 Primary Reason for Your Visit: Shortness of breath secondary to COPD exacerbation. Attending Provider: Sanya Justin Primary Care Provider: Parish Christianson Discharge Orders/Prescriptions Prescriptions: New prednisone 20 mg tablet 40 mg PO DAILY Qty: 10 RF: 0 Continued potassium chloride [K-Tab] 10 MEQ tablet extended release 10 meq PO DAILY RF: 0 montelukast 10 MG tablet 10 mg PO DINNER RF: 0 fluticasone propionate 1 SPRAY spray,suspension 2 spray NASAL DAILY RF: 0 cholecalciferol (vitamin D3) [Vitamin D3] 1,000 UNIT capsule 1,000 unit PO DAILY RF: 0 multivitamin with folic acid [Thera] 1 TABLET tablet 1 tab PO DAILY RF: 0 albuterol sulfate [Ventolin HFA] 1 INHALER inhaler 2 puff inhalation Q4H PRN PRN (Reason: Asthma) Qty: 1 RF: 0 insulin aspart U-100 [Novolog Flexpen U-100 Insulin] 100 UNITS/ML insulin pen 0 units subcut TIDCM RF: 0 insulin glargine 100 UNITS/ML insulin pen 30 units SC DAILY RF: 0 clonazepam 0.5 MG tablet 0.5 mg PO DAILY RF: 0 levothyroxine 50 mcg tablet 50 mcg PO DAILY RF: 0 metformin 1,000 mg tablet 1,000 mg PO BID RF: 0 glimepiride 4 mg tablet 4 mg PO DAILY RF: 0 fluoxetine 10 mg capsule 10 mg PO DAILY RF: 0 levothyroxine 200 mcg tablet 200 mcg PO DAILY RF: 0 celecoxib [Celebrex] 100 mg capsule 100 mg PO DAILY RF: 0 acetaminophen 500 mg Capsule 500 mg PO Q8H RF: 0 Spiriva with HandiHaler 18 mcg capsule, w/inhalation device 1 cap INHALATION DAILY RF: 0 Advair HFA 230-21 mcg/actuation HFA aerosol inhaler 1 puff INHALATION BID RF: 0 ipratropium-albuterol 3 ML solution for nebulization 3 ml inhalation 4X/DAY RF: 0 Referrals: Parish Christianson MD [Primary Care Provider] - Disposition Patient Disposition: Home, self care Documented by User: Dr. Sanya Justin DO 11/15/20 14:36 Providers Date of Admission: 11/14/20 Reason For Visit: ACUTE COPD EXACERBATION Medications at Discharge Home Medications cholecalciferol (vitamin D3) [Vitamin D3] 1,000 unit PO DAILY 01/15/14 fluticasone propionate 2 spray NASAL DAILY 01/15/14 montelukast 10 mg PO DINNER 01/15/14 multivitamin with folic acid [Thera] 1 tab PO DAILY 01/15/14 potassium chloride [K-Tab] 10 meq PO DAILY 01/15/14 albuterol sulfate [Ventolin HFA] 2 puff INHALATION Q4H PRN PRN #1 inhaler 02/14/15 insulin aspart U-100 [Novolog Flexpen U-100 Insulin] 0 units SUBCUT TIDCM 02/22 insulin glargine 30 units SC DAILY 09/18/20 Advair HFA 1 puff INHALATION BID 11/14/20 Spiriva with HandiHaler 1 cap INHALATION DAILY 11/14/20 acetaminophen 500 mg PO Q8H 11/14/20 celecoxib [Celebrex] 100 mg PO DAILY 11/14/20 clonazepam 0.5 mg PO DAILY 11/14/20 fluoxetine 10 mg PO DAILY 11/14/20 glimepiride 4 mg PO DAILY 11/14/20 ipratropium-albuterol 3 ml INHALATION 4X/DAY 11/14/20 levothyroxine 50 mcg PO DAILY 11/14/20 levothyroxine 200 mcg PO DAILY 11/14/20 metformin 1,000 mg PO BID 11/14/20 prednisone 40 mg PO DAILY #10 tab 11/15/20 Hospital Course Summary of Care Provided Minutes Spent on Discharge: 32 Hospital Course: Patient seen and examined independently. Data reviewed. I agree with the above note by the physician acute care certified nursing assistant. Presents with acute onset of shortness of breath. Patient present emergency room and was on 2 L of oxygen which she is remained on during this hospitalization is felt better. Patient was started on methylprednisolone. CO VID-19 was negative. Patient may have had a some mucus or may be a mucous plug that may have caused her to to be so short of breath so suddenly but no evidence of any pneumonia and certainly no COVID-19. Patient discharged with prednisone burst. Patient discharged in stable condition. Patient already has oxygen at home with 2 L nasal cannula. Patient states that she already has Mucinex at [facility] which she can take. Physical Exam Const alert and oriented x3 Eyes PERRL Resp normal respiratory effort and clear to auscultation bilaterally Cardio regular rate, regular rhythm, S1 normal heart sound and S2 normal heart sound GI normal to inspection, nondistended, normoactive bowel sounds ABG / Lab / Microbiology Data Result Diagrams: 11/15/20 06:35 11/15/20 06:35 Discharge Plan Admission Admit Date/Time: 11/14/20 16:55 Primary Reason for Your Visit: Shortness of breath secondary to COPD exacerbation. Attending Provider: Sanya Justin Primary Care Provider: Parish Christianson Discharge Orders/Prescriptions Prescriptions: New prednisone 20 mg tablet 40 mg PO DAILY Qty: 10 RF: 0 Continued potassium chloride [K-Tab] 10 MEQ tablet extended release 10 meq PO DAILY RF: 0 montelukast 10 MG tablet 10 mg PO DINNER RF: 0 fluticasone propionate 1 SPRAY spray,suspension 2 spray NASAL DAILY RF: 0 cholecalciferol (vitamin D3) [Vitamin D3] 1,000 UNIT capsule 1,000 unit PO DAILY RF: 0 multivitamin with folic acid [Thera] 1 TABLET tablet 1 tab PO DAILY RF: 0 albuterol sulfate [Ventolin HFA] 1 INHALER inhaler 2 puff inhalation Q4H PRN PRN (Reason: Asthma) Qty: 1 RF: 0 insulin aspart U-100 [Novolog Flexpen U-100 Insulin] 100 UNITS/ML insulin pen 0 units subcut TIDCM RF: 0 insulin glargine 100 UNITS/ML insulin pen 30 units SC DAILY RF: 0 clonazepam 0.5 MG tablet 0.5 mg PO DAILY RF: 0 levothyroxine 50 mcg tablet 50 mcg PO DAILY RF: 0 metformin 1,000 mg tablet 1,000 mg PO BID RF: 0 glimepiride 4 mg tablet 4 mg PO DAILY RF: 0 fluoxetine 10 mg capsule 10 mg PO DAILY RF: 0 levothyroxine 200 mcg tablet 200 mcg PO DAILY RF: 0 celecoxib [Celebrex] 100 mg capsule 100 mg PO DAILY RF: 0 acetaminophen 500 mg Capsule 500 mg PO Q8H RF: 0 Spiriva with HandiHaler 18 mcg capsule, w/inhalation device 1 cap INHALATION DAILY RF: 0 Advair HFA 230-21 mcg/actuation HFA aerosol inhaler 1 puff INHALATION BID RF: 0 ipratropium-albuterol 3 ML solution for nebulization 3 ml inhalation 4X/DAY RF: 0 Referrals: Parish Christianson MD [Primary Care Provider] - Disposition Patient Disposition: Home, self care Visit Charges Inpatient E&M: 78068 Disch Hosp
--- NOTE | 2020-11-15 12:49 | CM.UR ---
RN CM NOTE: Pt discharged home prior to RN CM being able to complete initial assessment. Jarvis FAIRBANKSN RN CM
== END 2020-11-15 12:34 | disposition home or self-care (01) | DRG 191 ==
LOC: ED 16:48 → MS3 17:09
PROVIDERS: Admitting Provider Hospitalist; Emergency Provider Emergency Medicine; PCP Family Medicine
DX: J44.1 Chronic obstructive pulmonary disease with (acute) exacerbation (principal); J96.11 Chronic respiratory failure with hypoxia; E03.9 Hypothyroidism, unspecified; E11.9 Type 2 diabetes mellitus without complications; F17.200 Nicotine dependence, unspecified, uncomplicated; Z79.4 Long term (current) use of insulin; Z79.51 Long term (current) use of inhaled steroids; Z99.81 Dependence on supplemental oxygen; Z79.899 Other long term (current) drug therapy
CPT/HCPCS: 36415; 71045; 80048; 82962; 84484; 85025; 85379; 87426; 93005; 94640; 94667; 94668; 99251; 99285; A4216; G0463

== ENCOUNTER → 2020-12-03 08:22 | Outpatient (CLI) | payer MEDICARE, SELFPAY ==
[2020-11-14 17:53] VITALS: BMI 25.4
[2020-12-03 10:16] LABS: Absolute Lymphocyte Count 1.33 X10^3/uL (0.83-4.51); Absolute Neutrophil Count 4.4 X10^3/uL (2.0-7.7); Basophil# 0.03 X10^3/uL; Basophil% 0.5 % (0-1); Eosinophil# 0.18 X10^3/uL; Eosinophils% 2.8 % (0-5); Hematocrit 39.3 % (37-47); Hemoglobin 12.3 g/dL (12.0-15.0); Lymphocyte # 1.33 X10^3/ul (0.83-4.51); Lymphocyte % 20.6 % (19-41); Mean Corp Hgb Conc 31.3 g/dL (32-36); Mean Corpuscular Hgb 29.6 pg (27.0-32.0); Mean Corpuscular Volume 94.7 fL (81-99); Monocyte# 0.49 X10^3/uL; Monocyte% 7.6 % (0-10); NRBC Flagged by Analyzer 0 % (0-5); Neutrophil # 4.42 X10^3/uL (2.7-7.7); Neutrophil % 68.2 % (47-70); Platelet Count 258 K/mm3 (150-450); RBC Distribution Width CV 12.8 % (11.6-14.6); RBC Distribution Width SD 43.9 fl (35.1-43.9); Red Blood Count 4.15 M/mm3 (4.2-5.4); White Blood Count 6.5 K/mm3 (4.4-11.0)
[2020-12-03 11:09] LABS: Anion Gap 6 (5-15); BUN 17 mg/dL (7-18); BUN/Creat Ratio 25.6 RATIO (10-20); Calcium,Total 8.9 mg/dL (8.5-10.1); Chloride 102 mmol/L (98-107); Creatinine, Serum 0.66 mg/dL (0.55-1.02); EST Glomerular Filtration Rate 93 mL/min (>60); Est Glom Filt Rate - Afr Amer 113 mL/min (>60); Glucose 109 mg/dL (74-106); Potassium 3.9 mmol/L (3.5-5.1); Sodium Level 138 mmol/L (136-145)
== END ==
LOC: MFPLAB 08:23
PROVIDERS: PCP Family Medicine; Referring Provider Family Medicine; Visit Provider Family Medicine
DX: E11.9 Type 2 diabetes mellitus without complications (principal)
CPT/HCPCS: 36415; 80048; 85025

== ENCOUNTER → 2020-12-10 08:18 | Outpatient (CLI) | payer MEDICARE, SELFPAY ==
[2020-11-14 17:53] VITALS: BMI 25.4
[2020-12-10 10:23] LABS: Free T3 2.5 pg/mL (2.18-3.98); T4 Free Direct 1.79 ng/dL (0.76-1.46); Thyroid Stim Hormone (TSH) 0.02 uIU/mL (0.358-3.74)
== END ==
LOC: MFPLAB 08:20
PROVIDERS: PCP Family Medicine; Referring Provider Family Medicine; Visit Provider Family Medicine
DX: E03.9 Hypothyroidism, unspecified (principal)
CPT/HCPCS: 36415; 84439; 84443; 84481

== ENCOUNTER → 2021-01-13 09:26 | Outpatient (CLI) | payer MEDICARE, SELFPAY ==
[2020-11-14 17:53] VITALS: BMI 25.4
[2021-01-13 10:35] LABS: Free T3 0.7 pg/mL (2.18-3.98)
== END ==
LOC: MFPLAB 09:28
PROVIDERS: PCP Family Medicine; Visit Provider Family Medicine
DX: E03.9 Hypothyroidism, unspecified (principal)
CPT/HCPCS: 36415; 84481

== ENCOUNTER → 2021-04-02 08:44 | Outpatient (CLI) | payer MEDICARE, SELFPAY ==
[2021-04-02 11:00] LABS: Free T3 1.2 pg/mL (2.18-3.98); T4 Free Direct 0.59 ng/dL (0.76-1.46)
== END ==
LOC: MFPLAB 08:45
PROVIDERS: PCP Family Medicine; Referring Provider Family Medicine; Visit Provider Family Medicine
DX: E03.9 Hypothyroidism, unspecified (principal)
CPT/HCPCS: 36415; 84439; 84443; 84481

== ENCOUNTER → 2021-05-25 10:00 | Outpatient (CLI) | payer MEDICARE, SELFPAY | LOC: MFPLAB 10:03 | PROVIDERS: PCP Family Medicine; Visit Provider Family Medicine | DX: E03.9 Hypothyroidism, unspecified (principal) | CPT/HCPCS: 36415; 84443 ==

== ENCOUNTER 2021-07-08 10:30 | Observation (INO) | payer MEDICARE, SELFPAY ==
[2021-07-08] VITALS (17 sets, daily range): BP systolic 93–126; BP diastolic 54–110; PULSE 88–116; RESP 18–24; TEMP 36.5–36.8; O2SAT 77–97; BMI 25.0
--- NOTE | 2021-07-08 10:40 | EDS_ITS ---
HPI History of Present Illness Chief Complaint: Shortness of Breath Informant: patient Narrative Narrative: 70-year-old female with a history of COPD presents the emergency department with shortness of breath. Patient states that she chronically wears 2 to 3 L of oxygen at home. She quit smoking almost 4 days ago. She states that since quitting smoking her cough is worsened. She states that she is having some sputum production. She went to her primary care physician's office and was sent to the emergency department for further evaluation. Arriving in the emergency department on 3 L the patient is not around mid 70s on her pulse ox. At rest on 3 L she is about 90%. No reported fevers. She tells me that she finished 10 days of steroids last Tuesday (9 days ago) PFSH PFSH Medical History Anxiety Asthma COPD (chronic obstructive pulmonary disease) Depression Diabetes Hypothyroidism On home oxygen therapy Smoker Home Medications cholecalciferol (vitamin D3) [Vitamin D3] 1,000 unit PO DAILY 01/15/14 [History Last Taken 11/13/20] fluticasone propionate 2 spray NASAL DAILY 01/15/14 [History Last Taken 11/14/20] montelukast 10 mg PO DINNER 01/15/14 [History Last Taken 11/13/20] multivitamin with folic acid [Thera] 1 tab PO DAILY 01/15/14 [History Last Taken 11/12/20] potassium chloride [K-Tab] 10 meq PO DAILY 01/15/14 [History Last Taken 11/14/20] albuterol sulfate [Ventolin HFA] 2 puff INHALATION Q4H PRN PRN #1 inhaler 02/14/15 [Rx Last Taken 11/14/20] insulin aspart U-100 [Novolog Flexpen U-100 Insulin] 0 units SUBCUT TIDCM 02/23/16 [History Last Taken 11/13/20] insulin glargine 30 units SC DAILY 09/18/20 [History Last Taken 11/14/20] Advair HFA 1 puff INHALATION BID 11/14/20 [History Last Taken 11/14/20] Spiriva with HandiHaler 1 cap INHALATION DAILY 11/14/20 [History Last Taken 11/14/20] acetaminophen 500 mg PO Q8H 11/14/20 [History Last Taken 11/14/20] celecoxib [Celebrex] 100 mg PO DAILY 11/14/20 [History Last Taken 11/14/20] clonazepam 0.5 mg PO DAILY 11/14/20 [History Last Taken 11/14/20] fluoxetine 10 mg PO DAILY 11/14/20 [History Last Taken 11/14/20] glimepiride 4 mg PO DAILY 11/14/20 [History Last Taken 11/14/20] ipratropium-albuterol 3 ml INHALATION 4X/DAY 11/14/20 [History Last Taken 11/14/20] levothyroxine 50 mcg PO DAILY 11/14/20 [History Last Taken 11/14/20] metformin 1,000 mg PO BID 11/14/20 [History Last Taken 11/14/20] levothyroxine [Synthroid] 50 mcg DAILY 01/21/21 [History Last Taken Unknown] Allergy/AdvReac Type Severity Reaction Status Date / Time morphine Allergy Anaphylaxis Verified 07/08/21 10:36 Penicillins Allergy Rash Verified 07/08/21 10:36 codeine AdvReac Severe Other Verified 07/08/21 10:36 bupropion [From Wellbutrin] AdvReac Other Verified 07/08/21 10:36 erythromycin base AdvReac Upset Verified 07/08/21 10:36 [Erythromycin Base] Stomach Surgical History History of appendectomy History of cholecystectomy Social History (Updated 07/08/21 @ 10:[address] Franklin Miranda DO) Smoking Status: Former smoker substance use type: does not use ROS ROS ED Constitutional Constitutional ED: Denies chills, fever(s) or weight loss Eyes Eyes: Denies change in vision or diplopia ENT ENT ED: Denies ear pain, rhinorrhea or sore throat Cardiovascular Cardiovascular: Denies chest pain, orthopnea, palpitations or racing heartbeat Respiratory/Chest Respiratory/Chest: Reports cough, dyspnea, dyspnea on exertion and sputum; Denies orthopnea Gastrointestinal Gastrointestinal: Denies abdominal pain, diarrhea, nausea or vomiting Genitourinary Genitourinary ED: Denies dysuria, hematuria or urinary frequency Musculoskeletal Musculoskeletal: Denies arthralgias or myalgias Integumentary Denies abscess or rash Neurologic Neurologic: Denies headache(s) or weakness Psychiatric Psychiatric: Denies anxiety, depression, suicidal ideation or suicidal thoughts Endocrine Endocrinology: Denies polydipsia, polyphagia or polyuria Allergic/Immunologic Allergic/Immunologic ED: Denies mouth swelling, tongue swelling or urticaria EXAM Physical Exam Const Vital Signs: 07/08/21 10:31 07/08/21 10:35 07/08/21 11:16 Temperature 97.8 F 97.8 F Temperature Source Temporal Temporal Pulse Rate 116 H 113 H Respiratory Rate 24 H 24 H Respiratory Pattern Normal Blood Pressure 126/110 H 126/110 H Blood Pressure Mean 115 115 Pulse Ox 77 96 Oxygen Delivery Method Nasal Cannula Nasal Cannula Oxygen Flow Rate (L/min) 3 4 07/08/21 11:17 07/08/21 11:39 Temperature 98.2 F Temperature Source Temporal Pulse Rate 108 H Respiratory Rate 22 H Respiratory Pattern Blood Pressure 103/67 Blood Pressure Mean 79 Pulse Ox 95 95 Oxygen Delivery Method Nasal Cannula Nasal Cannula Oxygen Flow Rate (L/min) 4 2 Positive well nourished and well developed General Appearance ED: well developed HEENT Reports normocephalic, head/scalp atraumatic, TM's clear and moist mucous membranes atraumatic Tympanic Membrane ED: Yes TM's clear Eyes PERRL and EOMs intact bilaterally Neck no lymphadenopathy, supple and no JVD Resp Resp Narrative: Patient is tachypneic. Diminished breath sounds bilaterally with scattered rhonchi Cardio regular rhythm and no murmurs Rate: tachycardic GI normal to inspection, nondistended, normoactive bowel sounds and non-tender Palpation: soft Back/Spine no CVA tenderness and normal ROM Extremity normal to inspection General Extremety ED: Negative for edema General Extremity: Negative for edema Neuro oriented x3 and CN's II-XII intact bilaterally Sensorium / Orientation: alert Motor Exam: strength 5/5 throughout Psych mental status grossly normal Mood & Affect: Negative for depressed or tearful Skin no rashes or lesions noted and no wounds MDM MDM MDM Narrative Medical decision making narrative: White count is 9.8 lactic acid normal at 1.1. Serum CO2 at 30. My interpretation of the chest x-ray is haziness in the right lower lobe. Given that she does not have a fever or white count not sure that this is definite pneumonia at this time. There is also noted chronic scarring. Patient received Solu-Medrol and breathing treatments. She is doing better at rest we have her down to her normal O2 requirements of 2 L. She was able to walk the length of the bed a couple times and started to become dyspneic and her sats decreased down to 91 and she stopped. She states at home she typically has about 25 feet to get to the bathroom where she needs to go. I think the patient would benefit from continued inpatient care. Lab Data Attestation: I reviewed the patient's lab results. Labs: Laboratory Results - last 24 hr 07/08/21 07/08/21 07/08/21 10:42 10:42 10:42 WBC 9.8 RBC 4.09 L Hgb 12.1 Hct 38.7 MCV 94.6 MCH 29.6 MCHC 31.3 L RDW Std Deviation 45.9 H RDW Coeff of [place] 13.2 Plt Count 287 MPV 9.6 Immature Gran % (Auto) 0.500 Neut % (Auto) 82.4 H Lymph % (Auto) 8.9 L [place] % (Auto) 6.3 Eos % (Auto) 1.6 Baso % (Auto) 0.3 Absolute Neuts (auto) 8.1 H Absolute Lymphs (auto) 0.87 Nucleated RBC % 0 Sodium 137 Potassium 4.0 Chloride 101 Carbon Dioxide 30.0 Anion Gap 6 BUN 15 Creatinine 0.71 Estim Creat Clear Calc 47.10 Est GFR (MDRD) Af Amer 105 Est GFR (MDRD) Non-Af 87 BUN/Creatinine Ratio 21.2 H Glucose 121 H Lactic Acid 1.1 Calcium 9.5 Total Bilirubin 0.60 AST 5 L ALT 8 L Alkaline Phosphatase 104 Total Protein 7.8 Albumin 3.0 L Globulin 4.8 H Albumin/Globulin Ratio 0.6 L Radiography Diagnostic Testing: Clinical Impression(s) from Imaging Studies Chest X-Ray 07/08/21 10:50 IMPRESSION: Patchy infiltrates in the right lower lobe as well as in the midportion of the left lung and left lower lobe superimposed on scarring. Electronically Signed: Ashvin Rodriguez MD at 11:01 EST , Service support , Discharge Plan Triage Chief Complaint: Shortness of Breath ED Provider: Franklin Miranda Dx/Rx/DC Orders Clinical Impression: COPD with acute exacerbation, Acute hypoxemic respiratory failure Prescriptions: No Action potassium chloride [K-Tab] 10 MEQ tablet extended release 10 meq PO DAILY RF: 0 montelukast 10 MG tablet 10 mg PO DINNER RF: 0 fluticasone propionate 1 SPRAY spray,suspension 2 spray NASAL DAILY RF: 0 cholecalciferol (vitamin D3) [Vitamin D3] 1,000 UNIT capsule 1,000 unit PO DAILY RF: 0 multivitamin with folic acid [Thera] 1 TABLET tablet 1 tab PO DAILY RF: 0 albuterol sulfate [Ventolin HFA] 1 INHALER inhaler 2 puff inhalation Q4H PRN PRN (Reason: Asthma) Qty: 1 RF: 0 insulin aspart U-100 [Novolog Flexpen U-100 Insulin] 100 UNITS/ML insulin pen 0 units subcut TIDCM RF: 0 insulin glargine 100 UNITS/ML insulin pen 30 units SC DAILY RF: 0 levothyroxine [Synthroid] 50 mcg Tablet 50 mcg DAILY RF: 0 clonazepam 0.5 MG tablet 0.5 mg PO DAILY RF: 0 levothyroxine 50 mcg tablet 50 mcg PO DAILY RF: 0 metformin 1,000 mg tablet 1,000 mg PO BID RF: 0 glimepiride 4 mg tablet 4 mg PO DAILY RF: 0 fluoxetine 10 mg capsule 10 mg PO DAILY RF: 0 celecoxib [Celebrex] 100 mg capsule 100 mg PO DAILY RF: 0 acetaminophen 500 mg Capsule 500 mg PO Q8H RF: 0 Spiriva with HandiHaler 18 mcg capsule, w/inhalation device 1 cap INHALATION DAILY RF: 0 Advair HFA 230-21 mcg/actuation HFA aerosol inhaler 1 puff INHALATION BID RF: 0 ipratropium-albuterol 3 ML solution for nebulization 3 ml inhalation 4X/DAY RF: 0 Primary Care Provider: Parish Christianson Referrals: Parish Christianson MD [Primary Care Provider] - Disposition Disposition: Acute Care Hospital [facility]
--- NOTE | 2021-07-08 10:50 | RAD_ITS ---
STUDY: X-RAY CHEST REASON FOR EXAM: Female, 70 years old. Cough. Low oxygenation saturation. TECHNIQUE: Single AP portable view of the chest. COMPARISON: Comparison is made with prior study dated 11/14/2020. FINDINGS: EKG electrodes are seen. There is hyperinflation of the lungs consistent with chronic obstructive lung disease (COPD). Patchy infiltrates seen in the right lower lobe as well as in the left midlung and left lower lobe superimposed on scarring. There is no demonstrated pleural abnormality. Normal size heart. Normal mediastinum and mathew. Normal visualized pulmonary arteries. Normal visualized aortic arch and descending thoracic aorta. Normal visualized thoracic spine. Normal visualized ribs, clavicles, and shoulders. There is no demonstrated abnormality of the visualized soft tissue structures of the upper abdomen. RAD/Chest 1 View (Portable) IMPRESSION: Patchy infiltrates in the right lower lobe as well as in the midportion of the left lung and left lower lobe superimposed on scarring. Electronically Signed: Ashvin Rodriguez MD at 11:01 EST , Service support ,
[2021-07-08] MEDS: Ipratropium/Albuterol Sulfate 3 ML AMPUL.NEB INHALATION ×3 (10:59→19:59)
[2021-07-08 11:08] LABS: Absolute Lymphocyte Count 0.87 X10^3/uL (0.83-4.51); Absolute Neutrophil Count 8.1 X10^3/uL (2.0-7.7); Basophil# 0.03 X10^3/uL; Basophil% 0.3 % (0-1); Eosinophil# 0.16 X10^3/uL; Eosinophils% 1.6 % (0-5); Hematocrit 38.7 % (37-47); Hemoglobin 12.1 g/dL (12.0-15.0); Lymphocyte # 0.87 X10^3/ul (0.83-4.51); Lymphocyte % 8.9 % (19-41); Mean Corp Hgb Conc 31.3 g/dL (32-36); Mean Corpuscular Hgb 29.6 pg (27.0-32.0); Mean Corpuscular Volume 94.6 fL (81-99); Mean Platelet Vol. 9.6 fl (6.2-12.0); Monocyte# 0.62 X10^3/uL; Monocyte% 6.3 % (0-10); NRBC Flagged by Analyzer 0 % (0-5); Neutrophil # 8.05 X10^3/uL (2.7-7.7); Neutrophil % 82.4 % (47-70); Platelet Count 287 K/mm3 (150-450); RBC Distribution Width CV 13.2 % (11.6-14.6); RBC Distribution Width SD 45.9 fl (35.1-43.9); Red Blood Count 4.09 M/mm3 (4.2-5.4); White Blood Count 9.8 K/mm3 (4.4-11.0)
[2021-07-08] MEDS: Albuterol 2.5 MG/3 ML VIAL.NEB. INHALATION ×3 (11:13)
[2021-07-08] MEDS: MethylPREDNISolone 125 MG/2 ML Vial IV (11:22)
[2021-07-08 11:25] LABS: ALB/GLOB Ratio 0.6 RATIO (0.9-2.4); AST(SGOT) 5 U/L (15-37); Alanine Aminotransfer ALT/SGPT 8 U/L (13-56); Alkaline Phosphatase 104 U/L (45-117); Anion Gap 6 (5-15); BUN 15 mg/dL (7-18); BUN/Creat Ratio 21.2 RATIO (10-20); Calcium,Total 9.5 mg/dL (8.5-10.1); Chloride 101 mmol/L (98-107); Creatinine, Serum 0.71 mg/dL (0.55-1.02); EST Glomerular Filtration Rate 87 mL/min (>60); Est Glom Filt Rate - Afr Amer 105 mL/min (>60); Globulin 4.8 g/dL (2.2-4.2); Glucose 121 mg/dL (74-106); Protein, Total 7.8 g/dL (6.4-8.2); Sodium Level 137 mmol/L (136-145)
[2021-07-08 11:31] LABS: Lactic Acid 1.1 mmol/L (0.4-1.9)
--- NOTE | 2021-07-08 13:10 | HP.PCM.HOS_ITS ---
HPI - General General Date of Admission: 07/08/21 HPI Narrative TRISTAN STEPHENSON, is a 70 F who presents to the hospital upon advice of primary care doctor Dr. Christianson for shortness of breath and cough. Patient has a longtime history of tobacco use, h/o COPD, and stopped 4 days ago and has noticed that she is coughing more in the last 4 days. She has had moderate sputum production that has increased recently and it is whitish-yellow, and denies sputum production. Denies fevers. Her shortness of breath worsens on exertion. She recently finished a course of prednisone and Levaquin, prescribed June 19. Also had a course of prednisone and Levaquin prescribed May 20. She has not been admitted to hospital anywhere recently and does not have any recent Covid contacts or flu contacts. She states at home most of the time to avoid getting sick and has not been vaccinated for Covid. She did get her flu shot. Compliant with Spiriva, and uses her Duonebs every couple hours, not using Albuterol as much because the new formulation Proair didn't work as good as prior formulation. While in the ED the patient did have desaturation to mid 70s on 3 L, and this improved after a DuoNeb treatment and steroid therapy to mid 90s on 2 L nasal cannula. [facility] Medical History (Updated 07/08/21 @ 15:08 by Yoanna Rhoades) Anxiety Asthma COPD (chronic obstructive pulmonary disease) Depression Diabetes Hypothyroidism On home oxygen therapy Osteopenia Smoker Vision loss of left eye Vision loss of right eye Home Medications cholecalciferol (vitamin D3) [Vitamin D3] 1,000 unit PO DAILY 01/15/14 [History Last Taken 07/07/21] fluticasone propionate 2 spray NASAL DAILY 01/15/14 [History Last Taken 07/07/21] montelukast 10 mg PO DINNER 01/15/14 [History Last Taken 07/07/21] multivitamin with folic acid [Thera] 1 tab PO DAILY 01/15/14 [History Last Taken 07/07/21] potassium chloride [K-Tab] 10 meq PO DAILY 01/15/14 [History Last Taken 07/07/21] albuterol sulfate [Ventolin HFA] 2 puff INHALATION Q4H PRN PRN #1 inhaler 02/14/15 [Rx Last Taken 07/07/21] insulin aspart U-100 [Novolog Flexpen U-100 Insulin] 0 - 5 units SUBCUT TIDCM 02/23/16 [History Last Taken 07/07/21] insulin glargine 30 units SC DAILY 09/18/20 [History Last Taken 07/07/21] Advair HFA 1 puff INHALATION BID 11/14/20 [History Last Taken 07/07/21] Spiriva with HandiHaler 1 cap INHALATION DAILY 11/14/20 [History Last Taken 07/07/21] acetaminophen 500 mg PO Q8H 11/14/20 [History Last Taken 07/07/21] celecoxib [Celebrex] 100 mg PO DAILY 11/14/20 [History Last Taken 07/07/21] clonazepam 0.5 mg PO DAILY 11/14/20 [History Last Taken 07/07/21] fluoxetine 10 mg PO DAILY 11/14/20 [History Last Taken 07/07/21] glimepiride 4 mg PO DAILY 11/14/20 [History Last Taken 07/07/21] ipratropium-albuterol 3 ml INHALATION 4X/DAY 11/14/20 [History Last Taken 07/08/21] metformin 1,000 mg PO BID 11/14/20 [History Last Taken 07/07/21] levothyroxine 125 mcg PO DAILY 07/08/21 [History Last Taken 07/08/21] Allergy/AdvReac Type Severity Reaction Status Date / Time morphine Allergy Anaphylaxis Verified 07/08/21 10:36 Penicillins Allergy Rash Verified 07/08/21 10:36 codeine AdvReac Severe Other Verified 07/08/21 10:36 bupropion [From Wellbutrin] AdvReac Other Verified 07/08/21 10:36 erythromycin base AdvReac Upset Verified 07/08/21 10:36 [Erythromycin Base] Stomach Surgical History History of appendectomy History of cholecystectomy Social History (Updated 07/08/21 @ 13:[address] Sheng Freeman MD) Smoking Status: Former smoker second hand exposure: Yes substance use type: does not use ROS ROS Narrative no fevers chills nausea vomiting abdominal pain, myalgias, arthralgias, skin problems, dysuria, hematuria, headache, seizures, no chest pain, + positive palpitatations with + SOB and + sputum production. No recent thyroid or hormone problems. Constitutional Constitutional: Denies fever(s) or frequent falls Eyes Eyes: Denies none ENT HEENT: Denies dysphagia Cardiovascular Cardiovascular: Denies chest pain or rapid heart rate Respiratory/Chest Respiratory/Chest: Denies cough or dyspnea Gastrointestinal Gastrointestinal: Denies constipation or diarrhea Genitourinary Genitourinary: Denies difficulty urinating Musculoskeletal Musculoskeletal: Reports as per HPI Integumentary Integumentary: Reports as per HPI Neurologic Neurologic: Reports as per HPI Psychiatric Psychiatric: Reports as per HPI Endocrine Endocrinology: Reports as per HPI Hematologic/Lymphatic Hematologic/Lymphatic: Reports as per HPI Allergic/Immunologic Allergic/Immunologic: Reports as per HPI Vital Signs Vital Signs Vital Signs: 07/08/21 10:31 07/08/21 10:35 07/08/21 11:16 Temperature 97.8 F 97.8 F Temperature Source Temporal Temporal Pulse Rate 116 H 113 H Respiratory Rate 24 H 24 H Respiratory Pattern Normal Blood Pressure 126/110 H 126/110 H Blood Pressure Mean 115 115 Pulse Ox 77 96 Oxygen Delivery Method Nasal Cannula Nasal Cannula Oxygen Flow Rate (L/min) 3 4 07/08/21 11:17 07/08/21 11:39 07/08/21 13:10 Temperature 98.2 F 98.2 F Temperature Source Temporal Temporal Pulse Rate 108 H 107 H Respiratory Rate 22 H 20 H Respiratory Pattern Blood Pressure 103/67 103/56 L Blood Pressure Mean 79 71 Pulse Ox 95 95 96 Oxygen Delivery Method Nasal Cannula Nasal Cannula Nasal Cannula Oxygen Flow Rate (L/min) 4 2 2 Weight Weight: 150 lb 12.739 oz Body Mass Index (BMI) 25.0 Physical Exam Const alert and no apparent distress General Appearance: cooperative, comfortable and well developed HEENT normocephalic and head/scalp atraumatic Head and Scalp: normal to inspection and normocephalic Face and Sinus: normal facial exam and face symmetric Eyes EOMs intact bilaterally and no scleral icterus Resp normal respiratory effort and normal air movement Effort and Inspection: Negative for actively coughing Cardio regular rate, regular rhythm, S1 normal heart sound and S2 normal heart sound GI Inspection: Negative for abdominal distention Auscultation: normoactive bowel sounds Palpation: soft; Negative for guarding Skin no rashes or lesions noted Psych Speech: normal speech Thought Content: normal thought content Insight: insight good Results Lab / Micro Data Result Diagrams: 07/08/21 10:42 07/08/21 10:42 Labs: Laboratory Results - last 24 hr 07/08/21 10:42: WBC 9.8, RBC 4.09 L, Hgb 12.1, Hct 38.7, MCV 94.6, MCH 29.6, MCHC 31.3 L, RDW Std Deviation 45.9 H, RDW Coeff of [place] 13.2, Plt Count 287, MPV 9.6, Immature Gran % (Auto) 0.500, Neut % (Auto) 82.4 H, Lymph % (Auto) 8.9 L, [place] % (Auto) 6.3, Eos % (Auto) 1.6, Baso % (Auto) 0.3, Absolute Neuts (auto) 8.1 H, Absolute Lymphs (auto) 0.87, Nucleated RBC % 0 07/08/21 10:42: Sodium 137, Potassium 4.0, Chloride 101, Carbon Dioxide 30.0, Anion Gap 6, BUN 15, Creatinine 0.71, Estim Creat Clear Calc 47.10, Est GFR (MDRD) Af Amer 105, Est GFR (MDRD) Non-Af 87, BUN/Creatinine Ratio 21.2 H, Glucose 121 H, Calcium 9.5, Total Bilirubin 0.60, AST 5 L, ALT 8 L, Alkaline Phosphatase 104, Total Protein 7.8, Albumin 3.0 L, Globulin 4.8 H, Albumin/Globulin Ratio 0.6 L 07/08/21 10:42: Lactic Acid 1.1 Micro: Microbiology 07/08/21 10:42 Nasal Secretion SARS-CoV-2 Antigen (Rapid) - Final Radiology Impression Chest X-Ray 07/08/21 10:50 IMPRESSION: Patchy infiltrates in the right lower lobe as well as in the midportion of the left lung and left lower lobe superimposed on scarring. Electronically Signed: Ashvin Rodriguez MD at 11:01 EST , Service support , Assessment & Plan Assessment/Plan (1) Chronic obstructive lung disease: (2) DM type 2 (diabetes mellitus, type 2): (3) Acute hypoxemic respiratory failure: (4) Tobacco user: PLAN: #1 acute COPD exacerbation: Chest x-ray reviewed, mild increase in chest congestion compared to CXR previously this year. Patient received DuoNeb, Solu-Medrol and not tachycardic or dyspneic at this time. Comfortable oxygen, and is down to 2 L which is her baseline at home, she was on 3 L initially in the ED. COVID-19 was negative. I did warn her of risk of remaining unvaccinated for COVID. UTD with Flu shot. Admit observation, to [facility] floor telemetry, DuoNeb every 6 hours albuterol as needed, start PO Prednisone 40 mg daily x 5 days PO Levaquin, incentive spirometer, chest physiotherapy Tylenol as needed & Zofran as needed. Send legionalla and strep and sputum cultures. COPD exacerbation much more likely than PNA but given sputum production will treat with PO antibiotics. #2 chronic respiratory failure: She is on 2 L at home, continue NC 2 liters. Plan as above, bronchodilators, PO steroids resumed tomorrow, incentive spirometer. #3 type 2 diabetes mellitus: ADA diet, Accu-Cheks, sliding scale, continue glargine and short acting insulin, continue glimepiride, hold metformin due to very small risk of worsening acidosis #4 hypothyroidism: Stable, continue levothyroxine 50 mcg. #5 Tobacco use: The patient can have prn nicotine replacements. Recent use as of 4 days ago. DVT prophylaxis: Subcu Lovenox Patient was presented with code options, and we reviewed in great detail. She opts for DNR, DNI and we summarized her preferences Diet: Diabetic.
--- NOTE | 2021-07-08 13:25 | HP.PCM.HOS_ITS ---
HPI - General HPI Narrative TRISTAN STEPHENSON, is a 70 F who presents PFSH Medical History Anxiety Asthma COPD (chronic obstructive pulmonary disease) Depression Diabetes Hypothyroidism On home oxygen therapy Smoker Home Medications cholecalciferol (vitamin D3) [Vitamin D3] 1,000 unit PO DAILY 01/15/14 [History Last Taken 11/13/20] fluticasone propionate 2 spray NASAL DAILY 01/15/14 [History Last Taken 11/14/20] montelukast 10 mg PO DINNER 01/15/14 [History Last Taken 11/13/20] multivitamin with folic acid [Thera] 1 tab PO DAILY 01/15/14 [History Last Taken 11/12/20] potassium chloride [K-Tab] 10 meq PO DAILY 01/15/14 [History Last Taken 0 11/14/20] albuterol sulfate [Ventolin HFA] 2 puff INHALATION Q4H PRN PRN #1 inhaler 02/14/15 [Rx Last Taken 11/14/20] insulin aspart U-100 [Novolog Flexpen U-100 Insulin] 0 units SUBCUT TIDCM 02/23/16 [History Last Taken 11/13/20] insulin glargine 30 units SC DAILY 09/18/20 [History Last Taken 11/14/20] Advair HFA 1 puff INHALATION BID 11/14/20 [History Last Taken 11/14/20] Spiriva with HandiHaler 1 cap INHALATION DAILY 11/14/20 [History Last Taken 11/14/20] acetaminophen 500 mg PO Q8H 11/14/20 [History Last Taken 11/14/20] celecoxib [Celebrex] 100 mg PO DAILY 11/14/20 [History Last Taken 11/14/20] clonazepam 0.5 mg PO DAILY 11/14/20 [History Last Taken 11/14/20] fluoxetine 10 mg PO DAILY 11/14/20 [History Last Taken 11/14/20] glimepiride 4 mg PO DAILY 11/14/20 [History Last Taken 11/14/20] ipratropium-albuterol 3 ml INHALATION 4X/DAY 11/14/20 [History Last Taken 11/14/20] levothyroxine 50 mcg PO DAILY 11/14/20 [History Last Taken 11/14/20] metformin 1,000 mg PO BID 11/14/20 [History Last Taken 11/14/20] levothyroxine [Synthroid] 50 mcg DAILY 01/21/21 [History Last Taken Unknown] Allergy/AdvReac Type Severity Reaction Status Date / Time morphine Allergy Anaphylaxis Verified 07/08/21 10:36 Penicillins Allergy Rash Verified 07/08/21 10:36 codeine AdvReac Severe Other Verified 07/08/21 10:36 bupropion [From Wellbutrin] AdvReac Other Verified 07/08/21 10:36 erythromycin base AdvReac Upset Verified 07/08/21 10:36 [Erythromycin Base] Stomach Surgical History History of appendectomy History of cholecystectomy Social History (Updated 07/08/21 @ 10:[address] Franklin Miranda DO) Smoking Status: Former smoker substance use type: does not use Vital Signs Vital Signs Vital Signs: 07/08/21 10:31 07/08/21 10:35 07/08/21 11:16 Temperature 97.8 F 97.8 F Temperature Source Temporal Temporal Pulse Rate 116 H 113 H Respiratory Rate 24 H 24 H Respiratory Pattern Normal Blood Pressure 126/110 H 126/110 H Blood Pressure Mean 115 115 Pulse Ox 77 96 Oxygen Delivery Method Nasal Cannula Nasal Cannula Oxygen Flow Rate (L/min) 3 4 07/08/21 11:17 07/08/21 11:39 07/08/21 13:10 Temperature 98.2 F 98.2 F Temperature Source Temporal Temporal Pulse Rate 108 H 107 H Respiratory Rate 22 H 20 H Respiratory Pattern Blood Pressure 103/67 103/56 L Blood Pressure Mean 79 71 Pulse Ox 95 95 96 Oxygen Delivery Method Nasal Cannula Nasal Cannula Nasal Cannula Oxygen Flow Rate (L/min) 4 2 2 Weight Weight: 150 lb 12.739 oz Body Mass Index (BMI) 25.0 Physical Exam Const alert and no apparent distress General Appearance: cooperative HEENT normocephalic and moist oral mucous membranes Eyes PERRL and EOMs intact bilaterally Neck no lymphadenopathy and supple Resp normal respiratory effort Resp Narrative: Dry cough on exam . Very rhonchorous, no wheezes though. Auscultation: crackles and rhonchi; Negative for wheezes Cardio regular rate and regular rhythm GI normal to inspection, nondistended, normoactive bowel sounds, soft to palpation and non-tender Extremity normal to inspection Skin no rashes or lesions noted, no wounds and skin turgor normal Neuro Neuro Narrative: no focal deficits or encephalopathy Sensorium / Orientation: alert Psych affect normal Results Lab / Micro Data Result Diagrams: 07/08/21 10:42 07/08/21 10:42 Labs: Laboratory Results - last 24 hr 07/08/21 10:42: WBC 9.8, RBC 4.09 L, Hgb 12.1, Hct 38.7, MCV 94.6, MCH 29.6, MCH C 31.3 L, RDW Std Deviation 45.9 H, RDW Coeff of [place] 13.2, Plt Count 287, MPV 9.6, Immature Gran % (Auto) 0.500, Neut % (Auto) 82.4 H, Lymph % (Auto) 8.9 L, [place] % (Auto) 6.3, Eos % (Auto) 1.6, Baso % (Auto) 0.3, Absolute Neuts (auto) 8.1 H, Absolute Lymphs (auto) 0.87, Nucleated RBC % 0 07/08/21 10:42: Sodium 137, Potassium 4.0, Chloride 101, Carbon Dioxide 30.0, Anion Gap 6, BUN 15, Creatinine 0.71, Estim Creat Clear Calc 47.10, Est GFR (MDRD) Af Amer 105, Est GFR (MDRD) Non-Af 87, BUN/Creatinine Ratio 21.2 H, Glucose 121 H, Calcium 9.5, Total Bilirubin 0.60, AST 5 L, ALT 8 L, Alkaline Phosphatase 104, Total Protein 7.8, Albumin 3.0 L, Globulin 4.8 H, Albumin/Globulin Ratio 0.6 L 07/08/21 10:42: Lactic Acid 1.1 Micro: Microbiology 07/08/21 10:42 Nasal Secretion SARS-CoV-2 Antigen (Rapid) - Final Radiology Impression Chest X-Ray 07/08/21 10:50 IMPRESSION: Patchy infiltrates in the right lower lobe as well as in the midportion of the left lung and left lower lobe superimposed on scarring. Electronically Signed: Ashvin Rodriguez MD at 11:01 EST , Service support , Charges/Coding Visit Charges OBSV E&M: 00858 Initial observation care L2
--- NOTE | 2021-07-08 15:07 | PCS.PANDOC ---
PANDEMIC DOCUMENTATION INITIATED: Date: 03/02/2021 Time: 190
[2021-07-08] MEDS: Acetaminophen 500 MG Tablet PO ×2 (16:23→22:46)
[2021-07-08] MEDS: levoFLOXacin 750 MG Tablet PO (16:23)
[2021-07-08] MEDS: Insulin Lispro 100 UNIT/ML INSULN.PEN SC ×2 (16:23→22:46)
[2021-07-08] MEDS: Montelukast 10 MG Tablet PO (16:24)
[2021-07-08 16:31] LABS: Bedside Glucose 178 mg/dL (70-110)
[2021-07-08 17:53] LABS: Magnesium 1.5 mg/dL (1.6-2.6)
--- NOTE | 2021-07-08 18:33 | PCM.HP.STD ---
HPI - General General Date of Admission: 07/08/21 HPI Narrative HPI Narrative TRISTAN STEPHENSON, is a 70 F who presents to the hospital upon advice of primary care doctor Dr. Christianson for shortness of breath and cough. Patient has a longtime history of tobacco use, h/o COPD, and stopped 4 days ago and has noticed that she is coughing more in the last 4 days. She has had moderate sputum production that has increased recently and it is whitish-yellow, and denies sputum production. Denies fevers. Her shortness of breath worsens on exertion. She recently finished a course of prednisone and Levaquin, prescribed June 19. Also had a course of prednisone and Levaquin prescribed May 20. She has not been admitted to hospital anywhere recently and does not have any recent Covid contacts or flu contacts. She states at home most of the time to avoid getting sick and has not been vaccinated for Covid. She did get her flu shot. Compliant with Spiriva, and uses her Duonebs every couple hours, not using Albuterol as much because the new formulation Proair didn't work as good as prior formulation. While in the ED the patient did have desaturation to mid 70s on 3 L, and this improved after a DuoNeb treatment and steroid therapy to mid 90s on 2 L nasal cannula. [facility] Medical History (Updated 07/08/21 @ 15:08 by Yoanna Rhoades) Anxiety Asthma COPD (chronic obstructive pulmonary disease) Depression Diabetes Hypothyroidism On home oxygen therapy Osteopenia Smoker Vision loss of left eye Vision loss of right eye Home Medications cholecalciferol (vitamin D3) [Vitamin D3] 1,000 unit PO DAILY 01/15/14 [History Last Taken 07/07/21] fluticasone propionate 2 spray NASAL DAILY 01/15/14 [History Last Taken 07/07/21] montelukast 10 mg PO DINNER 01/15/14 [History Last Taken 07/07/21] multivitamin with folic acid [Thera] 1 tab PO DAILY 01/15/14 [History Last Taken 07/07/21] potassium chloride [K-Tab] 10 meq PO DAILY 01/15/14 [History Last Taken 07/07/21] albuterol sulfate [Ventolin HFA] 2 puff INHALATION Q4H PRN PRN #1 inhaler 02/14/15 [Rx Last Taken 07/07/21] insulin aspart U-100 [Novolog Flexpen U-100 Insulin] 0 - 5 units SUBCUT TIDCM 02/23/16 [History Last Taken 07/07/21] insulin glargine 30 units SC DAILY 09/18/20 [History Last Taken 07/07/21] Advair HFA 1 puff INHALATION BID 11/14/20 [History Last Taken 07/07/21] Spiriva with HandiHaler 1 cap INHALATION DAILY 11/14/20 [History Last Taken 07/07/21] acetaminophen 500 mg PO Q8H 11/14/20 [History Last Taken 07/07/21] celecoxib [Celebrex] 100 mg PO DAILY 11/14/20 [History Last Taken 07/07/21] clonazepam 0.5 mg PO DAILY 11/14/20 [History Last Taken 07/07/21] fluoxetine 10 mg PO DAILY 11/14/20 [History Last Taken 07/07/21] glimepiride 4 mg PO DAILY 11/14/20 [History Last Taken 07/07/21] ipratropium-albuterol 3 ml INHALATION 4X/DAY 11/14/20 [History Last Taken 07/08/21] metformin 1,000 mg PO BID 11/14/20 [History Last Taken 07/07/21] levothyroxine 125 mcg PO DAILY 07/08/21 [History Last Taken 07/08/21] Allergy/AdvReac Type Severity Reaction Status Date / Time morphine Allergy Anaphylaxis Verified 07/08/21 10:36 Penicillins Allergy Rash Verified 07/08/21 10:36 codeine AdvReac Severe Other Verified 07/08/21 10:36 bupropion [From Wellbutrin] AdvReac Other Verified 07/08/21 10:36 erythromycin base AdvReac Upset Verified 07/08/21 10:36 [Erythromycin Base] Stomach Surgical History History of appendectomy History of cholecystectomy Social History (Updated 07/08/21 @ 13:[address] Sheng Freeman MD) Smoking Status: Former smoker second hand exposure: Yes substance use type: does not use ROS ROS Narrative no fevers chills nausea vomiting abdominal pain, myalgias, arthralgias, skin problems, dysuria, hematuria, headache, seizures, no chest pain, + positive palpitatations with + SOB and + sputum production. No recent thyroid or hormone problems. Vital Signs Vital Signs Vital Signs: 07/08/21 10:31 07/08/21 10:35 07/08/21 11:16 Temperature 97.8 F 97.8 F Temperature Source Temporal Temporal Pulse Rate 116 H 113 H Respiratory Rate 24 H 24 H Respiratory Effort Respiratory Depth Respiratory Pattern Normal Blood Pressure 126/110 H 126/110 H Blood Pressure Mean 115 115 Blood Pressure Source Blood Pressure Position Blood Pressure Location Pulse Ox 77 96 Oxygen Delivery Method Nasal Cannula Nasal Cannula Oxygen Flow Rate (L/min) 3 4 07/08/21 11:17 07/08/21 11:39 07/08/21 13:10 Temperature 98.2 F 98.2 F Temperature Source Temporal Temporal Pulse Rate 108 H 107 H Respiratory Rate 22 H 20 H Respiratory Effort Respiratory Depth Respiratory Pattern Blood Pressure 103/67 103/56 L Blood Pressure Mean 79 71 Blood Pressure Source Blood Pressure Position Blood Pressure Location Pulse Ox 95 95 96 Oxygen Delivery Method Nasal Cannula Nasal Cannula Nasal Cannula Oxygen Flow Rate (L/min) 4 2 2 07/08/21 13:31 07/08/21 14:58 07/08/21 15:06 Temperature 98.2 F 97.8 F Temperature Source Temporal Temporal Pulse Rate 107 H 103 H Respiratory Rate 20 H 18 Respiratory Effort Respiratory Depth Respiratory Pattern Blood Pressure 103/56 L 111/59 L Blood Pressure Mean 71 76 Blood Pressure Source Monitor Blood Pressure Position Semi-Fowlers Blood Pressure Location Left Arm Pulse Ox 96 96 97 Oxygen Delivery Method Nasal Cannula Nasal Cannula Nasal Cannula Oxygen Flow Rate (L/min) 2 3 3 07/08/21 15:29 07/08/21 15:56 Temperature Temperature Source Pulse Rate 88 Respiratory Rate 20 H Respiratory Effort Short of Breath Respiratory Depth Shallow Respiratory Pattern Normal Tachypnea Blood Pressure Blood Pressure Mean Blood Pressure Source Blood Pressure Position Blood Pressure Location Pulse Ox 97 96 Oxygen Delivery Method Nasal Cannula Nasal Cannula Oxygen Flow Rate (L/min) 3 2 Weight Weight: 150 lb 6.4 oz Body Mass Index (BMI) 25.0 Physical Exam Narrative Const alert and no apparent distress General Appearance: cooperative, comfortable and well developed HEENT normocephalic and head/scalp atraumatic Head and Scalp: normal to inspection and normocephalic Face and Sinus: normal facial exam and face symmetric Eyes EOMs intact bilaterally and no scleral icterus Resp normal respiratory effort and normal air movement Effort and Inspection: Negative for actively coughing Cardio regular rate, regular rhythm, S1 normal heart sound and S2 normal heart sound GI Inspection: Negative for abdominal distention Auscultation: normoactive bowel sounds Palpation: soft; Negative for guarding Skin no rashes or lesions noted Psych Speech: normal speech Thought Content: normal thought content Insight: insight good Results Lab / Micro Data Result Diagrams: 07/08/21 10:42 07/08/21 10:42 Labs: Laboratory Results - last 24 hr 07/08/21 10:42: WBC 9.8, RBC 4.09 L, Hgb 12.1, Hct 38.7, MCV 94.6, MCH 29.6, MCHC 31.3 L, RDW Std Deviation 45.9 H, RDW Coeff of [place] 13.2, Plt Count 287, MPV 9.6, Immature Gran % (Auto) 0.500, Neut % (Auto) 82.4 H, Lymph % (Auto) 8.9 L, [place] % (Auto) 6.3, Eos % (Auto) 1.6, Baso % (Auto) 0.3, Absolute Neuts (auto) 8.1 H, Absolute Lymphs (auto) 0.87, Nucleated RBC % 0 07/08/21 10:42: Sodium 137, Potassium 4.0, Chloride 101, Carbon Dioxide 30.0, Anion Gap 6, BUN 15, Creatinine 0.71, Estim Creat Clear Calc 47.10, Est GFR (MDRD) Af Amer 105, Est GFR (MDRD) Non-Af 87, BUN/Creatinine Ratio 21.2 H, Glucose 121 H, Calcium 9.5, Total Bilirubin 0.60, AST 5 L, ALT 8 L, Alkaline Phosphatase 104, Total Protein 7.8, Albumin 3.0 L, Globulin 4.8 H, Albumin/Globulin Ratio 0.6 L 07/08/21 10:42: Lactic Acid 1.1 07/08/21 10:42: Magnesium 1.5 L 07/08/21 16:20: POC Glucose 178 H Micro: Microbiology 07/08/21 10:42 Nasal Secretion SARS-CoV-2 Antigen (Rapid) - Final Radiology Impression Chest X-Ray 07/08/21 10:50 IMPRESSION: Patchy infiltrates in the right lower lobe as well as in the midportion of the left lung and left lower lobe superimposed on scarring. Electronically Signed: Ashvin Rodriguez MD at 11:01 EST , Service support , Assessment & Plan Assessment/Plan (1) Chronic obstructive lung disease: (2) DM type 2 (diabetes mellitus, type 2): (3) Tobacco user: PLAN: Assessment/Plan (1) Chronic obstructive lung disease: (2) DM type 2 (diabetes mellitus, type 2): (3) Acute hypoxemic respiratory failure: (4) Tobacco user: PLAN: #1 acute COPD exacerbation: Chest x-ray reviewed, mild increase in chest congestion compared to CXR previously this year. Patient received DuoNeb, Solu-Medrol and not tachycardic or dyspneic at this time. Comfortable oxygen, and is down to 2 L which is her baseline at home, she was on 3 L initially in the ED. COVID-19 was negative. I did warn her of risk of remaining unvaccinated for COVID. UTD with Flu shot. Admit observation, to [facility] floor telemetry, DuoNeb every 6 hours albuterol as needed, start PO Prednisone 40 mg daily x 5 days PO Levaquin, incentive spirometer, chest physiotherapy Tylenol as needed & Zofran as needed. Send legionalla and strep and sputum cultures. COPD exacerbation much more likely than PNA but given sputum production will treat with PO antibiotics. #2 chronic respiratory failure: She is on 2 L at home, continue NC 2 liters. Plan as above, bronchodilators, PO steroids resumed tomorrow, incentive spirometer. #3 type 2 diabetes mellitus: ADA diet, Accu-Cheks, sliding scale, continue glargine and short acting insulin, continue glimepiride, hold metformin due to very small risk of worsening acidosis #4 hypothyroidism: Stable, continue levothyroxine 50 mcg. #5 Tobacco use: The patient can have prn nicotine replacements. Recent use as of 4 days ago. DVT prophylaxis: Subcu Lovenox Patient was presented with code options, and we reviewed in great detail. She opts for DNR, DNI and we summarized her preferences Diet: Diabetic.
[2021-07-08] MEDS: 0.9% Saline Lock 10 ML Syringe IV (22:59)
[2021-07-08 23:31] LABS: Bedside Glucose 398 mg/dL (70-110)
[2021-07-09] VITALS (20 sets, daily range): BP systolic 103–133; BP diastolic 58–68; PULSE 81–111; RESP 16–24; TEMP 36.5–36.8; O2SAT 88–98
[2021-07-09] MEDS: Albuterol 2.5 MG/3 ML VIAL.NEB. INHALATION (03:11)
[2021-07-09] MEDS: Insulin Lispro 100 UNIT/ML INSULN.PEN SC ×5 (03:16→22:44)
[2021-07-09 05:55] LABS: Absolute Lymphocyte Count 0.64 X10^3/uL (0.83-4.51); Absolute Neutrophil Count 5.2 X10^3/uL (2.0-7.7); Basophil# 0.01 X10^3/uL; Basophil% 0.2 % (0-1); Eosinophil# 0.01 X10^3/uL; Eosinophils% 0.2 % (0-5); Hematocrit 33.3 % (37-47); Lymphocyte # 0.64 X10^3/ul (0.83-4.51); Lymphocyte % 10.2 % (19-41); Mean Corpuscular Hgb 30.1 pg (27.0-32.0); Mean Corpuscular Volume 91.2 fL (81-99); Mean Platelet Vol. 9.8 fl (6.2-12.0); Monocyte# 0.38 X10^3/uL; Monocyte% 6.1 % (0-10); NRBC Flagged by Analyzer 0 % (0-5); Neutrophil # 5.16 X10^3/uL (2.7-7.7); Neutrophil % 82.5 % (47-70); Platelet Count 261 K/mm3 (150-450); RBC Distribution Width CV 12.9 % (11.6-14.6); RBC Distribution Width SD 42.7 fl (35.1-43.9); Red Blood Count 3.65 M/mm3 (4.2-5.4); White Blood Count 6.3 K/mm3 (4.4-11.0)
[2021-07-09 05:56] LABS: Bedside Glucose 351 mg/dL (70-110)
[2021-07-09] MEDS: Acetaminophen 500 MG Tablet PO ×3 (06:08→22:50)
[2021-07-09] MEDS: Levothyroxine 50 MCG Tablet PO (06:08)
[2021-07-09] MEDS: levoFLOXacin 750 MG Tablet PO (06:08)
[2021-07-09 06:26] LABS: Bedside Glucose 263 mg/dL (70-110)
[2021-07-09] MEDS: Ipratropium/Albuterol Sulfate 3 ML AMPUL.NEB INHALATION ×5 (07:24→23:42)
[2021-07-09 07:54] LABS: ALB/GLOB Ratio 0.6 RATIO (0.9-2.4); AST(SGOT) 6 U/L (15-37); Alanine Aminotransfer ALT/SGPT 7 U/L (13-56); Albumin, Serum 2.6 g/dL (3.2-5.0); Alkaline Phosphatase 91 U/L (45-117); Anion Gap 5 (5-15); BUN 23 mg/dL (7-18); Calcium,Total 9.1 mg/dL (8.5-10.1); Chloride 101 mmol/L (98-107); Creatinine, Serum 0.82 mg/dL (0.55-1.02); EST Glomerular Filtration Rate 73 mL/min (>60); Est Glom Filt Rate - Afr Amer 88 mL/min (>60); Estimated Creatinine Clearance 57.44 ml/min; Globulin 4.5 g/dL (2.2-4.2); Glucose 283 mg/dL (74-106); Potassium 4.2 mmol/L (3.5-5.1); Protein, Total 7.1 g/dL (6.4-8.2); Sodium Level 137 mmol/L (136-145)
[2021-07-09] MEDS: Glimepiride 4 MG Tablet PO (08:14)
[2021-07-09] MEDS: Potassium Chloride Oral Tablet 10 MEQ PO (08:15)
[2021-07-09] MEDS: Cholecalciferol (VIT D3) 25 MCG TABLET (1,000 UNITS) PO (08:15)
[2021-07-09] MEDS: Enoxaparin 40 MG/0.4 ML Syringe SC (11:06)
[2021-07-09 11:20] LABS: Bedside Glucose 263 mg/dL (70-110)
--- NOTE | 2021-07-09 12:00 | CASEMGMT ---
DINA FLORES Assessment: Face to Face with pt for initial transition planning/care coordination assessment. DINA FLORES introduced self and role at [facility], pt voices understanding and consents to assessment. Patient sitting up in bed with O2 on, awaiting lunch, in no apparent distress. Pt is A/O x4 and answers all questions appropriately at this time. Care providers, pharmacy, and demographics verified/updated. Admitting Dx: COPD exacerbation PCP: Parish Christianson Specialists: None Preferred Pharmacy: [facility] Insurance: [employer] Medicare PPO Prescription Benefit: yes LW/HPOA: Patient has LW/HPOA on file at [facility]. HPOA is , Mitchell, and daughter Carly. LNOK: , Mitchell Morales Living Arrangements: Pt lives with in one story house with ramp to enter. Patient states she is independent with ADLs, though does fatigue easily related to breathing difficulties. Transportation: Patient does not drive. provides for transportation needs. DME/HHC/SNF: Patient wears continuous oxygen at 2L/min per NC at rest, and between 3-4L/min with exertion. Oxygen supplied through [employer], patient has oxygen concentrator and portable tanks. Call placed to Maikol at [facility] to confirm oxygen orders. Patient has nebulizer, cane, walker, electric wheelchair and shower chair. Denies use of walker or cane inside the home. Patient connected with [facility] ([facility] notified that patient currently hospitalized). Patient denies previous HHC or SNF stays. Pt states no concerns with going home at time of dc. Pt states no further concerns/needs. CM to follow. Advised pt to ask CM if any further question/concerns/needs arise, voices understanding. Pt Goal: home Plan: home
--- NOTE | 2021-07-09 13:12 | PCM.PN.HOSP ---
Documented by User: Ernesto KEARNS 07/09/21 13:23 Subjective Subjective Patient is a 70-year-old female comfortably resting in a chair, alert and orient x3. Patient denies development of any new symptoms overnight. Does not appear in acute distress. Objective Data Objective Data Vital Signs: Vital Signs Temp Pulse Resp BP Pulse Ox 97.9 F 98 16 133/68 H 88 07/09/21 08:10 07/09/21 11:29 07/09/21 11:29 07/09/21 08:10 07/09/21 11:15 Oxygen Flow Rate (L/min) [ 5 AMBULATING with Oxygen #3] Oxygen Flow Rate (L/min) [ 4 AMBULATING with Oxygen #2] Oxygen Flow Rate (L/min) [ 3 AMBULATING with Oxygen #1] Oxygen Flow Rate (L/min) [At 2 REST with Oxygen] Oxygen Flow Rate (L/min) 2 Oxygen Delivery Method Nasal Cannula Weight: 150 lb 6.4 oz Body Mass Index (BMI) 25.0 Intake & Output: Intake and Output for Last 24 Hours 07/07/21 07/08/21 07/09/21 23:59 23:59 23:59 Intake Total 680 / 680 500 / 500 Balance 680 / 680 500 / 500 Lab / Micro Data Result Diagrams: 07/09/21 05:06 07/09/21 05:06 Labs: Laboratory Results - last 24 hr 07/08/21 10:42: Magnesium 1.5 L 07/08/21 16:20: POC Glucose 178 H 07/08/21 22:44: POC Glucose 398 H 07/09/21 03:14: POC Glucose 351 H 07/09/21 05:06: WBC 6.3, RBC 3.65 L, Hgb 11.0 L, Hct 33.3 L, MCV 91.2, MCH 30.1, MCHC 33.0 D, RDW Std Deviation 42.7, RDW Coeff of [place] 12.9, Plt Count 261, MPV 9.8, Immature Gran % (Auto) 0.800, Neut % (Auto) 82.5 H, Lymph % (Auto) 10.2 L, [place] % (Auto) 6.1, Eos % (Auto) 0.2, Baso % (Auto) 0.2, Absolute Neuts (auto) 5.2, Absolute Lymphs (auto) 0.64 L, Nucleated RBC % 0 07/09/21 05:06: Sodium 137, Potassium 4.2, Chloride 101, Carbon Dioxide 31.0, Anion Gap 5, BUN 23 H, Creatinine 0.82, Estim Creat Clear Calc 57.44, Est GFR (MDRD) Af Amer 88, Est GFR (MDRD) Non-Af 73, BUN/Creatinine Ratio 28.0 H, Glucose 283 H, Calcium 9.1, Total Bilirubin 0.30, AST 6 L, ALT 7 L, Alkaline Phosphatase 91, Total Protein 7.1, Albumin 2.6 L, Globulin 4.5 H, Albumin/Globulin Ratio 0.6 L 07/09/21 06:14: POC Glucose 263 H 07/09/21 11:05: POC Glucose 263 H Micro: Microbiology 07/08/21 17:00 Urine, Clean Catch Legionella Antigen - Final 07/08/21 17:00 Urine, Clean Catch Streptococcus pneumoniae Antigen (M - Final 07/08/21 10:42 Nasal Secretion SARS-CoV-2 Antigen (Rapid) - Final Physical Exam Const alert, oriented x3 and no apparent distress HEENT head/scalp atraumatic and moist oral mucous membranes Head and Scalp: normocephalic Eyes PERRL, EOMs intact bilaterally and conjunctivae normal Neck no lymphadenopathy, supple and no JVD Resp Effort and Inspection: tachypneic and labored Auscultation: diminished lung sounds Cardio regular rate, regular rhythm, no murmurs and no JVD GI normal to inspection, nondistended, normoactive bowel sounds, soft to palpation and non-tender Extremity normal to inspection, full ROM and no clubbing, cyanosis or edema Skin no rashes or lesions noted, no wounds, skin turgor normal and no jaundice Neuro CN's II-XII intact bilaterally Psych affect normal Assessment & Plan Assessment/Plan (1) COPD with acute exacerbation: (2) Acute hypoxemic respiratory failure: PLAN: Day 1 Discharge planning: Current plan is for patient to discharge home when medically ready. 1) acute respiratory distress secondary to acute on chronic COPD exacerbation Patient currently satting 98% on 2 L via nasal cannula, which is patient's home oxygen requirement. Although patient has had home oxygen requirement, she is still tachypneic with breathing at 22 breaths/min. Initiate Solu-Medrol, continue DuoNebs and albuterol as needed, continue levofloxacin. Supplemental oxygen as needed, 2) DM2 Continue glimepiride, continue Accu-Cheks with sliding scale insulin. Continue to hold metformin. 3) hypothyroidism Continue Synthroid. 4) tobacco abuse Cessation advised, continue nicotine replacement. DVT prophylaxis - Lovenox Patient seen by Ernesto Levy PA-C, under the supervision of Dr. Gomez. Documented by User: Dr. Jaiden Gomez MD 07/09/21 15:32 Objective Data Lab / Micro Data Result Diagrams: 07/09/21 05:06 07/09/21 05:06 Charges/Coding Addendum Addendum: Dr. Gomez: I personally reviewed the chart and examined the patient, and agree with the above findings. 70-year-old female with history of COPD presents with acute hypoxic respiratory failure due to a COPD exacerbation. She has had several since March and recently completed a course of antibiotics and steroids. We will continue with steroids and Levaquin. Given how many exacerbation she has had in last several months, will take this slow and make sure that we can get her back to a reasonable baseline. 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 Visit Charges OBSV E&M: 10287 Subsequent observation care L2
--- NOTE | 2021-07-09 13:57 | CASEMGMT ---
Received confirmation from Meredith Segundo that pt rx is 2L cont. Green sheet on chart in case pt needs change in rx.
[2021-07-09] MEDS: 0.9% Saline Lock 10 ML Syringe IV (14:26)
--- NOTE | 2021-07-09 15:30 | CASEMGMT ---
DINA CM in to discuss HARMON form with patient. RN CM explained HARMON form, patient voiced understanding. Pt signed form and filed in chart. Pt provided with a copy of signed HARMON form. Patient had no further questions or concerns at this time.
[2021-07-09] MEDS: Montelukast 10 MG Tablet PO (17:33)
[2021-07-09 17:40] LABS: Bedside Glucose 231 mg/dL (70-110)
[2021-07-09 23:36] LABS: Bedside Glucose 294 mg/dL (70-110)
[2021-07-10] VITALS (8 sets, daily range): BP systolic 110–112; BP diastolic 59–77; PULSE 82–109; RESP 16–22; TEMP 36.5–37; O2SAT 3–96
[2021-07-10] MEDS: Insulin Lispro 100 UNIT/ML INSULN.PEN SC ×3 (02:20→12:40)
[2021-07-10 02:56] LABS: Bedside Glucose 292 mg/dL (70-110)
[2021-07-10] MEDS: Albuterol 2.5 MG/3 ML VIAL.NEB. INHALATION (03:39)
[2021-07-10] MEDS: Acetaminophen 500 MG Tablet PO (06:58)
[2021-07-10] MEDS: levoFLOXacin 750 MG Tablet PO (06:58)
[2021-07-10] MEDS: Levothyroxine 50 MCG Tablet PO (06:58)
[2021-07-10] MEDS: Ipratropium/Albuterol Sulfate 3 ML AMPUL.NEB INHALATION ×2 (07:54→11:03)
[2021-07-10 10:31] LABS: Magnesium 1.6 mg/dL (1.6-2.6)
--- NOTE | 2021-07-10 12:17 | PN.HOSP_ITS ---
Documented by User: Ernesto KEARNS 07/10/21 12:23 Subjective Subjective Patient is a 70-year-old female comfortably resting in bed, alert and orient x3. Patient reports significant improvement in shortness of breath remission, denies development of any new symptoms overnight. Does not appear in acute dis tress. Objective Data Objective Data Vital Signs: Vital Signs Temp Pulse Resp BP Pulse Ox 97.7 F L 105 H 16 110/59 L 91 07/10/21 02:46 07/10/21 11:05 07/10/21 11:05 07/10/21 02:46 07/10/21 10:47 Oxygen Flow Rate (L/min) [ 0 AMBULATING on Room Air] Oxygen Flow Rate (L/min) [ 5 AMBULATING with Oxygen #3] Oxygen Flow Rate (L/min) [ 3 AMBULATING with Oxygen #2] Oxygen Flow Rate (L/min) [ 2 AMBULATING with Oxygen #1] Oxygen Flow Rate (L/min) [At 2 REST with Oxygen] Oxygen Flow Rate (L/min) [At 0 REST on Room Air] Oxygen Flow Rate (L/min) 2 Oxygen Delivery Method Venturi Mask Weight: 150 lb 6.4 oz Body Mass Index (BMI) 25.0 Intake & Output: Intake and Output for Last 24 Hours 07/08/21 07/09/21 07/10/21 23:59 23:59 23:59 Intake Total 680 / 680 500 / 500 Balance 680 / 680 500 / 500 Lab / Micro Data Result Diagrams: 07/09/21 05:06 07/09/21 05:06 Labs: Laboratory Results - last 24 hr 07/09/21 17:29: POC Glucose 231 H 07/09/21 22:41: POC Glucose 294 H 07/10/21 02:18: POC Glucose 292 H 07/10/21 10:10: Magnesium 1.6 Micro: Microbiology 07/09/21 06:15 Sputum, Expectorated/Coughed Gram Stain - Final 07/09/21 06:15 Sputum, Expectorated/Coughed Respiratory Culture - Preliminary Appears to be normal respiratory vivian. Further studies to follow. 07/08/21 10:50 Blood Culture (Wb) #2 - Left Forearm Blood Culture - Preli minary No growth in 48 hours. 07/08/21 10:42 Blood Culture (Wb) - Right Forearm Blood Culture - Preliminary No growth in 48 hours. 07/08/21 17:00 Urine, Clean Catch Legionella Antigen - Final 07/08/21 17:00 Urine, Clean Catch Streptococcus pneumoniae Antigen (M - Final 07/08/21 10:42 Nasal Secretion SARS-CoV-2 Antigen (Rapid) - Final Physical Exam Const alert, oriented x3 and no apparent distress HEENT head/scalp atraumatic and moist oral mucous membranes Head and Scalp: normocephalic Eyes PERRL, EOMs intact bilaterally and conjunctivae normal Neck no lymphadenopathy, supple and no JVD Resp Effort and Inspection: labored Auscultation: wheezes Cardio regular rate, regular rhythm, no murmurs and no JVD GI normal to inspection, nondistended, normoactive bowel sounds, soft to palpation and non-tender Extremity normal to inspection, full ROM and no clubbing, cyanosis or edema Skin no rashes or lesions noted, no wounds, skin turgor normal and no jaundice Neuro CN's II-XII intact bilaterally Psych affect normal Assessment & Plan Assessment/Plan (1) COPD with acute exacerbation: (2) Acute hypoxemic respiratory failure: PLAN: Day 2 Discharge planning: Current plan is for patient to discharge home when medically ready. 1) acute respiratory distress secondary to acute on chronic COPD exacerbation With ambulation at 2 L via nasal cannula patient was satting 88%, which is patients baseline home oxygen prescription. Suspect that patient could benefit from one more day of inpatient care. Continue Solu-Medrol, breathing treatments, levofloxacin and supplemental O2. 2) DM2 Continue glimepiride, continue Accu-Cheks with sliding scale insulin. Continue to hold metformin. 3) hypothyroidism Continue Synthroid. 4) tobacco abuse Cessation advised, continue nicotine replacement. DVT prophylaxis - Lovenox Patient seen by Ernesto Levy PA-C, under the supervision of Dr. Mcdermott. Documented by User: Dr. Winsome Mcdermott MD 07/10/21 14:43 Objective Data Lab / Micro Data Result Diagrams: 07/09/21 05:06 07/09/21 05:06
[2021-07-10] MEDS: Cholecalciferol (VIT D3) 25 MCG TABLET (1,000 UNITS) PO (12:26)
[2021-07-10] MEDS: Potassium Chloride Oral Tablet 10 MEQ PO (12:26)
[2021-07-10] MEDS: Glimepiride 4 MG Tablet PO (12:26)
[2021-07-10 12:31] LABS: Bedside Glucose 254 mg/dL (70-110)
--- NOTE | 2021-07-10 12:53 | PCM.DC ---
Discharge Instructions Diet Discharge Diet: No restrictions Activity Discharge Activity: Return to Normal Activity Weight Bearing Status: Weight bearing as tolerated Dressing / Incision Call your doctor if you observe: Fever of 101 or Higher, Numbness or Tingling, Shortness of breath, Dizziness, Chest pain, Increased palpitations (irregular heartbeat) and Calf discomfort Follow Up Care Please Follow Up With: Primary care provider When: Within the next two weeks. Test Results: Test results from this visit will be discussed in further detail at your follow-up appointment, if applicable. Discharge Plan Admission Admit Date/Time: 07/08/21 13:03 Primary Reason for Your Visit: Shortness of breath. Attending Provider: Winsome Mcdermott Primary Care Provider: Parish Christianson Discharge Orders/Prescriptions Prescriptions: New prednisone 20 mg tablet 40 mg PO DAILY Qty: 10 RF: 0 Continued potassium chloride [K-Tab] 10 MEQ tablet extended release 10 meq PO DAILY RF: 0 montelukast 10 MG tablet 10 mg PO DINNER RF: 0 fluticasone propionate 1 SPRAY spray,suspension 2 spray NASAL DAILY RF: 0 cholecalciferol (vitamin D3) [Vitamin D3] 1,000 UNIT capsule 1,000 unit PO DAILY RF: 0 multivitamin with folic acid [Thera] 1 TABLET tablet 1 tab PO DAILY RF: 0 albuterol sulfate [Ventolin HFA] 1 INHALER inhaler 2 puff inhalation Q4H PRN PRN (Reason: Asthma) Qty: 1 RF: 0 insulin aspart U-100 [Novolog Flexpen U-100 Insulin] 100 UNITS/ML insulin pen 0 - 5 units subcut TIDCM RF: 0 insulin glargine 100 UNITS/ML insulin pen 30 units SC DAILY RF: 0 clonazepam 0.5 MG tablet 0.5 mg PO DAILY RF: 0 metformin 1,000 mg tablet 1,000 mg PO BID RF: 0 glimepiride 4 mg tablet 4 mg PO DAILY RF: 0 fluoxetine 10 mg capsule 10 mg PO DAILY RF: 0 celecoxib [Celebrex] 100 mg capsule 100 mg PO DAILY RF: 0 acetaminophen 500 mg Capsule 500 mg PO Q8H RF: 0 Spiriva with HandiHaler 18 mcg capsule, w/inhalation device 1 cap INHALATION DAILY RF: 0 Advair HFA 230-21 mcg/actuation HFA aerosol inhaler 1 puff INHALATION BID RF: 0 ipratropium-albuterol 3 ML solution for nebulization 3 ml inhalation 4X/DAY RF: 0 levothyroxine 125 mcg tablet 125 mcg PO DAILY RF: 0 Referrals / Follow Up: Parish Christianson MD [Primary Care Provider] - Within 2 Weeks Disposition Disposition (needs filled in before D/C Order can be placed): Home, Self Care
[2021-07-10 14:26] LABS: Bedside Glucose 443 mg/dL (70-110)
--- NOTE | 2021-07-10 14:27 | DS.PCM_ITS ---
Documented by User: Ernesto KEARNS 07/10/21 14:34 Providers Date of Admission: 07/08/21 Primary Care Physician: Dr. Parish Christianson MD Reason For Visit: COPD EXACERBATION Diagnosis Discharge Diagnosis (1) COPD with acute exacerbation: Status: Chronic Code(s): J44.1 - Chronic obstructive pulmonary disease with (acute) exacerbation (2) Acute hypoxemic respiratory failure: Status: Acute Code(s): J96.01 - Acute respiratory failure with hypoxia Medications at Discharge Home Medications cholecalciferol (vitamin D3) [Vitamin D3] 1,000 unit PO DAILY 01/15/14 fluticasone propionate 2 spray NASAL DAILY 01/15/14 montelukast 10 mg PO DINNER 01/15/14 multivitamin with folic acid [Thera] 1 tab PO DAILY 01/15/14 potassium chloride [K-Tab] 10 meq PO DAILY 01/15/14 albuterol sulfate [Ventolin HFA] 2 puff INHALATION Q4H PRN PRN #1 inhaler 02/14/15 insulin aspart U-100 [Novolog Flexpen U-100 Insulin] 0 - 5 units SUBCUT TIDCM 02/23/16 insulin glargine 30 units SC DAILY 09/18/20 Advair HFA 1 puff INHALATION BID 11/14/20 Spiriva with HandiHaler 1 cap INHALATION DAILY 11/14/20 acetaminophen 500 mg PO Q8H 11/14/20 celecoxib [Celebrex] 100 mg PO DAILY 11/14/20 clonazepam 0.5 mg PO DAILY 11/14/20 fluoxetine 10 mg PO DAILY 11/14/20 glimepiride 4 mg PO DAILY 11/14/20 ipratropium-albuterol 3 ml INHALATION 4X/DAY 11/14/20 metformin 1,000 mg PO BID 11/14/20 levothyroxine 125 mcg PO DAILY 07/08/21 prednisone 40 mg PO DAILY #10 tab 07/10/21 Hospital Course Summary of Care Provided Minutes Spent on Discharge: 35 Hospital Course: Disposition: Patient to discharge home. 1) acute respiratory distress secondary to acute on chronic COPD exacerbation With ambulation patient was satting 88% at 2 L and 95% at 3 L via nasal cannula. Patient was provided new oxygen prescription for 3 L. Patient was initiated on prednisone burst for 5 days at discharge. All other home COPD medications continued. Antibiotics not continued on discharge due to absence of white count and unremarkable vital signs. 2) DM2 Continue home diabetic regimen. 3) hypothyroidism Continue Synthroid. 4) tobacco abuse Cessation advised, continue nicotine replacement. Patient seen by Ernesto Levy PA-C, under the supervision of Dr. Mcdermott. Physical Exam Narrative Patient is a 70-year-old female comfortably resting in bed, alert and orient x3. Patient reports significant improvement in her shortness of breath remission. Denies development of any new symptoms overnight. Does not appear in acute distress. Const alert, oriented x3 and no apparent distress HEENT normocephalic, head/scalp atraumatic and hearing grossly normal bilaterally Eyes PERRL, EOMs intact bilaterally and conjunctivae normal Neck no lymphadenopathy, supple and no JVD Resp normal respiratory effort, no retractions and no use of accessory muscles Auscultation: diminished lung sounds Cardio regular rate, regular rhythm, no murmurs and no JVD GI normal to inspection, nondistended, normoactive bowel sounds, soft to palpation and non-tender Extremity normal to inspection, full ROM and no clubbing, cyanosis or edema Skin no rashes or lesions noted, no wounds and skin turgor normal Neuro CN's II-XII intact bilaterally Psych affect normal Weight / BMI Weight Weight: 150 lb 6.4 oz Body Mass Index (BMI) 25.0 ABG / Lab / Microbiology Data Result Diagrams: 07/09/21 05:06 07/09/21 05:06 Laboratory: Laboratory Results - last 24 hr 07/09/21 17:29: POC Glucose 231 H 07/09/21 22:41: POC Glucose 294 H 07/10/21 02:18: POC Glucose 292 H 07/10/21 07:03: POC Glucose 254 H 07/10/21 10:10: Magnesium 1.6 07/10/21 12:39: POC Glucose 443 H Microbiology: Microbiology 07/09/21 06:15 Sputum, Expectorated/Coughed Gram Stain - Final 07/09/21 06:15 Sputum, Expectorated/Coughed Respiratory Culture - Preliminary Appears to be normal respiratory vivian. Further studies to follow. 07/08/21 10:50 Blood Culture (Wb) #2 - Left Forearm Blood Culture - Preliminary No growth in 48 hours. 07/08/21 10:42 Blood Culture (Wb) - Right Forearm Blood Culture - Preliminary No growth in 48 hours. 07/08/21 17:00 Urine, Clean Catch Legionella Antigen - Final 07/08/21 17:00 Urine, Clean Catch Streptococcus pneumoniae Antigen (M - Final 07/08/21 10:42 Nasal Secretion SARS-CoV-2 Antigen (Rapid) - Final D/C Instructions Discharge Diet: No restrictions Weight Bearing Status: Weight bearing as tolerated Call your doctor if you observe: Fever of 101 or Higher, Numbness or Tingling, Shortness of breath, Dizziness, Chest pain, Increased palpitations (irregular heartbeat) and Calf discomfort Please Follow Up With: Primary care provider When: Within the next two weeks. Meaningful Use Info Meaningful Use Diagnoses (Choose all that apply): None applicable Discharge Plan Admission Admit Date/Time: 07/08/21 13:03 Primary Reason for Your Visit: Shortness of breath. Attending Provider: Winsome Mcdermott Primary Care Provider: Parish Christianson Discharge Orders/Prescriptions Prescriptions: New prednisone 20 mg tablet 40 mg PO DAILY Qty: 10 RF: 0 Continued potassium chloride [K-Tab] 10 MEQ tablet extended release 10 meq PO DAILY RF: 0 montelukast 10 MG tablet 10 mg PO DINNER RF: 0 fluticasone propionate 1 SPRAY spray,suspension 2 spray NASAL DAILY RF: 0 cholecalciferol (vitamin D3) [Vitamin D3] 1,000 UNIT capsule 1,000 unit PO DAILY RF: 0 multivitamin with folic acid [Thera] 1 TABLET tablet 1 tab PO DAILY RF: 0 albuterol sulfate [Ventolin HFA] 1 INHALER inhaler 2 puff inhalation Q4H PRN PRN (Reason: Asthma) Qty: 1 RF: 0 insulin aspart U-100 [Novolog Flexpen U-100 Insulin] 100 UNITS/ML insulin pen 0 - 5 units subcut TIDCM RF: 0 insulin glargine 100 UNITS/ML insulin pen 30 units SC DAILY RF: 0 clonazepam 0.5 MG tablet 0.5 mg PO DAILY RF: 0 metformin 1,000 mg tablet 1,000 mg PO BID RF: 0 glimepiride 4 mg tablet 4 mg PO DAILY RF: 0 fluoxetine 10 mg capsule 10 mg PO DAILY RF: 0 celecoxib [Celebrex] 100 mg capsule 100 mg PO DAILY RF: 0 acetaminophen 500 mg Capsule 500 mg PO Q8H RF: 0 Spiriva with HandiHaler 18 mcg capsule, w/inhalation device 1 cap INHALATION DAILY RF: 0 Advair HFA 230-21 mcg/actuation HFA aerosol inhaler 1 puff INHALATION BID RF: 0 ipratropium-albuterol 3 ML solution for nebulization 3 ml inhalation 4X/DAY RF: 0 levothyroxine 125 mcg tablet 125 mcg PO DAILY RF: 0 Referrals / Follow Up: Parish Christianson MD [Primary Care Provider] - Within 2 Weeks Disposition Disposition (needs filled in before D/C Order can be placed): Home, Self Care Documented by User: Dr. Winsome Mcdermott MD 07/10/21 14:42 Providers Date of Admission: 07/08/21 Reason For Visit: COPD EXACERBATION Medications at Discharge Home Medications cholecalciferol (vitamin D3) [Vitamin D3] 1,000 unit PO DAILY 01/15/14 fluticasone propionate 2 spray NASAL DAILY 01/15/14 montelukast 10 mg PO DINNER 01/15/14 multivitamin with folic acid [Thera] 1 tab PO DAILY 01/15/14 potassium chloride [K-Tab] 10 meq PO DAILY 01/15/14 albuterol sulfate [Ventolin HFA] 2 puff INHALATION Q4H PRN PRN #1 inhaler 02/14/15 insulin aspart U-100 [Novolog Flexpen U-100 Insulin] 0 - 5 units SUBCUT TIDCM 02/23/16 insulin glargine 30 units SC DAILY 09/18/20 Advair HFA 1 puff INHALATION BID 11/14/20 Spiriva with HandiHaler 1 cap INHALATION DAILY 11/14/20 acetaminophen 500 mg PO Q8H 11/14/20 celecoxib [Celebrex] 100 mg PO DAILY 11/14/20 clonazepam 0.5 mg PO DAILY 11/14/20 fluoxetine 10 mg PO DAILY 11/14/20 glimepiride 4 mg PO DAILY 11/14/20 ipratropium-albuterol 3 ml INHALATION 4X/DAY 11/14/20 metformin 1,000 mg PO BID 11/14/20 levothyroxine 125 mcg PO DAILY 07/08/21 prednisone 40 mg PO DAILY #10 tab 07/10/21 ABG / Lab / Microbiology Data Result Diagrams: 07/09/21 05:06 07/09/21 05:06 Discharge Plan Admission Admit Date/Time: 07/08/21 13:03 Primary Reason for Your Visit: Shortness of breath. Attending Provider: Winsome Mcdermott Primary Care Provider: Parish Christianson Discharge Orders/Prescriptions Prescriptions: New prednisone 20 mg tablet 40 mg PO DAILY Qty: 10 RF: 0 Continued potassium chloride [K-Tab] 10 MEQ tablet extended release 10 meq PO DAILY RF: 0 montelukast 10 MG tablet 10 mg PO DINNER RF: 0 fluticasone propionate 1 SPRAY spray,suspension 2 spray NASAL DAILY RF: 0 cholecalciferol (vitamin D3) [Vitamin D3] 1,000 UNIT capsule 1,000 unit PO DAILY RF: 0 multivitamin with folic acid [Thera] 1 TABLET tablet 1 tab PO DAILY RF: 0 albuterol sulfate [Ventolin HFA] 1 INHALER inhaler 2 puff inhalation Q4H PRN PRN (Reason: Asthma) Qty: 1 RF: 0 insulin aspart U-100 [Novolog Flexpen U-100 Insulin] 100 UNITS/ML insulin pen 0 - 5 units subcut TIDCM RF: 0 insulin glargine 100 UNITS/ML insulin pen 30 units SC DAILY RF: 0 clonazepam 0.5 MG tablet 0.5 mg PO DAILY RF: 0 metformin 1,000 mg tablet 1,000 mg PO BID RF: 0 glimepiride 4 mg tablet 4 mg PO DAILY RF: 0 fluoxetine 10 mg capsule 10 mg PO DAILY RF: 0 celecoxib [Celebrex] 100 mg capsule 100 mg PO DAILY RF: 0 acetaminophen 500 mg Capsule 500 mg PO Q8H RF: 0 Spiriva with HandiHaler 18 mcg capsule, w/inhalation device 1 cap INHALATION DAILY RF: 0 Advair HFA 230-21 mcg/actuation HFA aerosol inhaler 1 puff INHALATION BID RF: 0 ipratropium-albuterol 3 ML solution for nebulization 3 ml inhalation 4X/DAY RF: 0 levothyroxine 125 mcg tablet 125 mcg PO DAILY RF: 0 Referrals / Follow Up: Parish Christianson MD [Primary Care Provider] - Within 2 Weeks Disposition Disposition (needs filled in before D/C Order can be placed): Home, Self Care Charges/Coding Addendum Addendum: Patient seen by Ernesto Levy PA-C under my supervision Patient is a 70-year-old female with a past medical history as outlined which includes COPD and respiratory failure, usually on 2 L at home. She was admitted through the ED on 07/08/2021 with a complaint of shortness of breath and cough. Cough has been worsening for about 4 days prior to admission with associated increased sputum production. She denied any fevers and had recently completed a course of prednisone and Levaquin. Patient said she had had about 3 admissions over the past few months on account of COPD exacerbation. 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 According to her, she decided to stop following up because she did not want to be told that she was worsening and just wanted to live her life as she pleased. His COPD has been quite poorly controlled resulting in frequent visits to the emergency room and to her doctor. She was saturating in the 70s on 3 L of oxygen at time of admission. She was admitted and managed for acute COPD exacerbation. She was started on breathing treatments bronchodilators as well as IV Solu-Medrol. Covid test was negative. She was also started on p.o. Levaquin. Her breathing gradually improved and she felt much better. She had a walking pulse ox on 07/10/2021 which showed that she required 3 L of oxygen at home. She remained stable and was discharged home on 07/10/2021 on 3 L of oxygen to use for shortness of breath as needed. She was discharged with a prescription for p.o. prednisone 40 mg daily for 5 days. She is to follow-up with her primary care doctor and was encouraged to follow-up with pulmonology on outpatient basis. Patient seen and examined prior to discharge. She had no active complaints. Review of systems otherwise negative. Labs and vitals reviewed. Her medication reviewed and reconciled. O/E: Const alert, oriented x3 and no apparent distress HEENT normocephalic, head/scalp atraumatic and hearing grossly normal bilaterally Eyes PERRL, EOMs intact bilaterally and conjunctivae normal Neck no lymphadenopathy, supple and no JVD Resp normal respiratory effort, no retractions and no use of accessory muscles Auscultation: diminished lung sounds Cardio regular rate, regular rhythm, no murmurs and no JVD GI normal to inspection, nondistended, normoactive bowel sounds, soft to palpation and non-tender Extremity normal to inspection, full ROM and no clubbing, cyanosis or edema Skin no rashes or lesions noted, no wounds and skin turgor normal Neuro CN's II-XII intact bilaterally Psych affect normal Plan is for discharge home today as above. Rest as per Ernesto Levy PA-C's note, which I have reviewed and endorsed. Visit Charges Inpatient E&M: 42115 Disch Hosp
== END 2021-07-10 14:12 | disposition home or self-care (01) ==
LOC: ED 13:18 → MS3 13:45
PROVIDERS: Family Medicine; Admitting Provider Hospitalist; Emergency Provider Emergency Medicine; PCP Family Medicine; Visit Provider Student in an Organized Health Care Education/Training Program
DX: J44.1 Chronic obstructive pulmonary disease with (acute) exacerbation (principal); J96.01 Acute respiratory failure with hypoxia; E03.9 Hypothyroidism, unspecified; E11.9 Type 2 diabetes mellitus without complications; F32.A Depression, unspecified; F41.9 Anxiety disorder, unspecified; Z99.81 Dependence on supplemental oxygen; Z79.51 Long term (current) use of inhaled steroids; Z79.899 Other long term (current) drug therapy; Z79.4 Long term (current) use of insulin; Z79.890 Hormone replacement therapy; Z87.891 Personal history of nicotine dependence; J96.10 Chronic respiratory failure, unspecified whether with hypoxia or hypercapnia
CPT/HCPCS: 36415; 71045; 80053; 82962; 83605; 83735; 85025; 87040; 87070; 87205; 87426; 87449; 94640; 94667; 94668; 96372; 96374; 96376; 99218; 99284; 99406; A4216; G0378

== ENCOUNTER 2021-07-24 10:18 | Outpatient (CLI) | payer MEDICARE, SELFPAY ==
[2021-07-24 13:36] LABS: Free T3 1.9 pg/mL (2.18-3.98); T4 Free Direct 1.28 ng/dL (0.76-1.46)
== END 2021-07-24 23:59 | disposition home or self-care (01) ==
LOC: MFPLAB 10:19
PROVIDERS: PCP Family Medicine; Referring Provider Family Medicine; Visit Provider Family Medicine
DX: E03.9 Hypothyroidism, unspecified (principal)
CPT/HCPCS: 36415; 84439; 84443; 84481

== ENCOUNTER 2021-10-19 14:15 | Outpatient (CLI) | payer MEDICARE, SELFPAY ==
--- NOTE | 2021-10-19 14:17 | RAD_ITS ---
INDICATION: COPD EXAMINATION/TECHNIQUE: X-RAY - XR Chest 2 Views COMPARISON: 07/08/2021. FINDINGS: LINES/DEVICES: None. LUNGS: The lungs are hyperinflated. Bilateral increased interstitial markings most prominent in the lower lobes and peripheral upper lobes, left greater than right, similar compared to the prior. Lucency in the upper lung law, right greater than left, suggestive of emphysematous changes. MEDIASTINUM AND CARDIOVASCULAR STRUCTURES: Atherosclerotic calcifications. Surgical clips in the right upper quadrant, suggestive of prior cholecystectomy. BONES AND SOFT TISSUES: Unremarkable. RAD/Chest PA and Lateral IMPRESSION: 1. Bilateral increased interstitial markings, similar compared to the prior, may represent fibrotic changes or postinfectious/inflammatory changes. 2. Emphysematous changes in the upper lobes. 3. Hyperinflation. Electronically Signed: Flex Pond MD at 7:19 EDT ,
== END 2021-10-19 23:59 | disposition home or self-care (01) ==
LOC: MTRAD 14:16
PROVIDERS: PCP Family Medicine; Referring Provider Family Medicine; Visit Provider Family Medicine
DX: J44.9 Chronic obstructive pulmonary disease, unspecified (principal)
CPT/HCPCS: 71046

== ENCOUNTER → 2022-01-15 | Outpatient (CLI) | payer MEDICARE, SELFPAY ==
[2022-01-15 10:32] LABS: Hemoglobin A1c 7.2 % (3.8-5.6)
[2022-01-15 10:36] LABS: ALB/GLOB Ratio 0.8 RATIO (0.9-2.4); AST(SGOT) 11 U/L (15-37); Alanine Aminotransfer ALT/SGPT 10 U/L (13-56); Albumin, Serum 3.3 g/dL (3.2-5.0); Alkaline Phosphatase 82 U/L (45-117); Anion Gap 8 (5-15); BUN 15 mg/dL (7-18); BUN/Creat Ratio 22.2 RATIO (10-20); Calcium,Total 8.9 mg/dL (8.5-10.1); Chloride 99 mmol/L (98-107); Cholesterol 144 mg/dL (200); Creatinine, Serum 0.68 mg/dL (0.55-1.02); EST Glomerular Filtration Rate 91 mL/min (>60); Est Glom Filt Rate - Afr Amer 111 mL/min (>60); Globulin 4.2 g/dL (2.2-4.2); Glucose 174 mg/dL (74-106); High Density Lipoprotein 60 mg/dL; Potassium 3.8 mmol/L (3.5-5.1); Protein, Total 7.5 g/dL (6.4-8.2); Sodium Level 138 mmol/L (136-145); Thyroid Stim Hormone (TSH) 0.23 uIU/mL (0.358-3.74); Triglycerides 91 mg/dL; Very Low Density Lipoprotein 18 mg/dL (5-40)
== END | disposition home or self-care (01) ==
LOC: MFPLAB 08:17
PROVIDERS: PCP Family Medicine; Visit Provider Family Medicine
DX: E11.9 Type 2 diabetes mellitus without complications (principal); J44.1 Chronic obstructive pulmonary disease with (acute) exacerbation; E03.9 Hypothyroidism, unspecified
CPT/HCPCS: 36415; 80053; 80061; 83036; 84443

== ENCOUNTER → 2022-01-20 | Outpatient (CLI) | payer MEDICARE, SELFPAY ==
[2022-01-20 11:11] LABS: Microalbumin,Random Urine 41.9 mg/L (NO RANGE EST.); Microalbumin:Creatinine Ratio 34.6 mg/g CRE (<30 mg/g CRE)
== END | disposition home or self-care (01) ==
LOC: MFPLAB 08:18
PROVIDERS: PCP Family Medicine; Visit Provider Family Medicine
DX: E11.9 Type 2 diabetes mellitus without complications (principal)
CPT/HCPCS: 82043; 82570

== ENCOUNTER 2022-03-04 18:22 | Observation (INO) | payer MEDICARE, SELFPAY ==
[2022-03-04] VITALS (9 sets, daily range): BP systolic 90–132; BP diastolic 53–79; PULSE 90–115; RESP 15–28; TEMP 36.7; O2SAT 94–98; BMI 26.6
--- NOTE | 2022-03-04 18:48 | EKG12_ITS ---
Test Reason : SOB Blood Pressure : / mmHG Vent. Rate : 102 BPM Atrial Rate : 102 BPM P-R Int : 128 ms QRS Dur : 070 ms QT Int : 350 ms P-R-T Axes : 080 065 074 degrees QTc Int : 456 ms Sinus tachycardia Low voltage QRS (Limb Leads) Confirmed by CHARANJIT EASLEY, SANTI ([id number]), supervising editor trailer RILEY RODAS ([id number]) on 03/05/2022 9:48:56 AM Referred By: Confirmed By:SANTI DONOHUE MD
--- NOTE | 2022-03-04 18:49 | ED.VIS.DYS ---
HPI History of Present Illness Chief Complaint: Shortness of Breath Informant: patient Onset/Context/Timing Onset: Today and Hours Context: gradual Timing: Continuous Current Severity: Mild Maximum Severity: Moderate Worsened by: Coughing Relieved by: Rest Associated Symptoms cough; Negative for fever or sore throat Chest Pain: Positive for Intermittent, Stabbing and Pleuritic Narrative Narrative: 71-year-old female history of COPD and diabetes. Chronically on 3 L nasal cannula O2 at home. States around 11 AM today became short of breath. With pleuritic right-sided chest pain. She is never had a DVT or PE. No risk factors. No recent travel, surgery or immobilization. No leg pain or swelling. No calf pain. No hemoptysis. She has had prior CTAs in the past all of which is showing chronic COPD but no pulmonary emboli. She denies any fever. She has a nonproductive cough. PE Risk Factors: Negative for Cancer, OCP + Smoking + > 35, Prior DVT or PE, Recent immobilization, Recent surgery or Recent travel Prior similar symptoms: Yes Recent Illness/Hospitalization: No PFSH PFSH Medical History Anxiety Asthma Chronic obstructive lung disease COPD (chronic obstructive pulmonary disease) Depression Diabetes DM type 2 (diabetes mellitus, type 2) Hypothyroidism On home oxygen therapy Osteopenia Smoker Tobacco user Vision loss of left eye Vision loss of right eye Home Medications cholecalciferol (vitamin D3) 25 mcg (1,000 unit) capsule (Vitamin D3) 1,000 unit PO DAILY SUPPLEMENT 01/15/14 [History Last Taken 07/07/21] fluticasone propionate 50 mcg/actuation nasal spray,suspension 2 spray DAILY ALLERGIES 01/15/14 [History Last Taken 07/07/21] montelukast 10 mg tablet 10 mg PO DINNER ALLERGIES 01/15/14 [History Last Taken 07/07/21] multivitamin with folic acid 400 mcg tablet (Thera) 1 tab PO DAILY VITAMIN 01/15/14 [History Last Taken 07/07/21] potassium chloride 10 mEq tablet,extended release (K-Tab) 10 meq PO DAILY SUPPLEMENT 01/15/14 [History Last Taken 07/07/21] albuterol sulfate 90 mcg/actuation aerosol inhaler (Ventolin HFA) 2 puff inhalation Q4H PRN PRN Asthma ##1 02/14/15 [Rx Last Taken 07/07/21] insulin aspart U-100 100 unit/mL (3 mL) subcutaneous pen (Novolog Flexpen U-100 Insulin aspart) 0 - 5 units subcut TIDCM DM 02/23/16 [History Last Taken 07/07/21] insulin glargine 100 unit/mL (3 mL) subcutaneous pen 35 units subcut DAILY DM 09/18/20 [History Last Taken 07/07/21] acetaminophen 500 mg capsule 500 mg PO Q8H SHOULDER 11/14/20 [History Last Taken 07/07/21] clonazepam 0.5 mg tablet 0.5 mg PO DAILY ANXIETY 11/14/20 [History Last Taken 07/07/21] fluoxetine 10 mg capsule 10 mg PO DAILY DEPRESSION 11/14/20 [History Last Taken 07/07/21] fluticasone propionate 230 mcg-salmeterol 21 mcg/actuation HFA inhaler (Advair HFA) 1 puff inhalation BID COPD 11/14/20 [History Last Taken 07/07/21] glimepiride 4 mg tablet 4 mg PO DAILY DM 11/14/20 [History Last Taken 07/07/21] ipratropium 0.5 mg-albuterol 3 mg (2.5 mg base)/3 mL nebulization soln 3 ml inhalation 4X/DAY COPD 11/14/20 [History Last Taken 07/08/21] metformin 1,000 mg tablet 1,000 mg PO BID DM 11/14/20 [History Last Taken 07/07/21] tiotropium bromide 18 mcg capsule with inhalation device (Spiriva with HandiHaler) 1 cap inhalation DAILY COPD 11/14/20 [History Last Taken 07/07/21] levothyroxine 125 mcg tablet 137 mcg PO DAILY THYROID 07/08/21 [History Last Taken 07/08/21] Celebrex 100 mg DAILY 01/05/22 [History Last Taken Unknown] Prilosec 20 mg DAILY 01/05/22 [History Last Taken Unknown] Allergy/AdvReac Type Severity Reaction Status Date / Time morphine Allergy Anaphylaxis Verified 07/08/21 10:36 Penicillins Allergy Rash Verified 07/08/21 10:36 codeine AdvReac Severe Other Verified 07/08/21 10:36 bupropion [From Wellbutrin] AdvReac Other Verified 07/08/21 10:36 erythromycin base AdvReac Upset Verified 07/08/21 10:36 [Erythromycin Base] Stomach Surgical History History of appendectomy History of cholecystectomy Social History Smoking Status: Former smoker second hand exposure: Yes substance use type: does not use ROS ROS ED ROS Narrative Shortness of breath, cough. Review of Systems ROS Unobtainable: Denies due to encephalopathy Constitutional Constitutional ED: Denies chills or fever(s) Eyes Eyes: Denies blurry vision ENT ENT ED: Denies ear pain Cardiovascular Cardiovascular: Reports chest pain Respiratory/Chest Respiratory/Chest: Reports cough and dyspnea Gastrointestinal Gastrointestinal: Denies abdominal pain, constipation or diarrhea Genitourinary Genitourinary ED: Denies dysuria or hematuria Musculoskeletal Musculoskeletal: Denies arthralgias Integumentary Denies abscess Neurologic Neurologic: Denies headache(s) Psychiatric Psychiatric: Denies anxiety Endocrine Endocrinology: Denies cold intolerance Hematologic/Lymphatic Hematologic/Lymphatic: Denies easy bleeding Allergic/Immunologic Allergic/Immunologic ED: Denies mouth swelling or tongue swelling EXAM Physical Exam Narrative Exam Narrative: 71-year-old female vital signs are stable afebrile. Pulse ox on 2 and half liters of oxygen 90%. No hypoxia on her chronic O2. H EENT exam unremarkable. Moist remembers. Neck nontender. Lungs coarse breath sounds bilaterally. Few scattered wheezes bilaterally. No rales or rhonchi. Equal symmetrical. Heart tachycardic rate about 110 no murmur. Chest wall nontender. No ecchymosis or bruising. No subcu air or crepitance. Abdomen soft. Moving all 4 extremities. Calves nontender without edema or cords. Back nontender. Neurologically she is awake and alert. Const Vital Signs: 03/04/22 18:22 03/04/22 18:22 03/04/22 18:47 Temperature 98.0 F 98.0 F Temperature Source Temporal Temporal Pulse Rate 115 H 113 H Respiratory Rate 28 H 28 H Respiratory Effort Short of Breath Respiratory Depth Shallow Respiratory Pattern Tachypnea Blood Pressure 132/55 H 132/55 H Blood Pressure Mean 80 80 Pulse Ox 98 98 Oxygen Delivery Method Nasal Cannula Nasal Cannula Nasal Cannula Oxygen Flow Rate (L/min) 2.5 2.5 3 03/04/22 18:48 03/04/22 18:59 03/04/22 20:01 Temperature Temperature Source Pulse Rate 101 H 100 Respiratory Rate 17 17 Respiratory Effort Respiratory Depth Respiratory Pattern Blood Pressure Blood Pressure Mean Pulse Ox Oxygen Delivery Method Nasal Cannula Oxygen Flow Rate (L/min) 3 03/04/22 20:02 03/04/22 21:55 03/04/22 22:15 Temperature Temperature Source Pulse Rate 98 101 H 100 Respiratory Rate 15 27 H 18 Respiratory Effort Respiratory Depth Respiratory Pattern Blood Pressure 90/79 128/62 H 113/57 L Blood Pressure Mean 82 84 75 Pulse Ox 98 96 96 Oxygen Delivery Method Nasal Cannula Nasal Cannula Nasal Cannula Oxygen Flow Rate (L/min) 3 3 3 Positive well nourished and well developed; Negative for obese, cachectic, contractures or unkempt General Appearance ED: well developed and NAD; Negative for unkempt, cachectic, contractures or pallor Nutritional Appearance: Negative for cachectic or obese HEENT Reports moist mucous membranes atraumatic; Negative for trauma Eyes PERRL and EOMs intact bilaterally General Eye ED: Negative for pale conjunctiva or scleral icterus Neck no lymphadenopathy, supple, no meningeal signs and no JVD General: Negative for tenderness or other Lymph Lymphatic: Negative for other Chest Wall Chest: Negative for other Resp normal respiratory effort and No clear to auscultation bilaterally Resp Narrative: BreastScattered wheezes. Sounds. No rales or rhonchi. Effort and Inspection: Negative for pain with movement Auscultation: wheezes; Negative for rales or rhonchi Cardio regular rhythm, S1 normal heart sound, S2 normal heart sound and no murmurs; Negative for regular rate Rate: tachycardic GI non-tender, non-distended and no masses Auscultation: normoactive bowel sounds Palpation: soft; Negative for tender, guarding or rebound tenderness present Back/Spine no CVA tenderness and normal to inspection General Back: Negative for CVA tenderness, tenderness or other Extremity normal to inspection General Extremety ED: Negative for edema or tenderness General Extremity: Negative for edema Neuro oriented x3 Sensorium / Orientation: alert, oriented to person, oriented to place and oriented to time; Negative for orientation impaired, confused, lethargic or stuporous Speech: speech normal Motor Exam: strength 5/5 throughout Psych mental status grossly normal Appearance: Negative for unkempt Attitude: No agitated Mood & Affect: Negative for depressed Thought Process: normal thought process Skin General Skin Exam: Negative for jaundice or pallor Lesions: no lesions Rashes: no rashes MDM MDM MDM Narrative Medical decision making narrative: Patient with COPD flare. Will undergo cardiac work-up. Treated with Solu-Medrol DuoNeb and albuterol aerosols and reassess. Repeat exam at 10:30 PM patient still has wheezing. States she does not feel much better. She has had COPD flares like this before and has had to be admitted. I will speak with the hospitalist about admission for COPD flare with continue aerosols and steroids. She does have an elevated white count clinically I do not think she has pneumonia on the x-ray but she may benefit from antibiotics. Lab Data Attestation: I reviewed the patient's lab results. Lab results narrative: CBC shows a white count of 16.7. H&H 11.6 35.5. Electrolytes unremarkable gap of 5 normal BUN and creatinine. Glucose 198. Troponins are 7 and 2-hour troponin was 6. Labs: Laboratory Results - last 24 hr 03/04/22 03/04/22 03/04/22 19:10 19:10 21:19 WBC 16.7 H RBC 3.89 L Hgb 11.6 L Hct 35.5 L MCV 91.3 MCH 29.8 MCHC 32.7 RDW Std Deviation 41.8 RDW Coeff of [place] 12.7 Plt Count 241 MPV 9.5 Immature Gran % (Auto) 0.400 Neut % (Auto) 87.3 H Lymph % (Auto) 6.3 L [place] % (Auto) 4.5 Eos % (Auto) 1.2 Baso % (Auto) 0.3 Absolute Neuts (auto) 14.6 H Absolute Lymphs (auto) 1.06 Nucleated RBC % 0 Sodium 139 Potassium 4.2 Chloride 102 Carbon Dioxide 32.0 Anion Gap 5 BUN 15 Creatinine 0.84 Estim Creat Clear Calc 55.28 Est GFR (MDRD) Af Amer 85 Est GFR (MDRD) Non-Af 71 BUN/Creatinine Ratio 17.8 Glucose 198 H Calcium 9.3 Troponin I High Sens 7 6 Radiography Chest X-Ray - ED: 1 View, Read by ED Physician, Heart, Lungs, Mediastinum, Bony Structures, No Acute Disease and Chronic Changes Diagnostic Testing: Clinical Impression(s) from Imaging Studies Chest X-Ray 03/04/22 19:25 IMPRESSION: Left sided pneumonia. Electronically Signed: Donnell Escamilla MD at 19:53 EDT Reading Location ID and State: [facility] / [place] , Service support , Chest x-ray, single view, portable interpreted myself and the radiologist shows chronic changes consistent with COPD. Cannot rule out infiltrates. Radiologist is called a left-sided pneumonia. I compared to prior films and it looks very similar to prior films. I think this is primarily chronic changes and I would not call this pneumonia. Normal cardiac silhouette. Discharge Plan Triage Chief Complaint: Shortness of Breath ED Provider: Ortiz Martinez Dx/Rx/DC Orders Clinical Impression: Chronic obstructive pulmonary disease with (acute) exacerbation, Leukocytosis Prescriptions: No Action potassium chloride [K-Tab] 10 MEQ tablet extended release 10 meq PO DAILY Label Comments: supplement montelukast 10 MG tablet 10 mg PO DINNER Label Comments: allergies fluticasone propionate 1 SPRAY spray,suspension 2 spray NASAL DAILY Label Comments: allergies cholecalciferol (vitamin D3) [Vitamin D3] 1,000 UNIT capsule 1,000 unit PO DAILY Label Comments: vitamin multivitamin with folic acid [Thera] 1 TABLET tablet 1 tab PO DAILY Label Comments: vitamin albuterol sulfate [Ventolin HFA] 1 INHALER inhaler 2 puff inhalation Q4H PRN PRN (Reason: Asthma) Qty: 1 0RF Label Comments: breathing insulin aspart U-100 [Novolog Flexpen U-100 Insulin] 100 UNITS/ML insulin pen 0 - 5 units subcut TIDCM Label Comments: SLIDING SCALE Rx Instructions: SLIDING SCALE insulin glargine 100 UNITS/ML insulin pen 35 units SC DAILY Celebrex 100 mg capsule 100 mg DAILY Prilosec 20 mg 20 mg DAILY clonazepam 0.5 MG tablet 0.5 mg PO DAILY Label Comments: anxiety Rx Instructions: ANXIETY metformin 1,000 mg tablet 1,000 mg PO BID glimepiride 4 mg tablet 4 mg PO DAILY fluoxetine 10 mg capsule 10 mg PO DAILY acetaminophen 500 mg Capsule 500 mg PO Q8H Spiriva with HandiHaler 18 mcg capsule, w/inhalation device 1 cap INHALATION DAILY Advair HFA 230-21 mcg/actuation HFA aerosol inhaler 1 puff INHALATION BID ipratropium-albuterol 3 ML solution for nebulization 3 ml inhalation 4X/DAY Label Comments: helps with breathing Rx Instructions: BREATHING levothyroxine 125 mcg tablet 137 mcg PO DAILY Label Comments: TAKE 1 TABLET EVERY DAY Primary Care Provider: Parish Christianson Referrals: Parish Christianson MD [Primary Care Provider] - Disposition Disposition: Acute Care Hospital [facility]
[2022-03-04] MEDS: Ipratropium/Albuterol Sulfate 3 ML AMPUL.NEB INHALATION (18:58)
[2022-03-04] MEDS: MethylPREDNISolone 125 MG/2 ML Vial IV (19:20)
[2022-03-04 19:22] LABS: Absolute Lymphocyte Count 1.06 X10^3/uL (0.83-4.51); Absolute Neutrophil Count 14.6 X10^3/uL (2.0-7.7); Basophil# 0.05 X10^3/uL; Basophil% 0.3 % (0-1); Eosinophils% 1.2 % (0-5); Hematocrit 35.5 % (37-47); Hemoglobin 11.6 g/dL (12.0-15.0); Lymphocyte # 1.06 X10^3/ul (0.83-4.51); Lymphocyte % 6.3 % (19-41); Mean Corp Hgb Conc 32.7 g/dL (32-36); Mean Corpuscular Hgb 29.8 pg (27.0-32.0); Mean Corpuscular Volume 91.3 fL (81-99); Mean Platelet Vol. 9.5 fl (6.2-12.0); Monocyte# 0.76 X10^3/uL; Monocyte% 4.5 % (0-10); NRBC Flagged by Analyzer 0 % (0-5); Neutrophil # 14.58 X10^3/uL (2.7-7.7); Neutrophil % 87.3 % (47-70); Platelet Count 241 K/mm3 (150-450); RBC Distribution Width CV 12.7 % (11.6-14.6); RBC Distribution Width SD 41.8 fl (35.1-43.9); Red Blood Count 3.89 M/mm3 (4.2-5.4); White Blood Count 16.7 K/mm3 (4.4-11.0)
--- NOTE | 2022-03-04 19:25 | RAD_ITS ---
STUDY: X-RAY CHEST REASON FOR EXAM: Female, 71 years old. chest pain TECHNIQUE: XR Chest 1 View COMPARISON: 4.11.06 FINDINGS: There is no demonstrated pleural abnormality. Left infiltrate. Normal size heart. Normal mediastinum and mathew. Normal visualized pulmonary arteries. There is atherosclerotic calcification of the aortic arch with tortuosity. There are diffuse degenerative changes of the visualized thoracic spine. There is degenerative osteoarthritis of the bilateral shoulders. There is no demonstrated abnormality of the visualized soft tissue structures of the upper abdomen. RAD/Chest 1 View (Portable) IMPRESSION: Left sided pneumonia. Electronically Signed: Donnell Escamilla MD at 19:53 EDT ,
[2022-03-04 19:44] LABS: Anion Gap 5 (5-15); BUN 15 mg/dL (7-18); BUN/Creat Ratio 17.8 RATIO (10-20); Calcium,Total 9.3 mg/dL (8.5-10.1); Chloride 102 mmol/L (98-107); Creatinine, Serum 0.84 mg/dL (0.55-1.02); EST Glomerular Filtration Rate 71 mL/min (>60); Est Glom Filt Rate - Afr Amer 85 mL/min (>60); Estimated Creatinine Clearance 55.28 ml/min; Glucose 198 mg/dL (74-106); Potassium 4.2 mmol/L (3.5-5.1); Sodium Level 139 mmol/L (136-145); Troponin-I HS (w/2H Reflex) 7 pg/mL (3.0-54.0)
[2022-03-04] MEDS: Albuterol 2.5 MG/3 ML VIAL.NEB. INHALATION ×2 (20:00)
[2022-03-04 21:19] LABS: Reflex Troponin-HS? (from REC) Y
[2022-03-04 21:55] LABS: Troponin-I HS 6 pg/mL (3.0-54.0)
--- NOTE | 2022-03-04 23:20 | HP.PCM.HOS_ITS ---
HPI - General General Date of Admission: 03/04/22 Date of Service: 03/04/22 Chief Complaint: sob HPI Narrative TRISTAN STEPHENSON, is a 71 F with a significant history of COPD on baseline 3 L nasal cannula oxygen who presents to the emergency department with 2-day history of progressive worsening shortness of breath above her baseline. Associated with her symptom is worsening dry cough. She has wheezes that has no changed over her baseline. She reports right chest pain with inhalation. Her chest pain radiates to her right back. [facility] Medical History Anxiety Asthma Chronic obstructive lung disease COPD (chronic obstructive pulmonary disease) Depression Diabetes DM type 2 (diabetes mellitus, type 2) Hypothyroidism On home oxygen therapy Osteopenia Smoker Tobacco user Vision loss of left eye Vision loss of right eye Home Medications cholecalciferol (vitamin D3) 25 mcg (1,000 unit) capsule (Vitamin D3) 1,000 unit PO DAILY SUPPLEMENT 01/15/14 [History Last Taken 07/07/21] fluticasone propionate 50 mcg/actuation nasal spray,suspension 2 spray DAILY ALLERGIES 01/15/14 [History Last Taken 07/07/21] montelukast 10 mg tablet 10 mg PO DINNER ALLERGIES 01/15/14 [History Last Taken 07/07/21] multivitamin with folic acid 400 mcg tablet (Thera) 1 tab PO DAILY VITAMIN 01/15/14 [History Last Taken 07/07/21] potassium chloride 10 mEq tablet,extended release (K-Tab) 10 meq PO DAILY SUPPLEMENT 01/15/14 [History Last Taken 07/07/21] albuterol sulfate 90 mcg/actuation aerosol inhaler (Ventolin HFA) 2 puff inhalation Q4H PRN PRN Asthma ##1 02/14/15 [Rx Last Taken 07/07/21] insulin aspart U-100 100 unit/mL (3 mL) subcutaneous pen (Novolog Flexpen U-100 Insulin aspart) 0 - 5 units subcut TIDCM DM 02/23/16 [History Last Taken 07/07/21] insulin glargine 100 unit/mL (3 mL) subcutaneous pen 30 units subcut DAILY DM 09/18/20 [History Last Taken 07/07/21] acetaminophen 500 mg capsule 500 mg PO Q8H SHOULDER 11/14/20 [History Last Taken 07/07/21] clonazepam 0.5 mg tablet 0.5 mg PO DAILY ANXIETY 11/14/20 [History Last Taken 07/07/21] fluoxetine 10 mg capsule 10 mg PO DAILY DEPRESSION 11/14/20 [History Last Taken 07/07/21] fluticasone propionate 230 mcg-salmeterol 21 mcg/actuation HFA inhaler (Advair HFA) 1 puff inhalation BID COPD 11/14/20 [History Last Taken 07/07/21] glimepiride 4 mg tablet 4 mg PO DAILY DM 11/14/20 [History Last Taken 07/07/21] ipratropium 0.5 mg-albuterol 3 mg (2.5 mg base)/3 mL nebulization soln 3 ml inhalation 4X/DAY PRN shortness of breath 11/14/20 [History Last Taken 07/08/21] metformin 1,000 mg tablet 1,000 mg PO BID DM 11/14/20 [History Last Taken 07/07/21] tiotropium bromide 18 mcg capsule with inhalation device (Spiriva with HandiHaler) 1 cap inhalation DAILY COPD 11/14/20 [History Last Taken 07/07/21] levothyroxine 125 mcg tablet 137 mcg PO DAILY THYROID 07/08/21 [History Last Taken 07/08/21] Celebrex 100 mg DAILY 01/05/22 [History Last Taken Unknown] Allergy/AdvReac Type Severity Reaction Status Date / Time morphine Allergy Anaphylaxis Verified 07/08/21 10:36 Penicillins Allergy Rash Verified 07/08/21 10:36 codeine AdvReac Severe Other Verified 07/08/21 10:36 bupropion [From Wellbutrin] AdvReac Other Verified 07/08/21 10:36 erythromycin base AdvReac Upset Verified 07/08/21 10:36 [Erythromycin Base] Stomach Family History Other Cancer Diabetes Liver cirrhosis Surgical History History of appendectomy History of cholecystectomy Social History Smoking Status: Former smoker second hand exposure: Yes substance use type: does not use ROS ROS Narrative Pertinent positives and pertinent negatives as noted in HPI. All other systems were reviewed and are negative Vital Signs Vital Signs Vital Signs: 03/04/22 18:22 03/04/22 18:22 03/04/22 18:47 Temperature 98.0 F 98.0 F Temperature Source Temporal Temporal Pulse Rate 115 H 113 H Respiratory Rate 28 H 28 H Respiratory Effort Short of Breath Respiratory Depth Shallow Respiratory Pattern Tachypnea Blood Pressure 132/55 H 132/55 H Blood Pressure Mean 80 80 Pulse Ox 98 98 Oxygen Delivery Method Nasal Cannula Nasal Cannula Nasal Cannula Oxygen Flow Rate (L/min) 2.5 2.5 3 03/04/22 18:48 03/04/22 18:59 03/04/22 20:01 Temperature Temperature Source Pulse Rate 101 H 100 Respiratory Rate 17 17 Respiratory Effort Respiratory Depth Respiratory Pattern Blood Pressure Blood Pressure Mean Pulse Ox Oxygen Delivery Method Nasal Cannula Oxygen Flow Rate (L/min) 3 03/04/22 20:02 03/04/22 21:55 03/04/22 22:15 Temperature Temperature Source Pulse Rate 98 101 H 100 Respiratory Rate 15 27 H 18 Respiratory Effort Respiratory Depth Respiratory Pattern Blood Pressure 90/79 128/62 H 113/57 L Blood Pressure Mean 82 84 75 Pulse Ox 98 96 96 Oxygen Delivery Method Nasal Cannula Nasal Cannula Nasal Cannula Oxygen Flow Rate (L/min) 3 3 3 03/04/22 23:00 Temperature Temperature Source Pulse Rate 90 Respiratory Rate 28 H Respiratory Effort Respiratory Depth Respiratory Pattern Blood Pressure 101/58 L Blood Pressure Mean 72 Pulse Ox 97 Oxygen Delivery Method Nasal Cannula Oxygen Flow Rate (L/min) 3 Weight Weight: 72.575 kg Body Mass Index (BMI) 26.6 Physical Exam Narrative Physical exam: General: Well-nourished, well-developed. Head: Normocephalic, atraumatic, no tenderness Eyes: Vision is grossly intact. EOMI ENT, no trauma, moist mucous membranes, no rhinorrhea Neck: Nontender, full range of motion. CVS: Regular rate and rhythm. S1-S2 present. No murmur, gallop or rub. Respiratory : Tender right chest. Wheezes and rhonchi. Abdomen: Soft, nontender, nondistended, normal bowel sounds, no masses : Deferred Back: Nontender, no CVA tenderness Extremities: Nontender full range of motion, no trauma Skin: Normal color, no trauma, abrasions Neuro: Alert, oriented, cranial nerves II through XII grossly intact. Psychiatry: Normal mood. Normal affect. Not depressed. Not anxious. Results Lab / Micro Data Result Diagrams: 03/04/22 19:10 03/04/22 19:10 Labs: Laboratory Results - last 24 hr 03/04/22 19:10: WBC 16.7 H, RBC 3.89 L, Hgb 11.6 L, Hct 35.5 L, MCV 91.3, MCH 29.8, MCHC 32.7, RDW Std Deviation 41.8, RDW Coeff of [place] 12.7, Plt Count 241, MPV 9.5, Immature Gran % (Auto) 0.400, Neut % (Auto) 87.3 H, Lymph % (Auto) 6.3 L, [place] % (Auto) 4.5, Eos % (Auto) 1.2, Baso % (Auto) 0.3, Absolute Neuts (auto) 14.6 H, Absolute Lymphs (auto) 1.06, Nucleated RBC % 0 03/04/22 19:10: Sodium 139, Potassium 4.2, Chloride 102, Carbon Dioxide 32.0, Anion Gap 5, BUN 15, Creatinine 0.84, Estim Creat Clear Calc 55.28, Est GFR (MDRD) Af Amer 85, Est GFR (MDRD) Non-Af 71, BUN/Creatinine Ratio 17.8, Glucose 198 H, Calcium 9.3, Troponin I High Sens 7 03/04/22 21:19: Troponin I High Sens 6 Radiology Impression Chest X-Ray 03/04/22 19:25 IMPRESSION: Left sided pneumonia. Electronically Signed: Donnell Escamilla MD at 19:53 EDT , Assessment & Plan Assessment/Plan (1) Chronic obstructive pulmonary disease with (acute) exacerbation: PLAN: Plan Acute exacerbation of COPD CXR was reviewed and independently interpreted. Chest x-ray is unchanged from previous chest x-ray. However per radiologist interpretation this left-sided pneumonia. Scheduled DuoNeb Albuterol as needed Solu-Medrol ordered. CBC showed white count of 16,700. With leukocytosis azithromycin ordered Serial troponin is unrevealing Titrate oxygen to keep oxygen saturation to at least 90%. Monitor BMP and CBC Diabetes mellitus Patient with hyperglycemia on presentation Home basal and prandial insulin continued. Glimepiride continued. Metformin held. Monitor Accu-Cheks Correction scale insulin ordered. Chronic anemia Stable Trend CBC Anxiety disorder Stable Fluoxetine and clonazepam continued DVT prophylaxis: Lovenox ordered Charges/Coding Visit Charges OBSV E&M: 70519 Initial observation care L3
[2022-03-05] VITALS (12 sets, daily range): BP systolic 95–125; BP diastolic 47–64; PULSE 70–97; RESP 18–24; TEMP 36.5–36.9; O2SAT 94–99; BMI 26.6
[2022-03-05] MEDS: Azithromycin 250 MG Tablet 500 MG PO ×2 (00:45→20:57)
[2022-03-05] MEDS: guaiFENesin 1,200 MG Tablet 1200 MG PO ×3 (00:47→20:57)
[2022-03-05] MEDS: Acetaminophen 500 MG Tablet PO ×2 (02:02→11:45)
[2022-03-05] MEDS: Ipratropium/Albuterol Sulfate 3 ML AMPUL.NEB INHALATION ×6 (04:22→22:46)
[2022-03-05] MEDS: Levothyroxine 137 MCG Tablet PO (05:47)
[2022-03-05] MEDS: 0.9% Saline Lock 10 ML Syringe IV ×3 (05:49→20:57)
[2022-03-05 06:18] LABS: Absolute Lymphocyte Count 0.42 X10^3/uL (0.83-4.51); Absolute Neutrophil Count 12.3 X10^3/uL (2.0-7.7); Basophil# 0.02 X10^3/uL; Basophil% 0.2 % (0-1); Hematocrit 34.9 % (37-47); Hemoglobin 11.3 g/dL (12.0-15.0); Lymphocyte # 0.42 X10^3/ul (0.83-4.51); Lymphocyte % 3.3 % (19-41); Mean Corp Hgb Conc 32.4 g/dL (32-36); Mean Corpuscular Hgb 29.7 pg (27.0-32.0); Mean Corpuscular Volume 91.8 fL (81-99); Mean Platelet Vol. 9.8 fl (6.2-12.0); Monocyte% 0.8 % (0-10); NRBC Flagged by Analyzer 0 % (0-5); Neutrophil # 12.32 X10^3/uL (2.7-7.7); Neutrophil % 95.4 % (47-70); POSITIVE DIFFERENTIAL YES; Platelet Count 230 K/mm3 (150-450); RBC Distribution Width CV 12.6 % (11.6-14.6); RBC Distribution Width SD 42.2 fl (35.1-43.9); White Blood Count 12.9 K/mm3 (4.4-11.0)
[2022-03-05 06:26] LABS: Differential Indicated SCAN CRITERIA MET
[2022-03-05 06:40] LABS: Differential Comment SCANNED
[2022-03-05 06:42] LABS: Anion Gap 5 (5-15); BUN 17 mg/dL (7-18); BUN/Creat Ratio 20.4 RATIO (10-20); Chloride 100 mmol/L (98-107); Creatinine, Serum 0.83 mg/dL (0.55-1.02); EST Glomerular Filtration Rate 72 mL/min (>60); Est Glom Filt Rate - Afr Amer 87 mL/min (>60); Estimated Creatinine Clearance 53.68 ml/min; Glucose 318 mg/dL (74-106); Potassium 4.5 mmol/L (3.5-5.1); Sodium Level 136 mmol/L (136-145)
[2022-03-05 08:20] LABS: Bedside Glucose 293 mg/dL (74-106)
[2022-03-05] MEDS: Fluticasone 0.05% 1 SPRAY NASAL.SRY 2 SPRAY NASAL (08:34)
[2022-03-05] MEDS: Multivitamins,Therapeutic Tablet 1 TABLET PO (08:35)
[2022-03-05] MEDS: Potassium Chloride Oral Tablet 10 MEQ PO (08:35)
[2022-03-05] MEDS: Celecoxib 100 MG Capsule PO (08:36)
[2022-03-05] MEDS: FLUoxetine 10 MG Capsule PO (08:36)
[2022-03-05] MEDS: Cholecalciferol (VIT D3) 25 MCG TABLET (1,000 UNITS) PO (08:36)
[2022-03-05] MEDS: Enoxaparin 40 MG/0.4 ML Syringe SC (08:36)
[2022-03-05] MEDS: Pantoprazole Sodium 20 MG Tablet PO (08:36)
[2022-03-05] MEDS: clonazePAM 0.5 MG Tablet PO (08:39)
[2022-03-05] MEDS: Insulin Lispro 100 UNIT/ML INSULN.PEN SC ×7 (08:40→20:57)
--- NOTE | 2022-03-05 09:09 | PCM.PN.HOSP ---
Subjective Subjective Follow-up on Acute COPD exacerbation/acute left-sided pneumonia: Patient was seen and examined. She complains of persistent cough. Her chest pain on the right side was improved. She is on 3 L of oxygen but has wheezes. Objective Data Objective Data Vital Signs: Vital Signs Temp Pulse Resp BP Pulse Ox O2 Del Method O2 Flow Rate 97.8 F 94 18 97/47 L 95 Nasal Cannula 3 03/05/22 08:28 03/05/22 08:28 03/05/22 08:28 03/05/22 08:28 03/05/22 08:28 03/05/22 08:48 03/05/22 08:48 Oxygen Flow Rate (L/min) 3 Oxygen Delivery Method Nasal Cannula Weight: 72.4 kg Body Mass Index (BMI) 26.6 Intake & Output: Intake and Output for Last 24 Hours 03/03/22 03/04/22 03/05/22 23:59 23:59 23:59 Intake Total 300 / 300 Balance 300 / 300 Lab / Micro Data Result Diagrams: 03/05/22 05:16 03/05/22 05:16 Labs: Laboratory Results - last 24 hr 03/04/22 19:10: WBC 16.7 H, RBC 3.89 L, Hgb 11.6 L, Hct 35.5 L, MCV 91.3, MCH 29.8, MCHC 32.7, RDW Std Deviation 41.8, RDW Coeff of [place] 12.7, Plt Count 241, MPV 9.5, Immature Gran % (Auto) 0.400, Neut % (Auto) 87.3 H, Lymph % (Auto) 6.3 L, [place] % (Auto) 4.5, Eos % (Auto) 1.2, Baso % (Auto) 0.3, Absolute Neuts (auto) 14.6 H, Absolute Lymphs (auto) 1.06, Nucleated RBC % 0 03/04/22 19:10: Sodium 139, Potassium 4.2, Chloride 102, Carbon Dioxide 32.0, Anion Gap 5, BUN 15, Creatinine 0.84, Estim Creat Clear Calc 55.28, Est GFR (MDRD) Af Amer 85, Est GFR (MDRD) Non-Af 71, BUN/Creatinine Ratio 17.8, Glucose 198 H, Calcium 9.3, Troponin I High Sens 7 03/04/22 21:19: Troponin I High Sens 6 03/05/22 05:16: WBC 12.9 H, RBC 3.80 L, Hgb 11.3 L, Hct 34.9 L, MCV 91.8, MCH 29.7, MCHC 32.4, RDW Std Deviation 42.2, RDW Coeff of [place] 12.6, Plt Count 230, MPV 9.8, Immature Gran % (Auto) 0.300, Neut % (Auto) 95.4 H, Lymph % (Auto) 3.3 L, [place] % (Auto) 0.8, Eos % (Auto) 0.0, Baso % (Auto) 0.2, Absolute Neuts (auto) 12.3 H, Absolute Lymphs (auto) 0.42 L, Nucleated RBC % 0, Differential Comment SCANNED 03/05/22 05:16: Sodium 136, Potassium 4.5, Chloride 100, Carbon Dioxide 31.0, Anion Gap 5, BUN 17, Creatinine 0.83, Estim Creat Clear Calc 53.68, Est GFR (MDRD) Af Amer 87, Est GFR (MDRD) Non-Af 72, BUN/Creatinine Ratio 20.4 H, Glucose 318 H, Calcium 9.0 03/05/22 08:02: POC Glucose 293 H Micro: Microbiology 03/04/22 23:35 Nasal Secretion SARS-CoV-2 Antigen (Rapid) - Final Radiography Diagnostic Testing: Radiology Impression Chest X-Ray 03/04/22 19:25 IMPRESSION: Left sided pneumonia. Electronically Signed: Donnell Escamilla MD at 19:53 EDT Reading Location ID and State[facility] [place] , Service support , Physical Exam Narrative Physical exam: General: Alert, Oriented x3, Cooperative, in moderate distress, on 3 L HEENT: Atraumatic Oral: Moist Mucosa Neck: Supple Lungs: Diminished to auscultation, scattered wheezes Cardiovascular: HS I+II, regular, no murmurs Abdomen: Bowel Sounds Present, Soft, Non Tender Extremities: No edema Skin: No rashes, No breakdown Neurological: Grossly intact Psych/Mental Status: Appropriate Assessment & Plan Assessment/Plan (1) Chronic obstructive pulmonary disease with (acute) exacerbation: PLAN: Plan 1. Acute COPD exacerbation secondary to acute left-sided pneumonia Patient is on her home chronic 3 L of oxygen Respiratory panel and sputum culture is pending Chest x-ray shows left-sided pneumonia Continue with breathing treatment, IV steroids, Encourage use of incentive spirometer 2.Type 2 DM, blood sugars are uncontrolled, Continue home Lantus, Premeal insulin as well as glimepiride Continue to hold metformin Blood glucose checks with insulin sliding scale 3. Chronic anemia, stable 4. Anxiety disorder, continue on fluoxetine and clonazepam 5. Hypothyroidism, continue Synthroid 6. DVT prophylaxis: Lovenox ordered Charges/Coding Visit Charges Inpatient E&M: 98218 Subs Hosp L2
[2022-03-05] MEDS: Insulin Glargine-YFGN 100 UNIT/ML Pen 35 UNIT SC (10:38)
--- NOTE | 2022-03-05 11:58 | CASEMGMT ---
Addendum entered by Cassia Nolasco 03/05/22 14:07: Pt has [facility] not [facility]. Addendum entered by Cassia Nolasco 03/05/22 12:02: Pt screened with [facility] Palliative screening tool, pt met criteria although declined need for services. Original Note: DINA FLORES in to pt room, pt sitting up in bed with oxygen on in no distress. Pt has portable oxygen tank present in room for homegoing. Pt states she has everything she needs at home. States uses 3L cont through [employer], will verify. Pt states she also has a walker and electric w/c at home but does not use. Pt states she has [facility]N whho sees her and also has 2 dtrs who are in the healthcare field. Pt denies need for HHC services. Also discussed Palliative Care services, pt declines. Plan: Pt to return home. Green sheet on chart for oxygen if needs increased. Notified [facility] that pt is admitted.
[2022-03-05 12:51] LABS: Bedside Glucose 329 mg/dL (74-106)
[2022-03-05] MEDS: Montelukast 10 MG Tablet PO (16:05)
[2022-03-05 16:25] LABS: Bedside Glucose 278 mg/dL (74-106)
[2022-03-05 21:21] LABS: Bedside Glucose 354 mg/dL (74-106)
[2022-03-06] VITALS (11 sets, daily range): BP systolic 105–123; BP diastolic 52–61; PULSE 76–103; RESP 18–22; TEMP 36.4–36.9; O2SAT 92–100
[2022-03-06] MEDS: Ipratropium/Albuterol Sulfate 3 ML AMPUL.NEB INHALATION ×6 (03:49→22:57)
[2022-03-06] MEDS: Levothyroxine 137 MCG Tablet PO (05:52)
[2022-03-06] MEDS: 0.9% Saline Lock 10 ML Syringe IV (05:52)
[2022-03-06 06:28] LABS: Absolute Neutrophil Count 11.7 X10^3/uL (2.0-7.7); Basophil# 0.02 X10^3/uL; Basophil% 0.2 % (0-1); Hematocrit 36.9 % (37-47); Hemoglobin 11.4 g/dL (12.0-15.0); Lymphocyte % 5.4 % (19-41); Mean Corp Hgb Conc 30.9 g/dL (32-36); Mean Corpuscular Hgb 28.8 pg (27.0-32.0); Mean Corpuscular Volume 93.2 fL (81-99); Mean Platelet Vol. 10.1 fl (6.2-12.0); Monocyte# 0.38 X10^3/uL; Monocyte% 2.9 % (0-10); NRBC Flagged by Analyzer 0 % (0-5); Neutrophil # 11.74 X10^3/uL (2.7-7.7); Neutrophil % 90.9 % (47-70); Platelet Count 280 K/mm3 (150-450); RBC Distribution Width CV 12.4 % (11.6-14.6); RBC Distribution Width SD 42.6 fl (35.1-43.9); Red Blood Count 3.96 M/mm3 (4.2-5.4); White Blood Count 12.9 K/mm3 (4.4-11.0)
[2022-03-06 06:58] LABS: ALB/GLOB Ratio 0.7 RATIO (0.9-2.4); AST(SGOT) 10 U/L (15-37); Alanine Aminotransfer ALT/SGPT 10 U/L (13-56); Albumin, Serum 3.2 g/dL (3.2-5.0); Alkaline Phosphatase 90 U/L (45-117); Anion Gap 6 (5-15); BUN 27 mg/dL (7-18); BUN/Creat Ratio 23.7 RATIO (10-20); Calcium,Total 9.2 mg/dL (8.5-10.1); Chloride 97 mmol/L (98-107); Creatinine, Serum 1.14 mg/dL (0.55-1.02); EST Glomerular Filtration Rate 50 mL/min (>60); Est Glom Filt Rate - Afr Amer 60 mL/min (>60); Estimated Creatinine Clearance 39.09 ml/min; Globulin 4.6 g/dL (2.2-4.2); Glucose 358 mg/dL (74-106); Potassium 4.4 mmol/L (3.5-5.1); Protein, Total 7.8 g/dL (6.4-8.2); Sodium Level 134 mmol/L (136-145)
[2022-03-06] MEDS: Insulin Lispro 100 UNIT/ML INSULN.PEN SC ×7 (07:29→22:22)
[2022-03-06] MEDS: Potassium Chloride Oral Tablet 10 MEQ PO (07:30)
[2022-03-06 07:51] LABS: Bedside Glucose 329 mg/dL (74-106)
[2022-03-06] MEDS: Multivitamins,Therapeutic Tablet 1 TABLET PO (08:46)
[2022-03-06] MEDS: Fluticasone 0.05% 1 SPRAY NASAL.SRY 2 SPRAY NASAL (08:46)
[2022-03-06] MEDS: Insulin Glargine-YFGN 100 UNIT/ML Pen 35 UNIT SC (08:47)
[2022-03-06] MEDS: guaiFENesin 1,200 MG Tablet 1200 MG PO ×2 (08:48→22:19)
[2022-03-06] MEDS: Enoxaparin 40 MG/0.4 ML Syringe SC (08:48)
[2022-03-06] MEDS: Pantoprazole Sodium 20 MG Tablet PO (08:49)
[2022-03-06] MEDS: Cholecalciferol (VIT D3) 25 MCG TABLET (1,000 UNITS) PO (08:50)
[2022-03-06] MEDS: clonazePAM 0.5 MG Tablet PO (08:59)
[2022-03-06] MEDS: FLUoxetine 10 MG Capsule PO (09:00)
[2022-03-06] MEDS: 0.9% Normal Saline 1,000 ML 100 ML IV ×2 (11:05→20:36)
[2022-03-06 11:31] LABS: Bedside Glucose 315 mg/dL (74-106)
--- NOTE | 2022-03-06 12:38 | PCM.PN.HOSP ---
Subjective Subjective Follow-up on Acute COPD exacerbation/acute left-sided pneumonia: Patient was seen and examined. She has been coughing a lot. She denies any diarrhea or nausea or vomiting. She has been drinking -tea and pop. Objective Data Objective Data Vital Signs: Vital Signs Temp Pulse Resp BP Pulse Ox O2 Del Method O2 Flow Rate 97.6 F L 90 19 H 123/61 H 99 Nasal Cannula 3 03/06/22 03:28 03/06/22 10:40 03/06/22 10:40 03/06/22 03:28 03/06/22 03:28 03/06/22 08:00 03/06/22 08:00 Oxygen Flow Rate (L/min) 3 Oxygen Delivery Method Nasal Cannula Weight: 72.4 kg Body Mass Index (BMI) 26.6 Intake & Output: Intake and Output for Last 24 Hours 03/04/22 03/05/22 03/06/22 23:59 23:59 23:59 Intake Total 300 / 600 800 / 800 Balance 300 / 600 800 / 800 Lab / Micro Data Result Diagrams: 03/06/22 05:20 03/06/22 05:20 Labs: Laboratory Results - last 24 hr 03/05/22 11:40: POC Glucose 329 H 03/05/22 16:04: POC Glucose 278 H 03/05/22 20:54: POC Glucose 354 H 03/06/22 05:20: WBC 12.9 H, RBC 3.96 L, Hgb 11.4 L, Hct 36.9 L, MCV 93.2, MCH 28.8, MCHC 30.9 L, RDW Std Deviation 42.6, RDW Coeff of [place] 12.4, Plt Count 280, MPV 10.1, Immature Gran % (Auto) 0.600, Neut % (Auto) 90.9 H, Lymph % (Auto) 5.4 L, [place] % (Auto) 2.9, Eos % (Auto) 0.0, Baso % (Auto) 0.2, Absolute Neuts (auto) 11.7 H, Absolute Lymphs (auto) 0.70 L, Nucleated RBC % 0 03/06/22 05:20: Sodium 134 L, Potassium 4.4, Chloride 97 L, Carbon Dioxide 31.0, Anion Gap 6, BUN 27 H, Creatinine 1.14 H, Estim Creat Clear Calc 39.09, Est GFR (MDRD) Af Amer 60, Est GFR (MDRD) Non-Af 50 L, BUN/Creatinine Ratio 23.7 H, Glucose 358 H, Calcium 9.2, Total Bilirubin 0.20, AST 10 L, ALT 10 L, Alkaline Phosphatase 90, Total Protein 7.8, Albumin 3.2, Globulin 4.6 H, Albumin/Globulin Ratio 0.7 L 03/06/22 07:27: POC Glucose 329 H 03/06/22 11:07: POC Glucose 315 H Micro: Microbiology 03/04/22 23:35 Nasal Secretion SARS-CoV-2 Antigen (Rapid) - Final Physical Exam Narrative Physical exam: General: Alert, Oriented x3, Cooperative, on 3 L HEENT: Atraumatic Oral: Moist Mucosa Neck: Supple Lungs: Diminished to auscultation Cardiovascular: HS I+II, regular, no murmurs Abdomen: Bowel Sounds Present, Soft, Non Tender Extremities: No edema Skin: No rashes, No breakdown Neurological: Grossly intact Psych/Mental Status: Appropriate Assessment & Plan Assessment/Plan (1) Chronic obstructive pulmonary disease with (acute) exacerbation: PLAN: Plan 1. Acute COPD exacerbation secondary to acute left-sided pneumonia, slowly improving Remain on her home chronic 3 L of oxygen Respiratory panel is negative. Sputum culture showed normal respiratory vivian Chest x-ray shows left-sided pneumonia Continue with breathing treatment, IV steroids, azithromycin Encourage use of incentive spirometer 2. LUCIEN, likely pre-renal, Cr is 1.14, increased from 0.83 Will give IVF, repeat blood work in am 3. Type 2 DM, blood sugars are uncontrolled, Increase home Lantus to 40 units daily, Premeal humalog insulin 5 units TID, as well as glimepiride Continue to hold metformin Blood glucose checks with insulin sliding scale 4. Chronic anemia, stable 5. Anxiety disorder, continue on fluoxetine and clonazepam 6. Hypothyroidism, continue Synthroid 7. DVT prophylaxis -Lovenox SC Charges/Coding Visit Charges Inpatient E&M: 87783 Subs Hosp L2
[2022-03-06 17:15] LABS: Bedside Glucose 256 mg/dL (74-106)
[2022-03-06] MEDS: Montelukast 10 MG Tablet PO (17:35)
[2022-03-06] MEDS: Azithromycin 250 MG Tablet 500 MG PO (22:19)
[2022-03-06 23:21] LABS: Bedside Glucose 205 mg/dL (74-106)
[2022-03-07] VITALS (7 sets, daily range): BP systolic 122–130; BP diastolic 61–77; PULSE 82–99; RESP 17–20; TEMP 36.6–36.8; O2SAT 92–98
[2022-03-07] MEDS: Ipratropium/Albuterol Sulfate 3 ML AMPUL.NEB INHALATION ×3 (02:58→10:58)
[2022-03-07] MEDS: Levothyroxine 137 MCG Tablet PO (05:20)
[2022-03-07 06:06] LABS: Absolute Lymphocyte Count 0.66 X10^3/uL (0.83-4.51); Absolute Neutrophil Count 9.6 X10^3/uL (2.0-7.7); Basophil# 0.02 X10^3/uL; Basophil% 0.2 % (0-1); Hematocrit 34.4 % (37-47); Hemoglobin 10.8 g/dL (12.0-15.0); Lymphocyte # 0.66 X10^3/ul (0.83-4.51); Lymphocyte % 6.2 % (19-41); Mean Corp Hgb Conc 31.4 g/dL (32-36); Mean Corpuscular Hgb 28.7 pg (27.0-32.0); Mean Corpuscular Volume 91.5 fL (81-99); Mean Platelet Vol. 9.6 fl (6.2-12.0); Monocyte# 0.24 X10^3/uL; Monocyte% 2.3 % (0-10); NRBC Flagged by Analyzer 0 % (0-5); Neutrophil # 9.56 X10^3/uL (2.7-7.7); Neutrophil % 90.4 % (47-70); Platelet Count 257 K/mm3 (150-450); RBC Distribution Width CV 12.6 % (11.6-14.6); RBC Distribution Width SD 41.5 fl (35.1-43.9); Red Blood Count 3.76 M/mm3 (4.2-5.4); White Blood Count 10.6 K/mm3 (4.4-11.0)
[2022-03-07 06:34] LABS: ALB/GLOB Ratio 0.7 RATIO (0.9-2.4); AST(SGOT) 6 U/L (15-37); Alanine Aminotransfer ALT/SGPT 9 U/L (13-56); Alkaline Phosphatase 78 U/L (45-117); Anion Gap 4 (5-15); BUN 26 mg/dL (7-18); BUN/Creat Ratio 30.4 RATIO (10-20); Calcium,Total 8.5 mg/dL (8.5-10.1); Chloride 102 mmol/L (98-107); Creatinine, Serum 0.85 mg/dL (0.55-1.02); EST Glomerular Filtration Rate 70 mL/min (>60); Est Glom Filt Rate - Afr Amer 84 mL/min (>60); Estimated Creatinine Clearance 52.42 ml/min; Globulin 4.1 g/dL (2.2-4.2); Glucose 280 mg/dL (74-106); Potassium 4.2 mmol/L (3.5-5.1); Protein, Total 7.1 g/dL (6.4-8.2); Sodium Level 136 mmol/L (136-145)
[2022-03-07] MEDS: Insulin Lispro 100 UNIT/ML INSULN.PEN SC ×4 (07:46→11:29)
[2022-03-07] MEDS: Multivitamins,Therapeutic Tablet 1 TABLET PO (07:48)
[2022-03-07] MEDS: Potassium Chloride Oral Tablet 10 MEQ PO (07:48)
[2022-03-07 08:06] LABS: Bedside Glucose 266 mg/dL (74-106)
[2022-03-07] MEDS: clonazePAM 0.5 MG Tablet PO (09:21)
[2022-03-07] MEDS: Insulin Glargine-YFGN 100 UNIT/ML Pen 40 UNIT SC (09:22)
[2022-03-07] MEDS: Fluticasone 0.05% 1 SPRAY NASAL.SRY 2 SPRAY NASAL (09:22)
[2022-03-07] MEDS: FLUoxetine 10 MG Capsule PO (09:23)
[2022-03-07] MEDS: Pantoprazole Sodium 20 MG Tablet PO (09:23)
[2022-03-07] MEDS: guaiFENesin 1,200 MG Tablet 1200 MG PO (09:23)
[2022-03-07] MEDS: Enoxaparin 40 MG/0.4 ML Syringe SC (09:23)
[2022-03-07] MEDS: Cholecalciferol (VIT D3) 25 MCG TABLET (1,000 UNITS) PO (09:24)
--- NOTE | 2022-03-07 11:16 | PCM.DC.SUM ---
Providers Date of Admission: 03/04/22 Date of Discharge: 03/07/22 Primary Care Physician: Dr. Parish Christianson MD Reason For Visit: COPD EXACERBATION Diagnosis Discharge Diagnosis (1) Chronic obstructive pulmonary disease with (acute) exacerbation: Status: Chronic Code(s): J44.1 - Chronic obstructive pulmonary disease with (acute) exacerbation Plan 1. Acute COPD exacerbation 2. Acute left-sided pneumonia 3. Chronic hypoxic respiratory failure 4. LUCIEN 5. Type 2 DM 6. Chronic anemia 7. Anxiety disorder 8. Hypothyroidism Medications at Discharge Home Medications cholecalciferol (vitamin D3) 25 mcg (1,000 unit) capsule (Vitamin D3) 1,000 unit PO DAILY SUPPLEMENT 01/15/14 fluticasone propionate 50 mcg/actuation nasal spray,suspension 2 spray DAILY ALLERGIES 01/15/14 montelukast 10 mg tablet 10 mg PO DINNER ALLERGIES 01/15/14 multivitamin with folic acid 400 mcg tablet (Thera) 1 tab PO DAILY VITAMIN 01/15/14 potassium chloride 10 mEq tablet,extended release (K-Tab) 10 meq PO DAILY SUPPLEMENT 01/15/14 albuterol sulfate 90 mcg/actuation aerosol inhaler (Ventolin HFA) 2 puff inhalation Q4H PRN PRN Asthma ##1 02/14/15 insulin aspart U-100 100 unit/mL (3 mL) subcutaneous pen (Novolog Flexpen U-100 Insulin aspart) 0 - 5 units subcut TIDCM DM 02/23/16 acetaminophen 500 mg capsule 500 mg PO Q6H PRN PRN Pain 11/14/20 clonazepam 0.5 mg tablet 0.5 mg PO DAILY ANXIETY 11/14/20 fluoxetine 10 mg capsule 10 mg PO DAILY DEPRESSION 11/14/20 fluticasone propionate 230 mcg-salmeterol 21 mcg/actuation HFA inhaler (Advair HFA) 1 puff inhalation BID COPD 11/14/20 glimepiride 4 mg tablet 4 mg PO DAILY DM 11/14/20 ipratropium 0.5 mg-albuterol 3 mg (2.5 mg base)/3 mL nebulization soln 3 ml inhalation 4X/DAY PRN shortness of breath 11/14/20 metformin 1,000 mg tablet 1,000 mg PO BID DM 11/14/20 tiotropium bromide 18 mcg capsule with inhalation device (Spiriva with HandiHaler) 1 cap inhalation DAILY COPD 11/14/20 levothyroxine 125 mcg tablet 137 mcg PO DAILY THYROID 07/08/21 amoxicillin 500 mg-potassium clavulanate 125 mg tablet (Augmentin) 1 tab PO BID 5 days #10 tabs 03/07/22 azithromycin 250 mg tablet 500 mg PO DAILY 3 days #6 tabs 03/07/22 guaifenesin 1,200 mg tablet, extended release 12 hr (Mucus Relief ER) 1,200 mg PO BID PRN Cough 7 days #14 tabs 03/07/22 insulin glargine-yfgn 100 unit/mL (3 mL) subcutaneous pen 40 unit (0.4 mL) subcut DAILY #0 mL 03/07/22 prednisone 10 mg tablet See Taper PO DAILY #30 tabs 03/07/22 Hospital Course Operations None Procedures None Summary of Care Provided Minutes Spent on Discharge: 35 Hospital Course: 71-year-old female with past medical history of COPD with chronic hypoxic respiratory failure on 3 L baseline oxygen, type II DM, hypertension who comes in with complaints of progressive shortness of breath and cough that has been ongoing for 2 days. Patient had a chest x-ray that showed left-sided pneumonia. She was admitted to the [facility] floor and managed as acute COPD exacerbation and pneumonia. She was managed on IV antibiotics with IV steroids and breathing treatment. Patient wheezes on exam improved. She had evidence of acute kidney injury with creatinine of 1.14 from 0.83. Her Celebrex was held. She received IV fluids. Her creatinine is back to normal at the time of discharge. Patient was discharged on 3 more days of azithromycin and 5 days of Augmentin. Her medical chart states she has allergy to penicillin with rash. Patient thinks that she has had Augmentin before and did well. She was encouraged to continue to use her oxygen, breathing treatments. She needs to follow-up with her primary care doctor within 1 week. 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 Physical Exam Narrative Physical exam: General: Alert, Oriented x3, Cooperative, on 3 L HEENT: Atraumatic Oral: Moist Mucosa Neck: Supple Lungs: Diminished to auscultation Cardiovascular: HS I+II, regular, no murmurs Abdomen: Bowel Sounds Present, Soft, Non Tender Extremities: No edema Skin: No rashes, No breakdown Neurological: Grossly intact Psych/Mental Status: Appropriate Weight / BMI Weight Weight: 72.4 kg Body Mass Index (BMI) 26.6 ABG / Lab / Microbiology Data Result Diagrams: 03/07/22 05:44 03/07/22 05:44 Laboratory: Laboratory Results - last 24 hr 03/06/22 11:07: POC Glucose 315 H 03/06/22 16:57: POC Glucose 256 H 03/06/22 22:17: POC Glucose 205 H 03/07/22 05:44: WBC 10.6, RBC 3.76 L, Hgb 10.8 L, Hct 34.4 L, MCV 91.5, MCH 28.7, MCHC 31.4 L, RDW Std Deviation 41.5, RDW Coeff of [place] 12.6, Plt Count 257, MPV 9.6, Immature Gran % (Auto) 0.900, Neut % (Auto) 90.4 H, Lymph % (Auto) 6.2 L, [place] % (Auto) 2.3, Eos % (Auto) 0.0, Baso % (Auto) 0.2, Absolute Neuts (auto) 9.6 H, Absolute Lymphs (auto) 0.66 L, Nucleated RBC % 0 03/07/22 05:44: Sodium 136, Potassium 4.2, Chloride 102, Carbon Dioxide 30.0, Anion Gap 4 L, BUN 26 H, Creatinine 0.85, Estim Creat Clear Calc 52.42, Est GFR (MDRD) Af Amer 84, Est GFR (MDRD) Non-Af 70, BUN/Creatinine Ratio 30.4 H, Glucose 280 H, Calcium 8.5, Total Bilirubin 0.30, AST 6 L, ALT 9 L, Alkaline Phosphatase 78, Total Protein 7.1, Albumin 3.0 L, Globulin 4.1, Albumin/Globulin Ratio 0.7 L 03/07/22 07:42: POC Glucose 266 H Microbiology: Microbiology 03/04/22 23:35 Nasal Secretion SARS-CoV-2 Antigen (Rapid) - Final D/C Instructions Discharge Diet: Low fat / Low cholesterol and 2000 mg Sodium Diet Meaningful Use Info Meaningful Use Diagnoses (Choose all that apply): None applicable Discharge Plan Admission Admit Date/Time: 03/04/22 23:07 Primary Reason for Your Visit: Acute COPD exacerbation Attending Provider: [place] Primary Care Provider: Parish Christianson Consulting Providers: Al Raymond Instructions Additional Instructions / Restrictions: Continue to use your oxygen Complete your steroid taper Follow-up with your primary care doctor within 1 week Discharge Orders/Prescriptions Prescriptions: New insulin glargine-yfgn 100 unit/mL (3 mL) Insulin Pen 40 unit subcut DAILY Qty: 0 0RF azithromycin 250 mg Tablet 500 mg PO DAILY 3 Days Qty: 6 0RF Mucus Relief ER 1,200 mg Tablet Extended Release 12hr 1,200 mg PO BID PRN (Reason: Cough) 7 Days Qty: 14 0RF prednisone 10 mg tablet See Taper PO DAILY Qty: 30 0RF Taper: Prednisone Taper 40 mg WITH BREAKFAST for 3 Days and 0 Hour 30 mg WITH BREAKFAST for 3 Days and 0 Hour 20 mg WITH BREAKFAST for 3 Days and 0 Hour 10 mg WITH BREAKFAST for 3 Days and 0 Hour amoxicillin-pot clavulanate [Augmentin] 500-125 mg tablet 1 tab PO BID 5 Days Qty: 10 0RF Continued potassium chloride [K-Tab] 10 MEQ tablet extended release 10 meq PO DAILY Label Comments: supplement montelukast 10 MG tablet 10 mg PO DINNER Label Comments: allergies fluticasone propionate 1 SPRAY spray,suspension 2 spray NASAL DAILY Label Comments: allergies cholecalciferol (vitamin D3) [Vitamin D3] 1,000 UNIT capsule 1,000 unit PO DAILY Label Comments: vitamin multivitamin with folic acid [Thera] 1 TABLET tablet 1 tab PO DAILY Label Comments: vitamin albuterol sulfate [Ventolin HFA] 1 INHALER inhaler 2 puff inhalation Q4H PRN PRN (Reason: Asthma) Qty: 1 0RF Label Comments: breathing insulin aspart U-100 [Novolog Flexpen U-100 Insulin] 100 UNITS/ML insulin pen 0 - 5 units subcut TIDCM Label Comments: SLIDING SCALE Rx Instructions: SLIDING SCALE clonazepam 0.5 MG tablet 0.5 mg PO DAILY Label Comments: anxiety Rx Instructions: ANXIETY metformin 1,000 mg tablet 1,000 mg PO BID glimepiride 4 mg tablet 4 mg PO DAILY fluoxetine 10 mg capsule 10 mg PO DAILY acetaminophen 500 mg Capsule 500 mg PO Q6H PRN PRN (Reason: Pain) Spiriva with HandiHaler 18 mcg capsule, w/inhalation device 1 cap INHALATION DAILY Advair HFA 230-21 mcg/actuation HFA aerosol inhaler 1 puff INHALATION BID ipratropium-albuterol 3 ML solution for nebulization 3 ml inhalation 4X/DAY PRN (Reason: shortness of breath) Label Comments: helps with breathing Rx Instructions: BREATHING levothyroxine 125 mcg tablet 137 mcg PO DAILY Label Comments: TAKE 1 TABLET EVERY DAY Discontinued insulin glargine 100 UNITS/ML insulin pen 30 units SC DAILY Celebrex 100 mg capsule 100 mg DAILY Referrals / Follow Up: Stefan Salcedo DO [Med Staff - Active Staff] - Within 2 Weeks Parish Christianson MD [Primary Care Provider] - Within 1 Week Disposition Disposition (needs filled in before D/C Order can be placed): Home, Self Care Charges/Coding Visit Charges Inpatient E&M: 94938 Disch Hosp
[2022-03-07 11:50] LABS: Bedside Glucose 265 mg/dL (74-106)
== END 2022-03-07 12:30 | disposition home or self-care (01) ==
LOC: ED 23:16 → MS3 23:39
PROVIDERS: Admitting Provider Hospitalist; Emergency Provider Emergency Medicine; PCP Family Medicine; Visit Provider Internal Medicine
DX: J44.0 Chronic obstructive pulmonary disease with (acute) lower respiratory infection (principal); N17.9 Acute kidney failure, unspecified; J44.1 Chronic obstructive pulmonary disease with (acute) exacerbation; Z79.4 Long term (current) use of insulin; E11.9 Type 2 diabetes mellitus without complications; J18.9 Pneumonia, unspecified organism; Z87.891 Personal history of nicotine dependence; Z79.51 Long term (current) use of inhaled steroids; Z99.81 Dependence on supplemental oxygen; Z79.899 Other long term (current) drug therapy; E03.9 Hypothyroidism, unspecified; Z79.890 Hormone replacement therapy; F41.9 Anxiety disorder, unspecified; F32.A Depression, unspecified
CPT/HCPCS: 36415; 71045; 80048; 80053; 82962; 84484; 85025; 87811; 93005; 94640; 94667; 94668; 96361; 96372; 96374; 96376; 99218; 99285; 99406; J7030; A4216; G0378

== ENCOUNTER → 2022-05-13 | Outpatient (CLI) | payer MEDICARE, SELFPAY ==
[2022-05-13 11:53] LABS: Anion Gap 4 (5-15); BUN 21 mg/dL (7-18); BUN/Creat Ratio 23.1 RATIO (10-20); Calcium,Total 9.5 mg/dL (8.5-10.1); Chloride 100 mmol/L (98-107); Cholesterol 162 mg/dL (200); Creatinine, Serum 0.91 mg/dL (0.55-1.02); EST Glomerular Filtration Rate 65 mL/min (>60); Est Glom Filt Rate - Afr Amer 79 mL/min (>60); Free T3 1.1 pg/mL (2.18-3.98); Glucose 141 mg/dL (74-106); High Density Lipoprotein 70 mg/dL; Sodium Level 138 mmol/L (136-145); T4 Free Direct 0.57 ng/dL (0.76-1.46); Triglycerides 69 mg/dL; Very Low Density Lipoprotein 14 mg/dL (5-40)
== END | disposition home or self-care (01) ==
LOC: MFPLAB 08:37
PROVIDERS: PCP Family Medicine; Referring Provider Family Medicine; Visit Provider Family Medicine
DX: E03.9 Hypothyroidism, unspecified (principal); E11.9 Type 2 diabetes mellitus without complications
CPT/HCPCS: 36415; 80048; 80061; 84439; 84443; 84481

== ENCOUNTER → 2022-08-25 | Outpatient (CLI) | payer MEDICARE, SELFPAY ==
[2022-08-25 11:02] LABS: Anion Gap 6 (5-15); BUN 16 mg/dL (7-18); BUN/Creat Ratio 19.9 RATIO (10-20); Calcium,Total 9.5 mg/dL (8.5-10.1); Chloride 99 mmol/L (98-107); Cholesterol 194 mg/dL (200); EST Glomerular Filtration Rate 75 mL/min (>60); Est Glom Filt Rate - Afr Amer 90 mL/min (>60); Free T3 1.6 pg/mL (2.18-3.98); Glucose 146 mg/dL (74-106); High Density Lipoprotein 73 mg/dL; Potassium 4.2 mmol/L (3.5-5.1); Sodium Level 140 mmol/L (136-145); T4 Free Direct 0.94 ng/dL (0.76-1.46); Thyroid Stim Hormone (TSH) 8.28 uIU/mL (0.358-3.74); Triglycerides 104 mg/dL; Very Low Density Lipoprotein 21 mg/dL (5-40)
== END | disposition home or self-care (01) ==
LOC: MFPLAB 08:41
PROVIDERS: PCP Family Medicine; Referring Provider Family Medicine; Visit Provider Family Medicine
DX: E03.9 Hypothyroidism, unspecified (principal); E11.9 Type 2 diabetes mellitus without complications
CPT/HCPCS: 36415; 80048; 80061; 84439; 84443; 84481

== ENCOUNTER → 2022-11-18 | Outpatient (CLI) | payer MEDICARE, SELFPAY ==
[2022-11-18 11:19] LABS: Free T3 1.6 pg/mL (2.18-3.98); T4 Free Direct 1.22 ng/dL (0.76-1.46); Thyroid Stim Hormone (TSH) 4.41 uIU/mL (0.358-3.74)
== END | disposition home or self-care (01) ==
LOC: MTLAB 08:47
PROVIDERS: PCP Family Medicine; Referring Provider Family Medicine; Visit Provider Family Medicine
DX: E03.9 Hypothyroidism, unspecified (principal)
CPT/HCPCS: 36415; 84439; 84443; 84481

== ENCOUNTER → 2023-02-28 | Outpatient (CLI) | payer MEDICARE, SELFPAY ==
[2023-02-28 10:41] LABS: Anion Gap 5 (5-15); BUN 15 mg/dL (7-18); BUN/Creat Ratio 18.2 RATIO (10-20); Calcium,Total 9.3 mg/dL (8.5-10.1); Chloride 99 mmol/L (98-107); Cholesterol 176 mg/dL (200); Creatinine, Serum 0.82 mg/dL (0.55-1.02); EST Glomerular Filtration Rate 73 mL/min (>60); Est Glom Filt Rate - Afr Amer 88 mL/min (>60); Free T3 1.4 pg/mL (2.18-3.98); Glucose 250 mg/dL (74-106); High Density Lipoprotein 66 mg/dL; Potassium 4.3 mmol/L (3.5-5.1); Sodium Level 139 mmol/L (136-145); T4 Free Direct 0.85 ng/dL (0.76-1.46); Thyroid Stim Hormone (TSH) 7.36 uIU/mL (0.358-3.74); Triglycerides 88 mg/dL; Very Low Density Lipoprotein 18 mg/dL (5-40)
== END | disposition home or self-care (01) ==
LOC: MFPLAB 08:32
PROVIDERS: PCP Family Medicine; Visit Provider Family Medicine
DX: E03.9 Hypothyroidism, unspecified (principal); E11.9 Type 2 diabetes mellitus without complications
CPT/HCPCS: 36415; 80048; 80061; 84439; 84443; 84481

== ENCOUNTER → 2023-05-30 | Outpatient (CLI) | payer MEDICARE, SELFPAY ==
[2023-05-30 12:58] LABS: Free T3 2.1 pg/mL (2.18-3.98); T4 Free Direct 1.35 ng/dL (0.76-1.46); Thyroid Stim Hormone (TSH) 1.72 uIU/mL (0.358-3.74)
== END | disposition home or self-care (01) ==
LOC: MFPLAB 09:17
PROVIDERS: PCP Family Medicine; Visit Provider Family Medicine
DX: E03.9 Hypothyroidism, unspecified (principal)
CPT/HCPCS: 36415; 84439; 84443; 84481

== ENCOUNTER → 2023-09-23 | Outpatient (CLI) | payer MEDICARE, SELFPAY ==
[2023-09-23 10:33] LABS: Hemoglobin A1c 7.1 % (3.8-5.6)
[2023-09-23 10:52] LABS: ALB/GLOB Ratio 0.8 RATIO (0.9-2.4); AST(SGOT) 11 U/L (15-37); Alanine Aminotransfer ALT/SGPT 9 U/L (13-56); Albumin, Serum 3.4 g/dL (3.2-5.0); Alkaline Phosphatase 99 U/L (45-117); Anion Gap 6 (5-15); BUN 14 mg/dL (7-18); Calcium,Total 9.2 mg/dL (8.5-10.1); Chloride 99 mmol/L (98-107); Cholesterol 190 mg/dL (200); Creatinine, Serum 0.87 mg/dL (0.55-1.02); EST Glomerular Filtration Rate 68 mL/min (>60); Est Glom Filt Rate - Afr Amer 82 mL/min (>60); Free T3 1.3 pg/mL (2.18-3.98); Glucose 163 mg/dL (74-106); High Density Lipoprotein 70 mg/dL; Potassium 4.1 mmol/L (3.5-5.1); Protein, Total 7.4 g/dL (6.4-8.2); Sodium Level 138 mmol/L (136-145); T4 Free Direct 0.64 ng/dL (0.76-1.46); Triglycerides 90 mg/dL; Very Low Density Lipoprotein 18 mg/dL (5-40)
== END | disposition home or self-care (01) ==
LOC: MFPLAB 08:39
PROVIDERS: PCP Family Medicine; Visit Provider Family Medicine
DX: E11.9 Type 2 diabetes mellitus without complications (principal); E03.9 Hypothyroidism, unspecified
CPT/HCPCS: 36415; 80053; 80061; 83036; 84439; 84443; 84481

== ENCOUNTER → 2023-10-19 | Outpatient (CLI) | payer MEDICARE, SELFPAY ==
--- NOTE | 2023-10-19 11:15 | RAD_ITS ---
INDICATION: COPD EXACERBATION EXAMINATION/TECHNIQUE: X-RAY - XR Chest 2 Views COMPARISON: No relevant prior comparison study available FINDINGS: LINES/DEVICES: None. LUNGS: The lungs are hyperinflated with COPD changes. Prominent interstitial markings in the lower lungs appear to be chronic. No focal infiltrate is seen. No evidence of pleural effusions. MEDIASTINUM AND CARDIOVASCULAR STRUCTURES: Cardiac silhouette not enlarged. Central airways and mediastinal contour are unremarkable. BONES AND SOFT TISSUES: No demonstrated acute osseous changes. RAD/Chest PA and Lateral IMPRESSION: 1. COPD changes. 2. No radiographic evidence of acute cardiopulmonary disease. Electronically Signed: Arnold Ayala MD at 8:38 EDT ,
[2023-10-19 12:26] LABS: Absolute Lymphocyte Count 1.26 X10^3/uL (0.83-4.51); Absolute Neutrophil Count 5.4 X10^3/uL (2.0-7.7); Basophil# 0.03 X10^3/uL; Basophil% 0.4 % (0-1); Eosinophil# 0.21 X10^3/uL; Eosinophils% 2.8 % (0-5); Hematocrit 34.5 % (37-47); Hemoglobin 10.6 g/dL (12.0-15.0); Lymphocyte # 1.26 X10^3/ul (0.83-4.51); Lymphocyte % 16.8 % (19-41); Mean Corp Hgb Conc 30.7 g/dL (32-36); Mean Corpuscular Hgb 28.2 pg (27.0-32.0); Mean Corpuscular Volume 91.8 fL (81-99); Monocyte% 6.7 % (0-10); NRBC Flagged by Analyzer 0 % (0-5); Neutrophil # 5.44 X10^3/uL (2.7-7.7); Neutrophil % 72.8 % (47-70); Platelet Count 270 K/mm3 (150-450); RBC Distribution Width CV 13.3 % (11.6-14.6); RBC Distribution Width SD 45.2 fl (35.1-43.9); Red Blood Count 3.76 M/mm3 (4.2-5.4); White Blood Count 7.5 K/mm3 (4.4-11.0)
[2023-10-19 12:45] LABS: Anion Gap 3 (5-15); BUN 18 mg/dL (7-18); BUN/Creat Ratio 19.1 RATIO (10-20); Calcium,Total 9.7 mg/dL (8.5-10.1); Chloride 101 mmol/L (98-107); Creatinine, Serum 0.94 mg/dL (0.55-1.02); EST Glomerular Filtration Rate 62 mL/min (>60); Est Glom Filt Rate - Afr Amer 75 mL/min (>60); Glucose 159 mg/dL (74-106); Potassium 3.7 mmol/L (3.5-5.1); Sodium Level 139 mmol/L (136-145)
== END | disposition home or self-care (01) ==
PROVIDERS: PCP Family Medicine; Referring Provider Family Medicine; Visit Provider Family Medicine
DX: J44.1 Chronic obstructive pulmonary disease with (acute) exacerbation (principal)
CPT/HCPCS: 36415; 71046; 80048; 85025

== ENCOUNTER 2023-11-04 21:44 | Inpatient (IN) | payer MEDICARE, SELFPAY ==
[2023-11-04 21:48] VITALS: BP 131/66; PULSE 114; RESP 35; TEMP 36.9; O2SAT 98; BMI 30.2
[2023-11-04 21:51] VITALS: BP 131/66; PULSE 114; RESP 35; TEMP 36.9; O2SAT 97; O2SAT 98
[2023-11-04 21:53] VITALS: O2SAT 97
--- NOTE | 2023-11-04 22:02 | EKG12_ITS ---
Test Reason : SOB Blood Pressure : / mmHG Vent. Rate : 112 BPM Atrial Rate : 112 BPM P-R Int : 124 ms QRS Dur : 068 ms QT Int : 306 ms P-R-T Axes : 075 059 071 degrees QTc Int : 417 ms Sinus tachycardia Cannot rule out Anterior infarct , age undetermined -suspect V1/V3 lead reversal Abnormal ECG Confirmed by Winston Hill ([id number]), market editor RILEY RODAS ([id number]) on 11/07/2023 2:22:04 PM Referred By: Jaiden Gomez Confirmed By:[place]ston Hill
--- NOTE | 2023-11-04 22:08 | EDS_ITS ---
HPI History of Present Illness Chief Complaint: Shortness of Breath Informant: patient Narrative Narrative: Presents by EMS from home referred in by PCP for increasing palpitation and racing heart. Symptoms on and off for the past month. States had a COPD flare in between, finish antibiotics (Bactrim) and steroids a week ago. She is down to her baseline cough. Her typical dyspnea with her COPD on chronic 3 L of oxygen. Mild chest discomfort. Denies recent vomiting or diarrhea. Denies fevers. She states heart rate would go up to the 140s. No urinary symptoms. PFSH PFS Medical History Anxiety Asthma Chronic obstructive lung disease COPD (chronic obstructive pulmonary disease) Depression Diabetes DM type 2 (diabetes mellitus, type 2) Hypothyroidism On home oxygen therapy Osteopenia Smoker Tobacco user Vision loss of left eye Vision loss of right eye Home Medications cholecalciferol (vitamin D3) 25 mcg (1,000 unit) capsule (Vitamin D3) 2,000 unit PO DAILY SUPPLEMENT 01/15/14 [History Last Taken 07/07/21] fluticasone propionate 50 mcg/actuation nasal spray,suspension 2 spray DAILY ALLERGIES 01/15/14 [History Last Taken 07/07/21] montelukast 10 mg tablet 10 mg PO DINNER ALLERGIES 01/15/14 [History Last Taken 07/07/21] multivitamin with folic acid 400 mcg tablet (Thera) 1 tab PO DAILY VITAMIN 01/15/14 [History Last Taken 07/07/21] albuterol sulfate 90 mcg/actuation aerosol inhaler (Ventolin HFA) 2 puff inhalation Q4H PRN PRN Asthma ##1 02/14/15 [Rx Last Taken 07/07/21] insulin aspart U-100 100 unit/mL (3 mL) subcutaneous pen (Novolog FlexPen U-100 Insulin aspart) 0 - 5 units subcut TIDCM DM 02/23/16 [History Last Taken 07/07/21] acetaminophen 500 mg capsule 500 mg PO Q6H PRN PRN Pain 11/14/20 [History Last Taken 07/07/21] clonazepam 0.5 mg tablet 0.5 mg PO DAILY ANXIETY 11/14/20 [History Last Taken 07/07/21] fluoxetine 10 mg capsule 10 mg PO DAILY DEPRESSION 11/14/20 [History Last Taken 07/07/21] fluticasone propionate 230 mcg-salmeterol 21 mcg/actuation HFA inhaler (Advair HFA) 1 puff inhalation BID COPD 11/14/20 [History Last Taken 07/07/21] glimepiride 4 mg tablet 4 mg PO BID DM 11/14/20 [History Last Taken 07/07/21] ipratropium 0.5 mg-albuterol 3 mg (2.5 mg base)/3 mL nebulization soln 3 ml inhalation 4X/DAY PRN shortness of breath 11/14/20 [History Last Taken 07/08/21] metformin 1,000 mg tablet 1,000 mg PO BID DM 11/14/20 [History Last Taken 07/07/21] tiotropium bromide 18 mcg capsule with inhalation device (Spiriva with HandiHaler) 1 cap inhalation DAILY COPD 11/14/20 [History Last Taken 07/07/21] guaifenesin 1,200 mg tablet, extended release 12 hr (Mucus Relief ER) 1,200 mg PO BID PRN Cough 7 days #14 tabs 03/07/22 [Rx Last Taken Unknown] celecoxib 100 mg capsule (Celebrex) 100 mg PO DAILY arthritis 10/20/22 [History Last Taken Unknown] omeprazole 20 mg capsule,delayed release 20 mg PO Q12H GERD 11/25/22 [History Last Taken Unknown] levothyroxine 300 mcg tablet (Levo-T) 300 mcg PO DAILY 09/30/23 [History Last Taken Unknown] albuterol sulfate 2.5 mg/3 mL (0.083 %) solution for nebulization 2.5 mg inhalation Q4H PRN PRN shortness of breath or wheezing 11/04/23 [History Last Taken Unknown] insulin glargine 100 unit/mL (3 mL) subcutaneous pen (Lantus Solostar U-100 Insulin) 34 unit subcut DAILY diabetes mellitus 11/04/23 [History Last Taken Unknown] levothyroxine 200 mcg tablet (Euthyrox) 300 mcg PO DAILY 11/04/23 [History Last Taken Unknown] potassium chloride 10 mEq tablet,extended release(part/cryst) 10 meq PO DAILY 11/04/23 [History Last Taken Unknown] Allergy/AdvReac Type Severity Reaction Status Date / Time morphine Allergy Anaphylaxis Verified 11/04/23 21:48 Penicillins Allergy Rash Verified 11/04/23 21:48 codeine AdvReac Severe Other Verified 11/04/23 21:48 bupropion [From Wellbutrin] AdvReac Other Verified 11/04/23 21:48 erythromycin base AdvReac Upset Verified 11/04/23 21:48 [Erythromycin Base] Stomach Family History Other Cancer Diabetes Liver cirrhosis no significant family history Surgical History History of appendectomy History of cholecystectomy Social History Smoking Status: Former smoker second hand exposure: Yes substance use type: does not use ROS ROS ED Constitutional Constitutional ED: Denies chills, fever(s) or sweats Eyes Eyes: Denies change in vision ENT ENT ED: Denies dysphagia or sore throat Cardiovascular Cardiovascular: Reports chest pain, palpitations and racing heartbeat; Denies leg edema Respiratory/Chest Respiratory/Chest: Denies cough, dyspnea or dyspnea on exertion Gastrointestinal Gastrointestinal: Denies abdominal pain, diarrhea, nausea or vomiting Genitourinary Genitourinary ED: Denies dysuria, hematuria or urinary frequency Musculoskeletal Musculoskeletal: Denies back pain, extremity pain or neck pain Integumentary Denies rash or wounds Neurologic Neurologic: Denies headache(s), paresthesias or weakness EXAM Physical Exam Const Vital Signs: 11/04/23 21:48 11/04/23 21:51 11/04/23 21:51 Temperature 98.4 F 98.4 F 98.4 F Temperature Source Temporal Temporal Temporal Pulse Rate 114 H 114 H 114 H Respiratory Rate 35 H 35 H 35 H Respiratory Effort Respiratory Pattern Blood Pressure 131/66 H 131/66 H 131/66 H Blood Pressure Mean 87 87 87 Pulse Ox 98 98 97 Oxygen Delivery Method Nasal Cannula Room Air Nasal Cannula Oxygen Flow Rate (L/min) 3 11/04/23 21:53 11/04/23 22:19 11/04/23 22:19 Temperature Temperature Source Pulse Rate Respiratory Rate 32 H Respiratory Effort Short of Breath Respiratory Pattern Tachypnea Blood Pressure Blood Pressure Mean Pulse Ox 99 Oxygen Delivery Method Nasal Cannula Nasal Cannula Nasal Cannula Oxygen Flow Rate (L/min) 3 3 3 11/04/23 22:51 11/04/23 23:59 11/05/23 00:00 Temperature 98.9 F 98.4 F 99.0 F Temperature Source Oral Oral Pulse Rate 113 H 114 H 113 H Respiratory Rate 30 H 27 H 16 Respiratory Effort Respiratory Pattern Blood Pressure 133/53 H 122/53 H 122/53 H Blood Pressure Mean 79 76 76 Pulse Ox 99 99 99 Oxygen Delivery Method Nasal Cannula Nasal Cannula Oxygen Flow Rate (L/min) 3 3 11/05/23 00:20 11/05/23 00:20 Temperature Temperature Source Pulse Rate 114 H Respiratory Rate 32 H Respiratory Effort Respiratory Pattern Tachypnea Blood Pressure Blood Pressure Mean Pulse Ox 98 Oxygen Delivery Method Nasal Cannula Oxygen Flow Rate (L/min) 3 Positive well nourished and well developed Constitutional Narrative: Chronic 3 L nasal cannula, no respiratory distress. General Appearance ED: well developed and NAD HEENT Reports moist mucous membranes normocephalic and atraumatic Eyes PERRL, EOMs intact bilaterally and conjunctivae normal General Eye ED: Yes normal appearance of both eyes Neck no lymphadenopathy and supple General: Negative for tenderness Chest Wall Chest: Negative for tenderness Resp normal respiratory effort and normal air movement Effort and Inspection: symmetric chest movement; Negative for respiratory distress Cardio regular rhythm and no murmurs Rate: tachycardic Peripheral Pulses: pulses 2+ throughout GI normal to inspection, nondistended, normoactive bowel sounds and non-tender Palpation: Negative for guarding or rebound tenderness present Back/Spine no CVA tenderness and no thoracic nor lumbar tenderness Extremity normal to inspection General Extremety ED: Negative for edema or tenderness General Extremity: Negative for edema Neuro oriented x3 and no sensory deficits noted Sensorium / Orientation: awake and alert Skin no rashes or lesions noted and no wounds MDM MDM MDM Narrative Medical decision making narrative: Interventions / MDM: Differential diagnosis: Sinus tachycardia, history of COPD Diagnosis considered but do not suspect: Pulmonary embolism however D-dimer negative. Pneumonia however chest x-ray negative. ACS however EKG with no ischemic findings and cardiac enzyme negative. My EKG interpretation: Sinus 112, no ST or T wave changes. Imaging independently reviewed and interpreted by myself: 1 view chest x-ray: No infiltrates noted. External documents reviewed: N/A Test considered but not ordered:N/A ED course: Patient tachycardic dry mucosal membranes. Chronic 3 L oxygen was continued. Reports slight chest pain. EKG sinus tachycardia. Labs were drawn including a troponin and chest x-ray. 2300: After fluids heart rate still at 110, white count 16.9 however recently finished steroids. No infiltrates on chest x-ray. Denies urinary symptoms. Electrolytes were normal troponin negative. Persistent tachycardia typically she states she is in the 80s recent illness and dyspnea, D-dimer added. 2335: D-dimer returned negative. Discussed with patient continues chest discomfort for the last 3 weeks. She has not been on any other new medications. She denies a rhythm on the monitor. After liter of fluids she still in the 110s with heart rate. I will continue fluids. With persistent tachycardia will discuss with hospitalist service for admission. 0000: I spoke with hospitalist Dr. Gomez for admission. Patient was due for her scheduled door now requesting this. This was ordered. Did discuss with her, she denies doing extra aerosol treatments at home, she states she is trying not to and is only doing it scheduled. Re-evaluation: stable Disposition discussed with patient/family/significant other: Patient and family Case discussed with consulting clinician: Hospitalist This note was generated with [employer] dictation software. It may contain incorrect words, spelling, and punctuation that were not noted in checking the note before signing. Lab Data Attestation: I reviewed the patient's lab results. Labs: Laboratory Results - last 24 hr 11/04/23 21:30 WBC 16.9 H RBC 3.68 L Hgb 10.4 L Hct 34.5 L MCV 93.8 MCH 28.3 MCHC 30.1 L RDW Std Deviation 46.7 H RDW Coeff of [place] 13.6 Plt Count 301 MPV 9.7 Immature Gran % (Auto) 0.600 Neut % (Auto) 85.8 H Lymph % (Auto) 7.0 L [place] % (Auto) 4.8 Eos % (Auto) 1.5 Baso % (Auto) 0.3 Absolute Neuts (auto) 14.5 H Absolute Lymphs (auto) 1.18 Nucleated RBC % 0 D-Dimer Quant (PE/DVT) 0.44 Sodium 141 Potassium 4.2 Chloride 102 Carbon Dioxide 33.0 H Anion Gap 6 BUN 23 H Creatinine 0.88 Estim Creat Clear Calc 61.23 Est GFR (MDRD) Af Amer 81 Est GFR (MDRD) Non-Af 67 BUN/Creatinine Ratio 26.2 H Glucose 86 Calcium 9.3 Troponin I High Sens 8 Radiography Diagnostic Testing: Clinical Impression(s) from Imaging Studies Chest X-Ray 11/04/23 22:24 IMPRESSION: Bibasilar interstitial changes stable and likely chronic. No definite acute infiltrates. Electronically Signed: Krupa Garcia MD at 22:41 EDT , Discharge Plan Dx/Rx/DC Orders Clinical Impression: Palpitations, Sinus tachycardia, COPD (chronic obstructive pulmonary disease), Chest pain Disposition Disposition: Acute Care Hospital [facility] Discharge Date/Time: 11/05/23 01:34
[2023-11-04 22:11] LABS: Absolute Lymphocyte Count 1.18 X10^3/uL (0.83-4.51); Absolute Neutrophil Count 14.5 X10^3/uL (2.0-7.7); Basophil# 0.05 X10^3/uL; Basophil% 0.3 % (0-1); Eosinophil# 0.26 X10^3/uL; Eosinophils% 1.5 % (0-5); Hematocrit 34.5 % (37-47); Hemoglobin 10.4 g/dL (12.0-15.0); Lymphocyte # 1.18 X10^3/ul (0.83-4.51); Mean Corp Hgb Conc 30.1 g/dL (32-36); Mean Corpuscular Hgb 28.3 pg (27.0-32.0); Mean Corpuscular Volume 93.8 fL (81-99); Mean Platelet Vol. 9.7 fl (6.2-12.0); Monocyte# 0.82 X10^3/uL; Monocyte% 4.8 % (0-10); NRBC Flagged by Analyzer 0 % (0-5); Neutrophil # 14.53 X10^3/uL (2.7-7.7); Neutrophil % 85.8 % (47-70); Platelet Count 301 K/mm3 (150-450); RBC Distribution Width CV 13.6 % (11.6-14.6); RBC Distribution Width SD 46.7 fl (35.1-43.9); Red Blood Count 3.68 M/mm3 (4.2-5.4); White Blood Count 16.9 K/mm3 (4.4-11.0)
[2023-11-04] MEDS: 0.9% Normal Saline (1000mL) 1,000 ML 999 ML IV (22:18)
[2023-11-04 22:19] VITALS: RESP 32; O2SAT 99
--- NOTE | 2023-11-04 22:24 | RAD_ITS ---
INDICATION: dyspnea EXAMINATION/TECHNIQUE: X-RAY - XR Chest 1 View COMPARISON: 10/19/2023 FINDINGS: LINES/DEVICES: None. LUNGS: Interstitial opacities in the lower lungs not significantly changed and likely chronic. No consolidation. No pneumothorax. MEDIASTINUM: Aorta is atherosclerotic. CARDIAC SILHOUETTE: Not enlarged. BONES AND SOFT TISSUES: No acute abnormalities. RAD/Chest 1 View (Portable) IMPRESSION: Bibasilar interstitial changes stable and likely chronic. No definite acute infiltrates. Electronically Signed: Krupa Garcia MD at 22:41 EDT ,
[2023-11-04 22:33] LABS: Anion Gap 6 (5-15); BUN 23 mg/dL (7-18); BUN/Creat Ratio 26.2 RATIO (10-20); Calcium,Total 9.3 mg/dL (8.5-10.1); Chloride 102 mmol/L (98-107); Creatinine, Serum 0.88 mg/dL (0.55-1.02); EST Glomerular Filtration Rate 67 mL/min (>60); Est Glom Filt Rate - Afr Amer 81 mL/min (>60); Estimated Creatinine Clearance 61.23 ml/min; Glucose 86 mg/dL (74-106); Potassium 4.2 mmol/L (3.5-5.1); Sodium Level 141 mmol/L (136-145); Troponin-I HS 8 pg/mL (3.0-54.0)
[2023-11-04 22:51] VITALS: BP 133/53; PULSE 113; RESP 30; TEMP 37.2; O2SAT 99
[2023-11-04] MEDS: Ondansetron 4 MG/2 ML Vial IV (23:04)
[2023-11-04 23:30] LABS: D-Dimer Quantitative (DVT/PE) 0.44 FEU/ug/m (0.27-0.49)
[2023-11-04] MEDS: 0.9% Normal Saline (1000mL) 1,000 ML 150 ML IV (23:46)
[2023-11-04] MEDS: Aspirin 81 MG TAB.CHEW 162 MG PO (23:46)
[2023-11-04 23:59] VITALS: BP 122/53; PULSE 114; RESP 27; TEMP 36.9; O2SAT 99
--- NOTE | 2023-11-04 23:59 | PCM.HP.STD ---
HPI - General General Date of Admission: 11/05/23 HPI Narrative TRISTAN STEPHENSON, is a 72 F who presents to the hospital with tachycardia and palpitations. She states that she has been noticing some increased difficulty breathing which is led to some panic and then she notices that her heart rate goes up so she starts to panic even more. She does have some expiratory wheezing but does not follow with pulmonology as an outpatient. In the ER white count is elevated but chest x-ray does not demonstrate a consolidation. She has not recently been on steroids. Will obtain a UA as this was not done in the ER. Her tachycardia is sinus. [facility], LAT[facility] Medical History Anxiety Asthma Chronic obstructive lung disease COPD (chronic obstructive pulmonary disease) Depression Diabetes DM type 2 (diabetes mellitus, type 2) Hypothyroidism On home oxygen therapy Osteopenia Smoker Tobacco user Vision loss of left eye Vision loss of right eye Home Medications cholecalciferol (vitamin D3) 25 mcg (1,000 unit) capsule (Vitamin D3) 2,000 unit PO DAILY SUPPLEMENT 01/15/14 [History Last Taken 07/07/21] fluticasone propionate 50 mcg/actuation nasal spray,suspension 2 spray DAILY ALLERGIES 01/15/14 [History Last Taken 07/07/21] montelukast 10 mg tablet 10 mg PO DINNER ALLERGIES 01/15/14 [History Last Taken 07/07/21] multivitamin with folic acid 400 mcg tablet (Thera) 1 tab PO DAILY VITAMIN 01/15/14 [History Last Taken 07/07/21] albuterol sulfate 90 mcg/actuation aerosol inhaler (Ventolin HFA) 2 puff inhalation Q4H PRN PRN Asthma ##1 02/14/15 [Rx Last Taken 07/07/21] insulin aspart U-100 100 unit/mL (3 mL) subcutaneous pen (Novolog FlexPen U-100 Insulin aspart) 0 - 5 units subcut TIDCM DM 02/23/16 [History Last Taken 07/07/21] acetaminophen 500 mg capsule 500 mg PO Q6H PRN PRN Pain 11/14/20 [History Last Taken 07/07/21] clonazepam 0.5 mg tablet 0.5 mg PO DAILY ANXIETY 11/14/20 [History Last Taken 07/07/21] fluoxetine 10 mg capsule 10 mg PO DAILY DEPRESSION 11/14/20 [History Last Taken 07/07/21] fluticasone propionate 230 mcg-salmeterol 21 mcg/actuation HFA inhaler (Advair HFA) 1 puff inhalation BID COPD 11/14/20 [History Last Taken 07/07/21] glimepiride 4 mg tablet 4 mg PO BID DM 11/14/20 [History Last Taken 07/07/21] ipratropium 0.5 mg-albuterol 3 mg (2.5 mg base)/3 mL nebulization soln 3 ml inhalation 4X/DAY PRN shortness of breath 11/14/20 [History Last Taken 07/08/21] metformin 1,000 mg tablet 1,000 mg PO BID DM 11/14/20 [History Last Taken 07/07/21] tiotropium bromide 18 mcg capsule with inhalation device (Spiriva with HandiHaler) 1 cap inhalation DAILY COPD 11/14/20 [History Last Taken 07/07/21] guaifenesin 1,200 mg tablet, extended release 12 hr (Mucus Relief ER) 1,200 mg PO BID PRN Cough 7 days #14 tabs 03/07/22 [Rx Last Taken Unknown] celecoxib 100 mg capsule (Celebrex) 100 mg PO DAILY arthritis 10/20/22 [History Last Taken Unknown] omeprazole 20 mg capsule,delayed release 20 mg PO Q12H GERD 11/25/22 [History Last Taken Unknown] levothyroxine 300 mcg tablet (Levo-T) 300 mcg PO DAILY 09/30/23 [History Last Taken Unknown] albuterol sulfate 2.5 mg/3 mL (0.083 %) solution for nebulization 2.5 mg inhalation Q4H PRN PRN shortness of breath or wheezing 11/04/23 [History Last Taken Unknown] insulin glargine 100 unit/mL (3 mL) subcutaneous pen (Lantus Solostar U-100 Insulin) 34 unit subcut DAILY diabetes mellitus 11/04/23 [History Last Taken Unknown] levothyroxine 200 mcg tablet (Euthyrox) 300 mcg PO DAILY 11/04/23 [History Last Taken Unknown] potassium chloride 10 mEq tablet,extended release(part/cryst) 10 meq PO DAILY 11/04/23 [History Last Taken Unknown] Allergy/AdvReac Type Severity Reaction Status Date / Time morphine Allergy Anaphylaxis Verified 11/04/23 21:48 Penicillins Allergy Rash Verified 11/04/23 21:48 codeine AdvReac Severe Other Verified 11/04/23 21:48 bupropion [From Wellbutrin] AdvReac Other Verified 11/04/23 21:48 erythromycin base AdvReac Upset Verified 11/04/23 21:48 [Erythromycin Base] Stomach Family History Other Cancer Diabetes Liver cirrhosis Surgical History History of appendectomy History of cholecystectomy Social History Smoking Status: Former smoker second hand exposure: Yes substance use type: does not use ROS Constitutional Constitutional: Denies chills, fatigue, fever(s) or malaise Eyes Eyes: Denies blurry vision ENT HEENT: Denies headache(s) or nasal discharge Cardiovascular Cardiovascular: Reports rapid heart rate; Denies chest pain, dyspnea on exertion or syncope Respiratory/Chest Respiratory/Chest: Reports shortness of breath at rest and shortness of breath with exertion; Denies cough Gastrointestinal Gastrointestinal: Denies constipation, diarrhea, nausea or vomiting Genitourinary Genitourinary: Denies dysuria Neurologic Neurologic: Denies focal weakness, numbness or tremor(s) Psychiatric Psychiatric: Denies anxiety or depression Vital Signs Vital Signs Vital Signs: 11/04/23 21:48 11/04/23 21:51 11/04/23 21:51 Temperature 98.4 F 98.4 F 98.4 F Temperature Source Temporal Temporal Temporal Pulse Rate 114 H 114 H 114 H Respiratory Rate 35 H 35 H 35 H Respiratory Effort Respiratory Pattern Blood Pressure 131/66 H 131/66 H 131/66 H Blood Pressure Mean 87 87 87 Pulse Ox 98 98 97 Oxygen Delivery Method Nasal Cannula Room Air Nasal Cannula Oxygen Flow Rate (L/min) 3 11/04/23 21:53 11/04/23 22:19 11/04/23 22:19 Temperature Temperature Source Pulse Rate Respiratory Rate 32 H Respiratory Effort Short of Breath Respiratory Pattern Tachypnea Blood Pressure Blood Pressure Mean Pulse Ox 99 Oxygen Delivery Method Nasal Cannula Nasal Cannula Nasal Cannula Oxygen Flow Rate (L/min) 3 3 3 11/04/23 22:51 Temperature 98.9 F Temperature Source Oral Pulse Rate 113 H Respiratory Rate 30 H Respiratory Effort Respiratory Pattern Blood Pressure 133/53 H Blood Pressure Mean 79 Pulse Ox 99 Oxygen Delivery Method Nasal Cannula Oxygen Flow Rate (L/min) 3 Weight Weight: 181 lb 7.047 oz Body Mass Index (BMI) 30.2 Physical Exam Narrative General: Alert, Oriented x3, Cooperative, No apparent distress HEENT: Atraumatic, PERRLA, EOMI, Normocephalic Oral: Moist Mucosa Neck: Supple, No JVD Lungs: Diminished, Normal air movement, No rhonchi, scattered expiratory wheeze, No rales Cardiovascular: Tachycardic, Regular Rhythm, Normal S1, Normal S2, No murmurs Abdomen: Soft, Non Tender, Non-Distended, No Hepato-splenomegaly Extremities: No edema, Capillary Refill Less than 3 Seconds Skin: No rashes, No breakdown Musculoskeletal: No Tenderness to Palpation of Joints or Extremities Neurological: No focal neurological deficits, Motor Exam 5/5 strength throughout, Sensory exam intact to light touch and pain Psych/Mental Status: Normal Affect, Appropriate Results Lab / Micro Data 11/04/23 21:30 11/04/23 21:30 Labs: Laboratory Results - last 24 hr 11/04/23 21:30: WBC 16.9 H, RBC 3.68 L, Hgb 10.4 L, Hct 34.5 L, MCV 93.8, MCH 28.3, MCHC 30.1 L, RDW Std Deviation 46.7 H, RDW Coeff of [place] 13.6, Plt Count 301, MPV 9.7, Immature Gran % (Auto) 0.600, Neut % (Auto) 85.8 H, Lymph % (Auto) 7.0 L, [place] % (Auto) 4.8, Eos % (Auto) 1.5, Baso % (Auto) 0.3, Absolute Neuts (auto) 14.5 H, Absolute Lymphs (auto) 1.18, Nucleated RBC % 0, D-Dimer Quant (PE/DVT) 0.44, Sodium 141, Potassium 4.2, Chloride 102, Carbon Dioxide 33.0 H, Anion Gap 6, BUN 23 H, Creatinine 0.88, Estim Creat Clear Calc 61.23, Est GFR (MDRD) Af Amer 81, Est GFR (MDRD) Non-Af 67, BUN/Creatinine Ratio 26.2 H, Glucose 86, Calcium 9.3, Troponin I High Sens 8 Imaging Radiology Impression Chest X-Ray 11/04/23 22:24 IMPRESSION: Bibasilar interstitial changes stable and likely chronic. No definite acute infiltrates. Electronically Signed: Krupa Garcia MD at 22:41 EDT , Assessment & Plan Assessment/Plan (1) COPD (chronic obstructive pulmonary disease): (2) Sinus tachycardia: PLAN: Plan 1. COPD with chronic hypoxic respiratory failure and sinus tachycardia ? Will place her on steroids and breathing treatments as well as Levaquin as she has been having increased sputum production and has been feeling that her breathing has become a bit more difficult ? Will obtain a urinalysis given her white count on admission to rule out infection, no signs of cellulitis ? Did discuss with her the need to follow-up with a aviation maintenance instructor on discharge which she has agreed to ? As she is still on her 3 L nasal cannula 2. DM2 ? We will hold her home medications ? Sliding scale insulin ? Accu-Cheks ACHS ? Will monitor make adjustments as necessary 3. Hypothyroidism ? Stable ? Continue Synthroid 4. GERD ? Stable ? Continue with PPI DVT: SCDs 75 minutes was spent on direct patient care, including documentation as well as chart review and collaboration with colleagues Charges/Coding Visit Charges Inpatient E&M: 99531 Init Hosp L3
[2023-11-05] VITALS (14 sets, daily range): BP systolic 102–128; BP diastolic 42–62; PULSE 86–114; RESP 16–32; TEMP 36.3–37.2; O2SAT 97–100; BMI 29.7
[2023-11-05] MEDS: Ipratropium/Albuterol Sulfate 3 ML AMPUL.NEB INHALATION (00:20)
[2023-11-05] MEDS: Albuterol 2.5 MG/3 ML VIAL.NEB. INHALATION (04:48)
[2023-11-05] MEDS: Levothyroxine 100 MCG Tablet 300 MCG PO (06:04)
--- NOTE | 2023-11-05 07:25 | PN.HOSP_ITS ---
Reason for Visit Reason for Visit: Diagnoses Chronic obstructive pulmonary disease, unspecified (11/05/23) Tachycardia, unspecified (11/05/23) Subjective Subjective Patient is a 72-year-old lady with history of chronic hypoxic respiratory failure secondary to COPD on baseline home oxygen who presented with increasing shortness of breath and palpitation and assessment of COPD with acute exacerbation made admitted to a monitored bed for further management Objective Data Objective Data Vital Signs: Vital Signs Temp Pulse Resp BP Pulse Ox O2 Del Method O2 Flow Rate 99.0 F 112 H 30 H 128/56 H 99 Nasal Cannula 3 11/05/23 05:14 11/05/23 05:14 11/05/23 05:14 11/05/23 05:14 11/05/23 05:14 11/05/23 05:14 11/05/23 05:14 Oxygen Flow Rate (L/min) 3 Oxygen Delivery Method Nasal Cannula Weight: 81 kg Body Mass Index (BMI) 29.7 Intake & Output: Intake and Output for Last 24 Hours 11/03/23 11/04/23 11/05/23 23:59 23:59 23:59 Intake Total 1010 / 1010 500 / 500 Balance 1010 / 1010 500 / 500 Lab / Micro Data 11/05/23 07:54 11/05/23 07:54 Labs: Laboratory Results - last 24 hr 11/04/23 21:30: WBC 16.9 H, RBC 3.68 L, Hgb 10.4 L, Hct 34.5 L, MCV 93.8, MCH 28.3, MCHC 30.1 L, RDW Std Deviation 46.7 H, RDW Coeff of [place] 13.6, Plt Count 301, MPV 9.7, Immature Gran % (Auto) 0.600, Neut % (Auto) 85.8 H, Lymph % (Auto) 7.0 L, [place] % (Auto) 4.8, Eos % (Auto) 1.5, Baso % (Auto) 0.3, Absolute Neuts (auto) 14.5 H, Absolute Lymphs (auto) 1.18, Nucleated RBC % 0, D-Dimer Quant (PE/DVT) 0.44, Sodium 141, Potassium 4.2, Chloride 102, Carbon Dioxide 33.0 H, Anion Gap 6, BUN 23 H, Creatinine 0.88, Estim Creat Clear Calc 61.23, Est GFR (MDRD) Af Amer 81, Est GFR (MDRD) Non-Af 67, BUN/Creatinine Ratio 26.2 H, Glucose 86, Calcium 9.3, Troponin I High Sens 8 Radiography Diagnostic Testing: Radiology Impression Chest X-Ray 11/04/23 22:24 IMPRESSION: Bibasilar interstitial changes stable and likely chronic. No definite acute infiltrates. Electronically Signed: Krupa Garcia MD at 22:41 EDT , Physical Exam Narrative GENERAL: cooperative, dyspneic at rest HEENT: Atraumatic; normocephalic EYES; Anicteric, Normal Conjunctiva NECK; supple, normal thyroid, RESPIRATORY: Diminished to auscultation CARDIOVASCULAR: Regular S1 S2, GI: soft, normoactive bowel sounds, : No Renal angle tenderness; EXTREMITIES: No edema, no clubbing, MUSCULOSKELETAL: no muscle wasting NEURO: Awake; no lateralizing signs. SKIN: No Rash PSYCH; Flat affect Assessment & Plan Assessment/Plan (1) COPD (chronic obstructive pulmonary disease): (2) Sinus tachycardia: PLAN: Plan Patient is a 72-year-old lady with history of chronic hypoxic respiratory failure secondary to COPD on baseline home oxygen who presented with increasing shortness of breath and palpitation and assessment of COPD with acute exacerbation made admitted to a monitored bed for further management 1. COPD with acute exacerbation - Patient started on bronchodilator treatment, systemic steroid as well as antibiotic therapy. Patient placed on oxygen titrated to keep saturation greater than 90. 2. Sinus tachycardia ? Reactive from patient's COPD as well as breathing treatment we will continue with monitoring 3. Chronic hypoxic respiratory failure ? Secondary to COPD. Patient is on baseline home oxygen 4. Diabetes mellitus type II -patient's oral hypoglycemics held. Placed on long acting insulin, Accu-Cheks a.c. and at bedtime and covered with sliding scale insulin 5. Hypothyroidism - Patient is on levothyroxine home dose continued 6. GERD ? Patient is on PPI 7. Anemia - Secondary to chronic disorder monitoring H&H and transfuse if patient becomes symptomatic or hemoglobin falls below 7 8. Depression with anxiety ? Patient is on SSRI continue 9. DVT prophylaxis bilateral SCDs Avoided chemoprophylaxis given patient low hemoglobin level Time spent in the patient's overall evaluation,decision-making process, review of diagnostic data, adjustment of management, discussion with other providers, nursing nursing and ancillary staff involved in patient's care documentation, 53 Minutes Charges/Coding Visit Charges Inpatient E&M: 52820 [facility] Hosp L3
[2023-11-05] MEDS: Ipratropium 0.5 MG/2.5 ML SOLUTION INHALATION ×3 (07:40→19:57)
[2023-11-05 08:00] LABS: Bedside Glucose 118 mg/dL (74-106)
[2023-11-05 08:18] LABS: Absolute Lymphocyte Count 0.73 X10^3/uL (0.83-4.51); Absolute Neutrophil Count 13.1 X10^3/uL (2.0-7.7); Basophil# 0.04 X10^3/uL; Basophil% 0.3 % (0-1); Eosinophils% 0.7 % (0-5); Hematocrit 30.1 % (37-47); Hemoglobin 9.1 g/dL (12.0-15.0); Lymphocyte # 0.73 X10^3/ul (0.83-4.51); Mean Corp Hgb Conc 30.2 g/dL (32-36); Mean Corpuscular Hgb 28.5 pg (27.0-32.0); Mean Corpuscular Volume 94.4 fL (81-99); Mean Platelet Vol. 9.5 fl (6.2-12.0); Monocyte# 0.49 X10^3/uL; Monocyte% 3.4 % (0-10); NRBC Flagged by Analyzer 0 % (0-5); Neutrophil # 13.08 X10^3/uL (2.7-7.7); Platelet Count 239 K/mm3 (150-450); RBC Distribution Width CV 13.7 % (11.6-14.6); RBC Distribution Width SD 47.3 fl (35.1-43.9); Red Blood Count 3.19 M/mm3 (4.2-5.4); White Blood Count 14.5 K/mm3 (4.4-11.0)
[2023-11-05 08:36] LABS: Anion Gap 1 (5-15); BUN 16 mg/dL (7-18); Calcium,Total 8.7 mg/dL (8.5-10.1); Chloride 104 mmol/L (98-107); EST Glomerular Filtration Rate 88 mL/min (>60); Est Glom Filt Rate - Afr Amer 106 mL/min (>60); Estimated Creatinine Clearance 66.83 ml/min; Glucose 115 mg/dL (74-106); Sodium Level 138 mmol/L (136-145)
[2023-11-05] MEDS: clonazePAM 0.5 MG Tablet PO (09:10)
[2023-11-05] MEDS: Pantoprazole Sodium 20 MG Tablet PO ×2 (09:10→20:58)
[2023-11-05] MEDS: Celecoxib 100 MG Capsule PO (09:10)
[2023-11-05] MEDS: FLUoxetine 10 MG Capsule PO (09:10)
[2023-11-05] MEDS: levoFLOXacin IV 750 MG/150 ML BAG 100 MG IV (09:21)
[2023-11-05] MEDS: 0.9% Saline Lock 10 ML Syringe IV ×2 (09:22→16:25)
[2023-11-05] MEDS: Insulin Glargine-YFGN 100 UNIT/ML Pen 34 UNIT SC (10:30)
[2023-11-05 11:00] LABS: Bedside Glucose 195 mg/dL (74-106)
[2023-11-05] MEDS: Insulin Lispro 100 UNIT/ML INSULN.PEN SC ×3 (12:03→21:01)
[2023-11-05 12:46] LABS: Bedside Glucose 67 mg/dL (74-106)
[2023-11-05 12:54] LABS: Bedside Glucose 212 mg/dL (74-106)
--- NOTE | 2023-11-05 13:22 | CASEMGMT ---
RN CM in to discuss HARMON form with patient. RN CM explained HARMON form, patient voiced understanding. Pt signed form and filed in chart. Pt provided with a copy of signed HARMON form. Patient had no further questions or concerns at this time. Natali Sneed MSN, RN, CCM
[2023-11-05] MEDS: Montelukast 10 MG Tablet PO (17:07)
[2023-11-05 17:21] LABS: Bedside Glucose 309 mg/dL (74-106)
[2023-11-05] MEDS: Acetaminophen 500 MG Tablet PO (19:38)
[2023-11-05 19:39] LABS: Thyroid Stim Hormone (TSH) 0.01 uIU/mL (0.358-3.74)
[2023-11-05 22:47] LABS: Bedside Glucose 276 mg/dL (74-106)
[2023-11-05] MEDS: guaiFENesin 1,200 MG Tablet 1200 MG PO (22:53)
[2023-11-06] VITALS (7 sets, daily range): BP systolic 106–117; BP diastolic 50–63; PULSE 81–103; RESP 18–28; TEMP 36.5–36.9; O2SAT 97–100
[2023-11-06] MEDS: Acetaminophen 500 MG Tablet PO ×3 (03:10→19:57)
[2023-11-06 04:18] LABS: Bacteria 0 SEEN /hpf (None Seen); Mucous, Urine 0 SEEN /hpf (<or=2+); White Blood Cells 0 SEEN /hpf (0-5)
[2023-11-06 04:29] LABS: Color, Urine Yellow (Yellow); Glucose, Dipstick 1000 mg/dl (Normal); Ketone-Dipstick Negative (Negative); Leukocyte Esterase-Dipstick Negative /ul (Negative); Nitrite-Dipstick Negative (Negative); Occult Blood-Urine 50 /ul (Negative); Protein-Dipstick Negative (Negative); Specific Gravity, Urine 1.015 (1.002-1.030); Urine Bilirubin Dipstick Negative (Negative); Urine Clarity Clear (Clear); Urine Urobilinogen Normal (Normal)
[2023-11-06 05:47] LABS: Red Blood Cells-Urine 5-10 SEEN /hpf (0-5); Squamous Epithelial Cells - UA 0-5 SEEN /hpf (5-10)
[2023-11-06] MEDS: Insulin Lispro 100 UNIT/ML INSULN.PEN SC ×4 (05:52→21:08)
[2023-11-06] MEDS: Levothyroxine 100 MCG Tablet 300 MCG PO (05:52)
[2023-11-06 06:04] LABS: Absolute Lymphocyte Count 0.42 X10^3/uL (0.83-4.51); Absolute Neutrophil Count 8.9 X10^3/uL (2.0-7.7); Basophil# 0.01 X10^3/uL; Basophil% 0.1 % (0-1); Hematocrit 30.3 % (37-47); Hemoglobin 9.3 g/dL (12.0-15.0); Lymphocyte # 0.42 X10^3/ul (0.83-4.51); Lymphocyte % 4.3 % (19-41); Mean Corp Hgb Conc 30.7 g/dL (32-36); Mean Corpuscular Hgb 28.6 pg (27.0-32.0); Mean Corpuscular Volume 93.2 fL (81-99); Mean Platelet Vol. 9.7 fl (6.2-12.0); Monocyte# 0.27 X10^3/uL; Monocyte% 2.8 % (0-10); NRBC Flagged by Analyzer 0 % (0-5); Neutrophil # 8.92 X10^3/uL (2.7-7.7); Neutrophil % 92.2 % (47-70); POSITIVE DIFFERENTIAL YES; Platelet Count 232 K/mm3 (150-450); RBC Distribution Width CV 13.2 % (11.6-14.6); RBC Distribution Width SD 45.4 fl (35.1-43.9); Red Blood Count 3.25 M/mm3 (4.2-5.4); White Blood Count 9.7 K/mm3 (4.4-11.0)
[2023-11-06 06:18] LABS: Anion Gap 5 (5-15); BUN 26 mg/dL (7-18); BUN/Creat Ratio 32.8 RATIO (10-20); Calcium,Total 8.9 mg/dL (8.5-10.1); Chloride 102 mmol/L (98-107); Creatinine, Serum 0.79 mg/dL (0.55-1.02); EST Glomerular Filtration Rate 76 mL/min (>60); Est Glom Filt Rate - Afr Amer 92 mL/min (>60); Estimated Creatinine Clearance 66.83 ml/min; Glucose 246 mg/dL (74-106); Magnesium 1.8 mg/dL (1.6-2.6); Phosphorus 3.6 mg/dL (2.5-4.9); Potassium 4.3 mmol/L (3.5-5.1); Sodium Level 137 mmol/L (136-145)
[2023-11-06 06:50] LABS: Bedside Glucose 221 mg/dL (74-106)
[2023-11-06] MEDS: Ipratropium 0.5 MG/2.5 ML SOLUTION INHALATION ×2 (07:15→19:40)
--- NOTE | 2023-11-06 08:08 | PN.HOSP_ITS ---
Reason for Visit Reason for Visit: Diagnoses Chronic obstructive pulmonary disease, unspecified (11/05/23) Tachycardia, unspecified (11/05/23) Subjective Subjective Patient seen still remains tachycardic. TSH obtained came back at 0.01. Per patient her levothyroxine dose was recently increased after she was found to have a TSH of 16.4. Did decrease patient levothyroxine back to her original dose of 200 mcg daily. Objective Data Objective Data Vital Signs: Vital Signs Temp Pulse Resp BP Pulse Ox O2 Del Method O2 Flow Rate 97.7 F L 81 18 116/63 100 Nasal Cannula 3 11/06/23 04:10 11/06/23 04:10 11/06/23 04:10 11/06/23 04:10 11/06/23 04:10 11/06/23 04:10 11/06/23 04:10 Oxygen Flow Rate (L/min) 3 Oxygen Delivery Method Nasal Cannula Weight: 81 kg Body Mass Index (BMI) 29.7 Intake & Output: Intake and Output for Last 24 Hours 11/04/23 11/05/23 11/06/23 23:59 23:59 23:59 Intake Total 1010 / 1010 650 / 890 240 / 240 Balance 1010 / 1010 650 / 890 240 / 240 Lab / Micro Data 11/06/23 05:38 11/06/23 05:38 Labs: Laboratory Results - last 24 hr 11/05/23 01:40: POC Glucose 67 L 11/05/23 07:54: WBC 14.5 H, RBC 3.19 L, Hgb 9.1 L, Hct 30.1 L, MCV 94.4, MCH 28.5, MCHC 30.2 L, RDW Std Deviation 47.3 H, RDW Coeff of [place] 13.7, Plt Count 239, MPV 9.5, Immature Gran % (Auto) 0.600, Neut % (Auto) 90.0 H, Lymph % (Auto) 5.0 L, [place] % (Auto) 3.4, Eos % (Auto) 0.7, Baso % (Auto) 0.3, Absolute Neuts (auto) 13.1 H, Absolute Lymphs (auto) 0.73 L, Nucleated RBC % 0, Sodium 138, Potassium 4.0, Chloride 104, Carbon Dioxide 33.0 H, Anion Gap 1 L, BUN 16, Creatinine 0.70, Estim Creat Clear Calc 66.83, Est GFR (MDRD) Af Amer 106, Est GFR (MDRD) Non-Af 88, BUN/Creatinine Ratio 23.0 H, Glucose 115 H, Calcium 8.7, TSH 0.01 L 11/05/23 10:28: POC Glucose 195 H 11/05/23 11:59: POC Glucose 212 H 11/05/23 16:15: POC Glucose 309 H 11/05/23 20:57: POC Glucose 276 H 11/06/23 01:09: Urine Color Yellow, Urine Clarity Clear, Urine pH 5.0, Ur Specific [place] 1.015, Urine Protein Negative, Urine Glucose (UA) 1000 H, Urine Ketones Negative, Urine Occult Blood 50 H, Urine Nitrite Negative, Urine Bilirubin Negative, Urine Urobilinogen Normal, Ur Leukocyte Esterase Negative, Urine RBC 5-10 SEEN, Urine WBC 0 SEEN, Ur Squamous Epith Cells 0-5 SEEN, Urine Bacteria 0 SEEN, Urine Mucus 0 SEEN 11/06/23 05:38: WBC 9.7, RBC 3.25 L, Hgb 9.3 L, Hct 30.3 L, MCV 93.2, MCH 28.6, MCHC 30.7 L, RDW Std Deviation 45.4 H, RDW Coeff of [place] 13.2, Plt Count 232, MPV 9.7, Immature Gran % (Auto) 0.600, Neut % (Auto) 92.2 H, Lymph % (Auto) 4.3 L, [place] % (Auto) 2.8, Eos % (Auto) 0.0, Baso % (Auto) 0.1, Absolute Neuts (auto) 8.9 H, Absolute Lymphs (auto) 0.42 L, Nucleated RBC % 0, Sodium 137, Potassium 4.3, Chloride 102, Carbon Dioxide 30.0, Anion Gap 5, BUN 26 H, Creatinine 0.79, Estim Creat Clear Calc 66.83, Est GFR (MDRD) Af Amer 92, Est GFR (MDRD) Non-Af 76, BUN/Creatinine Ratio 32.8 H, Glucose 246 H, Calcium 8.9, Phosphorus 3.6, Magnesium 1.8 11/06/23 05:50: POC Glucose 221 H Physical Exam Narrative GENERAL: cooperative, dyspneic at rest HEENT: Atraumatic; normocephalic EYES; Anicteric, Normal Conjunctiva NECK; supple, normal thyroid, RESPIRATORY: Diminished to auscultation CARDIOVASCULAR: Regular S1 S2, GI: soft, normoactive bowel sounds, : No Renal angle tenderness; EXTREMITIES: No edema, no clubbing, MUSCULOSKELETAL: no muscle wasting NEURO: Awake; no lateralizing signs. SKIN: No Rash PSYCH; Flat affect Assessment & Plan Assessment/Plan (1) COPD (chronic obstructive pulmonary disease): (2) Sinus tachycardia: PLAN: Plan Patient is a 72-year-old lady with history of chronic hypoxic respiratory failure secondary to COPD on baseline home oxygen who presented with increasing shortness of breath and palpitation and assessment of COPD with acute exacerbation made admitted to a monitored bed for further management 1. COPD with acute exacerbation - Patient started on bronchodilator treatment, systemic steroid as well as antibiotic therapy. Patient placed on oxygen titrated to keep saturation greater than 90. 2. Sinus tachycardia ? Reactive from patient's COPD as well as breathing treatment we will continue with monitoring ? Attributed to recent increase in patient's TSH. Repeat joint health ligation came back at 0.01. Subsequent adjustment of levothyroxine dose made 3. Chronic hypoxic respiratory failure ? Secondary to COPD. Patient is on baseline home oxygen 4. Diabetes mellitus type II -patient's oral hypoglycemics held. Placed on long acting insulin, Accu-Cheks a.c. and at bedtime and covered with sliding scale insulin 5. Hypothyroidism - Patient is on levothyroxine home dose adjusted following receipt of TSH obtained on 11/05/2023 which came back at 0.01 6. GERD ? Patient is on PPI 7. Anemia - Secondary to chronic disorder monitoring H&H and transfuse if patient becomes symptomatic or hemoglobin falls below 7 8. Depression with anxiety ? Patient is on SSRI continue 9. DVT prophylaxis bilateral SCDs Avoided chemoprophylaxis given patient low hemoglobin level Time spent in the patient's overall evaluation,decision-making process, review of diagnostic data, adjustment of management, discussion with other providers, nursing nursing and ancillary staff involved in patient's care documentation, 38 minutes Charges/Coding Visit Charges Inpatient E&M: 56265 Subs Hosp L2
[2023-11-06] MEDS: Potassium Chloride Oral Tablet 10 MEQ PO (08:12)
[2023-11-06] MEDS: Pantoprazole Sodium 20 MG Tablet PO ×2 (09:53→21:08)
[2023-11-06] MEDS: clonazePAM 0.5 MG Tablet PO (09:53)
[2023-11-06] MEDS: FLUoxetine 10 MG Capsule PO (09:53)
[2023-11-06] MEDS: Celecoxib 100 MG Capsule PO (09:53)
[2023-11-06] MEDS: Cholecalciferol (VIT D3) 25 MCG TABLET (1,000 UNITS) 50 MCG PO (09:54)
[2023-11-06] MEDS: levoFLOXacin IV 750 MG/150 ML BAG 100 MG IV (09:55)
[2023-11-06] MEDS: Insulin Glargine-YFGN 100 UNIT/ML Pen 34 UNIT SC (09:55)
[2023-11-06] MEDS: Fluticasone 0.05% 1 SPRAY NASAL.SRY 2 SPRAY NASAL (09:55)
[2023-11-06] MEDS: 0.9% Saline Lock 10 ML Syringe IV ×3 (09:56→21:12)
[2023-11-06 11:13] LABS: Bedside Glucose 330 mg/dL (74-106)
[2023-11-06] MEDS: Multivitamins,Therapeutic Tablet 1 TABLET PO (11:29)
[2023-11-06 12:16] LABS: Bedside Glucose 370 mg/dL (74-106)
[2023-11-06] MEDS: Albuterol 2.5 MG/3 ML VIAL.NEB. INHALATION (12:57)
[2023-11-06] MEDS: Montelukast 10 MG Tablet PO (16:32)
[2023-11-06 17:35] LABS: Bedside Glucose 340 mg/dL (74-106)
[2023-11-06 21:48] LABS: Bedside Glucose 268 mg/dL (74-106)
[2023-11-07] VITALS (12 sets, daily range): BP systolic 112–146; BP diastolic 53–65; PULSE 89–100; RESP 18–22; TEMP 36.2–36.7; O2SAT 85–99
[2023-11-07] MEDS: Albuterol 2.5 MG/3 ML VIAL.NEB. INHALATION (02:34)
[2023-11-07] MEDS: Acetaminophen 500 MG Tablet PO ×3 (02:55→17:39)
[2023-11-07] MEDS: Levothyroxine 100 MCG Tablet 200 MCG PO (06:13)
[2023-11-07] MEDS: Insulin Lispro 100 UNIT/ML INSULN.PEN SC ×4 (06:14→21:08)
[2023-11-07] MEDS: 0.9% Saline Lock 10 ML Syringe IV ×2 (06:14→14:33)
[2023-11-07 06:36] LABS: Bedside Glucose 270 mg/dL (74-106)
[2023-11-07 07:02] LABS: Absolute Lymphocyte Count 0.62 X10^3/uL (0.83-4.51); Absolute Neutrophil Count 8.7 X10^3/uL (2.0-7.7); Hematocrit 30.6 % (37-47); Hemoglobin 9.4 g/dL (12.0-15.0); Lymphocyte # 0.62 X10^3/ul (0.83-4.51); Lymphocyte % 6.4 % (19-41); Mean Corp Hgb Conc 30.7 g/dL (32-36); Mean Corpuscular Hgb 28.6 pg (27.0-32.0); Mean Platelet Vol. 9.6 fl (6.2-12.0); Monocyte# 0.36 X10^3/uL; Monocyte% 3.7 % (0-10); NRBC Flagged by Analyzer 0 % (0-5); Neutrophil # 8.66 X10^3/uL (2.7-7.7); Neutrophil % 89.2 % (47-70); Platelet Count 230 K/mm3 (150-450); RBC Distribution Width CV 13.2 % (11.6-14.6); RBC Distribution Width SD 44.9 fl (35.1-43.9); Red Blood Count 3.29 M/mm3 (4.2-5.4); White Blood Count 9.7 K/mm3 (4.4-11.0)
[2023-11-07] MEDS: Ipratropium 0.5 MG/2.5 ML SOLUTION INHALATION ×3 (07:24→20:05)
[2023-11-07 07:43] LABS: Anion Gap 3 (5-15); BUN 26 mg/dL (7-18); BUN/Creat Ratio 28.9 RATIO (10-20); Calcium,Total 8.9 mg/dL (8.5-10.1); Chloride 102 mmol/L (98-107); EST Glomerular Filtration Rate 65 mL/min (>60); Est Glom Filt Rate - Afr Amer 79 mL/min (>60); Estimated Creatinine Clearance 59.41 ml/min; Glucose 269 mg/dL (74-106); Potassium 4.4 mmol/L (3.5-5.1); Sodium Level 138 mmol/L (136-145)
--- NOTE | 2023-11-07 08:19 | PN.HOSP_ITS ---
Reason for Visit Reason for Visit: Diagnoses Chronic obstructive pulmonary disease, unspecified (11/06/23) Tachycardia, unspecified (11/06/23) Objective Data Objective Data Vital Signs: Vital Signs Temp Pulse Resp BP Pulse Ox O2 Del Method O2 Flow Rate 97.7 F L 98 18 127/58 H 96 Nasal Cannula 3 11/07/23 03:15 11/07/23 03:15 11/07/23 03:15 11/07/23 03:15 11/07/23 03:15 11/07/23 03:15 11/07/23 03:15 Oxygen Flow Rate (L/min) 3 Oxygen Delivery Method Nasal Cannula Weight: 178 lb 9.191 oz Body Mass Index (BMI) 29.7 Intake & Output: Intake and Output for Last 24 Hours 11/05/23 11/06/23 11/07/23 23:59 23:59 23:59 Intake Total 650 / 890 390 / 750 600 / 600 Balance 650 / 890 390 / 750 600 / 600 Lab / Micro Data 11/07/23 06:30 11/07/23 06:30 Labs: Laboratory Results - last 24 hr 11/06/23 09:51: POC Glucose 330 H 11/06/23 11:26: POC Glucose 370 H 11/06/23 16:29: POC Glucose 340 H 11/06/23 21:07: POC Glucose 268 H 11/07/23 06:12: POC Glucose 270 H 11/07/23 06:30: WBC 9.7, RBC 3.29 L, Hgb 9.4 L, Hct 30.6 L, MCV 93.0, MCH 28.6, MCHC 30.7 L, RDW Std Deviation 44.9 H, RDW Coeff of [place] 13.2, Plt Count 230, MPV 9.6, Immature Gran % (Auto) 0.700, Neut % (Auto) 89.2 H, Lymph % (Auto) 6.4 L, [place] % (Auto) 3.7, Eos % (Auto) 0.0, Baso % (Auto) 0.0, Absolute Neuts (auto) 8.7 H, Absolute Lymphs (auto) 0.62 L, Nucleated RBC % 0, Sodium 138, Potassium 4.4, Chloride 102, Carbon Dioxide 33.0 H, Anion Gap 3 L, BUN 26 H, Creatinine 0.90, Estim Creat Clear Calc 59.41, Est GFR (MDRD) Af Amer 79, Est GFR (MDRD) Non-Af 65, BUN/Creatinine Ratio 28.9 H, Glucose 269 H, Calcium 8.9 Micro: Microbiology 11/06/23 02:55 Sputum, Expectorated/Coughed Gram Stain - Final Physical Exam Narrative Patient on 3 L of oxygen. Patient cough and wheezing has improved. Patient oxygen, increased to 6 L on walking therefore could not be discharged. Physical exam General: Alert, Oriented x3, Cooperative, BMI 29.7 kg/m?. Overweight HEENT: Atraumatic, PERRLA, EOMI, Normocephalic Oral: No Gingival or Mucosal Lesions/ Ulcerations Neck: Supple, No JVD, Negative Carotid Bruits Chest wall/Lungs: Air entry diminished in bilateral lung bases. Bilateral wheezing and rhonchi Cardiovascular: Regular rate, Regular Rhythm, Normal S1, Normal S2, No M/G/R Abdomen: Bowel Sounds Present, Soft, Non Tender, Non-Distended : No dysuria. No renal angle tenderness. No suprapubic tenderness. Extremities: No edema, Capillary Refill Less than 3 Seconds Skin: No rashes, No breakdown Musculoskeletal: No Tenderness to Palpation of Joints or Extremities Neurological: Cranial nerves II-XII grossly intact, DTR 2+/4. No acute focal neurological deficit. Psych/Mental Status: Flat affect Assessment & Plan Assessment/Plan (1) COPD (chronic obstructive pulmonary disease): (2) Sinus tachycardia: PLAN: Plan Patient is a 72-year-old lady with history of chronic hypoxic respiratory failure secondary to COPD on baseline home oxygen who presented with increasing shortness of breath and palpitation and assessment of COPD with acute exacerbation made admitted to a monitored bed for further management 1. COPD with acute exacerbation - Patient started on bronchodilator treatment, systemic steroid as well as antibiotic therapy. Patient placed on oxygen titrated to keep saturation greater than 90. 11/06: [id number] scheduled bronchodilator, IV Solu-Medrol, incentive spirometry and Pep. 2. Sinus tachycardia ? Reactive from patient's COPD as well as breathing treatment we will continue with monitoring ? May be probably due to increased dose of levothyroxine as she was taking 300 mcg. Prior TSH 16.4 on 09/23/2023. Repeat TSH came back at 0.01. Levothyroxine d ose decreased to 200 mcg daily. 11/06: Heart rate is controlled. 3. Chronic hypoxic respiratory failure ? Secondary to COPD. Patient is on baseline home oxygen 4. Diabetes mellitus type II -patient's oral hypoglycemics held. Placed on long acting insulin, Accu-Cheks a.c. and at bedtime and covered with sliding scale insulin 11/06 glucose is high due to IV Solu-Medrol. Insulin dose decreased. 5. Hypothyroidism - Patient is on levothyroxine home dose adjusted following receipt of TSH obtained on 11/05/2023 which came back at 0.01 6. GERD ? Patient is on PPI 7. Anemia - Secondary to chronic disorder monitoring H&H and transfuse if patient becomes symptomatic or hemoglobin falls below 7 11/06: Hemoglobin on baseline. 8. Depression with anxiety ? Patient is on SSRI continue 9. DVT prophylaxis bilateral SCDs Avoided chemoprophylaxis given patient low hemoglobin level Charges/Coding Visit Charges Inpatient E&M: 41860 Subs Hosp L2
[2023-11-07] MEDS: clonazePAM 0.5 MG Tablet PO (09:21)
[2023-11-07] MEDS: Potassium Chloride Oral Tablet 10 MEQ PO (09:22)
[2023-11-07] MEDS: Pantoprazole Sodium 20 MG Tablet PO ×2 (09:22→21:07)
[2023-11-07] MEDS: Cholecalciferol (VIT D3) 25 MCG TABLET (1,000 UNITS) 50 MCG PO (09:22)
[2023-11-07] MEDS: Celecoxib 100 MG Capsule PO (09:22)
[2023-11-07] MEDS: guaiFENesin 1,200 MG Tablet 1200 MG PO ×2 (09:22→21:07)
[2023-11-07] MEDS: Fluticasone 0.05% 1 SPRAY NASAL.SRY 2 SPRAY NASAL (09:23)
[2023-11-07] MEDS: Insulin Glargine-YFGN 100 UNIT/ML Pen 34 UNIT SC (09:23)
[2023-11-07] MEDS: FLUoxetine 10 MG Capsule PO (09:23)
[2023-11-07] MEDS: levoFLOXacin IV 750 MG/150 ML BAG 100 MG IV (09:47)
--- NOTE | 2023-11-07 09:47 | PHA.DC.MC.R ---
Pharmacy [facility] Pharmacy Service has performed discharge medication reconciliation and counseling for this patient. 1. PREDNISONE 40MG PO DAILY X 3 DAYS, THEN 30MG X 3 DAYS, THEN 20MG X 3 DAYS, THEN 10MG X 3 DAYS The patient's discharge medication list was reviewed for discrepancies and discrepancies were resolved. The patient was counseled on the following discharge medications and changes in medications for homegoing were reviewed. The Reason for Use, instructions for use, and potential side effects were reviewed for all new medications. The patient's questions regarding all of their medications were answered. The patient was able to verbally demonstrate an understanding of their discharge medications. Medications at Discharge Home Medications cholecalciferol (vitamin D3) 25 mcg (1,000 unit) capsule (Vitamin D3) 2,000 unit PO DAILY SUPPLEMENT 01/15/14 fluticasone propionate 50 mcg/actuation nasal spray,suspension 2 spray DAILY ALLERGIES 01/15/14 montelukast 10 mg tablet 10 mg PO DINNER ALLERGIES 01/15/14 multivitamin with folic acid 400 mcg tablet (Thera) 1 tab PO DAILY VITAMIN 01/15/14 albuterol sulfate 90 mcg/actuation aerosol inhaler (Ventolin HFA) 2 puff inhalation Q4H PRN PRN Asthma ##1 02/14/15 insulin aspart U-100 100 unit/mL (3 mL) subcutaneous pen (Novolog FlexPen U-100 Insulin aspart) 0 - 5 units subcut TIDCM DM 02/23/16 acetaminophen 500 mg capsule 500 mg PO Q6H PRN PRN Pain 11/14/20 clonazepam 0.5 mg tablet 0.5 mg PO DAILY ANXIETY 11/14/20 fluoxetine 10 mg capsule 10 mg PO DAILY DEPRESSION 11/14/20 fluticasone propionate 230 mcg-salmeterol 21 mcg/actuation HFA inhaler (Advair HFA) 1 puff inhalation BID COPD 11/14/20 glimepiride 4 mg tablet 4 mg PO BID DM 11/14/20 ipratropium 0.5 mg-albuterol 3 mg (2.5 mg base)/3 mL nebulization soln 3 ml inhalation 4X/DAY PRN shortness of breath 11/14/20 metformin 1,000 mg tablet 1,000 mg PO BID DM 11/14/20 tiotropium bromide 18 mcg capsule with inhalation device (Spiriva with HandiHaler) 1 cap inhalation DAILY COPD 11/14/20 guaifenesin 1,200 mg tablet, extended release 12 hr (Mucus Relief ER) 1,200 mg PO BID PRN Cough 7 days #14 tabs 03/07/22 celecoxib 100 mg capsule (Celebrex) 100 mg PO DAILY arthritis 10/20/22 omeprazole 20 mg capsule,delayed release 20 mg PO Q12H GERD 11/25/22 albuterol sulfate 2.5 mg/3 mL (0.083 %) solution for nebulization 2.5 mg inhalation Q4H PRN PRN shortness of breath or wheezing 11/04/23 insulin glargine 100 unit/mL (3 mL) subcutaneous pen (Lantus Solostar U-100 Insulin) 34 unit subcut DAILY diabetes mellitus 11/04/23 potassium chloride 10 mEq tablet,extended release(part/cryst) 10 meq PO DAILY 11/04/23 levothyroxine 200 mcg tablet 200 mcg PO DAILY 1 month #30 tabs 11/07/23 prednisone 10 mg tablet 10 mg PO DAILY #30 tabs 11/07/23
--- NOTE | 2023-11-07 10:40 | CASEMGMT ---
DINA FLORES Assessment Face to Face with patient for initial transition planning/care coordination assessment. DINA FLORES introduced self and role at [facility], pt voices understanding. Pt is A&Ox4 and is resting comfortably in bed and is calm. Care providers, pharmacy, and demographics verified. Admitting dx: COPD with tachycardia PCP: Parish Christianson Specialists: Pt states that she has an appt with [facility] upcoming Preferred Pharmacy: [facility] Insurance: [employer] (P) [facility] Prescription Benefit: Yes LNOK: Mitchell Morales (H), Carly Bernstein (Daughter) Living Arrangements: Pt lives with her in a single story home with a BM with a ramp to enter. Pt states that she does not go downstairs. ADLs/IADLs: assists Transportation: Pt and pt do not drive. Pt states that her 2 daughters and friend/ neighbor drive the pt. DME: Home oxygen through [employer]. Pt wears 3LPM at home with NC. Denies PAP use. Pt states that she has portable tanks at home and her daughter will be bringing a tank in today. Pt reports that she has a pulse Ox. Per the parts inspector, pt qualifies for 6L with ambulation and 3L at rest. Pt updated at this time. DINA Alcantar CM updated as well. Pt also states that she has a rollator, BP Cuff, and shower chair with GB. HHC/SNF: Denies SNF. Pt is active with [facility]. Pt?s goal: Home with the continuation of [facility]. Plan: Home with [facility] and O2. 6-Click is 20. Pt denies the need for additional skilled HHC or SNF placement. Pt states that she feels safe discharging home with the help of her and the continuation of care through [facility]. DINA FLORES to follow for safe DC from [facility]. Megan Quintana RN, CM
[2023-11-07] MEDS: Multivitamins,Therapeutic Tablet 1 TABLET PO (12:02)
[2023-11-07 12:23] LABS: Bedside Glucose 277 mg/dL (74-106)
[2023-11-07 16:19] LABS: Bedside Glucose 273 mg/dL (74-106)
--- NOTE | 2023-11-07 16:26 | CHAPLAIN ---
Type of Pastoral Visit _x__ Initial Visit ___ Follow-up Visit ___ On-call Visit ___ General Patient Visit ___ Spiritual Assessment ___ Family Conference ___ Bereavement ___ Rapid Response ___ Code Blue ___ Other (describe below) Pastoral Care Referral From _x__ Patient ___ Family ___ Nurse ___ Physician ___ Mold Cooler ___ Mold Designer ___ Other (describe below) Sacrament/Intervention ___ Active listening ___ Anointing ___ Christianity ___ Bereavement ___ Communion ___ [place] exploration ___ ___ Life review ___ Prayer ___ Reconciliation ___ Sacrament of Sick _x__ Supportive presence ___ Wedding ___ Other (describe below) Pastoral Comments patient had just received her lunch and stated that I am really hungry and just want to eat now; offer of support is given and pt states that she is doing fine now
[2023-11-07] MEDS: Montelukast 10 MG Tablet PO (17:34)
[2023-11-08] VITALS (8 sets, daily range): BP systolic 128–129; BP diastolic 52–66; PULSE 83–98; RESP 18–20; TEMP 36.2–36.8; O2SAT 94–100
[2023-11-08 00:08] LABS: Bedside Glucose 311 mg/dL (74-106)
[2023-11-08] MEDS: Ipratropium 0.5 MG/2.5 ML SOLUTION INHALATION ×3 (02:52→14:02)
[2023-11-08] MEDS: Acetaminophen 500 MG Tablet PO ×2 (03:11→11:40)
[2023-11-08] MEDS: Levothyroxine 100 MCG Tablet 200 MCG PO (06:11)
[2023-11-08] MEDS: Insulin Lispro 100 UNIT/ML INSULN.PEN SC ×2 (06:34→11:37)
[2023-11-08 06:44] LABS: Bedside Glucose 163 mg/dL (74-106)
[2023-11-08 08:33] LABS: Absolute Lymphocyte Count 0.71 X10^3/uL (0.83-4.51); Absolute Neutrophil Count 7.5 X10^3/uL (2.0-7.7); Hematocrit 32.6 % (37-47); Hemoglobin 10.1 g/dL (12.0-15.0); Lymphocyte # 0.71 X10^3/ul (0.83-4.51); Lymphocyte % 8.2 % (19-41); Mean Corpuscular Hgb 28.9 pg (27.0-32.0); Mean Corpuscular Volume 93.4 fL (81-99); Mean Platelet Vol. 9.5 fl (6.2-12.0); Monocyte# 0.42 X10^3/uL; Monocyte% 4.9 % (0-10); NRBC Flagged by Analyzer 0 % (0-5); Neutrophil # 7.46 X10^3/uL (2.7-7.7); Neutrophil % 86.4 % (47-70); Platelet Count 260 K/mm3 (150-450); RBC Distribution Width CV 13.2 % (11.6-14.6); RBC Distribution Width SD 45.1 fl (35.1-43.9); Red Blood Count 3.49 M/mm3 (4.2-5.4); White Blood Count 8.6 K/mm3 (4.4-11.0)
[2023-11-08 08:55] LABS: Anion Gap 1 (5-15); BUN 26 mg/dL (7-18); BUN/Creat Ratio 29.4 RATIO (10-20); Calcium,Total 9.2 mg/dL (8.5-10.1); Chloride 102 mmol/L (98-107); Creatinine, Serum 0.88 mg/dL (0.55-1.02); EST Glomerular Filtration Rate 67 mL/min (>60); Est Glom Filt Rate - Afr Amer 81 mL/min (>60); Estimated Creatinine Clearance 60.76 ml/min; Glucose 149 mg/dL (74-106); Potassium 4.2 mmol/L (3.5-5.1); Sodium Level 140 mmol/L (136-145)
--- NOTE | 2023-11-08 09:11 | DCINST_ITS ---
Discharge Instructions Diet Discharge Diet: 1800 Calorie Control Diet and 2000 mg Sodium Diet Activity Discharge Activity: Return to Normal Activity Weight Bearing Status: Weight bearing as tolerated Dressing / Incision Call your doctor if you observe: Fever of 101 or Higher, Coldness, Increased Pain, Numbness or Tingling, Change in Color, Inability to urinate, Inability to have a bowel movement, Using more than 1 pad per hour, Shortness of breath, Dizziness, Fainting spells, Swelling in the ankles, Chest pain, Prolonged hiccupping, Increased palpitations (irregular heartbeat) and Calf discomfort Follow Up Care When: IN 2 WEEKS Test Results: Test results from this visit will be discussed in further detail at your follow- up appointment, if applicable. 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 Discharge Orders/Prescriptions Prescriptions: New prednisone 10 mg tablet 10 mg PO DAILY Qty: 30 0RF Rx Instructions: 40 mg for 3 days 30 mg for 3 days, 20 mg for 3 days,and 10 mg for 3 days levothyroxine 200 mcg tablet 200 mcg PO DAILY 30 Days Qty: 30 3RF Continued montelukast 10 MG tablet 10 mg PO DINNER Patient Comments: allergies fluticasone propionate 1 SPRAY spray,suspension 2 spray NASAL DAILY Patient Comments: allergies cholecalciferol (vitamin D3) [Vitamin D3] 1,000 UNIT capsule 2,000 unit PO DAILY Patient Comments: vitamin multivitamin with folic acid [Thera] 1 TABLET tablet 1 tab PO DAILY Patient Comments: vitamin albuterol sulfate [Ventolin HFA] 1 INHALER inhaler 2 puff inhalation Q4H PRN PRN (Reason: Asthma) Qty: 1 0RF Patient Comments: breathing insulin aspart U-100 [Novolog FlexPen U-100 Insulin] 100 UNITS/ML insulin pen 0 - 5 units subcut TIDCM Patient Comments: SLIDING SCALE Rx Instructions: SLIDING SCALE celecoxib [Celebrex] 100 mg Capsule 100 mg PO DAILY omeprazole 20 mg Capsule,Delayed Release(Dr/Ec) 20 mg PO Q12H clonazepam 0.5 MG tablet 0.5 mg PO DAILY Patient Comments: anxiety Rx Instructions: ANXIETY metformin 1,000 mg tablet 1,000 mg PO BID glimepiride 4 mg tablet 4 mg PO BID fluoxetine 10 mg capsule 10 mg PO DAILY acetaminophen 500 mg Capsule 500 mg PO Q6H PRN PRN (Reason: Pain) tiotropium bromide [Spiriva with HandiHaler] 18 mcg capsule, w/inhalation device 1 cap INHALATION DAILY fluticasone propion-salmeterol [Advair HFA] 230-21 mcg/actuation HFA aerosol inhaler 1 puff INHALATION BID ipratropium-albuterol 3 ML solution for nebulization 3 ml inhalation 4X/DAY PRN (Reason: shortness of breath) Patient Comments: helps with breathing Rx Instructions: BREATHING Mucus Relief ER 1,200 mg Tablet Extended Release 12hr 1,200 mg PO BID PRN (Reason: Cough) 7 Days Qty: 14 0RF albuterol sulfate 2.5 mg /3 mL (0.083 %) solution for nebulization 2.5 mg inhalation Q4H PRN PRN (Reason: shortness of breath or wheezing) insulin glargine [Lantus Solostar U-100 Insulin] 100 unit/mL (3 mL) insulin pen 34 unit subcut DAILY potassium chloride 10 mEq tablet,ER particles/crystals 10 meq PO DAILY Discontinued levothyroxine [Levo-T] 300 mcg tablet 300 mcg PO DAILY levothyroxine [Euthyrox] 200 mcg tablet 300 mcg PO DAILY Referrals / Follow Up: Stefan Salcedo DO [Med Staff - Active Staff] - Within 1 Month Parish Christianson MD [Primary Care Provider] - Disposition Disposition (needs filled in before D/C Order can be placed): Home, Self Care
[2023-11-08] MEDS: guaiFENesin 1,200 MG Tablet 1200 MG PO (09:22)
[2023-11-08] MEDS: Pantoprazole Sodium 20 MG Tablet PO (09:22)
[2023-11-08] MEDS: Cholecalciferol (VIT D3) 25 MCG TABLET (1,000 UNITS) 50 MCG PO (09:22)
[2023-11-08] MEDS: FLUoxetine 10 MG Capsule PO (09:22)
[2023-11-08] MEDS: Fluticasone 0.05% 1 SPRAY NASAL.SRY 2 SPRAY NASAL (09:22)
[2023-11-08] MEDS: Potassium Chloride Oral Tablet 10 MEQ PO (09:23)
[2023-11-08] MEDS: Furosemide 20 MG/2 ML VIAL IV (09:23)
[2023-11-08] MEDS: Celecoxib 100 MG Capsule PO (09:23)
[2023-11-08] MEDS: Insulin Glargine-YFGN 100 UNIT/ML Pen 34 UNIT SC (09:25)
[2023-11-08] MEDS: levoFLOXacin IV 750 MG/150 ML BAG 100 MG IV (09:29)
[2023-11-08] MEDS: clonazePAM 0.5 MG Tablet PO (09:29)
[2023-11-08] MEDS: 0.9% Saline Lock 10 ML Syringe IV ×2 (09:30→13:45)
[2023-11-08] MEDS: Multivitamins,Therapeutic Tablet 1 TABLET PO (11:38)
[2023-11-08 11:42] LABS: Bedside Glucose 334 mg/dL (74-106)
--- NOTE | 2023-11-08 12:21 | DS.PCM_ITS ---
Providers Date of Admission: 11/06/23 Date of Discharge: 11/07/23 Primary Care Physician: Dr. Parish Christianson MD Reason For Visit: COPD WITH TACHYCARDIA Diagnosis Discharge Diagnosis (1) COPD (chronic obstructive pulmonary disease): Status: Chronic Code(s): J44.9 - Chronic obstructive pulmonary disease, unspecified (2) Sinus tachycardia: Status: Acute Code(s): R00.0 - Tachycardia, unspecified Plan Patient is a 72-year-old lady with history of chronic hypoxic respiratory failure secondary to COPD on baseline home oxygen who presented with increasing shortness of breath and palpitation and assessment of COPD with acute exacerbation made admitted to a monitored bed for further management 1. COPD with acute exacerbation - Patient started on bronchodilator treatment, systemic steroid as well as antibiotic therapy. Patient placed on oxygen titrated to keep saturation greater than 90. 11/06: Patient has baseline and rescue inhaler at home. 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 Quit smoking in July 2022. 11/07:Advised to follow-up crepe laminator operator in 1 month. Home oxygen testing was done pulse ox 99% on 3 L of oxygen and 94% on 3 L of oxygen ambulating. I have reviewed the oxygen testing, and this patient qualifies for the home equipment and portability. The patient is mobile in the home and the community. 2. Sinus tachycardia ? Reactive from patient's COPD as well as breathing treatment we will continue with monitoring ? May be probably due to increased dose of levothyroxine as she was taking 300 mcg. Prior TSH 16.4 on 09/23/2023. Repeat TSH came back at 0.01. Levothyroxine dose decreased to 200 mcg daily. 3. Chronic hypoxic respiratory failure ? Secondary to COPD. Patient is on baseline home oxygen 3 L/day. 4. Diabetes mellitus type II -patient's oral hypoglycemics held. Placed on long acting insulin, Accu-Cheks a.c. and at bedtime and covered with sliding scale insulin 11/06: Patient glucose is high, 217 in the morning. Will discontinue Solu- Medrol. Prescription for tapering dose of prednisone given. 5. Hypothyroidism - Patient is on levothyroxine home dose adjusted following receipt of TSH obtained on 11/05/2023 which came back at 0.01 6. GERD ? Patient is on PPI 7. Anemia - Secondary to chronic disorder monitoring H&H and transfuse if patient becomes symptomatic or hemoglobin falls below 7 8. Depression with anxiety ? Patient is on SSRI continue 9. DVT prophylaxis bilateral SCDs Avoided chemoprophylaxis given patient low hemoglobin level Discharge medication reconciliation done. Discharge follow-up instructions completed. Discharge process discussed with the patient and all questions were answered to patient's satisfaction. Follow with PCP in 1 to 2 weeks Total time spent, exact 35 minutes on discharge meds reconciliation, examination, coordination of care with nurses and ancillary staff, review of imaging and blood test and discussion with the patient on follow-up instructions. Medications at Discharge Home Medications cholecalciferol (vitamin D3) 25 mcg (1,000 unit) capsule (Vitamin D3) 2,000 unit PO DAILY SUPPLEMENT 01/15/14 fluticasone propionate 50 mcg/actuation nasal spray,suspension 2 spray DAILY ALLERGIES 01/15/14 montelukast 10 mg tablet 10 mg PO DINNER ALLERGIES 01/15/14 multivitamin with folic acid 400 mcg tablet (Thera) 1 tab PO DAILY VITAMIN 01/15/14 albuterol sulfate 90 mcg/actuation aerosol inhaler (Ventolin HFA) 2 puff inhalation Q4H PRN PRN Asthma ##1 02/14/15 insulin aspart U-100 100 unit/mL (3 mL) subcutaneous pen (Novolog FlexPen U-100 Insulin aspart) 0 - 5 units subcut TIDCM DM 02/23/16 acetaminophen 500 mg capsule 500 mg PO Q6H PRN PRN Pain 11/14/20 clonazepam 0.5 mg tablet 0.5 mg PO DAILY ANXIETY 11/14/20 fluoxetine 10 mg capsule 10 mg PO DAILY DEPRESSION 11/14/20 fluticasone propionate 230 mcg-salmeterol 21 mcg/actuation HFA inhaler (Advair HFA) 1 puff inhalation BID COPD 11/14/20 glimepiride 4 mg tablet 4 mg PO BID DM 11/14/20 ipratropium 0.5 mg-albuterol 3 mg (2.5 mg base)/3 mL nebulization soln 3 ml inhalation 4X/DAY PRN shortness of breath 11/14/20 metformin 1,000 mg tablet 1,000 mg PO BID DM 11/14/20 tiotropium bromide 18 mcg capsule with inhalation device (Spiriva with HandiHaler) 1 cap inhalation DAILY COPD 11/14/20 guaifenesin 1,200 mg tablet, extended release 12 hr (Mucus Relief ER) 1,200 mg PO BID PRN Cough 7 days #14 tabs 03/07/22 celecoxib 100 mg capsule (Celebrex) 100 mg PO DAILY arthritis 10/20/22 omeprazole 20 mg capsule,delayed release 20 mg PO Q12H GERD 11/25/22 albuterol sulfate 2.5 mg/3 mL (0.083 %) solution for nebulization 2.5 mg inhalation Q4H PRN PRN shortness of breath or wheezing 11/04/23 insulin glargine 100 unit/mL (3 mL) subcutaneous pen (Lantus Solostar U-100 Insulin) 34 unit subcut DAILY diabetes mellitus 11/04/23 potassium chloride 10 mEq tablet,extended release(part/cryst) 10 meq PO DAILY 11/04/23 levothyroxine 200 mcg tablet 200 mcg PO DAILY 1 month #30 tabs 11/07/23 prednisone 10 mg tablet 10 mg PO DAILY #30 tabs 11/07/23 Physical Exam Narrative Patient on 3 L of oxygen. Patient cough and wheezing has improved. Patient is stated she desaturated last night after going to bathroom on 2 L of oxygen. Physical exam General: Alert, Oriented x3, Cooperative, BMI 29.7 kg/m?. Overweight HEENT: Atraumatic, PERRLA, EOMI, Normocephalic Oral: No Gingival or Mucosal Lesions/ Ulcerations Neck: Supple, No JVD, Negative Carotid Bruits Chest wall/Lungs: Air entry diminished in bilateral lung bases. Bilateral wheezing and rhonchi improved. Currently on 3 L of oxygen Cardiovascular: Regular rate, Regular Rhythm, Normal S1, Normal S2, No M/G/R Abdomen: Bowel Sounds Present, Soft, Non Tender, Non-Distended : No dysuria. No renal angle tenderness. No suprapubic tenderness. Extremities: No edema, Capillary Refill Less than 3 Seconds Skin: No rashes, No breakdown Musculoskeletal: No Tenderness to Palpation of Joints or Extremities Neurological: Cranial nerves II-XII grossly intact, DTR 2+/4. No acute focal neurological deficit. Psych/Mental Status: Flat affect Weight / BMI Weight Weight: 178 lb 9.191 oz Body Mass Index (BMI) 29.7 ABG / Lab / Microbiology Data 11/08/23 07:50 11/08/23 07:50 Laboratory: Laboratory Results - last 24 hr 11/06/23 09:51: POC Glucose 330 H 11/06/23 11:26: POC Glucose 370 H 11/06/23 16:29: POC Glucose 340 H 11/06/23 21:07: POC Glucose 268 H 11/07/23 06:12: POC Glucose 270 H 11/07/23 06:30: WBC 9.7, RBC 3.29 L, Hgb 9.4 L, Hct 30.6 L, MCV 93.0, MCH 28.6, MCHC 30.7 L, RDW Std Deviation 44.9 H, RDW Coeff of [place] 13.2, Plt Count 230, MPV 9.6, Immature Gran % (Auto) 0.700, Neut % (Auto) 89.2 H, Lymph % (Auto) 6.4 L, [place] % (Auto) 3.7, Eos % (Auto) 0.0, Baso % (Auto) 0.0, Absolute Neuts (auto) 8.7 H, Absolute Lymphs (auto) 0.62 L, Nucleated RBC % 0, Sodium 138, Potassium 4.4, Chloride 102, Carbon Dioxide 33.0 H, Anion Gap 3 L, BUN 26 H, Creatinine 0.90, Estim Creat Clear Calc 59.41, Est GFR (MDRD) Af Amer 79, Est GFR (MDRD) Non-Af 65, BUN/Creatinine Ratio 28.9 H, Glucose 269 H, Calcium 8.9 Microbiology: Microbiology 11/06/23 02:55 Sputum, Expectorated/Coughed Gram Stain - Final D/C Instructions Discharge Diet: 1800 Calorie Control Diet and 2000 mg Sodium Diet Weight Bearing Status: Weight bearing as tolerated Call your doctor if you observe: Fever of 101 or Higher, Coldness, Increased Pain, Numbness or Tingling, Change in Color, Inability to urinate, Inability to have a bowel movement, Using more than 1 pad per hour, Shortness of breath, Dizziness, Fainting spells, Swelling in the ankles, Chest pain, Prolonged hiccupping, Increased palpitations (irregular heartbeat) and Calf discomfort When: IN 2 WEEKS Meaningful Use Info Meaningful Use Meaningful Use Diagnoses (Choose all that apply): None applicable Ischemic Stroke Statin Dosing Therapy Reference: STATIN DOSE THERAPY REFERENCE: * Patients > 75 years receive moderate or high dose statin therapy. * Patients 75 years or YOUNGER should receive HIGH intensity statin dose unless contraindicated. You will be required to document reason for non-treatment if statin daily dose does not meet guidelines. 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 Discharge Orders/Prescriptions Prescriptions: New prednisone 10 mg tablet 10 mg PO DAILY Qty: 30 0RF Rx Instructions: 40 mg for 3 days 30 mg for 3 days, 20 mg for 3 days,and 10 mg for 3 days levothyroxine 200 mcg tablet 200 mcg PO DAILY 30 Days Qty: 30 3RF Continued montelukast 10 MG tablet 10 mg PO DINNER Patient Comments: allergies fluticasone propionate 1 SPRAY spray,suspension 2 spray NASAL DAILY Patient Comments: allergies cholecalciferol (vitamin D3) [Vitamin D3] 1,000 UNIT capsule 2,000 unit PO DAILY Patient Comments: vitamin multivitamin with folic acid [Thera] 1 TABLET tablet 1 tab PO DAILY Patient Comments: vitamin albuterol sulfate [Ventolin HFA] 1 INHALER inhaler 2 puff inhalation Q4H PRN PRN (Reason: Asthma) Qty: 1 0RF Patient Comments: breathing insulin aspart U-100 [Novolog FlexPen U-100 Insulin] 100 UNITS/ML insulin pen 0 - 5 units subcut TIDCM Patient Comments: SLIDING SCALE Rx Instructions: SLIDING SCALE celecoxib [Celebrex] 100 mg Capsule 100 mg PO DAILY omeprazole 20 mg Capsule,Delayed Release(Dr/Ec) 20 mg PO Q12H clonazepam 0.5 MG tablet 0.5 mg PO DAILY Patient Comments: anxiety Rx Instructions: ANXIETY metformin 1,000 mg tablet 1,000 mg PO BID glimepiride 4 mg tablet 4 mg PO BID fluoxetine 10 mg capsule 10 mg PO DAILY acetaminophen 500 mg Capsule 500 mg PO Q6H PRN PRN (Reason: Pain) tiotropium bromide [Spiriva with HandiHaler] 18 mcg capsule, w/inhalation device 1 cap INHALATION DAILY fluticasone propion-salmeterol [Advair HFA] 230-21 mcg/actuation HFA aerosol inhaler 1 puff INHALATION BID ipratropium-albuterol 3 ML solution for nebulization 3 ml inhalation 4X/DAY PRN (Reason: shortness of breath) Patient Comments: helps with breathing Rx Instructions: BREATHING Mucus Relief ER 1,200 mg Tablet Extended Release 12hr 1,200 mg PO BID PRN (Reason: Cough) 7 Days Qty: 14 0RF albuterol sulfate 2.5 mg /3 mL (0.083 %) solution for nebulization 2.5 mg inhalation Q4H PRN PRN (Reason: shortness of breath or wheezing) insulin glargine [Lantus Solostar U-100 Insulin] 100 unit/mL (3 mL) insulin pen 34 unit subcut DAILY potassium chloride 10 mEq tablet,ER particles/crystals 10 meq PO DAILY Discontinued levothyroxine [Levo-T] 300 mcg tablet 300 mcg PO DAILY levothyroxine [Euthyrox] 200 mcg tablet 300 mcg PO DAILY Referrals / Follow Up: Stefan Salcedo DO [Med Staff - Active Staff] - Within 1 Month Parish Christianson MD [Primary Care Provider] - Disposition Disposition (needs filled in before D/C Order can be placed): Home, Self Care Charges/Coding Visit Charges Inpatient E&M: 35048 Disch Hosp >30min
--- NOTE | 2023-11-08 12:54 | PHA.DC_ITS ---
Pharmacy [facility] has performed discharge medication reconciliation and counseling for this patient. The patient's discharge medication list was reviewed for discrepancies and discrepancies were resolved. The patient was counseled on the following discharge medications and changes in medications for homegoing were reviewed. The Reason for Use, instructions for use, and potential side effects were reviewed for all new medications. The patient's questions regarding all of their medications were answered. 1. Levothyroxine 200 mcg PO daily. (patient was previously counselled on prednisone) The patient was able to verbally demonstrate an understanding of their discharge medications. Medications at Discharge Home Medications cholecalciferol (vitamin D3) 25 mcg (1,000 unit) capsule (Vitamin D3) 2,000 unit PO DAILY SUPPLEMENT 01/15/14 fluticasone propionate 50 mcg/actuation nasal spray,suspension 2 spray DAILY ALLERGIES 01/15/14 montelukast 10 mg tablet 10 mg PO DINNER ALLERGIES 01/15/14 multivitamin with folic acid 400 mcg tablet (Thera) 1 tab PO DAILY VITAMIN 01/15/14 albuterol sulfate 90 mcg/actuation aerosol inhaler (Ventolin HFA) 2 puff inhalation Q4H PRN PRN Asthma ##1 02/14/15 insulin aspart U-100 100 unit/mL (3 mL) subcutaneous pen (Novolog FlexPen U-100 Insulin aspart) 0 - 5 units subcut TIDCM DM 02/23/16 acetaminophen 500 mg capsule 500 mg PO Q6H PRN PRN Pain 11/14/20 clonazepam 0.5 mg tablet 0.5 mg PO DAILY ANXIETY 11/14/20 fluoxetine 10 mg capsule 10 mg PO DAILY DEPRESSION 11/14/20 fluticasone propionate 230 mcg-salmeterol 21 mcg/actuation HFA inhaler (Advair HFA) 1 puff inhalation BID COPD 11/14/20 glimepiride 4 mg tablet 4 mg PO BID DM 11/14/20 ipratropium 0.5 mg-albuterol 3 mg (2.5 mg base)/3 mL nebulization soln 3 ml inhalation 4X/DAY PRN shortness of breath 11/14/20 metformin 1,000 mg tablet 1,000 mg PO BID DM 11/14/20 tiotropium bromide 18 mcg capsule with inhalation device (Spiriva with HandiHaler) 1 cap inhalation DAILY COPD 11/14/20 guaifenesin 1,200 mg tablet, extended release 12 hr (Mucus Relief ER) 1,200 mg PO BID PRN Cough 7 days #14 tabs 03/07/22 celecoxib 100 mg capsule (Celebrex) 100 mg PO DAILY arthritis 10/20/22 omeprazole 20 mg capsule,delayed release 20 mg PO Q12H GERD 11/25/22 albuterol sulfate 2.5 mg/3 mL (0.083 %) solution for nebulization 2.5 mg inhalation Q4H PRN PRN shortness of breath or wheezing 11/04/23 insulin glargine 100 unit/mL (3 mL) subcutaneous pen (Lantus Solostar U-100 Insulin) 34 unit subcut DAILY diabetes mellitus 11/04/23 potassium chloride 10 mEq tablet,extended release(part/cryst) 10 meq PO DAILY 11/04/23 levothyroxine 200 mcg tablet 200 mcg PO DAILY 1 month #30 tabs 11/07/23 prednisone 10 mg tablet 10 mg PO DAILY #30 tabs 11/07/23
--- NOTE | 2023-11-08 13:22 | CASEMGMT ---
Patient has order for discharge. Patient is maintaining her baseline oxygen at home. DINA CM in to discuss needs at discharge. Patient states she has oxygen tank for discharge from home. Patient denies need for HHC, DINA FLORES informed patient that should she reconsider to follow-up with PCP, patient voiced understanding. Patient had no further questions or concerns.
== END 2023-11-08 14:56 | disposition home or self-care (01) | DRG 191 ==
LOC: ED 23:44 → PCU 11-05 01:43
PROVIDERS: Internal Medicine; Admitting Provider Family Medicine; Emergency Provider Emergency Medicine; PCP Family Medicine; Referring Provider Family Medicine; Visit Provider Internal Medicine
DX: J44.1 Chronic obstructive pulmonary disease with (acute) exacerbation (principal); J96.11 Chronic respiratory failure with hypoxia; D63.8 Anemia in other chronic diseases classified elsewhere; Z99.81 Dependence on supplemental oxygen; E11.65 Type 2 diabetes mellitus with hyperglycemia; Z79.4 Long term (current) use of insulin; E03.9 Hypothyroidism, unspecified; F32.A Depression, unspecified; K21.9 Gastro-esophageal reflux disease without esophagitis; F41.9 Anxiety disorder, unspecified; R00.0 Tachycardia, unspecified; Z79.51 Long term (current) use of inhaled steroids; Z79.84 Long term (current) use of oral hypoglycemic drugs; Z79.899 Other long term (current) drug therapy; Z87.891 Personal history of nicotine dependence
CPT/HCPCS: 36415; 71045; 80048; 81001; 82962; 83735; 84100; 84443; 84484; 85025; 85379; 87070; 87077; 87184; 87186; 87205; 93005; 94640; 94668; 94760; 99252; 99285; J7030; A4216; G0463; J1940; J2405

== ENCOUNTER 2023-12-05 10:36 | Inpatient (IN) | payer MEDICARE, SELFPAY ==
[2023-12-05] VITALS (19 sets, daily range): BP systolic 89–139; BP diastolic 34–62; PULSE 110–127; RESP 20–36; TEMP 20.9–36.8; O2SAT 95–100; BMI 27.1; BMI 26.6
--- NOTE | 2023-12-05 11:00 | ED.RN ---
HOSPICE NURSE AND PATIENTS DAUGHTER REQUESTING TO NOT DO CHEST X RAY AT THIS TIME. DR. MOLINA NOTIFIED
--- NOTE | 2023-12-05 11:02 | EKG12_ITS ---
Test Reason : Blood Pressure : / mmHG Vent. Rate : 126 BPM Atrial Rate : 126 BPM P-R Int : 128 ms QRS Dur : 082 ms QT Int : 312 ms P-R-T Axes : 076 061 067 degrees QTc Int : 451 ms Sinus tachycardia Otherwise normal ECG Confirmed by Winston Hill ([id number]), manager editorial GENET POSEY ([id number]) on 12/06/2023 8:07:06 AM Referred By: Confirmed By:Winston Hill
[2023-12-05 11:03] LABS: Bedside Glucose > 500 mg/dL (74-106)
--- NOTE | 2023-12-05 11:05 | EX.ED.DYSGE1 ---
HPI History of Present Illness Chief Complaint: Shortness of Breath Detail of Chief Complaint: Elevated blood sugar. Informant: patient and family (Daughter at bedside.) Onset/Context/Timing Onset: Today Context: Gradual Onset Timing: Continuous Current Severity: Moderate Maximum Severity: Moderate Narrative Narrative: 73-year-old female last Tuesday of 11/30/23 was made DNR comfort care. Is in hospice. Has a history of COPD she is on 3 to 5 L of oxygen. She is also diabetic. She has been more short of breath but primarily is here today due to elevated blood sugar greater than 600 at home. Daughter treated her with 6 units of knobby log insulin. Patient had decreased oral intake the last several days. Decreased mental status. Family does not want her intubated, nor CPR nor central line. But they would like her treated and kept comfortable. Hospice nurse is here with her. Prior similar symptoms: Yes Recent Illness/Hospitalization: Yes [facility] Medical History ILEANA (obstructive sleep apnea) COPD (chronic obstructive pulmonary disease) Vision loss of right eye Vision loss of left eye Osteopenia Depression Asthma Anxiety Hypothyroidism Smoker On home oxygen therapy Tobacco user DM type 2 (diabetes mellitus, type 2) Chronic obstructive lung disease Home Medications ?Medication ?Instructions ?Recorded ?Last Taken ?Type insulin aspart U-100 100 unit/mL 0 - 5 units subcut TIDCM DM 02/23/16 07/07/21 History (3 mL) subcutaneous pen (Novolog FlexPen U-100 Insulin aspart) fluticasone propionate 230 1 puff inhalation BID COPD 11/14/20 07/07/21 History mcg-salmeterol 21 mcg/actuation HFA inhaler (Advair HFA) glimepiride 4 mg tablet 4 mg PO BID DM 11/14/20 07/07/21 History metformin 1,000 mg tablet 1,000 mg PO BID DM 11/14/20 07/07/21 History insulin glargine 100 unit/mL (3 34 unit subcut DAILY diabetes 11/04/23 Unknown History mL) subcutaneous pen (Lantus mellitus Solostar U-100 Insulin) Allergy/AdvReac Type Severity Reaction Status Date / Time etodolac Allergy Unknown Unknown Verified 12/05/23 10:42 morphine Allergy Anaphylaxis Verified 12/05/23 10:42 Penicillins Allergy Rash Verified 12/05/23 10:42 codeine AdvReac Severe Other Verified 12/05/23 10:42 bupropion (From Wellbutrin) AdvReac Other Verified 12/05/23 10:42 erythromycin base AdvReac Upset Verified 12/05/23 10:42 (Erythromycin Base) Stomach Family History Mother CVA (cerebral vascular accident) Breast cancer Other Cancer Diabetes Liver cirrhosis Surgical History History of cholecystectomy History of appendectomy Social History Smoking Status: Former smoker second hand exposure: Yes alcohol intake: never substance use type: does not use ROS ROS ED ROS Narrative Elevated blood sugar. Shortness of breath. Review of Systems ROS Unobtainable: Denies due to encephalopathy Constitutional Constitutional ED: Denies chills or fever(s) Eyes Eyes: Denies blurry vision ENT ENT ED: Denies ear pain Cardiovascular Cardiovascular: Denies chest pain Respiratory/Chest Respiratory/Chest: Reports dyspnea; Denies cough Gastrointestinal Gastrointestinal: Denies abdominal pain, constipation, diarrhea, melena, nausea or vomiting Genitourinary Genitourinary ED: Denies dysuria or hematuria Musculoskeletal Musculoskeletal: Denies arthralgias Integumentary Denies abscess Neurologic Neurologic: Denies headache(s) or paresthesias Psychiatric Psychiatric: Denies anxiety or depression Endocrine Endocrinology: Denies cold intolerance Hematologic/Lymphatic Hematologic/Lymphatic: Reports none Allergic/Immunologic Allergic/Immunologic ED: Denies mouth swelling, tongue swelling or urticaria EXAM Physical Exam Narrative Exam Narrative: 73-year-old female vital signs show blood pressure 95/54. Heart rate 127. Afebrile. Pulse ox 100% on 15 L. H EENT exam appears round react to light. No facial droop. Dry mucous membranes. Neck nontender. Patient's head is down. She will open her eyes. She is somewhat lethargic. Lungs diminished breath sounds bilaterally. Heart tachycardic no murmur. Rate about 130. Chest wall ribs nontender. Abdomen soft nontender. Extremities are nontender without edema. She is generally weak. Neurologically she has decreased mental status. She will raise her head. She does open her eyes. She does respond to limited commands. Generally she has symmetrical weakness. Const Vital Signs: 12/05/23 10:37 12/05/23 11:15 12/05/23 11:15 Temperature 96.8 F L 96.8 F L Temperature Source Temporal Temporal Pulse Rate 127 H 127 H Respiratory Rate 35 H 34 H Respiratory Effort Respiratory Pattern Blood Pressure 95/54 L 95/54 L Blood Pressure Mean 67 67 Pulse Ox 100 100 Oxygen Delivery Method Non-Rebreather Nasal Cannula Nasal Cannula Oxygen Flow Rate (L/min) 15 5 5 12/05/23 11:15 12/05/23 11:39 12/05/23 12:00 Temperature Temperature Source Pulse Rate 122 H 117 H Respiratory Rate 36 H 26 H Respiratory Effort Short of Breath Labored Accessory Muscle Use Respiratory Pattern Tachypnea Blood Pressure 102/34 L 107/42 L Blood Pressure Mean 56 63 Pulse Ox 99 99 Oxygen Delivery Method Nasal Cannula Nasal Cannula Nasal Cannula Oxygen Flow Rate (L/min) 4 4 Positive well nourished and well developed; Negative for cachectic or contractures General Appearance ED: well developed; Negative for cachectic, contractures, cyanotic, diaphoretic, NAD or pallor Nutritional Appearance: Negative for cachectic HEENT Reports dry mucous membranes Negative for trauma or tenderness Mouth ED: Yes dry mucous membranes Mouth: dry mucous membranes Eyes PERRL and EOMs intact bilaterally General Eye ED: Negative for pale conjunctiva or scleral icterus Neck no lymphadenopathy, supple and no JVD General: Negative for tenderness Lymph Lymphatic: Negative for other Chest Wall inspection of chest normal; Negative for palpation of chest normal Resp No normal respiratory effort and clear to auscultation bilaterally Resp Narrative: Diminished breath sounds bilaterally. Auscultation: Negative for rales or rhonchi Cardio regular rhythm, S1 normal heart sound, S2 normal heart sound and no murmurs; Negative for regular rate Rate: tachycardic GI normal to inspection, nondistended, normoactive bowel sounds, non-tender, non-distended and no masses Inspection: Negative for abdominal distention Auscultation: normoactive bowel sounds Palpation: soft; Negative for tender, guarding or rebound tenderness present Back/Spine no CVA tenderness General Back: Negative for CVA tenderness Cervical Spine: Negative for cervical spine tenderness Thoracic Spine / Upper Back: Negative for thoracic spinal tenderness or paraspinal muscle tenderness Lumbar Spine / Lower Back: Negative for lumbar spinal tenderness Extremity normal to inspection General Extremety ED: Negative for edema or tenderness General Extremity: Negative for edema Neuro No oriented x3 and CN's II-XII intact bilaterally Neuro Narrative: Depressed mental status. Will open eyes. Responds very limited commands. Generally weak. Sensorium / Orientation: lethargic Motor Exam: general weakness; Negative for strength 5/5 throughout Psych mental status grossly normal Mood & Affect: Negative for anxious or tearful Skin no rashes or lesions noted and no wounds General Skin Exam: Negative for jaundice or pallor Lesions: No lesion noted Rashes: No rashes noted Trauma: Negative for abrasion Wounds: Negative for wounds noted MDM MDM MDM Narrative Medical decision making narrative: 73-year-old female history of severe COPD with chronic respiratory failure diabetic. Brought in today due to elevated blood sugar. Patient is DNR comfort care. They did not want aggressive measures such as CPR, ventilator or intubation. Patient clinically looks dehydrated. She will be treated with IV fluids screening labs and workup for possible DKA due to her blood sugar at home being greater than 600. Repeat exam at 12:34 patient's blood pressure improved with her liter of normal saline. I discussed at length with both her and her power of patent prosecution attorney at bedside. If need be they will revoke hospice. To be admitted. She would like to be admitted to the hospital. She wants aggressive measures but again no intubation, no CPR and no central line. She will be given another liter of fluid. Started on insulin drip. Blood cultures are being obtained and a chest x-ray trying to find a source of infection due to her 29,000 white count. I discussed patient's care with the hospitalist, Dr. Jaiden Gomez, we are holding off the insulin drip. Patient be put on the PCU. With subcu insulin. I ordered Lantus 20 units. Second liter of fluid. History & Record Review Discussion w/independent historian: Patient and Other (Hospice nurse and family.) Additional record(s) reviewed:: Prior inpatient record, Prior outpatient record, Prior ED visit and Prior labs Lab Data Attestation: I reviewed the patient's lab results. Lab results narrative: CBC shows no elevated white count 29,000. H&H 11.3 and 38. Electrolytes show sodium 132. Gap is 23. CO2 is 16. BUN and creatinine are 35 and 2.0. Glucose is 569. UA shows blood but no white cells nor bacteria nor nitrates. Serum acetone is large. Labs: Laboratory Results - last 24 hr 12/05/23 12/05/23 12/05/23 10:45 11:10 11:30 WBC 29.1 H RBC 4.02 L Hgb 11.3 L Hct 38.5 MCV 95.8 MCH 28.1 MCHC 29.4 L RDW Std Deviation 45.8 H RDW Coeff of [place] 13.0 Plt Count 541 H MPV 10.6 Immature Gran % (Auto) 1.800 H Neut % (Auto) 92.3 H Lymph % (Auto) 1.9 L [place] % (Auto) 3.5 Eos % (Auto) 0.1 Baso % (Auto) 0.4 Absolute Neuts (auto) 26.8 H Absolute Lymphs (auto) 0.55 L Nucleated RBC % 0 Sodium 132 L Potassium 4.9 Chloride 93 L Carbon Dioxide 16.0 L Anion Gap 23 H BUN 35 H Creatinine 2.09 H Estim Creat Clear Calc 24.16 Est GFR (MDRD) Af Amer 30 L Est GFR (MDRD) Non-Af 25 L BUN/Creatinine Ratio 16.7 Glucose 569 H* Lactic Acid 1.2 Calcium 10.3 H Urine Color Straw Urine Clarity Clear Urine pH 5.0 Ur Specific [place] 1.020 Urine Protein 30 H Urine Glucose (UA) 1000 H Urine Ketones 150 A* Urine Occult Blood 250 H Urine Nitrite Negative Urine Bilirubin Negative Urine Urobilinogen Normal Ur Leukocyte Esterase Negative Urine RBC 10-25 SEEN Urine WBC 0 SEEN Ur Squamous Epith Cells 0 SEEN Urine Bacteria 0 SEEN Urine Mucus 0 SEEN Acetone Level LARGE H POC Glucose > 500 H* Radiography Chest X-Ray - ED: 1 View and Read by ED Physician Rhythm Strip Rhythm Strip: Sinus Tach Rate: 126 Ectopy: None EKG Initial EKG: Attestation: I personally reviewed and interpreted this EKG as follows: Interpretation: No Acute Injury Pattern and Sinus Tachycardia Comments: Sinus tachycardia rate of 126 no acute signs of MA or ischemia. Unchanged from prior EKG from October Prior EKG tracings: available for review Prior: Unchanged Critical Care Time Critical Care Time: Yes Critical care time (excluding procedures): 30-74 minutes, Discussing w/Patient &/or Family/Survival Equipment Repairer, Discussing w/Consultants, Arranging Admission or Transfer, Performing Direct Patient Care at Bedside and - (35 minutes) Discharge Plan Dx/Rx/DC Orders Clinical Impression: Acute hypotension, Acute dehydration, LUCIEN (acute kidney injury), DKA (diabetic ketoacidosis), Leukocytosis, DNR (do not resuscitate), COPD (chronic obstructive pulmonary disease) with emphysema Disposition Disposition: Acute Care [facility]
[2023-12-05] MEDS: 0.9% Normal Saline (1000mL) 1,000 ML 999 ML IV ×2 (11:12→13:17)
[2023-12-05 11:20] LABS: Absolute Lymphocyte Count 0.55 X10^3/uL (0.83-4.51); Absolute Neutrophil Count 26.8 X10^3/uL (2.0-7.7); Basophil# 0.12 X10^3/uL; Basophil% 0.4 % (0-1); Eosinophil# 0.04 X10^3/uL; Eosinophils% 0.1 % (0-5); Hematocrit 38.5 % (37-47); Hemoglobin 11.3 g/dL (12.0-15.0); Lymphocyte # 0.55 X10^3/ul (0.83-4.51); Lymphocyte % 1.9 % (19-41); Mean Corp Hgb Conc 29.4 g/dL (32-36); Mean Corpuscular Hgb 28.1 pg (27.0-32.0); Mean Corpuscular Volume 95.8 fL (81-99); Mean Platelet Vol. 10.6 fl (6.2-12.0); Monocyte# 1.01 X10^3/uL; Monocyte% 3.5 % (0-10); NRBC Flagged by Analyzer 0 % (0-5); Neutrophil # 26.81 X10^3/uL (2.7-7.7); Neutrophil % 92.3 % (47-70); POSITIVE DIFFERENTIAL YES; Platelet Count 541 K/mm3 (150-450); RBC Distribution Width SD 45.8 fl (35.1-43.9); Red Blood Count 4.02 M/mm3 (4.2-5.4); White Blood Count 29.1 K/mm3 (4.4-11.0)
[2023-12-05 11:40] LABS: Anion Gap 23 (5-15); BUN 35 mg/dL (7-18); BUN/Creat Ratio 16.7 RATIO (10-20); Calcium,Total 10.3 mg/dL (8.5-10.1); Chloride 93 mmol/L (98-107); Creatinine, Serum 2.09 mg/dL (0.55-1.02); EST Glomerular Filtration Rate 25 mL/min (>60); Est Glom Filt Rate - Afr Amer 30 mL/min (>60); Estimated Creatinine Clearance 24.16 ml/min; Glucose 569 mg/dL (74-106); Potassium 4.9 mmol/L (3.5-5.1); Sodium Level 132 mmol/L (136-145)
[2023-12-05 11:44] LABS: Bacteria 0 SEEN /hpf (None Seen); Mucous, Urine 0 SEEN /hpf (<or=2+); Squamous Epithelial Cells - UA 0 SEEN /hpf (5-10); White Blood Cells 0 SEEN /hpf (0-5)
[2023-12-05 11:47] LABS: Differential Indicated SCAN CRITERIA MET
[2023-12-05 11:48] LABS: Color, Urine Straw (Yellow); Glucose, Dipstick 1000 mg/dl (Normal); Leukocyte Esterase-Dipstick Negative /ul (Negative); Nitrite-Dipstick Negative (Negative); Occult Blood-Urine 250 /ul (Negative); Protein-Dipstick 30 mg/dl (Negative); Urine Bilirubin Dipstick Negative (Negative); Urine Clarity Clear (Clear); Urine Urobilinogen Normal (Normal)
[2023-12-05 11:54] LABS: Ketone-Dipstick 150 mg/dl (Negative)
[2023-12-05 11:56] LABS: Red Blood Cells-Urine 10-25 SEEN /hpf (0-5)
[2023-12-05 12:20] LABS: Lactic Acid 1.2 mmol/L (0.4-1.9)
--- NOTE | 2023-12-05 13:00 | NURSING ---
PCU [place] DKA, HYPOTENSION, LUCIEN, LEUKOCYTOSIS, COPD, DNR CC
[2023-12-05] MEDS: Insulin Glargine-YFGN 100 UNIT/ML Pen 20 UNIT SC (13:16)
[2023-12-05 13:39] LABS: Bedside Glucose 470 mg/dL (74-106)
--- NOTE | 2023-12-05 14:02 | RAD_ITS ---
EXAM: XR CHEST, 1 VIEW CLINICAL INDICATION: leukocytosis TECHNIQUE: Frontal view of the chest. COMPARISON: XR Chest dated 11/04/2023 FINDINGS: LUNGS AND PLEURAL SPACES: Increasing airspace opacification of both lower lobes of lungs consistent with pneumonia and/or atypical pulmonary edema. Emphysematous changes of both upper lobes again seen. HEART: Normal heart size. MEDIASTINUM: No mediastinal or hilar mass. BONES/JOINTS: No acute abnormality. RAD/Chest 1 View (Portable) IMPRESSION: Increasing bibasilar pneumonia/atypical pulmonary edema. Pulmonary emphysema. Electronically Signed: Robinson Gallo MD at 14:10 EDT ,
[2023-12-05 15:57] LABS: Bedside Glucose 423 mg/dL (74-106)
[2023-12-05] MEDS: Insulin Lispro 100 UNIT/ML INSULN.PEN 10 UNIT SC (16:17)
[2023-12-05] MEDS: 0.9% Normal Saline (1000mL) 1,000 ML 150 ML IV (18:14)
[2023-12-05] MEDS: Insulin Lispro 100 UNIT/ML INSULN.PEN SC ×2 (18:47→22:13)
[2023-12-05] MEDS: Heparin Injection (Vial) 5,000 UNIT/ML VIAL 5000 UNIT SC (18:47)
--- NOTE | 2023-12-05 18:48 | PCM.HP.STD ---
HPI - General General Date of Admission: 12/05/23 HPI Narrative TRISTAN STEPHENSON, is a 73 F who presents to the hospital with lethargy, the daughter is a nurse at residential so checked her blood sugar today and noticed that it was elevated to over 600 so brought her into the ER. She is on hospice for her chronic end-stage COPD however the concern at home was the fact that she was on hospice for her respiratory status and not for diabetes so they brought her into the hospital thinking that she would be treated for her diabetes as that was not the cause of her initial hospice placement. We were able to get a contract with the hospice company to manage her care here in the hospital. She is doing well otherwise, she did have a little bit anxiety at home and in the process of waiting for hospice nursing to arrive to the house the patient was uneasy so requested coming to the ER. We are still a DNR CC and they do not want anything aggressive therefore no insulin drip was started in the ER and she was given a dose of Lantus and started on aggressive IV fluids. She is acidotic with a bicarb 16 and a gap of 23. She also has an LUCIEN of 2.09 with a baseline less than 1. [facility] Medical History ILEANA (obstructive sleep apnea) COPD (chronic obstructive pulmonary disease) Vision loss of right eye Vision loss of left eye Osteopenia Depression Asthma Anxiety Hypothyroidism Smoker On home oxygen therapy Tobacco user DM type 2 (diabetes mellitus, type 2) Chronic obstructive lung disease Home Medications ?Medication ?Instructions ?Recorded ?Last Taken ?Type insulin aspart U-100 100 unit/mL 0 - 5 units subcut TIDCM DM 02/23/16 07/07/21 History (3 mL) subcutaneous pen (Novolog FlexPen U-100 Insulin aspart) fluticasone propionate 230 1 puff inhalation BID COPD 11/14/20 07/07/21 History mcg-salmeterol 21 mcg/actuation HFA inhaler (Advair HFA) glimepiride 4 mg tablet 4 mg PO BID DM 11/14/20 07/07/21 History metformin 1,000 mg tablet 1,000 mg PO BID DM 11/14/20 07/07/21 History insulin glargine 100 unit/mL (3 34 unit subcut DAILY diabetes 11/04/23 Unknown History mL) subcutaneous pen (Lantus mellitus Solostar U-100 Insulin) Allergy/AdvReac Type Severity Reaction Status Date / Time etodolac Allergy Unknown Unknown Verified 12/05/23 10:42 morphine Allergy Anaphylaxis Verified 12/05/23 10:42 Penicillins Allergy Rash Verified 12/05/23 10:42 codeine AdvReac Severe Other Verified 12/05/23 10:42 bupropion (From Wellbutrin) AdvReac Other Verified 12/05/23 10:42 erythromycin base AdvReac Upset Verified 12/05/23 10:42 (Erythromycin Base) Stomach Family History Mother CVA (cerebral vascular accident) Breast cancer Other Cancer Diabetes Liver cirrhosis Surgical History History of cholecystectomy History of appendectomy Social History Smoking Status: Former smoker second hand exposure: Yes alcohol intake: never substance use type: does not use ROS Constitutional Constitutional: Denies chills, fatigue, fever(s) or malaise Eyes Eyes: Denies blurry vision ENT HEENT: Denies headache(s) or nasal discharge Cardiovascular Cardiovascular: Denies chest pain, dyspnea on exertion or syncope Respiratory/Chest Respiratory/Chest: Reports cough and dyspnea; Denies shortness of breath at rest or shortness of breath with exertion Gastrointestinal Gastrointestinal: Denies constipation, diarrhea, nausea or vomiting Genitourinary Genitourinary: Denies dysuria Neurologic Neurologic: Denies focal weakness, numbness or tremor(s) Psychiatric Psychiatric: Denies anxiety or depression Vital Signs Vital Signs Vital Signs: 12/05/23 10:37 12/05/23 11:15 12/05/23 11:15 Temperature 96.8 F L 96.8 F L Temperature Source Temporal Temporal Pulse Rate 127 H 127 H Respiratory Rate 35 H 34 H Respiratory Effort Respiratory Pattern Blood Pressure 95/54 L 95/54 L Blood Pressure Mean 67 67 Pulse Ox 100 100 Oxygen Delivery Method Non-Rebreather Nasal Cannula Nasal Cannula Oxygen Flow Rate (L/min) 15 5 5 12/05/23 11:15 12/05/23 11:39 12/05/23 12:00 Temperature Temperature Source Pulse Rate 122 H 117 H Respiratory Rate 36 H 26 H Respiratory Effort Short of Breath Labored Accessory Muscle Use Respiratory Pattern Tachypnea Blood Pressure 102/34 L 107/42 L Blood Pressure Mean 56 63 Pulse Ox 99 99 Oxygen Delivery Method Nasal Cannula Nasal Cannula Nasal Cannula Oxygen Flow Rate (L/min) 4 4 12/05/23 13:00 12/05/23 13:15 12/05/23 14:00 Temperature 98.3 F Temperature Source Pulse Rate 114 H 113 H 114 H Respiratory Rate 29 H 28 H 28 H Respiratory Effort Respiratory Pattern Blood Pressure 117/38 L 117/38 L 89/62 L Blood Pressure Mean 64 64 71 Pulse Ox 99 100 98 Oxygen Delivery Method Room Air Non-Rebreather Oxygen Flow Rate (L/min) 12/05/23 15:00 12/05/23 15:35 12/05/23 15:50 Temperature 98.3 F 98.3 F Temperature Source Temporal Temporal Pulse Rate 116 H 116 H 115 H Respiratory Rate 20 H 20 H 27 H Respiratory Effort Respiratory Pattern Blood Pressure 121/49 H 121/49 H 123/48 H Blood Pressure Mean 73 73 73 Pulse Ox 95 95 99 Oxygen Delivery Method Nasal Cannula Nasal Cannula Nasal Cannula Oxygen Flow Rate (L/min) 4 12/05/23 16:00 12/05/23 16:05 12/05/23 16:20 Temperature 97.9 F 97.7 F L Temperature Source Temporal Temporal Pulse Rate 115 H 110 H 116 H Respiratory Rate 22 H 26 H 31 H Respiratory Effort Respiratory Pattern Blood Pressure 123/48 H 112/46 L 116/51 L Blood Pressure Mean 73 68 72 Pulse Ox 96 99 98 Oxygen Delivery Method Nasal Cannula Nasal Cannula Room Air Oxygen Flow Rate (L/min) 4 12/05/23 16:35 12/05/23 17:00 Temperature 98.3 F Temperature Source Temporal Pulse Rate 119 H 115 H Respiratory Rate 28 H 29 H Respiratory Effort Respiratory Pattern Blood Pressure 118/46 L 119/40 L Blood Pressure Mean 70 66 Pulse Ox 99 99 Oxygen Delivery Method Nasal Cannula Nasal Cannula Oxygen Flow Rate (L/min) 4 Weight Weight: 165 lb 2.02 oz Body Mass Index (BMI) 26.6 Physical Exam Narrative General: Alert, Oriented x3, Cooperative, No apparent distress, tired HEENT: Atraumatic, PERRLA, EOMI, Normocephalic Oral: Moist Mucosa Neck: Supple, No JVD Lungs: Clear to auscultation, Normal air movement, No rhonchi, No wheeze, No rales, tachypneic Cardiovascular: Tachycardic, Regular Rhythm, Normal S1, Normal S2, No murmurs Abdomen: Soft, Non Tender, Non-Distended, No Hepato-splenomegaly Extremities: No edema, Capillary Refill Less than 3 Seconds Skin: No rashes, No breakdown Musculoskeletal: No Tenderness to Palpation of Joints or Extremities Neurological: No focal neurological deficits, Motor Exam 5/5 strength throughout, Sensory exam intact to light touch and pain Psych/Mental Status: Flat Results Lab / Micro Data 12/05/23 11:10 12/05/23 11:10 Labs: Laboratory Results - last 24 hr 12/05/23 10:45: POC Glucose > 500 H* 12/05/23 11:10: WBC 29.1 H, RBC 4.02 L, Hgb 11.3 L, Hct 38.5, MCV 95.8, MCH 28.1, MCHC 29.4 L, RDW Std Deviation 45.8 H, RDW Coeff of [place] 13.0, Plt Count 541 H, MPV 10.6, Immature Gran % (Auto) 1.800 H, Neut % (Auto) 92.3 H, Lymph % (Auto) 1.9 L, [place] % (Auto) 3.5, Eos % (Auto) 0.1, Baso % (Auto) 0.4, Absolute Neuts (auto) 26.8 H, Absolute Lymphs (auto) 0.55 L, Nucleated RBC % 0, Sodium 132 L, Potassium 4.9, Chloride 93 L, Carbon Dioxide 16.0 L, Anion Gap 23 H, BUN 35 H, Creatinine 2.09 H, Estim Creat Clear Calc 24.16, Est GFR (MDRD) Af Amer 30 L, Est GFR (MDRD) Non-Af 25 L, BUN/Creatinine Ratio 16.7, Glucose 569 H*, Lactic Acid 1.2, Calcium 10.3 H, Acetone Level LARGE H 12/05/23 11:30: Urine Color Straw, Urine Clarity Clear, Urine pH 5.0, Ur Specific [place] 1.020, Urine Protein 30 H, Urine Glucose (UA) 1000 H, Urine Ketones 150 A*, Urine Occult Blood 250 H, Urine Nitrite Negative, Urine Bilirubin Negative, Urine Urobilinogen Normal, Ur Leukocyte Esterase Negative, Urine RBC 10-25 SEEN, Urine WBC 0 SEEN, Ur Squamous Epith Cells 0 SEEN, Urine Bacteria 0 SEEN, Urine Mucus 0 SEEN 12/05/23 13:19: POC Glucose 470 H* 12/05/23 15:38: POC Glucose 423 H Rhythm Strip Rhythm Strip: Sinus Tach Rate: 126 Ectopy: None Imaging Radiology Impression Chest X-Ray 12/05/23 14:02 IMPRESSION: Increasing bibasilar pneumonia/atypical pulmonary edema. Pulmonary emphysema. Electronically Signed: Robinson Gallo MD at 14:10 EDT Reading Location ID and State: [facility] / [place] Tel , Service support , Assessment & Plan Assessment/Plan (1) DKA (diabetic ketoacidosis): PLAN: Plan 1. DKA/DM2 ? As she is on hospice and a DNR CC will proceed with IV fluids and subcu insulin ? Will obtain every 4 BMPs x 2 followed by morning lab work ? Can proceed with comfort care order sets by her home hospice company ? Did have a 20-minute conversation advance care planning with the daughter about goals of care with hospice and now with recurrent admission for DKA ? Will make her Accu-Cheks every 4 ? Continue with IV fluids at 150 cc/h, she did receive 2 L of fluid in the ER ? Leukocytosis is likely reactive to her blood sugars, will hold off antibiotics and recheck in the morning 2. Chronic hypoxic respiratory failure secondary to end-stage COPD ? Currently on hospice for this, continue with comfort medications ? Continue with oxygen therapy 3. Hypothyroidism ? On her previous admission her Synthroid was held because her TSH came back at 0.01 ? Since she is on hospice will not restart especially since she appears to have a significant risk of rapid decline DVT: Heparin 75 minutes was spent on direct patient care, including documentation as well as chart review and collaboration with colleagues Charges/Coding Visit Charges Inpatient E&M: 47533 Init Hosp L3 Procedures Hospitalists Procedures: 48852 Advncd Care Plan 30 Min
[2023-12-05 18:49] LABS: Bedside Glucose 367 mg/dL (74-106)
[2023-12-05] MEDS: Ipratropium/Albuterol Sulfate 3 ML AMPUL.NEB INHALATION ×2 (19:32→22:55)
[2023-12-05 19:36] LABS: Anion Gap 11 (5-15); BUN 39 mg/dL (7-18); BUN/Creat Ratio 21.3 RATIO (10-20); Chloride 102 mmol/L (98-107); Creatinine, Serum 1.83 mg/dL (0.55-1.02); EST Glomerular Filtration Rate 29 mL/min (>60); Est Glom Filt Rate - Afr Amer 35 mL/min (>60); Estimated Creatinine Clearance 28.33 ml/min; Glucose 374 mg/dL (74-106); Potassium 3.8 mmol/L (3.5-5.1); Sodium Level 135 mmol/L (136-145)
[2023-12-05 22:39] LABS: Anion Gap 9 (5-15); BUN 39 mg/dL (7-18); BUN/Creat Ratio 21.7 RATIO (10-20); Calcium,Total 8.9 mg/dL (8.5-10.1); Chloride 102 mmol/L (98-107); EST Glomerular Filtration Rate 29 mL/min (>60); Est Glom Filt Rate - Afr Amer 36 mL/min (>60); Glucose 309 mg/dL (74-106); Potassium 3.5 mmol/L (3.5-5.1); Sodium Level 136 mmol/L (136-145)
[2023-12-05 22:43] LABS: Bedside Glucose 267 mg/dL (74-106)
[2023-12-06] MEDS: 0.9% Normal Saline (1000mL) 1,000 ML 150 ML IV ×2 (00:35→05:55)
[2023-12-06] MEDS: Insulin Lispro 100 UNIT/ML INSULN.PEN SC ×3 (02:02→09:40)
[2023-12-06 02:25] LABS: Bedside Glucose 228 mg/dL (74-106)
[2023-12-06 03:53] VITALS: BP 148/80; PULSE 122; RESP 38; TEMP 36.6; O2SAT 96
[2023-12-06] MEDS: Hyoscyamine Sulfate 0.125 MG Tablet SL (03:58)
[2023-12-06] MEDS: HYDROmorphone 2 MG TABLET PO ×2 (03:58→14:27)
[2023-12-06] MEDS: Heparin Injection (Vial) 5,000 UNIT/ML VIAL 5000 UNIT SC (05:52)
[2023-12-06 06:27] LABS: Bedside Glucose 173 mg/dL (74-106)
[2023-12-06 06:47] VITALS: PULSE 116; RESP 28; O2SAT 96
[2023-12-06] MEDS: Ipratropium/Albuterol Sulfate 3 ML AMPUL.NEB INHALATION (06:47)
[2023-12-06 07:41] LABS: Absolute Lymphocyte Count 0.42 X10^3/uL (0.83-4.51); Absolute Neutrophil Count 24.3 X10^3/uL (2.0-7.7); Basophil# 0.12 X10^3/uL; Basophil% 0.4 % (0-1); Eosinophil# 0.14 X10^3/uL; Eosinophils% 0.5 % (0-5); Hematocrit 31.4 % (37-47); Hemoglobin 9.4 g/dL (12.0-15.0); Lymphocyte # 0.42 X10^3/ul (0.83-4.51); Lymphocyte % 1.6 % (19-41); Mean Corp Hgb Conc 29.9 g/dL (32-36); Mean Corpuscular Hgb 27.7 pg (27.0-32.0); Mean Corpuscular Volume 92.6 fL (81-99); Monocyte# 0.94 X10^3/uL; Monocyte% 3.5 % (0-10); NRBC Flagged by Analyzer 0 % (0-5); POSITIVE DIFFERENTIAL YES; Platelet Count 387 K/mm3 (150-450); RBC Distribution Width CV 13.1 % (11.6-14.6); RBC Distribution Width SD 43.8 fl (35.1-43.9); Red Blood Count 3.39 M/mm3 (4.2-5.4); White Blood Count 26.7 K/mm3 (4.4-11.0)
[2023-12-06 07:45] LABS: Anion Gap 7 (5-15); BUN 38 mg/dL (7-18); BUN/Creat Ratio 25.7 RATIO (10-20); Calcium,Total 8.9 mg/dL (8.5-10.1); Chloride 105 mmol/L (98-107); Creatinine, Serum 1.48 mg/dL (0.55-1.02); EST Glomerular Filtration Rate 37 mL/min (>60); Est Glom Filt Rate - Afr Amer 45 mL/min (>60); Estimated Creatinine Clearance 35.03 ml/min; Glucose 189 mg/dL (74-106); Potassium 3.5 mmol/L (3.5-5.1); Sodium Level 140 mmol/L (136-145)
[2023-12-06 08:02] LABS: Differential Indicated SCAN CRITERIA MET
[2023-12-06 09:21] VITALS: BP 135/62; PULSE 115; RESP 30; TEMP 36.5; O2SAT 93
[2023-12-06 09:40] LABS: Bedside Glucose 170 mg/dL (74-106)
--- NOTE | 2023-12-06 09:42 | PN.HOSP_ITS ---
Subjective Subjective No issues overnight, her DKA has resolved and all of her lab work is returning back to normal. Will initiate hospice care and have further discussions with family when they arrive Objective Data Objective Data Vital Signs: Vital Signs Temp Pulse Resp BP Pulse Ox O2 Del Method O2 Flow Rate 997.7 F H 115 H 30 H 135/62 H 93 Nasal Cannula 4 12/06/23 09:21 12/06/23 09:21 12/06/23 09:21 12/06/23 09:21 12/06/23 09:21 12/06/23 09:21 12/06/23 09:21 Oxygen Flow Rate (L/min) 4 Oxygen Delivery Method Nasal Cannula Weight: 165 lb 2.02 oz Body Mass Index (BMI) 26.6 Intake & Output: Intake and Output for Last 24 Hours 12/05/23 12/06/23 12/07/23 03:59 03:59 03:59 Intake Total 2952.5 / 2952.5 860 / 860 Output Total 800 / 800 Balance 2152.5 / 2152.5 860 / 860 Lab / Micro Data 12/06/23 06:20 12/06/23 05:55 Labs: Laboratory Results - last 24 hr 12/05/23 10:45: POC Glucose > 500 H* 12/05/23 11:10: WBC 29.1 H, RBC 4.02 L, Hgb 11.3 L, Hct 38.5, MCV 95.8, MCH 28.1, MCHC 29.4 L, RDW Std Deviation 45.8 H, RDW Coeff of [place] 13.0, Plt Count 541 H, MPV 10.6, Immature Gran % (Auto) 1.800 H, Neut % (Auto) 92.3 H, Lymph % (Auto) 1.9 L, [place] % (Auto) 3.5, Eos % (Auto) 0.1, Baso % (Auto) 0.4, Absolute Neuts (auto) 26.8 H, Absolute Lymphs (auto) 0.55 L, Nucleated RBC % 0, Sodium 132 L, Potassium 4.9, Chloride 93 L, Carbon Dioxide 16.0 L, Anion Gap 23 H, BUN 35 H, Creatinine 2.09 H, Estim Creat Clear Calc 24.16, Est GFR (MDRD) Af Amer 30 L, Est GFR (MDRD) Non-Af 25 L, BUN/Creatinine Ratio 16.7, Glucose 569 H*, Lactic Acid 1.2, Calcium 10.3 H, Acetone Level LARGE H 12/05/23 11:30: Urine Color Straw, Urine Clarity Clear, Urine pH 5.0, Ur Specific [place] 1.020, Urine Protein 30 H, Urine Glucose (UA) 1000 H, Urine Ketones 150 A*, Urine Occult Blood 250 H, Urine Nitrite Negative, Urine Bilirubin Negative, Urine Urobilinogen Normal, Ur Leukocyte Esterase Negative, Urine RBC 10-25 SEEN, Urine WBC 0 SEEN, Ur Squamous Epith Cells 0 SEEN, Urine Bacteria 0 SEEN, Urine Mucus 0 SEEN 12/05/23 13:19: POC Glucose 470 H* 12/05/23 15:38: POC Glucose 423 H 12/05/23 18:29: POC Glucose 367 H 12/05/23 19:13: Sodium 135 L, Potassium 3.8, Chloride 102, Carbon Dioxide 22.0, Anion Gap 11, BUN 39 H, Creatinine 1.83 H, Estim Creat Clear Calc 28.33, Est GFR (MDRD) Af Amer 35 L, Est GFR (MDRD) Non-Af 29 L, BUN/Creatinine Ratio 21.3 H, G lucose 374 H, Calcium 9.0 12/05/23 22:00: Sodium 136, Potassium 3.5, Chloride 102, Carbon Dioxide 25.0, Anion Gap 9, BUN 39 H, Creatinine 1.80 H, Estim Creat Clear Calc 28.80, Est GFR (MDRD) Af Amer 36 L, Est GFR (MDRD) Non-Af 29 L, BUN/Creatinine Ratio 21.7 H, G lucose 309 H, Calcium 8.9 12/05/23 22:11: POC Glucose 267 H 12/06/23 01:59: POC Glucose 228 H 12/06/23 05:51: POC Glucose 173 H 12/06/23 05:55: Sodium 140, Potassium 3.5, Chloride 105, Carbon Dioxide 28.0, Anion Gap 7, BUN 38 H, Creatinine 1.48 H, Estim Creat Clear Calc 35.03, Est GFR (MDRD) Af Amer 45 L, Est GFR (MDRD) Non-Af 37 L, BUN/Creatinine Ratio 25.7 H, G lucose 189 H, Calcium 8.9 12/06/23 06:20: WBC 26.7 H, RBC 3.39 L, Hgb 9.4 L, Hct 31.4 L, MCV 92.6, MCH 27.7, MCHC 29.9 L, RDW Std Deviation 43.8, RDW Coeff of [place] 13.1, Plt Count 387, MPV 10.0, Immature Gran % (Auto) 3.000 H, Neut % (Auto) 91.0 H, Lymph % (Auto) 1.6 L, [place] % (Auto) 3.5, Eos % (Auto) 0.5, Baso % (Auto) 0.4, Absolute Neuts (auto) 24.3 H, Absolute Lymphs (auto) 0.42 L, Nucleated RBC % 0 12/06/23 09:19: POC Glucose 170 H Radiography Diagnostic Testing: Radiology Impression Chest X-Ray 12/05/23 14:02 IMPRESSION: Increasing bibasilar pneumonia/atypical pulmonary edema. Pulmonary emphysema. Electronically Signed: Robinson Gallo MD at 14:10 EDT , Rhythm Strip Rhythm Strip: Sinus Tach Rate: 126 Ectopy: None Physical Exam Narrative General: Alert, Oriented x3, Cooperative, No apparent distress, tired HEENT: Atraumatic, PERRLA, EOMI, Normocephalic Oral: Moist Mucosa Neck: Supple, No JVD Lungs: Clear to auscultation, Normal air movement, No rhonchi, No wheeze, No rales, tachypneic Cardiovascular: Tachycardic, Regular Rhythm, Normal S1, Normal S2, No murmurs Abdomen: Soft, Non Tender, Non-Distended, No Hepato-splenomegaly Extremities: No edema, Capillary Refill Less than 3 Seconds Skin: No rashes, No breakdown Musculoskeletal: No Tenderness to Palpation of Joints or Extremities Neurological: No focal neurological deficits, Motor Exam 5/5 strength throughout, Sensory exam intact to light touch and pain Psych/Mental Status: Flat Assessment & Plan Assessment/Plan (1) DKA (diabetic ketoacidosis): PLAN: Plan 1. DKA/DM2 ? As she is on hospice and a DNR CC, will continue with comfort care order set and decrease IV fluids from 150 cc/h to 75 cc/h ? No further lab work given hospice, will continue to monitor with Accu-Cheks for her diabetes ? Can proceed with comfort care order sets by her home hospice company ? Leukocytosis is likely reactive to her blood sugars, will hold off antibiotics, she went from 29 down to 26 today 2. Chronic hypoxic respiratory failure secondary to end-stage COPD ? Currently on hospice for this, continue with comfort medications ? Continue with oxygen therapy 3. Hypothyroidism ? On her previous admission her Synthroid was held because her TSH came back at 0.01 ? Since she is on hospice will not restart DVT: Heparin Charges/Coding Visit Charges Inpatient E&M: 37181 Subs Hosp L2
[2023-12-06 10:14] LABS: Differential Comment SCANNED
[2023-12-06] MEDS: LORazepam 0.5 MG Tablet SL/PO (12:55)
[2023-12-06] MEDS: Atropine Sulfate 1% 2 ml Bottle 4 DRP PO (12:58)
--- NOTE | 2023-12-06 15:54 | NURSING ---
nurse enterred room patient apnic no heart beat verified at 1550. patient family present in room
--- NOTE | 2023-12-06 15:59 | PCM.DEATH ---
Preliminary Cause of Preliminary Cause of Preliminary Cause of : End-stage COPD Date of Admission: 12/05/23 Principle Diagnosis Problem List: Active and Suspected Problems (Updated 12/05/23 @ 12:[address] Ortiz Martinez MD) COPD (chronic obstructive pulmonary disease) with emphysema (Acute) DNR (do not resuscitate) (Acute) Leukocytosis (Acute) DKA (diabetic ketoacidosis) (Acute) LUCIEN (acute kidney injury) (Acute) Acute dehydration (Acute) Acute hypotension (Acute)
--- NOTE | 2023-12-06 16:03 | PCM.DEATH ---
Preliminary Cause of Preliminary Cause of Preliminary Cause of : End-stage COPD with chronic hypoxic respiratory failure DKA Date of Admission: 12/05/23 Date of : 12/06/23 Principle Diagnosis Problem List: Active and Suspected Problems (Updated 12/05/23 @ 12:[address] Ortiz Martinez MD) COPD (chronic obstructive pulmonary disease) with emphysema (Acute) DNR (do not resuscitate) (Acute) Leukocytosis (Acute) DKA (diabetic ketoacidosis) (Acute) LUCIEN (acute kidney injury) (Acute) Acute dehydration (Acute) Acute hypotension (Acute) Hospital Course Mrs. Morales is a 73-year-old female with a history of end-stage COPD on 4 L nasal cannula at baseline who presented to the hospital from hospice secondary to lethargy and severe hyperglycemia. Family felt concerned about taking care of her at home so requested admission to the hospital for IV fluids and insulin. She was also found to have a leukocytosis on admission to 29 which improved to 26.7, given the fact that she was hospice and family did not want any extensive yvonne any infectious etiology was not further evaluated. Her home hospice company was given a contract to help manage her care while in the hospital and overnight into the this morning she became more lethargic, she was able to open her eyes a little bit for me in the morning but no significant communication. Family presented to the hospital and made the decision to proceed with comfort care so her IV fluids and her insulin was discontinued and her IVs were removed. She was placed on comfort medications including Dilaudid as she is allergic to morphine and Ativan. She on 12/06/2023 at 1550 surrounded by family secondary to end-stage COPD with chronic hypoxic respiratory failure complicated by DKA. Visit Charges Inpatient E&M: 61137 Disch Hosp >30min
--- NOTE | 2023-12-06 17:58 | NURSING ---
family left [facility] called and aware family left hospice here with patient
--- NOTE | 2023-12-06 19:30 | NURSING ---
called [facility] again. was told By Kelsie earlier then Rita and staff that they were making a priority to call the family and find out if body can be released since hospices policy is to stay with patient this nurse recalled at 1850 and they stated that they would call before 1930 to let us know. They stated they are still working on this. meanwhile computer aided design designer is still with patient .
== END 2023-12-06 22:00 | DRG 189 ==
LOC: ED 12:56 → PCU 19:35
PROVIDERS: Admitting Provider Family Medicine; Emergency Provider Emergency Medicine; PCP Family Medicine; Visit Provider Family Medicine
DX: J96.11 Chronic respiratory failure with hypoxia (principal); E11.10 Type 2 diabetes mellitus with ketoacidosis without coma; N17.9 Acute kidney failure, unspecified; E86.0 Dehydration; J43.9 Emphysema, unspecified; E11.65 Type 2 diabetes mellitus with hyperglycemia; Z79.4 Long term (current) use of insulin; E03.9 Hypothyroidism, unspecified; Z99.81 Dependence on supplemental oxygen; Z66 Do not resuscitate; Z51.5 Encounter for palliative care; Z79.51 Long term (current) use of inhaled steroids; Z79.84 Long term (current) use of oral hypoglycemic drugs; Z87.891 Personal history of nicotine dependence
CPT/HCPCS: 36415; 71045; 80048; 81001; 82009; 82962; 83605; 85025; 87040; 93005; 94640; 99285; J7030; P9612; A4216